=== PATIENT | female | born 1935 | race Caucasian/White ===

== ENCOUNTER 2017-12-18 18:19 | Emergency (ER) | payer OTHER ==
[~2017-12-18] VITALS: Ht 160 cm; Wt 67.4 kg
[~2017-12-18 18:19] MED LIST: ACET-749 PO; ATEN25TA PO; DYZ PO; FELO10TA PO; FEXO1TAB46 PO; FLUT0.0529 NAE; LORA-741 PO; POTA1080 PO; PRLSR20 PO; SALI0.6510 NAE
[2017-12-18 18:44] VITALS: BP 185/88; PULSE 69; TEMP 36.5; O2SAT 98; Ht 160 cm; Wt 67.4 kg
[2017-12-18] MEDS ORDERED: DIPHTHERIA/TETANUS/PERTUSSIS 0.5 ML SYR/VIAL IM. ONE (19:30)
[2017-12-18] MEDS ORDERED: LIDO/EPINEPHRINE/SOD BICARB 20 ML VIAL INFIL ONE (19:30)
--- NOTE | 2017-12-18 20:11 | EMERGENCY ROOM VISIT NOTE ---
ED Visit Note First contact with patient: 19:20 The patient was seen and examined with kojo. I agree with the history, physical and findings. Please see the note for disposition and details.
--- NOTE | 2017-12-18 20:12 | EMERGENCY ROOM VISIT NOTE ---
ED Visit Note First contact with patient: 19:20 CHIEF COMPLAINT: Left calf laceration 1 hour ago HISTORY OF PRESENT ILLNESS: Patient is a 82-year-old white female who presents the emergency department for evaluation of a laceration to her left calf that she sustained about 1-2 hours ago. She was closing the car door, and accidentally caught the back of her left leg, causing the laceration described below. She states that she went to a family member's house who bandaged it for her. She is able to walk and bear weight and has no pain. Her tetanus is greater than 10 years ago. REVIEW OF SYSTEMS: Review of systems as per HPI. All other systems reviewed were negative. At least 6 systems reviewed. PMH: Electronic medical records are reviewed and summarized as above/below. See Problem List. SOCIAL HISTORY: Patient living at home with her spouse. Retired. Non-smoker. PHYSICAL EXAM: Vital Signs: Reviewed Nurse's notes. There is a 6 cm long V- shaped laceration on the lateral aspect of the left calf. The edges are gaping apart. There is no foreign material in the wound and it looks clean. There is no active bleeding. No deep structures such as tendons or nerves are seen in the base of the wound. EMERGENCY DEPARTMENT COURSE: Using sterile technique, the wound was irrigated with saline and then cleaned with Betadine. Using 1% buffered lidocaine with epinephrine anesthesia and sterile technique, the laceration was repaired with 10, 5-0 nylon sutures. Patient tolerated the procedure well. Bacitracin and a light dressing were applied. I do not suspect fracture or foreign body. The patient declined radiographs. She was given a tetanus shot. Wound care measures were discussed. She is discharged home in good condition. Medication reconciliation: I attest that I have personally reviewed the patient' s current medication list. Blood pressure screening: Patient was found to have a elevated blood pressure likely exacerbated due to circumstances. She is followed by her doctors for hypertension. Problem List Medical Problems: (1) Acute kidney injury Status: Resolved (2) Chronic kidney disease (CKD), stage III (moderate) Status: Chronic (3) Dyslipidemia Status: Chronic (4) History of adenomatous polyp of colon Status: Chronic (5) Hypertension Nos Status: Chronic (6) Nausea, vomiting, and diarrhea Status: Resolved (7) Nonfunctioning kidney Status: Chronic (8) Staghorn calculus Status: Chronic Surgical Problems: (1) Status post appendectomy Status: Resolved (2) Status post cholecystectomy Status: Resolved Current/Historical Medications Scheduled Atenolol (Tenormin), 25 MG PO QAM Felodipine (Plendil Er), 10 MG PO QPM Fluticasone Propionate (Nasal) (Flonase), 2 SPRAYS GILL HS Potassium Citrate (Urocit-K), 10 MEQ PO BID Triamterene/Hctz (Dyazide 37.5/25 Mg), 1 CAP PO QPM Scheduled PRN Acetaminophen/Codeine (Tylenol W/Codeine #3), 1-2 TABS PO Q4 PRN for Pain Fexofenadine Hcl (Priti), 180 MG PO DAILY PRN for allergies Lorazepam (Ativan), 0.5 MG PO BID PRN for Anxiety Omeprazole (Prilosec), 20 MG PO HS PRN for Heartburn Saline ([place] Nasal [place]), 2 SPRAYS GILL Q2H PRN for nasal dryness Allergies Coded Allergies: Ampicillin (Verified Allergy, Unknown, Diarrhea, 10/28/14) Meperidine (Verified Adverse Reaction, Mild, GI SYMPTOMS, 10/28/14) Vital Signs Date Time Temp Pulse Resp B/P (MAP) Pulse Ox O2 Delivery O2 Flow Rate FiO2 12/18/17 18:44 36.5 69 18 185/88 98 Room Air Departure Information Impression Primary Impression: Laceration of lower extremity Referrals Beth Hawk D.O. (PCP) Patient Instructions My [facility] Additional Instructions Keep wound clean and dry. Do not allow any crusting or dried blood to accumulate on sutures. Clean gently with mild soap and water daily. Use an antibiotic ointment for 3-4 days, then let wound dry. Suture removal in 12-14 days. Return sooner for any signs of infection (increasing redness, swelling, drainage). Ice and elevate for swelling and pain. Tylenol 1000 mg every 6 hrs for pain. Problem Qualifiers Primary Impression: Laceration of lower extremity Encounter type: initial encounter Laterality: left Qualified Codes: S81.812A - Laceration without foreign body, left lower leg, initial encounter
== END 2017-12-18 20:39 | disposition home or self-care (01) ==
LOC: C.EDB 18:20 → C.EDD 20:39
DX: S81.812A Laceration without foreign body, left lower leg, initial encounter (principal); W26.8XXA Contact with other sharp object(s), not elsewhere classified, initial encounter; Z23 Encounter for immunization; N18.3 Chronic kidney disease, stage 3 (moderate); I12.9 Hypertensive chronic kidney disease with stage 1 through stage 4 chronic kidney disease, or unspecified chronic kidney disease; Z88.0 Allergy status to penicillin; Z88.6 Allergy status to analgesic agent

== ENCOUNTER 2020-07-06 12:21 | Observation (INO) ==
[2020-07-06] MEDS ORDERED: SODIUM CHLORIDE 0.9% 1000ML 1,000 ML IV SCH ×2 (12:45→18:19)
--- NOTE | 2020-07-06 13:03 | XRay Report ---
XR chest 1V portable CLINICAL HISTORY: SEPSIS COMPARISON STUDY: No previous studies for comparison. FINDINGS: There is a very large hiatal hernia which contains both stomach and bowel. There is no fail ure. There is no focal pulmonary consolidation. There are no pleural effusions. Arthritic changes are present within the shoulders.[ IMPRESSION: Very large hiatal hernia. No acute findings. ACT 112: Negative or not required by law. Electronically signed by: Duncan Dove M.D. 07/06/2020 1:02 PM
[2020-07-06 13:41] LABS: Basophils # (auto) 0.02 K/uL (0-0.2); Basophils % (auto) 0.3 %; Eosinophils # (auto) 0.07 K/uL (0-0.5); Eosinophils % (auto) 1.2 %; Hematocrit (blood only) 40.1 % (37-47); Hemoglobin 13.7 g/dL (12.0-16.0); Immature Granulocytes # (auto) 0.01 K/uL (0.00-0.02); Immature Granulocytes % (auto) 0.2 %; Lymphocytes # (auto) 0.92 K/uL (1.2-3.4); Lymphocytes % (auto) 15.1 %; Mean Corpuscular Hemoglobin 31.1 pg (25-34); Mean Corpuscular Hgb Conc 34.2 g/dL (32-36); Mean Corpuscular Volume 90.9 fL (80-100); Mean Platelet Volume 11.2 fL (7.4-10.4); Monocytes # (auto) 0.48 K/uL (0.11-0.59); Monocytes % (auto) 7.9 %; Neutrophils # (auto) 4.58 K/uL (1.4-6.5); Neutrophils % (auto) 75.3 %; Platelet Count 185 K/uL (130-400); RDW Coefficient of Variation 12.9 % (11.5-14.5); RDW Standard Deviation 43.2 fL (36.4-46.3); Red Blood Count 4.41 M/uL (4.2-5.4); White Blood Count 6.08 K/uL (4.8-10.8)
[2020-07-06 13:51] LABS: INR 1.1 (0.9-1.1); Partial Thromboplastin Time 27.6 Seconds (21.0-31.0); Prothrombin Time 11.5 Seconds (9.0-12.0)
--- NOTE | 2020-07-06 14:02 | Emergency Department Note ---
History of Present Illness General Chief complaint: Urinary Symptoms Stated complaint: UTI-FAILED OUT PT TREATMENT,WEAK Time Seen by Provider: 07/06/20 12:37 Source: patient Mode of arrival: EMS Limitations: no limitations History of Present Illness Provider complaint: weakness, recent UTI Onset (ago): month(s) 1 Maximum Pain Intensity: 3 Associated symptoms: + loss of appetite, + malaise and + weakness; no chest pain, no fever/chills, no headaches, no nausea/vomiting and no shortness of breath Treatments prior to arrival: none This is an 85-year-old female presents the emergency department complaining of increased weakness, and poor p.o. intake and ongoing treatment for urinary tract infection. Patient states she was initially started on ciprofloxacin, and then changed to Bactrim. Patient states that she does not feel as though she is getting any better. She denies fevers or chills. Denies lower abdominal pain or any new back pain. Patient states she still has discomfort when she urinates and feels she is urinating frequently. Patient denies noticing any change in the color or odor. Patient notes she has one functional kidney. States she does have a large kidney stone in the other. Patient states she does have difficulty with chronic recurrent urinary tract infections, denies any history of pyelonephritis. Patient states she has been to the emergency room 3 times for her symptoms. States due to concern for living alone and having to go up and down steps with her worsening weakness, she is concerned she may fall. Patient states she did recently have diarrhea although that is since improved. Pt seen during a time of high acuity and national emergency pandemic while wearing PPE. Home Medications Home Medications Medication Instructions Recorded Confirmed Type atenolol 25 mg PO QAM 11/19/18 07/06/20 History felodipine 10 mg PO 11/19/18 07/06/20 History hydrochlorothiazide 25 mg PO QAM 11/19/18 07/06/20 History lorazepam 0.5 mg PO UD PRN 11/19/18 07/06/20 History omeprazole 20 mg PO UD PRN 11/19/18 07/06/20 History potassium citrate 10 meq PO QAM 11/19/18 07/06/20 History azelastine 1 spray INTRANASAL 03/01/19 07/06/20 History fluticasone propionate 1 spray INTRANASAL HS 03/01/19 07/06/20 History meclizine 25 mg PO TID PRN #21 tab 03/01/19 07/06/20 Rx ondansetron 4 mg PO Q4H PRN #8 tab 03/01/19 07/06/20 Rx Saccharomyces boulardii [Florastor] 250 mg PO QAM 07/03/20 07/06/20 History ondansetron 4 mg PO Q8H PRN #10 tab 07/03/20 07/06/20 Rx Allergies Allergy/AdvReac Type Severity Reaction Status Date / Time ampicillin Allergy Unknown Diarrhea Verified 07/06/20 14:02 meperidine AdvReac Mild GI SYMPTOMS Verified 07/06/20 14:02 Past Med/Surg History Medical History Arthritis Chronic kidney disease Dyslipidemia Hypertension Surgical History History of appendectomy History of cholecystectomy Family History (Updated 07/06/20 @ 16:31 by Karen Gonzalez PA-C) Mother CHF (congestive heart failure) Social History Smoking Status: Never smoker Hx Alcohol Use: Yes Alcohol type: wine Hx Substance Use: No Preferred Language: Romanian Communication Ability: Effective R And D Lab Technician Required: No Beliefs That Will Affect Care: None marital status: Current Living Situation: Spouse current occupational status: retired Other Information That Helps Us Care for You: No Feels Safe at Home: Yes Safety Concerns: Feels Safe At This Time Assistive Devices: Walker Review of Systems See HPI for pertinent positives & negatives. and A total of 10 systems reviewed and were otherwise negative Physical Exam Vital Signs Vital Signs - 24 hr 07/06/20 12:28 07/06/20 12:36 07/06/20 12:39 Temperature 36.7 C Temperature Source Oral Pulse Rate 56 L 54 L 57 L Pulse Rate from SpO2 Sensor 55 L 56 L Respiratory Rate 18 18 14 Respiratory Effort / Characteristics Non-Labored Spontaneous Respiratory Depth Normal Respiratory Pattern Regular Blood Pressure 144/62 H 169/68 H Blood Pressure Mean 89 98 Blood Pressure Position Sitting Pulse Oximetry 97 97 Oxygen Delivery Method Room Air Sepsis Recent Fever Within 48 Hours No Sepsis New/Unexplained Change in Mental Status N/A Sepsis Action Taken by Nursing No Action Required 07/06/20 12:45 07/06/20 12:54 07/06/20 13:00 Temperature Temperature Source Pulse Rate 55 L 53 L Pulse Rate from SpO2 Sensor 54 L Respiratory Rate 18 17 Respiratory Effort / Characteristics Respiratory Depth Respiratory Pattern Blood Pressure Blood Pressure Mean Blood Pressure Position Pulse Oximetry 98 95 Oxygen Delivery Method Room Air Sepsis Recent Fever Within 48 Hours Sepsis New/Unexplained Change in Mental Status Sepsis Action Taken by Nursing 07/06/20 13:15 07/06/20 13:30 07/06/20 13:36 Temperature Temperature Source Pulse Rate 55 L 57 L Pulse Rate from SpO2 Sensor Respiratory Rate 17 20 Respiratory Effort / Characteristics Non-Labored Respiratory Depth Respiratory Pattern Blood Pressure 170/67 H Blood Pressure Mean 100 Blood Pressure Position Pulse Oximetry 96 Oxygen Delivery Method Room Air Sepsis Recent Fever Within 48 Hours Sepsis New/Unexplained Change in Mental Status Sepsis Action Taken by Nursing 07/06/20 13:45 07/06/20 14:00 07/06/20 14:01 Temperature Temperature Source Pulse Rate 56 L 54 L 69 Pulse Rate from SpO2 Sensor Respiratory Rate 21 19 20 Respiratory Effort / Characteristics Respiratory Depth Respiratory Pattern Blood Pressure 150/58 H Blood Pressure Mean 88 Blood Pressure Position Pulse Oximetry Oxygen Delivery Method Sepsis Recent Fever Within 48 Hours Sepsis New/Unexplained Change in Mental Status Sepsis Action Taken by Nursing 07/06/20 14:03 07/06/20 14:15 07/06/20 14:30 Temperature Temperature Source Pulse Rate 56 L 54 L Pulse Rate from SpO2 Sensor Respiratory Rate 15 18 Respiratory Effort / Characteristics Non-Labored Respiratory Depth Respiratory Pattern Blood Pressure 152/83 H Blood Pressure Mean 106 Blood Pressure Position Pulse Oximetry 96 Oxygen Delivery Method Sepsis Recent Fever Within 48 Hours Sepsis New/Unexplained Change in Mental Status Sepsis Action Taken by Nursing 07/06/20 14:45 07/06/20 15:00 07/06/20 15:01 Temperature Temperature Source Pulse Rate 56 L 56 L 56 L Pulse Rate from SpO2 Sensor Respiratory Rate 23 16 19 Respiratory Effort / Characteristics Non-Labored Spontaneous Normal for Patient Respiratory Depth Respiratory Pattern Blood Pressure 159/84 H Blood Pressure Mean 106 Blood Pressure Position Pulse Oximetry 96 95 Oxygen Delivery Method Room Air Sepsis Recent Fever Within 48 Hours Sepsis New/Unexplained Change in Mental Status Sepsis Action Taken by Nursing 07/06/20 15:15 07/06/20 15:30 07/06/20 15:31 Temperature Temperature Source Pulse Rate 56 L 58 L 59 L Pulse Rate from SpO2 Sensor Respiratory Rate 16 18 19 Respiratory Effort / Characteristics Respiratory Depth Respiratory Pattern Blood Pressure 153/63 H Blood Pressure Mean 95 Blood Pressure Position Pulse Oximetry 96 Oxygen Delivery Method Sepsis Recent Fever Within 48 Hours Sepsis New/Unexplained Change in Mental Status Sepsis Action Taken by Nursing 07/06/20 15:45 Temperature Temperature Source Pulse Rate 58 L Pulse Rate from SpO2 Sensor Respiratory Rate 16 Respiratory Effort / Characteristics Respiratory Depth Respiratory Pattern Blood Pressure Blood Pressure Mean Blood Pressure Position Pulse Oximetry Oxygen Delivery Method Sepsis Recent Fever Within 48 Hours Sepsis New/Unexplained Change in Mental Status Sepsis Action Taken by Nursing GENERAL: alert, well appearing, well nourished, no distress, non-toxic EYE EXAM: normal conjunctiva, PERRL and EOM's grossly intact OROPHARYNX: no exudate, no erythema, lips, buccal mucosa, and tongue normal and mucous membranes are moist NECK: supple, no nuchal rigidity, no adenopathy, non-tender LUNGS: Clear to auscultation. Normal chest wall mechanics, no w/r/r HEART: no murmurs, S1 normal and S2 normal ABDOMEN: abdomen soft, non-tender, normo-active bowel sounds, no masses, no rebound or guarding. BACK: Back is symmetrical on inspection and there is no deformity, no midline tenderness, no CVA tenderness. SKIN: no rashes and no bruising UPPER EXTREMITIES: upper extremities are grossly normal. FROM, nml pulses b/l. LOWER EXTREMITIES: No pitting edema. FROM, nml pulses b/l. NEURO EXAM: Normal sensorium, cranial nerves II-XII grossly intact, normal speech, no gross weakness of arms, no gross weakness of legs. Gross sensation intact. Course Course 1602: [facility]. Administered Medications Atenolol (Atenolol 25 Mg Tablet) 25 mg PO QAM [facility] Stop: 08/06/20 08:59 Last Admin: 07/07/20 08:20 Dose: 25 mg Documented by: [id number] Calcium Carbonate (Calcium Carbonate 500 Mg Chewable Tab) 500 mg PO BID PRN PRN Reason: Indigestion Stop: 08/06/20 13:38 Last Admin: 07/07/20 14:28 Dose: 500 mg Documented by: [id number] Felodipine (Felodipine 5 Mg Tabcr) 10 mg PO HS [facility] Stop: 08/05/20 20:59 Last Admin: 07/07/20 20:03 Dose: 10 mg Documented by: [id number] Admin: 07/06/20 21:13 Dose: 10 mg Documented by: [id number] Fluticasone Propionate (Fluticasone Propionate Na Spr 16 Gm Btl) 1 sprays NA [facility] Stop: 08/05/20 20:59 Last Admin: 07/07/20 21:35 Dose: 1 sprays Documented by: [id number] Admin: 07/06/20 21:13 Dose: 1 sprays Documented by: [id number] Heparin Sodium (Porcine) (Heparin Sod 5,000 Unit/0.5 Ml Vial) 5,000 units SQ Q8 [facility] Stop: 08/05/20 21:59 Last Admin: 07/07/20 21:36 Dose: 5,000 units Documented by: [id number] Cosigned by: [id number] Admin: 07/07/20 13:17 Dose: 5,000 units Documented by: [id number] Cosigned by: [id number] Admin: 07/07/20 05:51 Dose: 5,000 units Documented by: [id number] Cosigned by: [id number] Admin: 07/06/20 21:14 Dose: 5,000 units Documented by: [id number] Cosigned by: [id number] Ceftriaxone Sodium 2,000 mg/ (Dextrose) 50 mls @ 100 mls/hr IV Q24H [facility]; Protocol Stop: 07/17/20 08:59 Last Infusion: 07/07/20 08:57 Dose: 0 mls/hr Documented by: [id number] Admin: 07/07/20 08:27 Dose: 100 mls/hr Documented by: [id number] Loperamide HCl (Loperamide Hcl 2 Mg Cap) 2 mg PO Q2H PRN PRN Reason: Diarrhea Stop: 08/06/20 17:03 Last Admin: 07/07/20 17:39 Dose: 2 mg Documented by: [id number] Lorazepam (Lorazepam 0.5 Mg Tab) 0.5 mg PO BID PRN PRN Reason: Anxiety Stop: 08/05/20 18:18 Last Admin: 07/07/20 21:35 Dose: 0.5 mg Documented by: [id number] Admin: 07/07/20 01:38 Dose: 0.5 mg Documented by: [id number] Miscellaneous (Azelastine: Order Awaiting Action) 1 ea N/A QS [facility] Stop: 08/06/20 00:00 Last Admin: 07/07/20 22:24 Dose: Not Given Documented by: [id number] Admin: 07/07/20 15:42 Dose: Not Given Documented by: [id number] Admin: 07/07/20 08:20 Dose: Not Given Documented by: [id number] Admin: 07/07/20 00:42 Dose: Not Given Documented by: [id number] Ondansetron HCl (Ondansetron Inj 2 Mg/Ml 2 Ml Vial) 4 mg IV Q6H PRN PRN Reason: Nausea Stop: 08/05/20 18:18 Last Admin: 07/07/20 15:34 Dose: 4 mg Documented by: [id number] Admin: 07/06/20 19:41 Dose: 4 mg Documented by: [id number] Pantoprazole Sodium (Pantoprazole 40 Mg Tab) 40 mg PO DAILY [facility]; Protocol Stop: 08/06/20 08:59 Last Admin: 07/07/20 08:20 Dose: 40 mg Documented by: [id number] Potassium Citrate (Potassium Citrate 10 Meq Tab) 10 meq PO QAM [facility] Stop: 08/06/20 08:59 Last Admin: 07/07/20 08:20 Dose: 10 meq Documented by: [id number] Saccharomyces Boulardii (Saccharomyces Boulardii 250 Mg Cap) 250 mg PO QAM [facility] Stop: 08/06/20 08:59 Last Admin: 07/07/20 08:20 Dose: 250 mg Documented by: [id number] Discontinued Medications Sodium Chloride (Nss 1000ml) 1,000 mls @ 125 mls/hr IV .Q8H [facility] Stop: 08/05/20 12:44 Last Infusion: 07/06/20 19:32 Dose: 0 mls/hr Documented by: [id number] Admin: 07/06/20 14:03 Dose: 125 mls/hr Documented by: [id number] Ceftriaxone Sodium (Rocephin) 1,000 mg in 50 mls @ 100 mls/hr IV NOW STA Stop: 07/06/20 15:42 Last Infusion: 07/06/20 15:54 Dose: 0 mls/hr Documented by: [id number] Admin: 07/06/20 15:24 Dose: 100 mls/hr Documented by: [id number] Sodium Chloride (Nss 1000ml) 1,000 mls @ 60 mls/hr IV .[id number] [facility] Stop: 07/07/20 10:58 Last Infusion: 07/07/20 11:02 Dose: 0 mls/hr Documented by: [id number] Admin: 07/06/20 19:13 Dose: 60 mls/hr Documented by: [id number] Medical Decision Making Differential Diagnosis Differential Diagnosis includes but is not limited to dehydration, stroke, anemia, hypoglycemia, hyponatremia, hypernatremia, urinary tract infection, pneumonia, bronchitis, sepsis, gastroenteritis, additional abdominal pathology, metabolic abnormalities and infections. Medical Records Attestation: I reviewed the patient's medical records. Home Medications Current Medication List: was personally reviewed by me Laboratory Data Attestation: I reviewed the patient's lab results. Result diagrams: 07/07/20 05:57 07/07/20 05:57 Lab Results 07/06/20 07/06/20 07/06/20 Range/Units 13:12 13:12 13:12 WBC 6.08 (4.8-10.8) K/uL RBC 4.41 (4.2-5.4) M/uL Hgb 13.7 (12.0-16.0) g/dL Hct 40.1 (37-47) % MCV 90.9 (80-100) fL MCH 31.1 (25-34) pg MCHC 34.2 (32-36) g/dL RDW Std Deviation 43.2 (36.4-46.3) fL RDW Coeff of Adrienne 12.9 (11.5-14.5) % Plt Count 185 (130-400) K/uL MPV 11.2 H (7.4-10.4) fL Immature Gran % (Auto) 0.2 % Neut % (Auto) 75.3 % Lymph % (Auto) 15.1 % [place] % (Auto) 7.9 % Eos % (Auto) 1.2 % Baso % (Auto) 0.3 % Neut # (Auto) 4.58 (1.4-6.5) K/uL Lymph # (Auto) 0.92 L (1.2-3.4) K/uL [place] # (Auto) 0.48 (0.11-0.59) K/uL Eos # (Auto) 0.07 (0-0.5) K/uL Baso # (Auto) 0.02 (0-0.2) K/uL Immature Gran # (Auto) 0.01 (0.00-0.02) K/uL PT 11.5 (9.0-12.0) Seconds INR 1.1 (0.9-1.1) APTT 27.6 (21.0-31.0) Seconds PTT Ratio 1.0 Sodium (136-145) mmol/L Potassium (3.5-5.1) mmol/L Chloride (98-107) mmol/L Carbon Dioxide (21-32) mmol/L Anion Gap (3-11) BUN (7-18) mg/dl Creatinine (0.6-1.2) mg/dl Est Cr Clr Drug Dosing ml/min Est GFR ( Amer) Est GFR (Non-Af Amer) BUN/Creatinine Ratio (10-20) Glucose (70-99) mg/dl Lactate (0.4-2.0) mmol/L Calcium (8.5-10.1) mg/dl Magnesium (1.8-2.4) mg/dl Total Bilirubin (0.2-1) mg/dl AST (15-37) U/L ALT (12-78) U/L Alkaline Phosphatase (45-117) U/L Troponin I (0-0.045) ng/ml Total Protein (6.4-8.2) gm/dl Albumin (3.4-5.0) gm/dl Globulin (2.5-4.0) gm/dl Albumin/Globulin Ratio (0.9-2) Procalcitonin < 0.05 (0-0.5) ng/ml Specimen Hemolysis Urine Color Urine Appearance (Clear) Urine pH (4.5-7.5) Ur Specific [place] (1.000-1.030) Urine Protein (Negative) Urine Glucose (UA) (Negative) Urine Ketones (Negative) Urine Blood (Negative) Urine Nitrite (Negative) Urine Bilirubin (Negative) Urine Urobilinogen (Negative) Ur Leukocyte Esterase (Negative) Urine WBC (Auto) (0-5) /hpf Urine RBC (Auto) (0-4) /hpf U Hyaline Cast (Auto) (0-5) /lpf U Epithel Cells (Auto) (0-5) /lpf Urine Bacteria (Auto) (Negative) Ur Renal Epithelial Cell 07/06/20 07/06/20 07/06/20 Range/Units 13:12 13:12 13:30 WBC (4.8-10.8) K/uL RBC (4.2-5.4) M/uL Hgb (12.0-16.0) g/dL Hct (37-47) % MCV (80-100) fL MCH (25-34) pg MCHC (32-36) g/dL RDW Std Deviation (36.4-46.3) fL RDW Coeff of Adrienne (11.5-14.5) % Plt Count (130-400) K/uL MPV (7.4-10.4) fL Immature Gran % (Auto) % Neut % (Auto) % Lymph % (Auto) % [place] % (Auto) % Eos % (Auto) % Baso % (Auto) % Neut # (Auto) (1.4-6.5) K/uL Lymph # (Auto) (1.2-3.4) K/uL [place] # (Auto) (0.11-0.59) K/uL Eos # (Auto) (0-0.5) K/uL Baso # (Auto) (0-0.2) K/uL Immature Gran # (Auto) (0.00-0.02) K/uL PT (9.0-12.0) Seconds INR (0.9-1.1) APTT (21.0-31.0) Seconds PTT Ratio Sodium 130 L (136-145) mmol/L Potassium 4.2 (3.5-5.1) mmol/L Chloride 97 L (98-107) mmol/L Carbon Dioxide 24 (21-32) mmol/L Anion Gap 9.0 (3-11) BUN 22 H (7-18) mg/dl Creatinine 1.81 H (0.6-1.2) mg/dl Est Cr Clr Drug Dosing 18.0 ml/min Est GFR ( Amer) 29.0 Est GFR (Non-Af Amer) 25.1 BUN/Creatinine Ratio 12.0 (10-20) Glucose 100 H (70-99) mg/dl Lactate 1.8 (0.4-2.0) mmol/L Calcium 9.5 (8.5-10.1) mg/dl Magnesium 1.7 L (1.8-2.4) mg/dl Total Bilirubin 0.5 (0.2-1) mg/dl AST 21 (15-37) U/L ALT 20 (12-78) U/L Alkaline Phosphatase 90 (45-117) U/L Troponin I < 0.015 (0-0.045) ng/ml Total Protein 8.3 H (6.4-8.2) gm/dl Albumin 3.7 (3.4-5.0) gm/dl Globulin 4.6 H (2.5-4.0) gm/dl Albumin/Globulin Ratio 0.8 L (0.9-2) Procalcitonin (0-0.5) ng/ml Specimen Hemolysis Urine Color Yellow Urine Appearance Clear (Clear) Urine pH 7.0 (4.5-7.5) Ur Specific [place] 1.012 (1.000-1.030) Urine Protein Negative (Negative) Urine Glucose (UA) Negative (Negative) Urine Ketones Negative (Negative) Urine Blood Negative (Negative) Urine Nitrite Negative (Negative) Urine Bilirubin Negative (Negative) Urine Urobilinogen Negative (Negative) Ur Leukocyte Esterase 2+ H (Negative) Urine WBC (Auto) 10-30 H (0-5) /hpf Urine RBC (Auto) 0-4 (0-4) /hpf U Hyaline Cast (Auto) 1-5 (0-5) /lpf U Epithel Cells (Auto) >30 H (0-5) /lpf Urine Bacteria (Auto) 1+ H (Negative) Ur Renal Epithelial Cell Not Reportable Imaging Data Radiologist's Impression: XR chest 1V portable CLINICAL HISTORY: SEPSIS COMPARISON STUDY: No previous studies for comparison. FINDINGS: There is a very large hiatal hernia which contains both stomach and bowel. There is no failure. There is no focal pulmonary consolidation. There are no pleural effusions. Arthritic changes are present within the shoulders.[ IMPRESSION: Very large hiatal hernia. No acute findings. ACT 112: Negative or not required by law. Electronically signed by: Duncan Dove M.D. 07/06/2020 1:02 PM ECG Data Attestation: I personally reviewed and interpreted this ECG as follows: Indication: + weakness Rate (beats per minute): 52 Rhythm: + sinus bradycardia ECG Intervals/blocks: + Normal QRS and + Normal QT ECG ST segments: + Nonspecific ST abnormalities Comparison ECG Date: from (03/01/2020) Change: no significant change Blood Pressure Blood Pressure Findings: Elevated blood pressure Blood Pressure Disposition: further management by hospitalist KAREN Narrative Pt with increased weakness and concern for her fall risk as she lives alone. Pt with recent treatment for a UTI as an outpatient and hx of recurrent UTI. No abdominal or back pain. Pt afebrile and VS stable while in the ER. Pt with RENETTA likely from combination of dehydration due to nausea/poor appetite from the medications as well as the choice of antibiotics themselves which can be nephrotoxic, especially at her age. I do not suspect obstructive uropathy. No evidence of bacteremia/sepsis. Discussed results with patient she was in agreement with plan for additional monitoring, rehydration, recheck of her kidney function. We did attempt to ambulate patient at bedside and she was very unsteady and I do feel is a fall risk and pt does live alone. Prior culture was reviewed and rocephin added. An order was placed for continuous cardiac monitoring. The monitor shows a rate of _58__ with sinus bradycardia__ rhythm. Impression & Plan Urinary tract infection, Ambulatory dysfunction, RENETTA (acute kidney injury), Acute dehydration, Generalized weakness Discharge Plan Visit Data Chief Complaint: Urinary Symptoms Stated Complaint: UTI-FAILED OUT PT TREATMENT,WEAK ED Provider: July Silvestre Discharge Problem: Urinary tract infection, Ambulatory dysfunction, RENETTA (acute kidney injury), Acute dehydration, Generalized weakness Patient Disposition: Admitted As Inpatient Discharge Instructions Interventions: ED Discharge Assessment Last Done: 07/06/20 17:45 Discharge Problem: Urinary tract infection Qualifiers: Urinary tract infection type: acute cystitis Hematuria presence: without hematuria Qualified Code(s): N30.00 - Acute cystitis without hematuria
--- NOTE | 2020-07-06 14:04 | Electrocardiogram Report ---
Test Reason : Blood Pressure : / mmHG Vent. Rate : 052 BPM Atrial Rate : 052 BPM P-R Int : 132 ms QRS Dur : 080 ms QT Int : 462 ms P-R-T Axes : -10 056 064 degrees QTc Int : 429 ms Poor data quality, interpretation may be adversely affected Sinus bradycardia Otherwise normal ECG When compared with ECG of 01-MAR-2019 08:12, No significant change was found Confirmed by Cordell Gonzalez ([id number]) on 07/06/2020 2:04:04 PM Referred By: Confirmed By:Cordell Gonzalez
[2020-07-06 14:06] LABS: Alanine Aminotransferase 20 U/L (12-78); Albumin Globulin Ratio 0.8 (0.9-2); Albumin Level 3.7 gm/dl (3.4-5.0); Alkaline Phosphatase 90 U/L (45-117); Aspartate Aminotransferase 21 U/L (15-37); Bilirubin,Total 0.5 mg/dl (0.2-1); Blood Urea Nitrogen 22 mg/dl (7-18); Calcium 9.5 mg/dl (8.5-10.1); Carbon Dioxide 24 mmol/L (21-32); Chloride 97 mmol/L (98-107); Est GFR (Non-African American) 25.1; Globulin 4.6 gm/dl (2.5-4.0); Glucose 100 mg/dl (70-99); Magnesium 1.7 mg/dl (1.8-2.4); Potassium 4.2 mmol/L (3.5-5.1); Sodium 130 mmol/L (136-145); Total Protein 8.3 gm/dl (6.4-8.2); Troponin I < 0.015 ng/ml (0-0.045)
[2020-07-06 14:18] LABS: Appearance Urine Clear (Clear); Bilirubin Urine Negative (Negative); Blood Urine Negative (Negative); Color Urine Yellow; Epithelial Cell Urine Auto >30 /lpf (0-5); Glucose Urine UA Negative (Negative); Ketones Urine Negative (Negative); Leukocyte Esterase Urine 2+ (Negative); Nitrite Urine Negative (Negative); Protein Urine Negative (Negative); RBC Urine Automated 0-4 /hpf (0-4); Specific Gravity Urine 1.012 (1.000-1.030); Urobilinogen Urine Negative (Negative)
[2020-07-06 14:36] LABS: Bacteria Urine Automated 1+ (Negative)
[2020-07-06] MEDS ORDERED: cefTRIAXone SODIUM 1,000 MG/50 ML BAG IV STA (15:13)
--- NOTE | 2020-07-06 16:30 | History & Physical Report ---
Date of Service July 06, 2020 Assessment & Plan (1) Acute UTI: This is an 85-year-old female who has significant past medical history of HTN, HLD, CKD stage III, acquired solitary kidney, JAZMYN, GERD, vitamin D deficiency presents in the secondary to come "I have been sick for a month." Urine cx 06/26 E.coli - (resistant to amp, cipro, levoquin) - UA with esterase and nitrite Urine cx 07/03 E.coli - (sensitivities reviewed) UA today +leuk esterase, wbc wnl and afebrile urine looks improved today with numerous epis so likely contaminant, she is also afebrile and wbc so not convinced of active infection - sx may be more related to dehydration/hyopatremia admit to med/surg empiric IV rocephin until culture returns gentle IVF PT/OT (2) Acute hyponatremia: Na 130 likely in setting of dehydration/hctz gentle IVF follow bmp (3) Acute worsening of stage 3 chronic kidney disease: baseline cr 1.2-1.4 bun/cr 22 and 1.8 likely in setting of Bactrim use and poor PO intake gentle IVF hydration 60cc/hr x 1 L follow renal fxn (4) Ambulatory dysfunction: 2/2 to above PT/OT (5) Hypertension: BP controlled on felodipine, atenolol and hctz hold hctz in setting of a/c ckd monitor Bp and renal fxn (6) DVT prophylaxis: SQ heparin Disposition: admit to med/surg Follow up: PCP Dr. Hawk upon discharge Pt was seen and examined in collaboration with Dr. Beltrán, please see addendum History of Present Illness Chief Complaint: "I have been sick for a month." Primary Care Provider: Beth Hawk, This is an 85-year-old female who has significant past medical history of HTN, HLD, CKD stage III, acquired solitary kidney, JAZMYN, GERD, vitamin D deficiency presents in the secondary to come "I have been sick for a month." She initially noted approximately 1 month ago increased urinary urgency. She called her PCP who prescribed her 3 days worth of Cipro. Symptoms persisted and she has actually had 2 ER visits, 06/14 and 07/03. She got another urine sample tested which grew E. coli and she was started on Bactrim. This gave her nausea and diarrhea. Ever since she has had increased weakness, nausea, one episode of loose stool daily and ill feeling. She denies fever, chills, sweats, lightheadedness, dizziness, chest pain, shortness breath, cough, abdominal pain, hematuria, melena, hematochezia. She further denies increased urg/freq. Overall poor po intake. In ED pt remained hemodynamically stable. Lab work notable for hyponatremia 130 with elevated bun/cr from baseline to 22 and 1.81. Her mag was low at 1.7. In ED she was started on 1g IV rocephin, IVF and received mag supplementation. Allergies Allergy/AdvReac Type Severity Reaction Status Date / Time ampicillin Allergy Unknown Diarrhea Verified 07/06/20 14:02 meperidine AdvReac Mild GI SYMPTOMS Verified 07/06/20 14:02 Home Medications Home Medications Medication Instructions Recorded Confirmed Type atenolol 25 mg PO QAM 11/19/18 07/06/20 History felodipine 10 mg PO HS 11/19/18 07/06/20 History hydrochlorothiazide 25 mg PO QAM 11/19/18 07/06/20 History lorazepam 0.5 mg PO UD PRN 11/19/18 07/06/20 History omeprazole 20 mg PO UD PRN 11/19/18 07/06/20 History potassium citrate 10 meq PO QAM 11/19/18 07/06/20 History azelastine 1 spray INTRANASAL HS 03/01/19 07/06/20 History fluticasone propionate 1 spray INTRANASAL HS 03/01/19 07/06/20 History meclizine 25 mg PO TID PRN #21 tab 03/01/19 07/06/20 Rx ondansetron 4 mg PO Q4H PRN #8 tab 03/01/19 07/06/20 Rx Saccharomyces boulardii [Florastor] 250 mg PO QAM 07/03/20 07/06/20 History ondansetron 4 mg PO Q8H PRN #10 tab 07/03/20 07/06/20 Rx Past Med/Surg History Medical History Arthritis Chronic kidney disease Dyslipidemia Hypertension Surgical History History of appendectomy History of cholecystectomy Family History (Updated 07/06/20 @ 16:31 by Karen Gonzalez PA-C) Mother CHF (congestive heart failure) Social History Smoking Status: Never smoker Hx Alcohol Use: Yes Alcohol type: wine Hx Substance Use: No Preferred Language: Czech Beliefs That Will Affect Care: None marital status: Current Living Situation: Spouse current occupational status: retired Feels Safe at Home: Yes Review of Systems Review of Systems: All systems reviewed & are unremarkable except as noted in HPI & below Physical Exam Physical Exam: Constitutional: WD/WN, elderly, female, vitals as above, NAD, sitting up in bed, pleasant, conversing easily Head: Normocephalic, Atraumatic Eyes: PERRL, conjunctivae normal, anicteric sclerae ENMT: external ear and nose normal, oropharynx normal Neck: trachea midline, no thyromegaly normal visual inspection Respiratory: normal respiratory effort, lungs clear to auscultation, no wheeze, rales, rhonchi. Normal insp/exp effort, no accessory muscle use Cardiovascular: RRR, no murmur, no edema Vessels: no JVD or carotid bruit Chest: normal inspection of chest Abdomen: normal bowel sounds, soft, nontender, no hepatosplenomegaly Musculoskeletal: no cyanosis or clubbing, extremities motor strength 5/5 Skin: no rashes, warm and dry moderate turgor Neurologic: no face palsy, no dysarthria CN's II-XI intact bilaterally and moves all extremities Psychiatric: A+Ox3, euthymic affect Lymphatic: no cervical or axillary lymphadenopathy : deferred Results & Data Results & Data ([facility]) Vital Signs (Past 12 Hours) Vital Signs Temp Pulse Resp BP Pulse Ox 07/06/20 16:00 59 L 17 154/82 H 95 07/06/20 15:45 58 L 16 07/06/20 15:31 59 L 19 153/63 H 96 07/06/20 15:30 58 L 18 07/06/20 15:15 56 L 16 07/06/20 15:01 56 L 19 159/84 H 95 07/06/20 15:00 56 L 16 96 07/06/20 14:45 56 L 23 07/06/20 14:30 54 L 18 152/83 H 96 07/06/20 14:15 56 L 15 07/06/20 14:01 69 20 150/58 H 07/06/20 14:00 54 L 19 07/06/20 13:45 56 L 21 07/06/20 13:36 96 07/06/20 13:30 57 L 20 170/67 H 07/06/20 13:15 55 L 17 07/06/20 13:00 53 L 17 07/06/20 12:54 95 07/06/20 12:45 55 L 18 98 07/06/20 12:39 57 L 14 97 07/06/20 12:36 54 L 18 169/68 H 97 07/06/20 12:28 36.7 C 56 L 18 144/62 H Laboratory Results Short CBC 07/06/20 07/06/20 Range/Units 13:12 13:12 WBC 6.08 (4.8-10.8) K/uL Hgb 13.7 (12.0-16.0) g/dL Hct 40.1 (37-47) % Plt Count 185 (130-400) K/uL Sodium 130 L (136-145) mmol/L BMP 07/06/20 13:12 Sodium 130 L Potassium 4.2 Chloride 97 L Carbon Dioxide 24 BUN 22 H Creatinine 1.81 H Glucose 100 H Calcium 9.5 Cardiac Enzymes 07/06/20 Range/Units 13:12 Troponin I < 0.015 (0-0.045) ng/ml Liver Function 07/06/20 Range/Units 13:12 Total Bilirubin 0.5 (0.2-1) mg/dl AST 21 (15-37) U/L ALT 20 (12-78) U/L Alkaline Phosphatase 90 (45-117) U/L Albumin 3.7 (3.4-5.0) gm/dl Urine 07/06/20 Range/Units 13:30 Urine Color Yellow Urine Appearance Clear (Clear) Urine pH 7.0 (4.5-7.5) Ur Specific [place] 1.012 (1.000-1.030) Urine Protein Negative (Negative) Urine Glucose (UA) Negative (Negative) Diagnostic Findings CXR: IMPRESSION: Very large hiatal hernia. No acute findings. Medications Administered Sodium Chloride (Nss 1000ml) 1,000 mls @ 125 mls/hr IV .Q8H NAVEEN Stop: 08/05/20 12:44 Last Admin: 07/06/20 14:03 Dose: 125 mls/hr Documented by: [id number] Discontinued Medications Ceftriaxone Sodium (Rocephin) 1,000 mg in 50 mls @ 100 mls/hr IV NOW STA Stop: 07/06/20 15:42 Last Infusion: 07/06/20 15:54 Dose: 0 mls/hr Documented by: [id number] Admin: 07/06/20 15:24 Dose: 100 mls/hr Documented by: [id number] ECG Rate (beats per minute): 52 Rhythm: sinus bradycardia Code Status & VTE Plan Code Status Full Code VTE Prophylaxis Plan VTE Prophylaxis will be ordered: Yes Supervising Physician Co-Signing Physician Notes I saw this patient with the physician production administrative assistant, I participated in the history, physical, review of systems, and physical exam. I reviewed the medications with the patient and the physician production administrative assistant and helped reconcile the medications. I helped take a detailed family and social history as well. I formulated the assessment and plan personally with the physician production administrative assistant and went over it with the patient. ROS-No Headache, No Visual Changes, No Nausea, No Vomiting, No Fever, No Chills, No Neck Pain or Stiffness, No Chest Pain, No Palpitations, No SOB, No ESQUEDA, No Cough, No Sputum, No Wheezing, No Abdominal Pain, No Diarrhea, No Hematemesis, No Hemoptysis, No Unexpected Weight Loss, No Flank pain, No Melena, No Hematochezia, No Frequency, No Urgency, No Burning, No Hematuria, No Rashes, No Diaphoresis. Appetite is Normal Physical Exam Gen-AAO x 3, NAD, Afebrile Head-NCAT, EOMI, PERRLA, Anicteric Sclera, No Posterior Pharyngeal Erythema Neck-Supple, No JVD, No Thyromegaly, No Masses, No LAD, No Bruits Lungs-Clear to Auscultation Bilaterally, No Rales, No Rhonchi, No Wheezing, No Crepitus Chest-No S4, +S1, +S2, No S3, No Murmurs, No Rubs, No Gallops, No Ectopy Abdomen-Soft, Bowel Sounds Present, Non Tender, Non Distended, No Hepatomegaly, No Splenomegaly, No Palpable Masses, No Rebound, No Rigidity, No Guarding Musculoskeletal-Full Range of Motion Bilaterally, No CVAT Extremities-No Cyanosis, No Clubbing, No Edema Nuero-Cranial Nerves II-XII grossly intact, Motor WNL, DTRs WNL, Strength WNL, Non Focal Psych-Normal Mood
[2020-07-06] MEDS ORDERED: ALUMINUM/MAGNESIUM SUSP 30 ML UDC PO PRN (18:19)
[2020-07-06] MEDS ORDERED: MAGNESIUM HYDROXIDE SUSP 30 ML UDC PO PRN (18:19)
[2020-07-06] MEDS: ONDANSETRON INJ 2 MG/ML 2 ML VIAL IV PRN (19:41)
[2020-07-06] MEDS: FLUTICASONE PROPIONATE NA SPR 16 GM BTL SCH (21:13)
[2020-07-06] MEDS: FELODIPINE 5 MG TABCR PO SCH (21:13)
[2020-07-06] MEDS: HEPARIN SOD 5,000 UNIT/0.5 ML VIAL SQ SCH (21:14)
[2020-07-07] MEDS: LORazepam 0.5 MG TAB PO PRN ×2 (01:38→21:35)
[2020-07-07] MEDS: HEPARIN SOD 5,000 UNIT/0.5 ML VIAL SQ SCH ×3 (05:51→21:36)
[2020-07-07 06:24] LABS: Basophils # (auto) 0.04 K/uL (0-0.2); Basophils % (auto) 0.7 %; Eosinophils # (auto) 0.16 K/uL (0-0.5); Eosinophils % (auto) 2.7 %; Hematocrit (blood only) 34.2 % (37-47); Hemoglobin 11.4 g/dL (12.0-16.0); Immature Granulocytes # (auto) 0.01 K/uL (0.00-0.02); Immature Granulocytes % (auto) 0.2 %; Lymphocytes # (auto) 0.88 K/uL (1.2-3.4); Lymphocytes % (auto) 14.9 %; Mean Corpuscular Hemoglobin 30.5 pg (25-34); Mean Corpuscular Hgb Conc 33.3 g/dL (32-36); Mean Corpuscular Volume 91.4 fL (80-100); Mean Platelet Volume 10.9 fL (7.4-10.4); Monocytes # (auto) 0.52 K/uL (0.11-0.59); Monocytes % (auto) 8.8 %; Neutrophils # (auto) 4.29 K/uL (1.4-6.5); Neutrophils % (auto) 72.7 %; Platelet Count 170 K/uL (130-400); RDW Standard Deviation 43.8 fL (36.4-46.3); Red Blood Count 3.74 M/uL (4.2-5.4)
[2020-07-07 06:49] LABS: BUN Creatinine Ratio 13.9 (10-20); Calcium 8.4 mg/dl (8.5-10.1); Creatinine Clr Calc Pharmacy 21.5 ml/min; Est GFR (African American) 36.1; Est GFR (Non-African American) 31.2; Magnesium 1.6 mg/dl (1.8-2.4); Potassium 3.8 mmol/L (3.5-5.1)
[2020-07-07] MEDS: ATENOLOL 25 MG TABLET PO SCH (08:20)
[2020-07-07] MEDS: POTASSIUM CITRATE 10 MEQ TAB PO SCH (08:20)
[2020-07-07] MEDS: SACCHAROMYCES BOULARDII 250 MG CAP PO SCH (08:20)
[2020-07-07] MEDS: PANTOprazole 40 MG TAB PO SCH (08:20)
[2020-07-07] MEDS: cefTRIAXone SODIUM 2,000 MG in DEXTROSE 5% 50 ML IV SCH (08:27)
[2020-07-07] MEDS: CALCIUM CARBONATE 500 MG CHEWABLE TAB PO PRN (14:28)
[2020-07-07] MEDS: ONDANSETRON INJ 2 MG/ML 2 ML VIAL IV PRN (15:34)
--- NOTE | 2020-07-07 15:43 | Hospitalist Progress Note ---
Date of Service July 07, 2020 Assessment & Plan (1) Acute UTI: This is an 85-year-old female who has significant past medical history of HTN, HLD, CKD stage III, acquired solitary kidney, JAZMYN, GERD, vitamin D deficiency presents in the secondary to come "I have been sick for a month." Urine cx 10 E.coli - (resistant to amp, cipro, levoquin) - UA with esterase and nitrite Urine cx 07/03 E.coli - (sensitivities reviewed)-sensitive to ceftriaxone UA today +leuk esterase, wbc wnl and afebrile She got Cipro for 3 days initially and later on she was given Bactrim She has been having nausea and diarrhea which has been ongoing Urine looks improved today with numerous epis so likely contaminant, she is also afebrile and wbc so not convinced of active infection - sx may be more related to dehydration/hyopatremia Started on intravenous ceftriaxone now Urine culture is showing pinpoint growth and is being reintubated Blood cultures have been negative He has been feeling better since this morning (2) Acute hyponatremia: Na 130 likely in setting of dehydration/hctz also having diarrhea Has been receiving gentle IVF Sodium level has gone up to 135 on 07/07/2020 (3) Acute worsening of stage 3 chronic kidney disease: Acute kidney failure with chronic kidney disease Baseline cr 1.2-1.4 1 admission bun/cr 22 and 1.8 Likely in setting of Bactrim use and poor PO intake Received gentle IVF hydration 60cc/hr x 1 L Creatinine has been improving and is 1.51 today Advised to drink more fluid (4) Ambulatory dysfunction: 2/2 to above PT/OT (5) Hypertension: BP controlled on felodipine, atenolol and hctz hold hctz in setting of a/c ckd monitor Bp and renal fxn Blood pressure remains stable (6) DVT prophylaxis: SQ heparin Disposition: admit to med/surg Follow up: PCP Dr. Hawk upon discharge Admission and Anticipated Discharge Date Admission Date: July 06, 2020 Subjective 07/07/2020 The patient was seen and examined in medical floor in presence of She has been feeling generalized weakness for about a month and has had 2 courses of antibiotics for recurrent UTI She is admitted with another attack of UTI without sepsis has significant electrolyte imbalance Has been feeling reasonably better since admission Review of Systems Review of Systems: All systems reviewed and are unremarkable except as noted below Gastrointestinal: + diarrhea/loose stools Neurologic: + generalized weakness Physical Exam Physical Exam: Sitting on a chair without any acute distress Constitutional: + ill appearing and + thin; no acute distress Eyes: PERRL, conjunctivae normal, anicteric sclerae ENMT: external ear and nose normal, oropharynx normal Neck: trachea midline, no thyromegaly Respiratory: normal respiratory effort; no respiratory distress Auscultation: lungs clear to auscultation bilaterally and + crackles (Minimal crackles at the bases) Cardiovascular: Rate/Rhythm: regular rate and regular rhythm Heart Sounds: no murmur Gastrointestinal (Abdomen): Inspection/Auscultation: abdomen normal to inspection; abdomen not distended Musculoskeletal: Has osteoarthritis but no acute arthritis in any joint Neurologic: moves all extremities; no focal motor deficits Alert, awake and oriented x3. Generally weak and lethargic Psychiatric: A+Ox3, euthymic affect Lymphatic: no cervical or axillary lymphadenopathy Results & Data Results & Data ([facility]) Vital Signs (Past 12 Hours) Vital Signs Temp Pulse Resp BP Pulse Ox 07/07/20 15:11 36.8 C 76 22 110/64 95 Laboratory Results Short CBC 07/07/20 Range/Units 05:57 WBC 5.90 (4.8-10.8) K/uL Hgb 11.4 L (12.0-16.0) g/dL Hct 34.2 L (37-47) % Plt Count 170 (130-400) K/uL BMP 07/07/20 05:57 Sodium 135 L Potassium 3.8 Chloride 104 Carbon Dioxide 24 BUN 21 H Creatinine 1.51 H D Glucose 100 H Calcium 8.4 L Medications Administered Current Inpatient Medications Acetaminophen (Acetaminophen 325 Mg Tab) 650 mg PO Q4H PRN PRN Reason: pain/fever Stop: 08/05/20 18:18 Al Hydrox/Mg Hydrox/Simethicone (Aluminum/Magnesium Susp 30 Ml Udc) 30 ml PO Q6H PRN PRN Reason: Dyspepsia Stop: 08/05/20 18:18 Atenolol (Atenolol 25 Mg Tablet) 25 mg PO QAM NAVEEN Stop: 08/06/20 08:59 Last Admin: 07/07/20 08:20 Dose: 25 mg Documented by: Calcium Carbonate (Calcium Carbonate 500 Mg Chewable Tab) 500 mg PO BID PRN PRN Reason: Indigestion Stop: 08/06/20 13:38 Last Admin: 07/07/20 14:28 Dose: 500 mg Documented by: Felodipine (Felodipine 5 Mg Tabcr) 10 mg PO HS [facility] Stop: 08/05/20 20:59 Last Admin: 07/06/20 21:13 Dose: 10 mg Documented by: Fluticasone Propionate (Fluticasone Propionate Na Spr 16 Gm Btl) 1 sprays NA HS [facility] Stop: 08/05/20 20:59 Last Admin: 07/06/20 21:13 Dose: 1 sprays Documented by: Heparin Sodium (Porcine) (Heparin Sod 5,000 Unit/0.5 Ml Vial) 5,000 units SQ Q8 [facility] Stop: 08/05/20 21:59 Last Admin: 07/07/20 13:17 Dose: 5,000 units Documented by: Ceftriaxone Sodium 2,000 mg/ (Dextrose) 50 mls @ 100 mls/hr IV Q24H [facility]; Protocol Stop: 07/17/20 08:59 Last Infusion: 07/07/20 08:57 Dose: Infused Documented by: Lorazepam (Lorazepam 0.5 Mg Tab) 0.5 mg PO BID PRN PRN Reason: Anxiety Stop: 08/05/20 18:18 Last Admin: 07/07/20 01:38 Dose: 0.5 mg Documented by: Magnesium Hydroxide (Magnesium Hydroxide Susp 30 Ml Udc) 30 ml PO Q6H PRN PRN Reason: Constipation Stop: 08/05/20 18:18 Miscellaneous (Azelastine: Order Awaiting Action) 1 ea N/A QS [facility] Stop: 08/06/20 00:00 Last Admin: 07/07/20 15:42 Dose: Not Given Documented by: Ondansetron HCl (Ondansetron Inj 2 Mg/Ml 2 Ml Vial) 4 mg IV Q6H PRN PRN Reason: Nausea Stop: 08/05/20 18:18 Last Admin: 07/07/20 15:34 Dose: 4 mg Documented by: Pantoprazole Sodium (Pantoprazole 40 Mg Tab) 40 mg PO DAILY [facility]; Protocol Stop: 08/06/20 08:59 Last Admin: 07/07/20 08:20 Dose: 40 mg Documented by: Potassium Citrate (Potassium Citrate 10 Meq Tab) 10 meq PO QAM [facility] Stop: 08/06/20 08:59 Last Admin: 07/07/20 08:20 Dose: 10 meq Documented by: Saccharomyces Boulardii (Saccharomyces Boulardii 250 Mg Cap) 250 mg PO QAM [facility] Stop: 08/06/20 08:59 Last Admin: 07/07/20 08:20 Dose: 250 mg Documented by:
[2020-07-07] MEDS: LOPERAMIDE HCL 2 MG CAP PO PRN (17:39)
[2020-07-07] MEDS: FELODIPINE 5 MG TABCR PO SCH (20:03)
[2020-07-07] MEDS: FLUTICASONE PROPIONATE NA SPR 16 GM BTL SCH (21:35)
[2020-07-08] MEDS: CALCIUM CARBONATE 500 MG CHEWABLE TAB PO PRN (03:48)
[2020-07-08] MEDS: ONDANSETRON INJ 2 MG/ML 2 ML VIAL IV PRN (03:48)
[2020-07-08] MEDS: HEPARIN SOD 5,000 UNIT/0.5 ML VIAL SQ SCH ×3 (05:30→21:52)
[2020-07-08 07:42] LABS: Basophils # (auto) 0.04 K/uL (0-0.2); Basophils % (auto) 0.7 %; Eosinophils # (auto) 0.18 K/uL (0-0.5); Eosinophils % (auto) 3.1 %; Hematocrit (blood only) 34.2 % (37-47); Hemoglobin 11.7 g/dL (12.0-16.0); Immature Granulocytes # (auto) 0.01 K/uL (0.00-0.02); Immature Granulocytes % (auto) 0.2 %; Lymphocytes # (auto) 0.71 K/uL (1.2-3.4); Lymphocytes % (auto) 12.3 %; Mean Corpuscular Hemoglobin 31.1 pg (25-34); Mean Corpuscular Hgb Conc 34.2 g/dL (32-36); Mean Platelet Volume 10.7 fL (7.4-10.4); Monocytes # (auto) 0.54 K/uL (0.11-0.59); Monocytes % (auto) 9.4 %; Neutrophils # (auto) 4.28 K/uL (1.4-6.5); Neutrophils % (auto) 74.3 %; Platelet Count 138 K/uL (130-400); RDW Standard Deviation 43.1 fL (36.4-46.3); Red Blood Count 3.76 M/uL (4.2-5.4); White Blood Count 5.76 K/uL (4.8-10.8)
[2020-07-08 08:15] LABS: BUN Creatinine Ratio 12.5 (10-20); Calcium 9.8 mg/dl (8.5-10.1); Creatinine Clr Calc Pharmacy 21.8 ml/min; Est GFR (African American) 36.7; Est GFR (Non-African American) 31.7; Magnesium 1.5 mg/dl (1.8-2.4); Potassium 3.7 mmol/L (3.5-5.1)
[2020-07-08] MEDS: POTASSIUM CITRATE 10 MEQ TAB PO SCH (08:24)
[2020-07-08] MEDS: PANTOprazole 40 MG TAB PO SCH (08:24)
[2020-07-08] MEDS: ATENOLOL 25 MG TABLET PO SCH (08:24)
[2020-07-08] MEDS: cefTRIAXone SODIUM 2,000 MG in DEXTROSE 5% 50 ML IV SCH (08:24)
[2020-07-08] MEDS: SACCHAROMYCES BOULARDII 250 MG CAP PO SCH (08:24)
[2020-07-08] MEDS: MAGNESIUM SULFATE / D5W 1 GM/100 ML BAG IV SCH ×2 (10:39→12:46)
[2020-07-08] MEDS: LOPERAMIDE HCL 2 MG CAP PO PRN ×2 (10:47→17:03)
[2020-07-08] MEDS ORDERED: CETIRIZINE HCL 10 MG TABLET PO ONE (11:33)
[2020-07-08] MEDS: ACETAMINOPHEN 325 MG TAB PO PRN (15:57)
--- NOTE | 2020-07-08 16:32 | Hospitalist Progress Note ---
Date of Service July 08, 2020 Assessment & Plan (1) Acute UTI: This is an 85-year-old female who has significant past medical history of HTN, HLD, CKD stage III, acquired solitary kidney, JAZMYN, GERD, vitamin D deficiency presents in the secondary to come "I have been sick for a month." Urine cx 06/26 E.coli - (resistant to amp, cipro, levoquin) - UA with esterase and nitrite Urine cx 07/03 E.coli - (sensitivities reviewed)-sensitive to ceftriaxone UA today +leuk esterase, wbc wnl and afebrile She got Cipro for 3 days initially and later on she was given Bactrim where she developed GI side effect urine cx collected on 07/06 grew multiple organisms (Mostly Contamination) Blood cx no growth Continue IV Ceftriaxone for now, will transition to PO on discharge Clinically improves significantly (2) Acute hyponatremia: Possible related to dehydration/diarrhea Na improved from 130 to 135 Stable (3) Acute worsening of stage 3 chronic kidney disease: Acute kidney failure with chronic kidney disease Creatinine on admission with bun/cr 22 and 1.8, Baseline cr 1.2-1.4 Likely in setting of Bactrim use and poor PO intake Received gentle IVF hydration 60cc/hr x 1 L Creatinine has been improving 1.4 today Continue to hold HCTZ Will continue to avoid nephrotoxic agents (4) Hypomagnesemia: Mg 1.5 today Mg replaced Continue monitor mg level (5) Ambulatory dysfunction: Continue PT/OT Fall precaution (6) Hypertension: BP stable Continue felodipine, atenolol Continue to hold HCTZ due to RENETTA Continue monitor BMP (7) DVT prophylaxis: SQ heparin Disposition: admit to med/surg Follow up: PCP Dr. Hawk upon discharge Possible discharge tomorrrow Admission and Anticipated Discharge Date Admission Date: July 06, 2020 Subjective Pt was seen and examined Sitting in chair with no distress Pt said that she feels much batter She said that she is not having the discomfort during urination Denies any chest pain, palpitation, dizziness and SOB Physical Exam Physical Exam: General- No acute distress Head- atraumatic Eyes- PERRL, EOMI, ENT- oropharynx clear Neck- supple, no JVD Lungs- clear to auscultation Heart- regular rhythm; no murmur Abdomen- normal bowel sounds, soft, nontender Extremities- no calf tenderness Neuro- alert, oriented x 3; PERRL, EOMI; no facial palsy; no dysarthria Skin- warm & dry Results & Data Results & Data ([facility]) Vital Signs (Past 12 Hours) Vital Signs Temp Pulse Resp BP BP Pulse Ox 07/08/20 16:06 36.9 C 72 18 126/61 96 07/08/20 07:35 36.9 C 76 18 117/63 94
[2020-07-08] MEDS: FELODIPINE 5 MG TABCR PO SCH (20:39)
[2020-07-08] MEDS: FLUTICASONE PROPIONATE NA SPR 16 GM BTL SCH (20:39)
[2020-07-08] MEDS: LORazepam 0.5 MG TAB PO PRN (22:00)
[2020-07-09] MEDS: HEPARIN SOD 5,000 UNIT/0.5 ML VIAL SQ SCH ×2 (06:17→13:18)
[2020-07-09] MEDS: ACETAMINOPHEN 325 MG TAB PO PRN (06:18)
[2020-07-09 07:50] LABS: BUN Creatinine Ratio 13.4 (10-20); Calcium 9.2 mg/dl (8.5-10.1); Creatinine Clr Calc Pharmacy 21.1 ml/min; Est GFR (African American) 35.3; Est GFR (Non-African American) 30.5; Potassium 3.9 mmol/L (3.5-5.1)
[2020-07-09] MEDS: SACCHAROMYCES BOULARDII 250 MG CAP PO SCH (07:56)
[2020-07-09] MEDS: LOPERAMIDE HCL 2 MG CAP PO PRN ×2 (07:56→14:05)
[2020-07-09] MEDS: POTASSIUM CITRATE 10 MEQ TAB PO SCH (07:57)
[2020-07-09] MEDS: ATENOLOL 25 MG TABLET PO SCH (07:57)
[2020-07-09] MEDS: PANTOprazole 40 MG TAB PO SCH (07:57)
[2020-07-09] MEDS: cefTRIAXone SODIUM 2,000 MG in DEXTROSE 5% 50 ML IV SCH (07:59)
--- NOTE | 2020-07-09 14:17 | Hospitalist Progress Note ---
Date of Service July 09, 2020 Assessment & Plan (1) Acute hyponatremia: Possible related to dehydration/diarrhea Na improved from 130 to 136 Stable UTI This is an 85-year-old female who has significant past medical history of HTN, HLD, CKD stage III, acquired solitary kidney, JAZMYN, GERD, vitamin D deficiency presents in the secondary to come "I have been sick for a month." Urine cx 06/26 E.coli - (resistant to amp, cipro, levoquin) - UA with esterase and nitrite Urine cx 07/03 E.coli - (sensitivities reviewed)-sensitive to ceftriaxone UA today +leuk esterase, wbc wnl and afebrile She got Cipro for 3 days initially and later on she was given Bactrim where she developed GI side effect urine cx collected on 07/06 grew multiple organisms (Mostly Contamination) Blood cx no growth Continue IV Ceftriaxone for now, will transition to PO on discharge Clinically improves significantly (2) Acute worsening of stage 3 chronic kidney disease: Acute kidney failure with chronic kidney disease Creatinine on admission with bun/cr 22 and 1.8, Baseline cr 1.2-1.4 Likely in setting of Bactrim use and poor PO intake Received gentle IVF hydration 60cc/hr x 1 L Creatinine has been improving 1.5 today Continue to hold HCTZ while inpatient Will continue to avoid nephrotoxic agents Hypertension: BP stable Continue felodipine, atenolol Continue to hold HCTZ due to RENETTA Continue monitor BMP (3) Hypomagnesemia: Mg 2.0 today Mg stable Continue monitor mg level (4) Ambulatory dysfunction: Continue PT/OT Fall precaution (5) DVT prophylaxis: SQ heparin Disposition: admit to med/surg Follow up: PCP Dr. Hawk upon discharge Discharge home today Admission and Anticipated Discharge Date Admission Date: July 06, 2020 Subjective Pt was seen and examined Sitting in chair with no distress Pt said that she feels a lot better She said that this morning while getting up, she seems to injure her right shoulder She said that the pain is very mild I offered to get an xray for reassurance, she declined it since her pain was improved She denies any chest pain, palpitation, dizziness and SOB Physical Exam Physical Exam: General- No acute distress Head- atraumatic Eyes- PERRL, EOMI, ENT- oropharynx clear Neck- supple, no JVD Lungs- clear to auscultation Heart- regular rhythm; no murmur Abdomen- normal bowel sounds, soft, nontender Extremities- no calf tenderness, right shoulder tenderness Neuro- alert, oriented x 3; PERRL, EOMI; no facial palsy; no dysarthria Skin- warm & dry Results & Data Results & Data ([facility]) Vital Signs (Past 12 Hours) Vital Signs Temp Pulse Resp BP Pulse Ox 07/09/20 07:35 36.7 C 73 18 132/74 94
--- NOTE | 2020-07-13 08:29 | Discharge Summary ---
Date of Service July 09, 2020 Admission HPI Per Admitting Provider This is an 85-year-old female who has significant past medical history of HTN, HLD, CKD stage III, acquired solitary kidney, JAZMYN, GERD, vitamin D deficiency presents in the secondary to come "I have been sick for a month." She initially noted approximately 1 month ago increased urinary urgency. She called her PCP who prescribed her 3 days worth of Cipro. Symptoms persisted and she has actually had 2 ER visits, 06/14 and 07/03. She got another urine sample tested which grew E. coli and she was started on Bactrim. This gave her nausea and diarrhea. Ever since she has had increased weakness, nausea, one episode of loose stool daily and ill feeling. She denies fever, chills, sweats, lightheadedness, dizziness, chest pain, shortness breath, cough, abdominal pain, hematuria, melena, hematochezia. She further denies increased urg/freq. Overall poor po intake. In ED pt remained hemodynamically stable. Lab work notable for hyponatremia 130 with elevated bun/cr from baseline to 22 and 1.81. Her mag was low at 1.7. In ED she was started on 1g IV rocephin, IVF and received mag supplementation. Admission Exam Per Admitting Provider Constitutional: WD/WN, elderly, female, vitals as above, NAD, sitting up in bed, pleasant, conversing easily Head: Normocephalic, Atraumatic Eyes: PERRL, conjunctivae normal, anicteric sclerae ENMT: external ear and nose normal, oropharynx normal Neck: trachea midline, no thyromegaly normal visual inspection Respiratory: normal respiratory effort, lungs clear to auscultation, no wheeze, rales, rhonchi. Normal insp/exp effort, no accessory muscle use Cardiovascular: RRR, no murmur, no edema Vessels: no JVD or carotid bruit Chest: normal inspection of chest Abdomen: normal bowel sounds, soft, nontender, no hepatosplenomegaly Musculoskeletal: no cyanosis or clubbing, extremities motor strength 5/5 Skin: no rashes, warm and dry moderate turgor Neurologic: no face palsy, no dysarthria CN's II-XI intact bilaterally and moves all extremities Psychiatric: A+Ox3, euthymic affect Lymphatic: no cervical or axillary lymphadenopathy : deferred Principal Diagnosis Urinary tract infection (UTI) Acute hyponatremia: Acute worsening of stage 3 chronic kidney disease: Hypomagnesemia: Ambulatory dysfunction: Discharge Exam General- No acute distress Head- atraumatic Eyes- PERRL, EOMI, ENT- oropharynx clear Neck- supple, no JVD Lungs- clear to auscultation Heart- regular rhythm; no murmur Abdomen- normal bowel sounds, soft, nontender Extremities- no calf tenderness, right shoulder tenderness Neuro- alert, oriented x 3; PERRL, EOMI; no facial palsy; no dysarthria Skin- warm & dry Discharge Data Allergies Allergy/AdvReac Type Severity Reaction Status Date / Time ampicillin Allergy Unknown Diarrhea Verified 07/06/20 14:02 meperidine AdvReac Mild GI SYMPTOMS Verified 07/06/20 14:02 Consultations 07/06/20 16:01 ED Decision to Admit Stat 07/06/20 18:19 Consult Case Management - Discharge Planning Routine Ordered Studies XR chest 1V portable CLINICAL HISTORY: SEPSIS COMPARISON STUDY: No previous studies for comparison. FINDINGS: There is a very large hiatal hernia which contains both stomach and bowel. There is no failure. There is no focal pulmonary consolidation. There are no pleural effusions. Arthritic changes are present within the shoulders.[ IMPRESSION: Very large hiatal hernia. No acute findings. ACT 112: Negative or not required by law. Electronically signed by: Duncan Dove M.D. 07/06/2020 1:02 PM Dictated: 07/06/20 1301 Transcribed: 07/06/20 1301 Hospital Course (1) Acute hyponatremia: Possible related to dehydration/diarrhea Na improved from 130 to 136 Stable UTI This is an 85-year-old female who has significant past medical history of HTN, HLD, CKD stage III, acquired solitary kidney, JAZMYN, GERD, vitamin D deficiency presents in the secondary to come "I have been sick for a month." Urine cx 06/26 E.coli - (resistant to amp, cipro, levoquin) - UA with esterase and nitrite Urine cx 07/03 E.coli - (sensitivities reviewed)-sensitive to ceftriaxone UA today +leuk esterase, wbc wnl and afebrile She got Cipro for 3 days initially and later on she was given Bactrim where she developed GI side effect urine cx collected on 07/06 grew multiple organisms (Mostly Contamination) Blood cx no growth Continue IV Ceftriaxone for now, will transition to PO on discharge Clinically improves significantly (2) Acute worsening of stage 3 chronic kidney disease: Acute kidney failure with chronic kidney disease Creatinine on admission with bun/cr 22 and 1.8, Baseline cr 1.2-1.4 Likely in setting of Bactrim use and poor PO intake Received gentle IVF hydration 60cc/hr x 1 L Creatinine has been improving 1.5 today Continue to hold HCTZ while inpatient Will continue to avoid nephrotoxic agents Hypertension: BP stable Continue felodipine, atenolol Continue to hold HCTZ due to RENETTA Continue monitor BMP (3) Hypomagnesemia: Mg 2.0 today Mg stable Continue monitor mg level (4) Ambulatory dysfunction: Continue PT/OT Fall precaution (5) DVT prophylaxis: SQ heparin Disposition: admit to med/surg Follow up: PCP Dr. Hawk upon discharge Discharge home today Total Time Total Time Spent Total Time Spent (In Minutes): 35 minutes Total Time Includes: Examination of the Patient, Discharge Planning, Medication Reconciliation, Communication With Other Providers and Other Discharge Plan Discharge Items Patient Disposition: Home - Home Health Services Reason For Visit: UTI, A/C CKD 3 Discharge Diagnosis: Urinary tract infection (UTI) Acute hyponatremia: Acute worsening of stage 3 chronic kidney disease: Hypomagnesemia: Ambulatory dysfunction: Activity: Resume your previous activity Non-emergency contact: Primary Care Provider Call non-emergency contact if: you have any medication questions and your temperature is above 101 Follow-up/Referrals: Beth Hawk DO [Primary Care Provider] - (Date & Time 07/15/2020 11:10 AM Provider Beth Hawk DO [facility] ) Diet: Heart Healthy Addtl Attending Provider Instructions: Follow up with your primary care provider Dr. Hawk on 07/15 @ 10:55 AM Check BMP and magnesium level in 1 week to monitor your renal function and electrolytes Please complete the course of the antibiotic with cefdinir Continue physical therapy Fall precaution Pending Studies at Discharge: No Stand-Alone Forms: My [employer], Smoking Cessation Medications and DC Order Prescriptions: Continued atenolol 25 mg tablet 25 mg PO QAM RF: 0 lorazepam 0.5 mg tablet 0.5 mg PO UD PRN (Reason: Anxiety) RF: 0 potassium citrate 10 mEq (1,080 mg) tablet extended release 10 meq PO QAM RF: 0 omeprazole 20 mg capsule,delayed release(DR/EC) 20 mg PO UD PRN (Reason: Acid Reflux) RF: 0 felodipine 10 mg tablet extended release 24 hr 10 mg PO HS RF: 0 hydrochlorothiazide 25 mg tablet 25 mg PO QAM RF: 0 azelastine 137 mcg (0.1 %) aerosol,spray 1 spray intranasal HS RF: 0 fluticasone propionate 50 mcg/actuation spray,suspension 1 spray intranasal HS RF: 0 meclizine 25 mg tablet 25 mg PO TID PRN (Reason: dizziness) Qty: 21 RF: 0 ondansetron 4 mg tablet,disintegrating 4 mg PO Q4H PRN (Reason: nausea and vomiting) Qty: 8 RF: 0 Saccharomyces boulardii [Florastor] 250 mg capsule 250 mg PO QAM RF: 0 ondansetron 4 mg tablet,disintegrating 4 mg PO Q8H PRN (Reason: nausea and vomiting) Qty: 10 RF: 0 Discharge Orders: Discharge Order (Routine); Ordered 07/09/20 Ordered By: Akhil Joseph Admission Data Admit Date/Time: 07/06/20 16:10 Attending Provider: Akhil Joseph Admit Provider: Anand Beltrán Primary Care Provider: Beth Hawk Other Interventions: Discharge Summary Assessment (RN) Last Done: 07/09/20 14:36
== END 2020-07-09 15:10 | disposition home health service (06) ==
LOC: ED 12:21 → 3N 16:10 → SUATTDRO 16:10 → INTOOBSV 16:10 → 3N 17:45

== ENCOUNTER 2020-10-07 11:24 | Inpatient (IN) ==
[2020-10-07] MEDS ORDERED: SODIUM CHLORIDE 0.9% 1000ML 500 ML IV ONE (11:37)
[2020-10-07] MEDS ORDERED: ONDANSETRON INJ 2 MG/ML 2 ML VIAL IV STA (11:37)
--- NOTE | 2020-10-07 11:42 | Emergency Department Note ---
History of Present Illness General Chief complaint: Urinary Symptoms Stated complaint: UTI Time Seen by Provider: 10/07/20 11:29 History of Present Illness Provider complaint: Dysuria Onset (ago): month(s) 3 Location: abdomen Severity: mild Current Pain Intensity: 2 Quality: + burning and + aching Relieved By: + none Exacerbated By: + other (Urinating) Associated symptoms: + nausea/vomiting (Nausea no vomiting); no confusion, no chest pain, no cough, no fever/chills, no headaches, no shortness of breath, no syncope and no weakness 85-year-old female presents emergency department for dysuria. Patient reports a sensation of burning while urinating. Patient believes she has a UTI. Patient states she has been having UTI symptoms on and off for the last 3 months. Patient reports she was seen at [facility] and just finished a course of fosfomycin for UTI. She states this morning when she got up she started having dysuria again so she came to the emergency department. Patient also reports nausea. She reports no vomiting. No hematuria. She reports suprapubic abdominal pain. No radiation of the pain. She reports diarrhea. No melena or hematochezia. No chest pain difficulty breathing. No loss of taste or smell. No fever. Home Medications Medication Instructions Recorded Confirmed Type atenolol 25 mg PO QAM 11/19/18 10/07/20 History felodipine 10 mg PO 11/19/18 10/07/20 History hydrochlorothiazide 25 mg PO QAM 11/19/18 10/07/20 History lorazepam 0.5 mg PO UD PRN 11/19/18 10/07/20 History omeprazole 20 mg PO UD PRN 11/19/18 10/07/20 History potassium citrate 10 meq PO QAM 11/19/18 10/07/20 History azelastine 1 spray INTRANASAL HS 03/01/19 10/07/20 History fluticasone propionate 1 spray INTRANASAL 03/01/19 10/07/20 History meclizine 25 mg PO TID PRN #21 tab 03/01/19 10/07/20 Rx cefdinir 300 mg PO DIRECTED 10/07/20 10/07/20 History duloxetine 20 mg PO DIRECTED 10/07/20 10/07/20 History fosfomycin tromethamine 3 g PO DIRECTED 10/07/20 10/07/20 History Allergies Allergy/AdvReac Type Severity Reaction Status Date / Time ampicillin Allergy Unknown Diarrhea Verified 07/06/20 14:02 meperidine AdvReac Mild GI SYMPTOMS Verified 07/06/20 14:02 Past Med/Surg History Medical History Acute dehydration Acute UTI RENETTA (acute kidney injury) Ambulatory dysfunction Arthritis Chronic kidney disease Dyslipidemia Generalized weakness Hypertension Urinary tract infection Surgical History History of appendectomy History of cholecystectomy Family History Mother CHF (congestive heart failure) Social History Smoking Status: Former smoker Hx Alcohol Use: Yes Alcohol type: wine Hx Substance Use: No Preferred Language: [place] Communication Ability: Effective Trauma Therapist Required: No Beliefs That Will Affect Care: None marital status: Current Living Situation: Spouse current occupational status: retired Feels Safe at Home: Yes Assistive Devices: Walker Review of Systems A total of 10 systems reviewed and were otherwise negative Physical Exam Vital Signs Vital Signs - 24 hr 10/07/20 11:26 10/07/20 12:00 10/07/20 12:02 Temperature 36.6 C Temperature Source Temporal Artery Scan Pulse Rate 68 61 Pulse Rate [Apical] 62 Pulse Rate from SpO2 Sensor 64 Pulse Rhythm [Apical] Regular Pulse Strength [Apical] Normal Respiratory Rate 20 18 20 Respiratory Effort / Characteristics Non-Labored Spontaneous Respiratory Depth Normal Respiratory Pattern Regular Blood Pressure 179/96 H 165/81 H Blood Pressure [Right Arm] 165/81 H Blood Pressure Mean 123 134 Blood Pressure Mean [Right Arm] 109 Blood Pressure Position [Right Arm] Lying Pulse Oximetry 97 94 95 Oxygen Delivery Method Room Air Room Air Sepsis Recent Fever Within 48 Hours No Sepsis New/Unexplained Change in Mental Status No Sepsis Action Taken by Nursing No Action Required 10/07/20 12:07 10/07/20 12:39 10/07/20 12:45 Temperature Temperature Source Pulse Rate 66 62 Pulse Rate [Apical] Pulse Rate from SpO2 Sensor 64 62 Pulse Rhythm [Apical] Pulse Strength [Apical] Respiratory Rate 15 18 Respiratory Effort / Characteristics Respiratory Depth Respiratory Pattern Blood Pressure Blood Pressure [Right Arm] Blood Pressure Mean Blood Pressure Mean [Right Arm] Blood Pressure Position [Right Arm] Pulse Oximetry 95 96 95 Oxygen Delivery Method Room Air Sepsis Recent Fever Within 48 Hours Sepsis New/Unexplained Change in Mental Status Sepsis Action Taken by Nursing 10/07/20 13:00 10/07/20 13:01 Temperature Temperature Source Pulse Rate 68 64 Pulse Rate [Apical] Pulse Rate from SpO2 Sensor 67 64 Pulse Rhythm [Apical] Pulse Strength [Apical] Respiratory Rate 20 16 Respiratory Effort / Characteristics Respiratory Depth Respiratory Pattern Blood Pressure 175/67 H Blood Pressure [Right Arm] Blood Pressure Mean 110 Blood Pressure Mean [Right Arm] Blood Pressure Position [Right Arm] Pulse Oximetry 93 96 Oxygen Delivery Method Sepsis Recent Fever Within 48 Hours Sepsis New/Unexplained Change in Mental Status Sepsis Action Taken by Nursing Physical Exam GENERAL: She is oriented to person, place, and time. She appears well-developed and well-nourished. She does not appear distressed. HENT: Exam performed. -Head: Normocephalic and atraumatic. -Right Ear: External ear normal. No mastoid tenderness. -Left Ear: External ear normal. No mastoid tenderness. -Mouth/Throat: The oropharynx is clear and moist. No trismus in the jaw. No dental abscesses or uvula swelling. No oropharyngeal exudate or tonsillar abscesses. EYES: Conjunctivae and EOM are normal. Pupils are equal, round, and reactive to light. Right eye exhibits no discharge. Left eye exhibits no discharge. No scleral icterus. NECK: Normal range of motion. Neck supple. No JVD present. No spinous process tenderness present. No carotid bruit present. No rigidity. No tracheal deviation and normal range of motion present. No Brudzinski's sign and no Kernig's sign noted. CV: Normal rate, regular rhythm, normal heart sounds and intact distal pulses. There is no peripheral edema. Palpable radial pulses bue. PULM/CHEST: Effort normal and breath sounds normal. No respiratory distress. No stridor. She has no wheezes. She has no rales. -Chest Wall: She exhibits no tenderness. ABD: The abdomen is soft. Bowel sounds are normal. She has no distension. No mass is present. There is tenderness to palpation of the suprapubic area. There is no rebound, no guarding, no Merrill's sign and no tenderness at McBurney's point. Rovsig negative MUSC/SKEL: Normal range of motion. There is no peripheral edema, tenderness or deformity. LYMPH: No cervical adenopathy. NEURO: She is alert and oriented to person, place, and time. She has normal strength. No cranial nerve deficit or sensory deficit. Coordination and gait normal. GCS eye subscore is 4. GCS verbal subscore is 5. GCS motor subscore is 6. Cerebellar tests wnl. SKIN: Skin is warm and dry. She is not diaphoretic. PSYCH: She has a normal mood and affect. Behavior is normal. Judgment and thought content normal. Course Course 1129: The patient was evaluated in room A2. A complete history and physical exam was performed. Cardiac monitoring: An order was placed for continuous cardiac monitoring. The monitor shows a rate of 70 with sinus rhythm 1321: Vital signs stable. Labs within normal limits. Urine culture from specimen on September 23, 2020 was accessed by Lelia from the [employer] as in her system. Urine culture showed E. coli ESBL. Drug was resistant to many antibiotics. There is intermediate resistance to Levaquin and Cipro. Patient was sensitive to meropenem, Macrobid, Zosyn. Intermediate resistance to tobramycin. Given the patient's CKD, discussed with pharmacy and nitrofurantoin would not be a good option for the patient. Patient will be started on IV antibiotics and admitted to the [facility] team spoke with Barbara Palomares PA-C who stated to admit to Dr. Garza. Administered Medications Ertapenem 1,000 mg/ Sodium (Chloride) 60 mls @ 100 mls/hr IV NOW STA Stop: 10/07/20 13:26 Last Admin: 10/07/20 13:05 Dose: 100 mls/hr Documented by: [id number] Discontinued Medications Sodium Chloride (Nss 1000ml) 500 mls @ 999 mls/hr IV .Q31M ONE Stop: 10/07/20 12:07 Last Infusion: 10/07/20 12:51 Dose: 0 mls/hr Documented by: [id number] Admin: 10/07/20 11:55 Dose: 999 mls/hr Documented by: [id number] Ondansetron HCl (Ondansetron Inj 2 Mg/Ml 2 Ml Vial) 4 mg IV NOW STA Stop: 10/07/20 11:38 Last Admin: 10/07/20 11:55 Dose: 4 mg Documented by: [id number] Medical Decision Making Laboratory Data Result diagrams: 10/07/20 11:54 10/07/20 11:54 Lab Results 10/07/20 10/07/20 10/07/20 Range/Units 11:45 11:54 11:54 WBC 6.12 (4.8-10.8) K/uL RBC 4.40 (4.2-5.4) M/uL Hgb 14.0 (12.0-16.0) g/dL Hct 41.7 (37-47) % MCV 94.8 (80-100) fL MCH 31.8 (25-34) pg MCHC 33.6 (32-36) g/dL RDW Std Deviation 46.9 H (36.4-46.3) fL RDW Coeff of Adrienne 13.5 (11.5-14.5) % Plt Count 174 (130-400) K/uL MPV 10.9 H (7.4-10.4) fL Immature Gran % (Auto) 0.2 % Neut % (Auto) 79.9 % Lymph % (Auto) 13.9 % Mcclain % (Auto) 4.7 % Eos % (Auto) 1.0 % Baso % (Auto) 0.3 % Neut # (Auto) 4.89 (1.4-6.5) K/uL Lymph # (Auto) 0.85 L (1.2-3.4) K/uL Mcclain # (Auto) 0.29 (0.11-0.59) K/uL Eos # (Auto) 0.06 (0-0.5) K/uL Baso # (Auto) 0.02 (0-0.2) K/uL Immature Gran # (Auto) 0.01 (0.00-0.02) K/uL Sodium 144 (136-145) mmol/L Potassium 3.6 (3.5-5.1) mmol/L Chloride 112 H (98-107) mmol/L Carbon Dioxide 27 (21-32) mmol/L Anion Gap 5.0 (3-11) BUN 15 (7-18) mg/dl Creatinine 0.92 (0.6-1.2) mg/dl Est Cr Clr Drug Dosing 38.7 ml/min Est GFR ( Amer) 65.8 Est GFR (Non-Af Amer) 56.8 BUN/Creatinine Ratio 16.1 (10-20) Glucose 91 (70-99) mg/dl Lactate (0.4-2.0) mmol/L Calcium 8.9 (8.5-10.1) mg/dl Urine Color Yellow Urine Appearance Cloudy A (Clear) Urine pH 5.5 (4.5-7.5) Ur Specific [place] 1.011 (1.000-1.030) Urine Protein 2+ H (Negative) Urine Glucose (UA) Negative (Negative) Urine Ketones Negative (Negative) Urine Blood 1+ H (Negative) Urine Nitrite Positive A (Negative) Urine Bilirubin Negative (Negative) Urine Urobilinogen Negative (Negative) Ur Leukocyte Esterase 3+ H (Negative) Urine WBC (Auto) >30 H (0-5) /hpf Urine RBC (Auto) 0-4 (0-4) /hpf U Hyaline Cast (Auto) 1-5 (0-5) /lpf U Epithel Cells (Auto) >30 H (0-5) /lpf Urine Bacteria (Auto) 4+ H (Negative) 10/07/20 Range/Units 12:40 WBC (4.8-10.8) K/uL RBC (4.2-5.4) M/uL Hgb (12.0-16.0) g/dL Hct (37-47) % MCV (80-100) fL MCH (25-34) pg MCHC (32-36) g/dL RDW Std Deviation (36.4-46.3) fL RDW Coeff of Adrienne (11.5-14.5) % Plt Count (130-400) K/uL MPV (7.4-10.4) fL Immature Gran % (Auto) % Neut % (Auto) % Lymph % (Auto) % Mcclain % (Auto) % Eos % (Auto) % Baso % (Auto) % Neut # (Auto) (1.4-6.5) K/uL Lymph # (Auto) (1.2-3.4) K/uL Mcclain # (Auto) (0.11-0.59) K/uL Eos # (Auto) (0-0.5) K/uL Baso # (Auto) (0-0.2) K/uL Immature Gran # (Auto) (0.00-0.02) K/uL Sodium (136-145) mmol/L Potassium (3.5-5.1) mmol/L Chloride (98-107) mmol/L Carbon Dioxide (21-32) mmol/L Anion Gap (3-11) BUN (7-18) mg/dl Creatinine (0.6-1.2) mg/dl Est Cr Clr Drug Dosing ml/min Est GFR ( Amer) Est GFR (Non-Af Amer) BUN/Creatinine Ratio (10-20) Glucose (70-99) mg/dl Lactate 1.2 (0.4-2.0) mmol/L Calcium (8.5-10.1) mg/dl Urine Color Urine Appearance (Clear) Urine pH (4.5-7.5) Ur Specific [place] (1.000-1.030) Urine Protein (Negative) Urine Glucose (UA) (Negative) Urine Ketones (Negative) Urine Blood (Negative) Urine Nitrite (Negative) Urine Bilirubin (Negative) Urine Urobilinogen (Negative) Ur Leukocyte Esterase (Negative) Urine WBC (Auto) (0-5) /hpf Urine RBC (Auto) (0-4) /hpf U Hyaline Cast (Auto) (0-5) /lpf U Epithel Cells (Auto) (0-5) /lpf Urine Bacteria (Auto) (Negative) [facility] Narrative 1129: The patient was evaluated in room A2. A complete history and physical exam was performed. Cardiac monitoring: An order was placed for continuous cardiac monitoring. The monitor shows a rate of 70 with sinus rhythm 1321: Vital signs stable. Labs within normal limits. Urine culture from specimen on September 23, 2020 was accessed by Lelia from the [employer] as in her system. Urine culture showed E. coli ESBL. Drug was resistant to many antibiotics. There is intermediate resistance to Levaquin and Cipro. Patient was sensitive to meropenem, Macrobid, Zosyn. Intermediate resistance to tobramycin. Given the patient's CKD, discussed with pharmacy and nitrofurantoin would not be a good option for the patient. Patient will be started on IV antibiotics and admitted to the [facility] team spoke with Barbara Palomares PA-C who stated to admit to Dr. Garza. Impression & Plan Urinary tract infection due to extended-spectrum beta lactamase (ESBL) producing Escherichia coli Discharge Plan Visit Data Chief Complaint: Urinary Symptoms Stated Complaint: UTI ED Provider: Junior Crawley Discharge Problem: Urinary tract infection due to extended-spectrum beta lactamase (ESBL) producing Escherichia coli Patient Disposition: Being Evaluated by Hospitalist Forms Stand Alone Forms: My [facility] Prescriptions Prescriptions: No Action atenolol 25 mg tablet 25 mg PO QAM RF: 0 lorazepam 0.5 mg tablet 0.5 mg PO UD PRN (Reason: Anxiety) RF: 0 potassium citrate 10 mEq (1,080 mg) tablet extended release 10 meq PO QAM RF: 0 omeprazole 20 mg capsule,delayed release(DR/EC) 20 mg PO UD PRN (Reason: Acid Reflux) RF: 0 felodipine 10 mg tablet extended release 24 hr 10 mg PO HS RF: 0 hydrochlorothiazide 25 mg tablet 25 mg PO QAM RF: 0 azelastine 137 mcg (0.1 %) aerosol,spray 1 spray intranasal HS RF: 0 fluticasone propionate 50 mcg/actuation spray,suspension 1 spray intranasal HS RF: 0 meclizine 25 mg tablet 25 mg PO TID PRN (Reason: dizziness) Qty: 21 RF: 0 fosfomycin tromethamine 3 gram packet 3 g PO DIRECTED RF: 0 cefdinir 300 mg capsule 300 mg PO DIRECTED RF: 0 duloxetine 20 mg capsule,delayed release(DR/EC) 20 mg PO DIRECTED RF: 0 Referrals Referrals: Beth Hawk DO [Primary Care Provider] -
[2020-10-07 12:09] LABS: Basophils # (auto) 0.02 K/uL (0-0.2); Basophils % (auto) 0.3 %; Eosinophils # (auto) 0.06 K/uL (0-0.5); Hematocrit (blood only) 41.7 % (37-47); Immature Granulocytes # (auto) 0.01 K/uL (0.00-0.02); Immature Granulocytes % (auto) 0.2 %; Lymphocytes # (auto) 0.85 K/uL (1.2-3.4); Lymphocytes % (auto) 13.9 %; Mean Corpuscular Hemoglobin 31.8 pg (25-34); Mean Corpuscular Hgb Conc 33.6 g/dL (32-36); Mean Corpuscular Volume 94.8 fL (80-100); Mean Platelet Volume 10.9 fL (7.4-10.4); Monocytes # (auto) 0.29 K/uL (0.11-0.59); Monocytes % (auto) 4.7 %; Neutrophils # (auto) 4.89 K/uL (1.4-6.5); Neutrophils % (auto) 79.9 %; Platelet Count 174 K/uL (130-400); RDW Coefficient of Variation 13.5 % (11.5-14.5); RDW Standard Deviation 46.9 fL (36.4-46.3); White Blood Count 6.12 K/uL (4.8-10.8)
[2020-10-07 12:10] LABS: Appearance Urine Cloudy (Clear); Bacteria Urine Automated 4+ (Negative); Bilirubin Urine Negative (Negative); Blood Urine 1+ (Negative); Color Urine Yellow; Epithelial Cell Urine Auto >30 /lpf (0-5); Glucose Urine UA Negative (Negative); Ketones Urine Negative (Negative); Leukocyte Esterase Urine 3+ (Negative); Nitrite Urine Positive (Negative); Protein Urine 2+ (Negative); RBC Urine Automated 0-4 /hpf (0-4); Specific Gravity Urine 1.011 (1.000-1.030); Urobilinogen Urine Negative (Negative); WBC Urine Automated >30 /hpf (0-5); pH Urine 5.5 (4.5-7.5)
[2020-10-07 12:27] LABS: BUN Creatinine Ratio 16.1 (10-20); Calcium 8.9 mg/dl (8.5-10.1); Creatinine Clr Calc Pharmacy 38.7 ml/min; Est GFR (African American) 65.8; Est GFR (Non-African American) 56.8; Potassium 3.6 mmol/L (3.5-5.1)
[2020-10-07] MEDS ORDERED: ERTAPENEM SODIUM 1,000 MG in SODIUM CHLORIDE 0.9% 50 ML IV STA (12:51)
--- NOTE | 2020-10-07 13:48 | History & Physical Report ---
Date of Service October 07, 2020 Assessment & Plan (1) UTI due to extended-spectrum beta lactamase (ESBL) producing Escherichia coli: Pt is 85 y/o F with PMH HTN, HLD, CKD stage III, acquired solitary kidney, JAZMYN, GERD presented to ER for urinary symptoms. Outpatient [facility] Urine culture from 09/23/2020 resistant e coli ESBL. Initially treated with Omnicef then changed to fosfomycin x 3 days. Denies fever, back pain In ER vitals stable. No leukocytosis. BUN: 15, Cr: 0.9, GFR: 65 Normal lactate. UA: +nitrite, 1+blood, 3+leuk esterase, >30 WBC, 4+ bacteria, >30 epithelial No CVA tenderness on exam In ER ertapenem given secondary to prior urine culture and pts renal function Will continue ertapenem ID consult Blood cultures pending CBC, BMP in am (2) Diarrhea: Past 2-3 days with one episode diarrhea since on fosfomycin Gentle IVF Cdiff pending Monitor (3) CKD (chronic kidney disease), stage III: (4) Solitary kidney: Cr: 0.9, GFR: 65. Baseline Cr: 1.2 Monitor renal functions (5) Hypertension: Did not have am meds Continue felodipine, atenolol DVT Prophylaxis -Heparin SQ DNR/DNI as per discussion with pt Follows with Dr Hawk for routine care Pt was seen and care coordinated with Dr Dey. See addendum History of Present Illness Chief Complaint: Urinary symptoms Primary Care Provider: Beth Hawk DO Pt is 85 y/o F with PMH HTN, HLD, CKD stage III, acquired solitary kidney, JAZMYN, GERD presented to ER for urinary symptoms. Pt having intermittent UTI symptoms since 06/2020. Was hospitalized in 06/2020 for UTI with urine culture e coli resistant to ampicillin & cefazolin. Pt states couple weeks ago started with dysuria, urinary frequency. PCP started on omnicef. Outpatient [facility] Urine culture from 09/23/2020 ESBL. Infectious disease recommended fosfomycin x 3 days. Pt finished this yesterday. States less dysuria, urinary frequency but still present. Since started fosfomycin started with nausea and diarrhea daily. Also c/o lower abdominal discomfort. Denies fevers. Reports always feels cold. Denies vomiting. Denies diaphoresis, melena, hematochezia, hematuria, AMADOR, dizziness, syncope, vision changes, neck pain, CP, SOB, orthopnea, palpitations, cough, sore throat, choking, otalgia, rhinorrhea, paresthesias, weakness, extremity weakness, extremity edema, rashes. Denies ill contacts Allergies Allergy/AdvReac Type Severity Reaction Status Date / Time ampicillin Allergy Unknown Diarrhea Verified 07/06/20 14:02 meperidine AdvReac Mild GI SYMPTOMS Verified 07/06/20 14:02 Home Medications Medication Instructions Recorded Confirmed Type atenolol 25 mg PO QAM 11/19/18 10/07/20 History felodipine 10 mg PO HS 11/19/18 10/07/20 History lorazepam 0.5 mg PO BID PRN 11/19/18 10/07/20 History omeprazole 20 mg PO DAILY PRN 11/19/18 10/07/20 History potassium citrate 10 meq PO QAM 11/19/18 10/07/20 History fluticasone propionate 1 spray INTRANASAL HS 03/01/19 10/07/20 History meclizine 25 mg PO TID PRN #21 tab 03/01/19 10/07/20 Rx duloxetine 20 mg PO DAILY 10/07/20 10/07/20 History fexofenadine 180 mg PO DAILY 10/07/20 10/07/20 History fosfomycin tromethamine 3 g PO DIRECTED 10/07/20 10/07/20 History Past Med/Surg History Medical History Acute dehydration Acute UTI RENETTA (acute kidney injury) Ambulatory dysfunction Arthritis Chronic kidney disease Dyslipidemia Generalized weakness Hypertension Urinary tract infection Surgical History History of appendectomy History of cholecystectomy Family History Mother CHF (congestive heart failure) Social History (Updated 10/07/20 @ 14:21 by Maxine Fried PA-C) Smoking Status: Never smoker Hx Alcohol Use: Yes Alcohol type: wine Alcohol Intake Frequency: Monthly or Less Hx Substance Use: No Preferred Language: Uzbek Communication Ability: Effective Chemical Handler Required: No Beliefs That Will Affect Care: None marital status: Current Living Situation: Spouse current occupational status: retired Other Information That Helps Us Care for You: No Feels Safe at Home: Yes Safety Concerns: Feels Safe At This Time Assistive Devices: Cane, Glasses and Walker Review of Systems Review of Systems: All systems reviewed & are unremarkable except as noted in HPI & below Physical Exam Physical Exam: General: no distress, WDWN Head: normocephalic, atraumatic Eyes: conjunctiva non-injected, anicteric ENT: normal inspection external ears, nose, mucous membranes moist Neck: supple, trachea midline Lungs: clear, no respiratory distress, no wheezing/rhonchi/rales CV: RRR, no murmur, trace pretibial edema Abd: normal BS, soft, non-tender to palpation, no CVA tenderness to percussion Ext: no cyanosis, no calf tenderness Neuro: A&O x 3, no focal deficits noted, normal affect Skin: warm, dry Results & Data Results & Data ([facility]) Vital Signs (Past 12 Hours) Vital Signs Temp Pulse Pulse Resp BP BP Pulse Ox 10/07/20 13:27 98 10/07/20 13:22 68 22 10/07/20 13:02 66 21 95 10/07/20 13:01 64 16 175/67 H 96 10/07/20 13:00 68 20 93 10/07/20 12:45 62 18 95 10/07/20 12:39 66 15 96 10/07/20 12:07 95 10/07/20 12:02 62 20 165/81 H 95 10/07/20 12:00 61 18 165/81 H 94 10/07/20 11:26 36.6 C 68 20 179/96 H 97 Laboratory Results Short CBC 10/07/20 Range/Units 11:54 WBC 6.12 (4.8-10.8) K/uL Hgb 14.0 (12.0-16.0) g/dL Hct 41.7 (37-47) % Plt Count 174 (130-400) K/uL BMP 10/07/20 11:54 Sodium 144 Potassium 3.6 Chloride 112 H Carbon Dioxide 27 BUN 15 Creatinine 0.92 Glucose 91 Calcium 8.9 Urine 10/07/20 Range/Units 11:45 Urine Color Yellow Urine Appearance Cloudy A (Clear) Urine pH 5.5 (4.5-7.5) Ur Specific [place] 1.011 (1.000-1.030) Urine Protein 2+ H (Negative) Urine Glucose (UA) Negative (Negative) Code Status & VTE Plan VTE Prophylaxis Plan VTE Prophylaxis will be ordered: Yes Supervising Physician Co-Signing Physician Notes 85-year-old woman with history of hypertension, nephrolithiasis, solitary kidney who presents to the hospital complaining of dysuria, frequency. History notable for recurrent urinary symptoms in the past 3 months, hospitalization in June 2020 for ESBL UTI. Recent urine culture from 09/23/2020 growing ESBL E. coli. Also reports nausea and diarrhea since starting fosfomycin prescribed outpatient for UTI. Physical exam notable for elderly woman in no obvious distress, no abdominal or CVA tenderness. Lab work notable for pyuria on urinalysis with positive nitrite and esterase. Negative C diff -Recurrent urinary tract infection secondary to ESBL E. coli Start IV ertapenem Follow-up urine cultures obtained in ER ID consult in view of recurrent UTI. Will give IV fluids 75 cc/h of for 1 L and monitor. IV Zofran as needed for nausea Other plans as stated above
[2020-10-07] MEDS: ATENOLOL 25 MG TABLET PO SCH (16:11)
[2020-10-07] MEDS ORDERED: SODIUM CHLORIDE 0.9% 1000ML 1,000 ML IV SCH (18:11)
[2020-10-07] MEDS ORDERED: DULoxetine HCL 20 MG CAP PO SCH (18:11)
[2020-10-07] MEDS ORDERED: PANTOprazole 40 MG TAB PO PRN (18:23)
[2020-10-07] MEDS ORDERED: CONSULT PHARMACY PRN (18:35)
[2020-10-07] MEDS: FELODIPINE 5 MG TABCR PO SCH (20:46)
[2020-10-07] MEDS: HEPARIN SOD 5,000 UNIT/0.5 ML VIAL SQ SCH (20:48)
[2020-10-07] MEDS: FLUTICASONE PROPIONATE NA SPR 16 GM BTL NAE SCH (20:48)
[2020-10-08] MEDS: LORazepam 0.5 MG TAB PO PRN ×2 (00:08→23:43)
[2020-10-08] MEDS: ONDANSETRON INJ 2 MG/ML 2 ML VIAL IV PRN ×4 (03:36→23:43)
[2020-10-08 07:23] LABS: Hematocrit (blood only) 37.1 % (37-47); Hemoglobin 12.3 g/dL (12.0-16.0); Mean Corpuscular Hemoglobin 31.1 pg (25-34); Mean Corpuscular Hgb Conc 33.2 g/dL (32-36); Mean Corpuscular Volume 93.9 fL (80-100); Mean Platelet Volume 10.9 fL (7.4-10.4); Platelet Count 147 K/uL (130-400); RDW Coefficient of Variation 13.3 % (11.5-14.5); RDW Standard Deviation 45.8 fL (36.4-46.3); Red Blood Count 3.95 M/uL (4.2-5.4); White Blood Count 5.83 K/uL (4.8-10.8)
[2020-10-08 07:42] LABS: BUN Creatinine Ratio 13.1 (10-20); Calcium 8.5 mg/dl (8.5-10.1); Creatinine Clr Calc Pharmacy 45.1 ml/min; Est GFR (African American) 79.1; Est GFR (Non-African American) 68.3; Potassium 3.3 mmol/L (3.5-5.1)
[2020-10-08] MEDS: ACETAMINOPHEN 325 MG TAB PO PRN (08:53)
[2020-10-08] MEDS: DULoxetine HCL 20 MG CAP PO SCH (08:55)
[2020-10-08] MEDS: ATENOLOL 25 MG TABLET PO SCH (08:55)
[2020-10-08] MEDS: HEPARIN SOD 5,000 UNIT/0.5 ML VIAL SQ SCH ×2 (08:56→20:20)
[2020-10-08] MEDS: FEXOFENADINE HCL 180 MG TAB PO SCH (08:56)
[2020-10-08] MEDS: POTASSIUM CITRATE 10 MEQ TAB PO SCH (08:56)
[2020-10-08] MEDS: POTASSIUM CHLORIDE CRTAB 20 MEQ TABCR PO ONE ×2 (13:18→13:30)
[2020-10-08] MEDS: ERTAPENEM SODIUM 1,000 MG in SODIUM CHLORIDE 0.9% 50 ML IV SCH (13:21)
[2020-10-08] MEDS: LACTOBACILLUS ACIDOPHILUS 1 GM PACK PO SCH ×2 (13:21→16:42)
--- NOTE | 2020-10-08 13:33 | Hospitalist Progress Note ---
Date of Service October 08, 2020 Assessment & Plan (1) UTI due to extended-spectrum beta lactamase (ESBL) producing Escherichia coli: Patient is an 85 yr female with H/O HTN, HLD, CKD stage III, acquired solitary kidney, JAZMYN, GERD presented to ER for urinary symptoms. Outpatient [facility] U rine culture from 09/23/2020 resistant e coli ESBL. Initially treated with Omnicef then changed to fosfomycin x 3 days. UTI No signs of sepsis Blood Cx: Pending Urine culture: Preliminary--E.coli Continue IV Ertapenem Day #2 ID consulted Given persistent symptoms, recurrent UTIs, will need urology evaluation outpatient Will obtain renal/bladder USD (2) Diarrhea: Likely due to Antibiotics Stool for C diff negative Improved Monitor Hypokalemia On chronic potassium supplements Replace electrolytes as needed Monitor (3) CKD (chronic kidney disease), stage III: (4) Solitary kidney: Baseline Cr: 1.2 Monitor renal functions Avoid nephrotoxic agents as able (5) Hypertension: Continue felodipine, atenolol DVT Px: Heparin SQ Code Status DNR/DNI Disposition PT/OT prior to discharge Follows with Dr Hawk for routine care Admission and Anticipated Discharge Date Admission Date: October 07, 2020 Subjective Patient is seen and examined at bedside Diarrhea resolved Reports intermittent dysuria Also states having minimal low back pain Denies chest pain, dyspnea, hematuria, dizziness, nausea, vomiting, abdominal pain Offers no other complaints Review of Systems Review of Systems: All systems reviewed & are unremarkable except as noted in HPI & below Physical Exam Physical Exam: Physical Exam: Vitals signs as noted above General Appearance:Thin, frail, elderly, no distress Head: normocephalic, Atraumatic Eyes: normal inspection, EOMI Neck: supple, Trachea midline Respiratory/Chest: Normal breath sounds, CTA Cardiovascular: S1, S2, No murmur Abdomen/GI:Soft, Non tender, Bowel sounds present Extremities/Musculoskelatal:normal inspection, no edema Neurologic/Psych:AAOX3, grossly no focal neurological deficits Skin: normal color, warm Results & Data Results & Data ([facility]) Vital Signs (Past 12 Hours) Vital Signs Temp Pulse Resp BP Pulse Ox 10/08/20 07:49 36.7 C 78 16 151/67 H 94 Laboratory Results Short CBC 10/08/20 Range/Units 07:05 WBC 5.83 (4.8-10.8) K/uL Hgb 12.3 (12.0-16.0) g/dL Hct 37.1 (37-47) % Plt Count 147 (130-400) K/uL [facility] 10/08/20 07:05 Sodium 143 Potassium 3.3 L Chloride 111 H Carbon Dioxide 27 BUN 10 D Creatinine 0.79 Glucose 99 Calcium 8.5
[2020-10-08] MEDS: LOPERAMIDE HCL 2 MG CAP PO PRN (14:01)
--- NOTE | 2020-10-08 15:10 | Ultrasound Report ---
EXAMINATION: RENAL ULTRASOUND CLINICAL HISTORY: Recurrent UTI, R/O Obstruction COMPARISON STUDY: CT scan dated 06/14/2020 FINDINGS: There is a 3.5 cm right renal calculus. The right kidney is hard to delineate. This is in keeping wit h the CT findings of marked cortical atrophy. The left kidney measures 10.8 cm in length. There are parapelvic cysts versus mild hydronephrosis. Th e findings appear similar to the prior CT scan. The bladder appears trabeculated. Ureteral jets were visualized. IMPRESSION : 1. 3.5 cm right renal calculus with marked renal cortical atrophy 2. Left renal parapelvic cyst versus mild hydronephrosis. The findings remain similar to the prior 2019 CT scan. 3. Trabeculated bladder ACT 112: Negative or not required by law. Electronically signed by: Duncan Dove M.D. 10/08/2020 3:09 PM
[2020-10-08] MEDS ORDERED: CALCIUM CARBONATE 500 MG CHEWABLE TAB PO PRN (19:36)
[2020-10-08] MEDS: FLUTICASONE PROPIONATE NA SPR 16 GM BTL NAE SCH (20:18)
[2020-10-08] MEDS: FELODIPINE 5 MG TABCR PO SCH (20:19)
[2020-10-09 07:35] LABS: BUN Creatinine Ratio 16.7 (10-20); Calcium 9.2 mg/dl (8.5-10.1); Creatinine Clr Calc Pharmacy 41.9 ml/min; Est GFR (African American) 72.4; Est GFR (Non-African American) 62.5; Magnesium 1.6 mg/dl (1.8-2.4); Potassium 3.1 mmol/L (3.5-5.1)
[2020-10-09] MEDS ORDERED: POTASSIUM CHLORIDE CRTAB 20 MEQ TABCR PO ONE (08:30)
[2020-10-09] MEDS ORDERED: MAGNESIUM SULFATE / D5W 1 GM/100 ML BAG IV ONE (08:30)
[2020-10-09] MEDS: LACTOBACILLUS ACIDOPHILUS 1 GM PACK PO SCH ×3 (09:33→16:32)
[2020-10-09] MEDS: ATENOLOL 25 MG TABLET PO SCH (09:37)
[2020-10-09] MEDS: DULoxetine HCL 20 MG CAP PO SCH (09:37)
[2020-10-09] MEDS: FEXOFENADINE HCL 180 MG TAB PO SCH (09:38)
[2020-10-09] MEDS: POTASSIUM CITRATE 10 MEQ TAB PO SCH (09:38)
[2020-10-09] MEDS: HEPARIN SOD 5,000 UNIT/0.5 ML VIAL SQ SCH ×2 (11:21→21:42)
[2020-10-09] MEDS: LOPERAMIDE HCL 2 MG CAP PO PRN (13:17)
[2020-10-09] MEDS: ERTAPENEM SODIUM 1,000 MG in SODIUM CHLORIDE 0.9% 50 ML IV SCH (13:17)
--- NOTE | 2020-10-09 13:39 | Hospitalist Progress Note ---
Date of Service October 09, 2020 Assessment & Plan (1) UTI due to extended-spectrum beta lactamase (ESBL) producing Escherichia coli: Patient is an 85 yr female with H/O HTN, HLD, CKD stage III, acquired solitary kidney, JAZMYN, GERD presented to ER for urinary symptoms. Outpatient [facility] U rine culture from 09/23/2020 resistant e coli ESBL. Initially treated with Omnicef then changed to fosfomycin x 3 days. Recurrent UTI No signs of sepsis Blood Cx: No growth to date Urine culture: E.coli Renal USD:3.5 cm right renal calculus with marked renal cortical atrophy. Left renal parapelvic cyst versus mild hydronephrosis. The findings remain similar to the prior July 2020 CT scan. Trabeculated bladder Continue IV Ertapenem Day #3 ID consulted Given persistent symptoms, recurrent UTIs Will need urology evaluation outpatient (2) Diarrhea: Likely due to Antibiotics Stool for C diff negative Improved Monitor Hypokalemia On chronic potassium supplements Replace electrolytes as needed Monitor (3) CKD (chronic kidney disease), stage III: (4) Solitary kidney: Baseline Cr: 1.2 Monitor renal functions Avoid nephrotoxic agents as able (5) Hypertension: Continue felodipine, atenolol DVT Px: Heparin SQ Code Status DNR/DNI Disposition PT/OT prior to discharge Follows with Dr Hawk for routine care Admission and Anticipated Discharge Date Admission Date: October 07, 2020 Subjective Patient is seen and examined at bedside States feeling better today Reports nausea earlier today but no vomiting Dysuria improved Low back pain much better today Denies chest pain, dyspnea, hematuria, dizziness, nausea, vomiting, abdominal pain Review of Systems Review of Systems: All systems reviewed & are unremarkable except as noted in HPI & below Physical Exam Physical Exam: Physical Exam: Vitals signs as noted above General Appearance:Thin, frail, elderly, no distress Head: normocephalic, Atraumatic Eyes: normal inspection, EOMI Neck: supple, Trachea midline Respiratory/Chest: Normal breath sounds, CTA Cardiovascular: S1, S2, No murmur Abdomen/GI:Soft, Non tender, Bowel sounds present Extremities/Musculoskelatal:normal inspection, no edema Neurologic/Psych:AAOX3, grossly no focal neurological deficits Skin: normal color, warm Results & Data Results & Data ([facility]) Vital Signs (Past 12 Hours) Vital Signs Temp Pulse Resp BP Pulse Ox 10/09/20 07:32 36.7 C 73 16 134/70 94 Laboratory Results BMP 10/09/20 06:15 Sodium 142 Potassium 3.1 L Chloride 109 H Carbon Dioxide 26 BUN 14 Creatinine 0.85 Glucose 89 Calcium 9.2
[2020-10-09] MEDS: ONDANSETRON INJ 2 MG/ML 2 ML VIAL IV PRN (16:31)
[2020-10-09] MEDS ORDERED: PROMETHAZINE HCL 12.5 MG in SODIUM CHLORIDE 0.9% 50 ML IV ONE (20:00)
[2020-10-09] MEDS: FLUTICASONE PROPIONATE NA SPR 16 GM BTL NAE SCH (21:28)
[2020-10-09] MEDS: FELODIPINE 5 MG TABCR PO SCH (21:41)
[2020-10-10] MEDS: ONDANSETRON INJ 2 MG/ML 2 ML VIAL IV PRN ×2 (00:13→17:10)
[2020-10-10 08:27] LABS: Hematocrit (blood only) 37.1 % (37-47); Hemoglobin 12.6 g/dL (12.0-16.0); Mean Corpuscular Hemoglobin 31.3 pg (25-34); Mean Corpuscular Volume 92.3 fL (80-100); Mean Platelet Volume 11.1 fL (7.4-10.4); Platelet Count 141 K/uL (130-400); RDW Coefficient of Variation 12.9 % (11.5-14.5); RDW Standard Deviation 43.9 fL (36.4-46.3); Red Blood Count 4.02 M/uL (4.2-5.4); White Blood Count 6.77 K/uL (4.8-10.8)
[2020-10-10] MEDS: HEPARIN SOD 5,000 UNIT/0.5 ML VIAL SQ SCH ×2 (08:59→21:15)
[2020-10-10] MEDS: DULoxetine HCL 20 MG CAP PO SCH (08:59)
[2020-10-10] MEDS: ATENOLOL 25 MG TABLET PO SCH (08:59)
[2020-10-10] MEDS: FEXOFENADINE HCL 180 MG TAB PO SCH (08:59)
[2020-10-10] MEDS: LACTOBACILLUS ACIDOPHILUS 1 GM PACK PO SCH ×3 (08:59→17:11)
[2020-10-10] MEDS: POTASSIUM CITRATE 10 MEQ TAB PO SCH (08:59)
[2020-10-10 09:05] LABS: BUN Creatinine Ratio 14.8 (10-20); Creatinine Clr Calc Pharmacy 43.4 ml/min; Est GFR (African American) 75.6; Est GFR (Non-African American) 65.3; Magnesium 1.5 mg/dl (1.8-2.4); Potassium 3.2 mmol/L (3.5-5.1)
[2020-10-10] MEDS ORDERED: ERTAPENEM CONSULT ACTIVE PRN (10:20)
[2020-10-10] MEDS ORDERED: POTASSIUM CHLORIDE CRTAB 20 MEQ TABCR PO ONE (12:00)
[2020-10-10] MEDS ORDERED: OMEPRAZOLE 20 MG CAPCR PO PRN (13:29)
[2020-10-10] MEDS: ERTAPENEM SODIUM 1,000 MG in SODIUM CHLORIDE 0.9% 50 ML IV SCH (13:49)
[2020-10-10] MEDS: LOPERAMIDE HCL 2 MG CAP PO PRN (13:52)
[2020-10-10] MEDS: MAGNESIUM SULFATE / D5W 1 GM/100 ML BAG IV SCH ×2 (14:52→16:00)
[2020-10-10] MEDS ORDERED: POTASSIUM CHLORIDE CRTAB 20 MEQ TABCR PO STA (16:38)
--- NOTE | 2020-10-10 16:38 | Hospitalist Progress Note ---
Date of Service October 10, 2020 Assessment & Plan (1) UTI due to extended-spectrum beta lactamase (ESBL) producing Escherichia coli: Patient is an 85 yr female with H/O HTN, HLD, CKD stage III, acquired solitary kidney, JAZMYN, GERD presented to ER for urinary symptoms. Outpatient [facility] U rine culture from 09/23/2020 resistant e coli ESBL. Initially treated with Omnicef then changed to fosfomycin x 3 days. Recurrent UTI No signs of sepsis Blood Cx: No growth to date Urine culture: E.coli -sensitive to cefepime, ceftriaxone, ertapenem, gentamicin, meropenem, nitrofurantoin, Zosyn, Bactrim and resistant to fluoroquinolones Renal USD:3.5 cm right renal calculus with marked renal cortical atrophy. Left renal parapelvic cyst versus mild hydronephrosis. The findings remain similar to the prior July 2020 CT scan. Trabeculated bladder Continue IV Ertapenem Day #4 ID consulted-for further guidance regarding antibiotic choice and duration Given persistent symptoms, recurrent UTIs Will need urology evaluation outpatient (2) Diarrhea: Likely due to Antibiotics Stool for C diff negative Improved Monitor Hypokalemia On chronic potassium supplements Replace electrolytes as needed Remains hypokalemic with potassium of 3.2 as of 10/10/2020 Received 40 mEq potassium this morning and will add another 40 this afternoon Monitor PRP (3) CKD (chronic kidney disease), stage III: (4) Solitary kidney: Baseline Cr: 1.2 Monitor renal functions Avoid nephrotoxic agents as able (5) Hypertension: Continue felodipine, atenolol DVT Px: Heparin SQ Code Status DNR/DNI Disposition PT/OT prior to discharge Follows with Dr Hawk for routine care Admission and Anticipated Discharge Date Admission Date: October 07, 2020 Subjective 10/10/2020 The patient was seen and examined in medical floor She has history of recurrent UTI and was admitted with another attack of UTI Has been feeling much better since admission Awaiting ID recommendation Review of Systems 2 Review of Systems: All systems reviewed and are unremarkable except as noted below Genitourinary: no dysuria, no difficulty urinating, no urinary frequency, no urinary hesitancy and no urinary urgency Physical Exam Physical Exam: Lying in bed comfortably Constitutional: well developed and well nourished; not ill appearing Eyes: PERRL, conjunctivae normal, anicteric sclerae ENMT: external ear and nose normal, oropharynx normal Neck: trachea midline, no thyromegaly Respiratory: no respiratory distress Auscultation: lungs clear to auscultation bilaterally Cardiovascular: Rate/Rhythm: regular rate and regular rhythm Heart Sounds: no murmur Extremities: no edema Gastrointestinal (Abdomen): Inspection/Auscultation: abdomen not distended Musculoskeletal: No acute arthritis in any joint Neurologic: Alert, awake and oriented x3 Psychiatric: A+Ox3, euthymic affect Lymphatic: no cervical or axillary lymphadenopathy Results & Data Results & Data ([facility]) Vital Signs (Past 12 Hours) Vital Signs Temp Pulse Resp BP Pulse Ox 10/10/20 16:02 36.8 C 69 17 134/68 95 10/10/20 07:30 36.7 C 76 16 154/71 H 92 Laboratory Results Short CBC 10/10/20 Range/Units 08:03 WBC 6.77 (4.8-10.8) K/uL Hgb 12.6 (12.0-16.0) g/dL Hct 37.1 (37-47) % Plt Count 141 (130-400) K/uL BMP 10/10/20 08:03 Sodium 139 Potassium 3.2 L Chloride 106 Carbon Dioxide 26 BUN 12 Creatinine 0.82 Glucose 101 H Calcium 9.0 Medications Administered Current Inpatient Medications Acetaminophen (Acetaminophen 325 Mg Tab) 650 mg PO Q4H PRN PRN Reason: pain/fever Stop: 11/06/20 18:10 Last Admin: 10/08/20 08:53 Dose: 650 mg Documented by: Atenolol (Atenolol 25 Mg Tablet) 25 mg PO QAM [facility] Stop: 11/06/20 14:49 Last Admin: 10/10/20 08:59 Dose: 25 mg Documented by: Calcium Carbonate (Calcium Carbonate 500 Mg Chewable Tab) 500 mg PO BID PRN PRN Reason: Heartburn Stop: 11/07/20 19:35 Last Admin: 10/08/20 20:18 Dose: 500 mg Documented by: Duloxetine HCl (Duloxetine Hcl 20 Mg Cap) 20 mg PO DAILY [facility] Stop: 11/07/20 08:59 Last Admin: 10/10/20 08:59 Dose: 20 mg Documented by: Ertapenem (Ertapenem Consult Active) 1 ea N/A UD PRN PRN Reason: Consult Stop: 11/09/20 10:19 Felodipine (Felodipine 5 Mg Tabcr) 10 mg PO [facility] Stop: 11/06/20 20:59 Last Admin: 10/09/20 21:41 Dose: 10 mg Documented by: Fexofenadine HCl (Fexofenadine Hcl 180 Mg Tab) 180 mg PO DAILY [facility] Stop: 11/07/20 08:59 Last Admin: 10/10/20 08:59 Dose: 180 mg Documented by: Fluticasone Propionate (Fluticasone Propionate Na Spr 16 Gm Btl) 1 sprays [facility] Stop: 11/06/20 20:59 Last Admin: 10/09/20 21:28 Dose: 1 sprays Documented by: Heparin Sodium (Porcine) (Heparin Sod 5,000 Unit/0.5 Ml Vial) 5,000 units SQ Q12 [facility] Stop: 11/06/20 20:59 Last Admin: 10/10/20 08:59 Dose: 5,000 units Documented by: Ertapenem 1,000 mg/ Sodium (Chloride) 60 mls @ 100 mls/hr IV Q24H [facility]; Protocol Stop: 10/18/20 12:59 Last Infusion: 10/10/20 15:48 Dose: Infused Documented by: Lactobacillus Acidophilus (Lactobacillus Acidophilus 1 Gm Pack) 1 gm PO TIDM [facility] Stop: 11/07/20 11:59 Last Admin: 10/10/20 13:48 Dose: 1 gm Documented by: Loperamide HCl (Loperamide Hcl 2 Mg Cap) 2 mg PO PRN PRN PRN Reason: Diarrhea Stop: 11/07/20 08:55 Last Admin: 10/10/20 13:52 Dose: 2 mg Documented by: Lorazepam (Lorazepam 0.5 Mg Tab) 0.5 mg PO BID PRN PRN Reason: Anxiety Stop: 11/06/20 18:10 Last Admin: 10/08/20 23:43 Dose: 0.5 mg Documented by: Omeprazole (Omeprazole 20 Mg Capcr) 20 mg PO DAILY PRN PRN Reason: ACID REFLUX Stop: 11/09/20 13:28 Last Admin: 10/10/20 13:48 Dose: 20 mg Documented by: Ondansetron HCl (Ondansetron Inj 2 Mg/Ml 2 Ml Vial) 4 mg IV Q6H PRN PRN Reason: Nausea Stop: 11/06/20 18:10 Last Admin: 10/10/20 00:13 Dose: 4 mg Documented by: Potassium Citrate (Potassium Citrate 10 Meq Tab) 10 meq PO QAM [facility] Stop: 11/07/20 08:59 Last Admin: 10/10/20 08:59 Dose: 10 meq Documented by:
[2020-10-10] MEDS: FLUTICASONE PROPIONATE NA SPR 16 GM BTL NAE SCH (21:15)
[2020-10-10] MEDS: FELODIPINE 5 MG TABCR PO SCH (21:15)
[2020-10-10] MEDS: LORazepam 0.5 MG TAB PO PRN (21:16)
[2020-10-10] MEDS: ACETAMINOPHEN 325 MG TAB PO PRN (23:40)
[2020-10-11] MEDS: ACETAMINOPHEN 325 MG TAB PO PRN ×2 (02:55→07:56)
[2020-10-11 07:19] LABS: BUN Creatinine Ratio 14.9 (10-20); Creatinine Clr Calc Pharmacy 39.6 ml/min; Est GFR (African American) 67.6; Est GFR (Non-African American) 58.3; Magnesium 2.1 mg/dl (1.8-2.4); Potassium 4.5 mmol/L (3.5-5.1)
[2020-10-11] MEDS: POTASSIUM CITRATE 10 MEQ TAB PO SCH (07:56)
[2020-10-11] MEDS: DULoxetine HCL 20 MG CAP PO SCH (07:56)
[2020-10-11] MEDS: LACTOBACILLUS ACIDOPHILUS 1 GM PACK PO SCH ×3 (07:56→18:09)
[2020-10-11] MEDS: ATENOLOL 25 MG TABLET PO SCH (07:57)
[2020-10-11] MEDS: FEXOFENADINE HCL 180 MG TAB PO SCH (07:57)
[2020-10-11] MEDS: HEPARIN SOD 5,000 UNIT/0.5 ML VIAL SQ SCH ×2 (07:57→20:09)
[2020-10-11] MEDS: DICLOFENAC SOD 1% GEL 100 GM TUBE EXT SCH ×2 (12:06→20:08)
[2020-10-11] MEDS: ERTAPENEM SODIUM 1,000 MG in SODIUM CHLORIDE 0.9% 50 ML IV SCH (12:12)
--- NOTE | 2020-10-11 13:38 | Hospitalist Progress Note ---
Date of Service October 11, 2020 Assessment & Plan (1) UTI due to extended-spectrum beta lactamase (ESBL) producing Escherichia coli: Patient is an 85 yr female with H/O HTN, HLD, CKD stage III, acquired solitary kidney, JAZMYN, GERD presented to ER for [facility] symptoms. [facility] resistant e coli ESBL. Initially treated with Omnicef then changed to fosfomycin x 3 days. Recurrent UTI No signs of sepsis Blood Cx: No growth to date Urine culture: E.coli -sensitive to cefepime, ceftriaxone, ertapenem, gentamicin, meropenem, nitrofurantoin, Zosyn, Bactrim and resistant to fluoroquinolones Renal USD:3.5 cm right renal calculus with marked renal cortical atrophy. Left renal parapelvic cyst versus mild hydronephrosis. The findings remain similar to the prior July 2020 CT scan. Trabeculated bladder Continue IV Ertapenem Day #5 ID consulted-for further guidance regarding antibiotic choice and duration Given persistent symptoms, recurrent UTIs Will need urology evaluation outpatient Remains asymptomatic-awaiting ID evaluation before discharge home (2) Diarrhea: Likely due to Antibiotics Stool for C diff negative Improved Monitor-seems to be controlled and likely due to side effect of antibiotic Hypokalemia On chronic potassium supplements Replace electrolytes as needed Remains hypokalemic with potassium of 3.2 as of 10/10/2020 Received 40 mEq potassium this morning and will add another 40 this afternoon Monitor PRP-potassium is normalized (3) CKD (chronic kidney disease), stage III: (4) Solitary kidney: Baseline Cr: 1.2 Monitor renal functions Avoid nephrotoxic agents as able (5) Hypertension: Continue felodipine, atenolol DVT Px: Heparin SQ Code Status DNR/DNI Disposition PT/OT prior to discharge Follows with Dr Hawk for routine care Admission and Anticipated Discharge Date Admission Date: October 07, 2020 Subjective 10/10/2020 The patient was seen and examined in medical floor She has history of recurrent UTI and was admitted with another attack of UTI Has been feeling much better since admission Awaiting ID recommendation 10/07/2020 The patient was seen and examined in medical floor She complains to have some mild right knee pain not controlled with Tylenol Denies any hypogastric tenderness and/or pain Review of Systems Review of Systems: All systems reviewed and are unremarkable except as noted below Musculoskeletal: Right knee pain Physical Exam Physical Exam: Lying in bed comfortably Constitutional: well developed and well nourished; not ill appearing Eyes: PERRL, conjunctivae normal, anicteric sclerae ENMT: external ear and nose normal, oropharynx normal Neck: trachea midline, no thyromegaly Respiratory: no respiratory distress Auscultation: lungs clear to auscultation bilaterally Cardiovascular: Rate/Rhythm: regular rate and regular rhythm Heart Sounds: no murmur Extremities: no edema Gastrointestinal (Abdomen): Inspection/Auscultation: abdomen not distended Musculoskeletal: Has pain with movement of the right knee joint but no acute arthritis in any other joint Neurologic: Alert, awake and oriented x3 Psychiatric: A+Ox3, euthymic affect Lymphatic: no cervical or axillary lymphadenopathy Results & Data Results & Data ([facility]) Vital Signs (Past 12 Hours) Vital Signs Temp Pulse Resp BP Pulse Ox 10/11/20 07:28 36.7 C 79 18 134/71 93 Laboratory Results [facility] 10/11/20 06:26 Sodium 138 Potassium 4.5 D Chloride 105 Carbon Dioxide 27 BUN 13 Creatinine 0.90 Glucose 113 H Calcium 9.0 Medications Administered Current Inpatient Medications Acetaminophen (Acetaminophen 325 Mg Tab) 650 mg PO Q4H PRN PRN Reason: pain/fever Stop: 11/06/20 18:10 Last Admin: 10/11/20 07:56 Dose: 650 mg Documented by: Atenolol (Atenolol 25 Mg Tablet) 25 mg PO QAM [facility] Stop: 11/06/20 14:49 Last Admin: 10/11/20 07:57 Dose: 25 mg Documented by: Calcium Carbonate (Calcium Carbonate 500 Mg Chewable Tab) 500 mg PO BID PRN PRN Reason: Heartburn Stop: 11/07/20 19:35 Last Admin: 10/08/20 20:18 Dose: 500 mg Documented by: Diclofenac Sodium (Diclofenac Sod 1% Gel 100 Gm Tube) 2 gm EXT BID [facility] Stop: 11/10/20 09:59 Last Admin: 10/11/20 12:06 Dose: 2 gm Documented by: Duloxetine HCl (Duloxetine Hcl 20 Mg Cap) 20 mg PO DAILY [facility] Stop: 11/07/20 08:59 Last Admin: 10/11/20 07:56 Dose: 20 mg Documented by: Ertapenem (Ertapenem Consult Active) 1 ea N/A UD PRN PRN Reason: Consult Stop: 11/09/20 10:19 Felodipine (Felodipine 5 Mg Tabcr) 10 mg PO HS [facility] Stop: 11/06/20 20:59 Last Admin: 10/10/20 21:15 Dose: 10 mg Documented by: Fexofenadine HCl (Fexofenadine Hcl 180 Mg Tab) 180 mg PO DAILY [facility] Stop: 11/07/20 08:59 Last Admin: 10/11/20 07:57 Dose: 180 mg Documented by: Fluticasone Propionate (Fluticasone Propionate Na Spr 16 Gm Btl) 1 sprays GILL HS [facility] Stop: 11/06/20 20:59 Last Admin: 10/10/20 21:15 Dose: 1 sprays Documented by: Heparin Sodium (Porcine) (Heparin Sod 5,000 Unit/0.5 Ml Vial) 5,000 units SQ Q12 [facility] Stop: 11/06/20 20:59 Last Admin: 10/11/20 07:57 Dose: 5,000 units Documented by: Ertapenem 1,000 mg/ Sodium (Chloride) 60 mls @ 100 mls/hr IV Q24H [facility]; Protocol Stop: 10/18/20 12:59 Last Infusion: 10/11/20 12:13 Dose: 0 mls/hr Documented by: Lactobacillus Acidophilus (Lactobacillus Acidophilus 1 Gm Pack) 1 gm PO TIDM [facility] Stop: 11/07/20 11:59 Last Admin: 10/11/20 12:06 Dose: 1 gm Documented by: Loperamide HCl (Loperamide Hcl 2 Mg Cap) 2 mg PO PRN PRN PRN Reason: Diarrhea Stop: 11/07/20 08:55 Last Admin: 10/10/20 13:52 Dose: 2 mg Documented by: Lorazepam (Lorazepam 0.5 Mg Tab) 0.5 mg PO BID PRN PRN Reason: Anxiety Stop: 11/06/20 18:10 Last Admin: 10/10/20 21:16 Dose: 0.5 mg Documented by: Omeprazole (Omeprazole 20 Mg Capcr) 20 mg PO DAILY PRN PRN Reason: ACID REFLUX Stop: 11/09/20 13:28 Last Admin: 10/10/20 13:48 Dose: 20 mg Documented by: Ondansetron HCl (Ondansetron Inj 2 Mg/Ml 2 Ml Vial) 4 mg IV Q6H PRN PRN Reason: Nausea Stop: 11/06/20 18:10 Last Admin: 10/10/20 17:10 Dose: 4 mg Documented by: Potassium Citrate (Potassium Citrate 10 Meq Tab) [facility] Stop: 11/07/20 08:59 Last Admin: 10/11/20 07:56 Dose: 10 meq Documented by:
[2020-10-11] MEDS: ONDANSETRON INJ 2 MG/ML 2 ML VIAL IV PRN (14:05)
[2020-10-11] MEDS: FLUTICASONE PROPIONATE NA SPR 16 GM BTL NAE SCH (20:08)
[2020-10-11] MEDS: FELODIPINE 5 MG TABCR PO SCH (20:08)
[2020-10-11] MEDS: LORazepam 0.5 MG TAB PO PRN (20:08)
[2020-10-12] MEDS: LACTOBACILLUS ACIDOPHILUS 1 GM PACK PO SCH ×3 (07:43→17:58)
[2020-10-12] MEDS: DICLOFENAC SOD 1% GEL 100 GM TUBE EXT SCH ×2 (07:44→21:23)
[2020-10-12] MEDS: HEPARIN SOD 5,000 UNIT/0.5 ML VIAL SQ SCH ×2 (08:23→21:24)
[2020-10-12] MEDS: POTASSIUM CITRATE 10 MEQ TAB PO SCH (08:23)
[2020-10-12] MEDS: ATENOLOL 25 MG TABLET PO SCH (08:23)
[2020-10-12] MEDS: FEXOFENADINE HCL 180 MG TAB PO SCH (08:23)
[2020-10-12] MEDS: DULoxetine HCL 20 MG CAP PO SCH (08:23)
[2020-10-12] MEDS: ACETAMINOPHEN W/CODEINE #3 1 TAB PO PRN ×2 (08:23→15:34)
[2020-10-12] MEDS: ERTAPENEM SODIUM 1,000 MG in SODIUM CHLORIDE 0.9% 50 ML IV SCH (13:04)
[2020-10-12] MEDS: ONDANSETRON INJ 2 MG/ML 2 ML VIAL IV PRN (13:04)
[2020-10-12] MEDS: LOPERAMIDE HCL 2 MG CAP PO PRN (15:34)
--- NOTE | 2020-10-12 15:46 | Hospitalist Progress Note ---
Date of Service October 12, 2020 Assessment & Plan (1) UTI due to extended-spectrum beta lactamase (ESBL) producing Escherichia coli: Patient is an 85 yr female with H/O HTN, HLD, CKD stage III, acquired solitary kidney, JAZMYN, GERD presented to ER for urinary symptoms. [facility] resistant e coli ESBL. Initially treated with Omnicef then changed to fosfomycin x 3 days. Recurrent UTI No signs of sepsis Blood Cx: No growth to date Urine culture: E.coli -sensitive to cefepime, ceftriaxone, ertapenem, gentamicin, meropenem, nitrofurantoin, Zosyn, Bactrim and resistant to fluoroquinolones Renal USD:3.5 cm right renal calculus with marked renal cortical atrophy. Left renal parapelvic cyst versus mild hydronephrosis. The findings remain similar to the prior July 2020 CT scan. Trabeculated bladder Continue IV Ertapenem Day #5 ID consulted-for further guidance regarding antibiotic choice and duration Given persistent symptoms, recurrent UTIs Will need urology evaluation outpatient Appreciate ID input and recommendation-we will have next dose of ertapenem tomorrow, will start topical estrogen and hip infection recurs will need fosfomycin. (2) Diarrhea: Likely due to Antibiotics Stool for C diff negative Improved Monitor-seems to be controlled and likely due to side effect of antibiotic No more diarrhea Hypokalemia On chronic potassium supplements Replace electrolytes as needed Remains hypokalemic with potassium of 3.2 as of 10/10/2020 Received 40 mEq potassium this morning and will add another 40 this afternoon Monitor PRP-potassium is normalized (3) CKD (chronic kidney disease), stage III: (4) Solitary kidney: Baseline Cr: 1.2 Monitor renal functions Avoid nephrotoxic agents as able (5) Hypertension: Continue felodipine, atenolol DVT Px: Heparin SQ Code Status DNR/DNI Disposition PT/OT prior to discharge Follows with Dr Hawk for routine care Will be discharged home tomorrow Admission and Anticipated Discharge Date Admission Date: October 07, 2020 Subjective 10/10/2020 The patient was seen and examined in medical floor She has history of recurrent UTI and was admitted with another attack of UTI Has been feeling much better since admission Awaiting ID recommendation 10/11/2020 The patient was seen and examined in medical floor She complains to have some mild right knee pain not controlled with Tylenol Denies any hypogastric tenderness and/or pain 10/12/2020 The patient was seen and examined in medical floor She has been complaining of right knee pain Denies any fever and/or chills, any hypogastric tenderness or pain, no nausea no vomiting Review of Systems Review of Systems: All systems reviewed and are unremarkable except as noted b elow Musculoskeletal: Right knee pain Physical Exam Physical Exam: Lying in bed comfortably Constitutional: well developed and well nourished; not ill appearing Eyes: PERRL, conjunctivae normal, anicteric sclerae ENMT: external ear and nose normal, oropharynx normal Neck: trachea midline, no thyromegaly Respiratory: no respiratory distress Auscultation: lungs clear to auscultation bilaterally Cardiovascular: Rate/Rhythm: regular rate and regular rhythm Heart Sounds: no murmur Extremities: no edema Gastrointestinal (Abdomen): Inspection/Auscultation: abdomen not distended Musculoskeletal: Right knee pain. No acute arthritis Neurologic: Alert, awake and oriented x3. No focal sensory and motor deficit appreciated Psychiatric: A+Ox3, euthymic affect Lymphatic: no cervical or axillary lymphadenopathy Results & Data Results & Data ([facility]) Vital Signs (Past 12 Hours) Vital Signs Temp Pulse Resp BP Pulse Ox 10/12/20 07:23 36.7 C 89 16 148/72 H 92 Medications Administered Current Inpatient Medications Acetaminophen (Acetaminophen 325 Mg Tab) 650 mg PO Q4H PRN PRN Reason: pain/fever Stop: 11/06/20 18:10 Last Admin: 10/11/20 07:56 Dose: 650 mg Documented by: Acetaminophen/Codeine Phosphate (Acetaminophen W/Codeine #3 1 Tab) 1 tab PO Q4H PRN PRN Reason: Pain Stop: 11/11/20 08:11 Last Admin: 10/12/20 15:34 Dose: 1 tab Documented by: Atenolol (Atenolol 25 Mg Tablet) 25 mg PO QAM [facility] Stop: 11/06/20 14:49 Last Admin: 10/12/20 08:23 Dose: 25 mg Documented by: Calcium Carbonate (Calcium Carbonate 500 Mg Chewable Tab) 500 mg PO BID PRN PRN Reason: Heartburn Stop: 11/07/20 19:35 Last Admin: 10/08/20 20:18 Dose: 500 mg Documented by: Diclofenac Sodium (Diclofenac Sod 1% Gel 100 Gm Tube) 2 gm EXT BID [facility] Stop: 11/10/20 09:59 Last Admin: 10/12/20 07:44 Dose: 2 gm Documented by: Duloxetine HCl (Duloxetine Hcl 20 Mg Cap) 20 mg PO DAILY [facility] Stop: 11/07/20 08:59 Last Admin: 10/12/20 08:23 Dose: 20 mg Documented by: Ertapenem (Ertapenem Consult Active) 1 ea N/A UD PRN PRN Reason: Consult Stop: 11/09/20 10:19 Felodipine (Felodipine 5 Mg Tabcr) 10 mg PO HS [facility] Stop: 11/06/20 20:59 Last Admin: 10/11/20 20:08 Dose: 10 mg Documented by: Fexofenadine HCl (Fexofenadine Hcl 180 Mg Tab) 180 mg PO DAILY [facility] Stop: 11/07/20 08:59 Last Admin: 10/12/20 08:23 Dose: 180 mg Documented by: Fluticasone Propionate (Fluticasone Propionate Na Spr 16 Gm Btl) 1 sprays GILL HS [facility] Stop: 11/06/20 20:59 Last Admin: 10/11/20 20:08 Dose: 1 sprays Documented by: Heparin Sodium (Porcine) (Heparin Sod 5,000 Unit/0.5 Ml Vial) 5,000 units SQ Q12 [facility] Stop: 11/06/20 20:59 Last Admin: 10/12/20 08:23 Dose: 5,000 units Documented by: Ertapenem 1,000 mg/ Sodium (Chloride) 60 mls @ 100 mls/hr IV Q24H [facility]; Protocol Stop: 10/18/20 12:59 Last Infusion: 10/12/20 14:03 Dose: Infused Documented by: Lactobacillus Acidophilus (Lactobacillus Acidophilus 1 Gm Pack) 1 gm PO TIDM [facility] Stop: 11/07/20 11:59 Last Admin: 10/12/20 13:07 Dose: 1 gm Documented by: Loperamide HCl (Loperamide Hcl 2 Mg Cap) 2 mg PO PRN PRN PRN Reason: Diarrhea Stop: 11/07/20 08:55 Last Admin: 10/12/20 15:34 Dose: 2 mg Documented by: Lorazepam (Lorazepam 0.5 Mg Tab) 0.5 mg PO BID PRN PRN Reason: Anxiety Stop: 11/06/20 18:10 Last Admin: 10/11/20 20:08 Dose: 0.5 mg Documented by: Omeprazole (Omeprazole 20 Mg Capcr) 20 mg PO DAILY PRN PRN Reason: ACID REFLUX Stop: 11/09/20 13:28 Last Admin: 10/10/20 13:48 Dose: 20 mg Documented by: Ondansetron HCl (Ondansetron Inj 2 Mg/Ml 2 Ml Vial) 4 mg IV Q6H PRN PRN Reason: Nausea Stop: 11/06/20 18:10 Last Admin: 10/12/20 13:04 Dose: 4 mg Documented by: Potassium Citrate (Potassium Citrate 10 Meq Tab) 10 meq PO [facility] Stop: 11/07/20 08:59 Last Admin: 10/12/20 08:23 Dose: 10 meq Documented by:
[2020-10-12] MEDS: FLUTICASONE PROPIONATE NA SPR 16 GM BTL NAE SCH (21:21)
[2020-10-12] MEDS: FELODIPINE 5 MG TABCR PO SCH (21:21)
[2020-10-13 07:27] LABS: Creatinine Clr Calc Pharmacy 32.4 ml/min; Est GFR (Non-African American) 45.7
[2020-10-13] MEDS: ACETAMINOPHEN 325 MG TAB PO PRN ×2 (07:51→11:53)
[2020-10-13] MEDS: LACTOBACILLUS ACIDOPHILUS 1 GM PACK PO SCH ×3 (07:51→17:09)
[2020-10-13] MEDS: DULoxetine HCL 20 MG CAP PO SCH (07:53)
[2020-10-13] MEDS: POTASSIUM CITRATE 10 MEQ TAB PO SCH (07:53)
[2020-10-13] MEDS: HEPARIN SOD 5,000 UNIT/0.5 ML VIAL SQ SCH ×2 (07:53→20:14)
[2020-10-13] MEDS: FEXOFENADINE HCL 180 MG TAB PO SCH (07:53)
[2020-10-13] MEDS: DICLOFENAC SOD 1% GEL 100 GM TUBE EXT SCH ×2 (07:54→20:16)
[2020-10-13] MEDS: ATENOLOL 25 MG TABLET PO SCH (09:35)
[2020-10-13] MEDS: PREMARIN VAG CRM 14 APPLN/30 GM TUBE PV SCH ×2 (09:35→20:16)
[2020-10-13] MEDS: LOPERAMIDE HCL 2 MG CAP PO PRN ×2 (10:02→15:50)
[2020-10-13] MEDS: ONDANSETRON INJ 2 MG/ML 2 ML VIAL IV PRN (11:54)
[2020-10-13] MEDS: ERTAPENEM SODIUM 1,000 MG in SODIUM CHLORIDE 0.9% 50 ML IV SCH (12:43)
--- NOTE | 2020-10-13 12:56 | Hospitalist Progress Note ---
Date of Service October 13, 2020 Assessment & Plan (1) UTI due to extended-spectrum beta lactamase (ESBL) producing Escherichia coli: Patient is an 85 yr female with H/O HTN, HLD, CKD stage III, acquired solitary kidney, JAZMYN, GERD presented to ER for urinary symptoms. Out[facility] U rine culture from 09/23/2020 resistant e coli ESBL. Initially treated with Omnicef then changed to fosfomycin x 3 days. Recurrent UTI No signs of sepsis Blood Cx: No growth to date Urine culture: E.coli -sensitive to cefepime, ceftriaxone, ertapenem, gentamicin, meropenem, nitrofurantoin, Zosyn, Bactrim and resistant to fluoroquinolones Renal USD:3.5 cm right renal calculus with marked renal cortical atrophy. Left renal parapelvic cyst versus mild hydronephrosis. The findings remain similar to the prior July 2020 CT scan. Trabeculated bladder Continue IV Ertapenem Day #5 ID consulted-for further guidance regarding antibiotic choice and duration Given persistent symptoms, recurrent UTIs Will need urology evaluation outpatient Appreciate ID input and recommendation-we will have next dose of ertapenem tomorrow, will start topical estrogen and hip infection recurs will need fosfomycin. Remains a stable without any symptoms and received her last dose of ertapenem today Will be discharged home this afternoon Right knee pain Secondary to osteoarthritis Her home pain medications have been started We will get PT and OT before discharge this afternoon (2) Diarrhea: Likely due to Antibiotics Stool for C diff negative Improved Monitor-seems to be controlled and likely due to side effect of antibiotic No more diarrhea Hypokalemia On chronic potassium supplements Replace electrolytes as needed Remains hypokalemic with potassium of 3.2 as of 10/10/2020 Received 40 mEq potassium this morning and will add another 40 this afternoon Monitor PRP-potassium is normalized (3) CKD (chronic kidney disease), stage III: (4) Solitary kidney: Baseline Cr: 1.2 Monitor renal functions Avoid nephrotoxic agents as able (5) Hypertension: Continue felodipine, atenolol DVT Px: Heparin SQ Code Status DNR/DNI Disposition PT/OT prior to discharge Follows with Dr Hawk for routine care Likely discharge this afternoon Admission and Anticipated Discharge Date Admission Date: October 07, 2020 Subjective 10/10/2020 The patient was seen and examined in medical floor She has history of recurrent UTI and was admitted with another attack of UTI Has been feeling much better since admission Awaiting ID recommendation 10/11/2020 The patient was seen and examined in medical floor She complains to have some mild right knee pain not controlled with Tylenol Denies any hypogastric tenderness and/or pain 10/12/2020 The patient was seen and examined in medical floor She has been complaining of right knee pain Denies any fever and/or chills, any hypogastric tenderness or pain, no nausea no vomiting 10/13/2020 The patient was seen and examined in medical floor She has been feeling a lot better but complains to have pain in the left knee She has been getting her usual pain medications We will have PT and OT evaluation this afternoon and then if okay she will be discharged. Review of Systems Review of Systems: All systems reviewed and are unremarkable except as noted below Musculoskeletal: Right knee pain Physical Exam Physical Exam: Lying in bed comfortably Constitutional: well developed and well nourished; not ill appearing Eyes: PERRL, conjunctivae normal, anicteric sclerae ENMT: external ear and nose normal, oropharynx normal Neck: trachea midline, no thyromegaly Respiratory: no respiratory distress Auscultation: lungs clear to auscultation bilaterally Cardiovascular: Rate/Rhythm: regular rate and regular rhythm Heart Sounds: no murmur Extremities: no edema Gastrointestinal (Abdomen): Inspection/Auscultation: normal bowel sounds; abdomen not distended Percussion/Palpation: abdomen soft; abdomen nontender No hypogastric tenderness Musculoskeletal: Right knee pain with movement Neurologic: Alert, awake and oriented x3 Psychiatric: A+Ox3, euthymic affect Lymphatic: no cervical or axillary lymphadenopathy Results & Data Results & Data ([facility]) Vital Signs (Past 12 Hours) Vital Signs Temp Pulse Resp BP Pulse Ox 10/13/20 07:48 36.4 C L 83 16 125/66 91 Laboratory Results [facility] 10/13/20 06:34 Creatinine 1.10 Medications Administered Current Inpatient Medications Acetaminophen (Acetaminophen 325 Mg Tab) 650 mg PO Q4H PRN PRN Reason: pain/fever Stop: 11/06/20 18:10 Last Admin: 10/13/20 11:53 Dose: 650 mg Documented by: Acetaminophen/Codeine Phosphate (Acetaminophen W/Codeine #3 1 Tab) 1 tab PO Q4H PRN PRN Reason: Pain Stop: 11/11/20 08:11 Last Admin: 10/12/20 15:34 Dose: 1 tab Documented by: Atenolol (Atenolol 25 Mg Tablet) 25 mg PO QAM [facility] Stop: 11/06/20 14:49 Last Admin: 10/13/20 09:35 Dose: 25 mg Documented by: Calcium Carbonate (Calcium Carbonate 500 Mg Chewable Tab) 500 mg PO BID PRN PRN Reason: Heartburn Stop: 11/07/20 19:35 Last Admin: 10/08/20 20:18 Dose: 500 mg Documented by: Diclofenac Sodium (Diclofenac Sod 1% Gel 100 Gm Tube) 2 gm EXT BID [facility] Stop: 11/10/20 09:59 Last Admin: 10/13/20 07:54 Dose: 2 gm Documented by: Duloxetine HCl (Duloxetine Hcl 20 Mg Cap) 20 mg PO DAILY [facility] Stop: 11/07/20 08:59 Last Admin: 10/13/20 07:53 Dose: 20 mg Documented by: Ertapenem (Ertapenem Consult Active) 1 ea N/A UD PRN PRN Reason: Consult Stop: 11/09/20 10:19 Estrogens Conjugated (Premarin Vag Crm 14 Appln/30 Gm Tube) 1 appln PV BID [facility] Stop: 11/12/20 08:59 Last Admin: 10/13/20 09:35 Dose: 1 appln Documented by: Felodipine (Felodipine 5 Mg Tabcr) 10 mg PO HS [facility] Stop: 11/06/20 20:59 Last Admin: 10/12/20 21:21 Dose: 10 mg Documented by: Fexofenadine HCl (Fexofenadine Hcl 180 Mg Tab) 180 mg PO DAILY [facility] Stop: 11/07/20 08:59 Last Admin: 10/13/20 07:53 Dose: 180 mg Documented by: Fluticasone Propionate (Fluticasone Propionate Na Spr 16 Gm Btl) 1 sprays GILL HS [facility] Stop: 11/06/20 20:59 Last Admin: 10/12/20 21:21 Dose: 1 sprays Documented by: Heparin Sodium (Porcine) (Heparin Sod 5,000 Unit/0.5 Ml Vial) 5,000 units SQ Q12 [facility] Stop: 11/06/20 20:59 Last Admin: 10/13/20 07:53 Dose: 5,000 units Documented by: Ertapenem 1,000 mg/ Sodium (Chloride) 60 mls @ 100 mls/hr IV Q24H [facility]; Protocol Stop: 10/18/20 12:59 Last Admin: 10/13/20 12:43 Dose: 100 mls/hr Documented by: Lactobacillus Acidophilus (Lactobacillus Acidophilus 1 Gm Pack) 1 gm PO TIDM [facility] Stop: 11/07/20 11:59 Last Admin: 10/13/20 11:54 Dose: 1 gm Documented by: Loperamide HCl (Loperamide Hcl 2 Mg Cap) 2 mg PO PRN PRN PRN Reason: Diarrhea Stop: 11/07/20 08:55 Last Admin: 10/13/20 10:02 Dose: 2 mg Documented by: Lorazepam (Lorazepam 0.5 Mg Tab) 0.5 mg PO BID PRN PRN Reason: Anxiety Stop: 11/06/20 18:10 Last Admin: 10/11/20 20:08 Dose: 0.5 mg Documented by: Omeprazole (Omeprazole 20 Mg Capcr) 20 mg PO DAILY PRN PRN Reason: ACID REFLUX Stop: 11/09/20 13:28 Last Admin: 10/10/20 13:48 Dose: 20 mg Documented by: Ondansetron HCl (Ondansetron Inj 2 Mg/Ml 2 Ml Vial) 4 mg IV Q6H PRN PRN Reason: Nausea Stop: 11/06/20 18:10 Last Admin: 10/13/20 11:54 Dose: 4 mg Documented by: Potassium Citrate (Potassium Citrate 10 Meq Tab) 10 meq PO QAM [facility] Stop: 11/07/20 08:59 Last Admin: 10/13/20 07:53 Dose: 10 meq Documented by:
[2020-10-13] MEDS: FLUTICASONE PROPIONATE NA SPR 16 GM BTL NAE SCH (20:15)
[2020-10-13] MEDS: FELODIPINE 5 MG TABCR PO SCH (20:16)
[2020-10-13] MEDS: LORazepam 0.5 MG TAB PO PRN (22:22)
[2020-10-14 07:45] LABS: Creatinine Clr Calc Pharmacy 32.1 ml/min; Est GFR (African American) 52.4; Est GFR (Non-African American) 45.2
[2020-10-14] MEDS: POTASSIUM CITRATE 10 MEQ TAB PO SCH (08:09)
[2020-10-14] MEDS: DICLOFENAC SOD 1% GEL 100 GM TUBE EXT SCH ×2 (08:09→21:11)
[2020-10-14] MEDS: PREMARIN VAG CRM 14 APPLN/30 GM TUBE PV SCH ×2 (08:09→21:11)
[2020-10-14] MEDS: LACTOBACILLUS ACIDOPHILUS 1 GM PACK PO SCH ×3 (08:09→17:36)
[2020-10-14] MEDS: FEXOFENADINE HCL 180 MG TAB PO SCH (08:14)
[2020-10-14] MEDS: HEPARIN SOD 5,000 UNIT/0.5 ML VIAL SQ SCH ×2 (08:14→21:22)
[2020-10-14] MEDS: DULoxetine HCL 20 MG CAP PO SCH (08:15)
[2020-10-14] MEDS: ATENOLOL 25 MG TABLET PO SCH (08:15)
[2020-10-14] MEDS: ACETAMINOPHEN W/CODEINE #3 1 TAB PO PRN (08:23)
[2020-10-14] MEDS: LOPERAMIDE HCL 2 MG CAP PO PRN (08:26)
--- NOTE | 2020-10-14 13:10 | Hospitalist Progress Note ---
Date of Service October 14, 2020 Assessment & Plan (1) UTI due to extended-spectrum beta lactamase (ESBL) producing Escherichia coli: Patient is an 85 yr female with H/O HTN, HLD, CKD stage III, acquired solitary kidney, JAZMYN, GERD presented to ER for urinary symptoms. [facility] culture from 09/23/2020 resistant e coli ESBL. Initially treated with Omnicef then changed to fosfomycin x 3 days. Recurrent UTI No signs of sepsis Blood Cx: No growth to date Urine culture: E.coli -sensitive to cefepime, ceftriaxone, ertapenem, gentamicin, meropenem, nitrofurantoin, Zosyn, Bactrim and resistant to fluoroquinolones Renal USD:3.5 cm right renal calculus with marked renal cortical atrophy. Left renal parapelvic cyst versus mild hydronephrosis. The findings remain similar to the prior July 2020 CT scan. Trabeculated bladder Continue IV Ertapenem Day #5 ID consulted-for further guidance regarding antibiotic choice and duration Given persistent symptoms, recurrent UTIs Will need urology evaluation outpatient Appreciate ID input and recommendation-we will have next dose of ertapenem tomorrow, will start topical estrogen and hip infection recurs will need fosfomycin. Remains a stable without any symptoms and received her last dose of ertapenem today Antibiotic course is done and does not have any more symptoms of UTI Right knee pain Secondary to osteoarthritis Her home pain medications have been started We will get PT and OT before discharge this afternoon Awaiting to go to inpatient rehab for physical therapy (2) Diarrhea: Likely due to Antibiotics Stool for C diff negative Improved Monitor-seems to be controlled and likely due to side effect of antibiotic No more [id number] Hypokalemia On chronic potassium supplements Replace electrolytes as needed Remains hypokalemic with potassium of 3.2 as of 10/10/2020 Received 40 mEq potassium this morning and will add another 40 this afternoon Monitor PRP-potassium is normalized (3) CKD (chronic kidney disease), stage III: (4) Solitary kidney: Baseline Cr: 1.2 Monitor renal functions Avoid nephrotoxic agents as able Creatinine is normal at 1.11 (5) Hypertension: Continue felodipine, atenolol DVT Px: Heparin SQ Code Status DNR/DNI Disposition PT/OT prior to discharge Follows with Dr Hawk for routine care Awaiting rehab placement Admission and Anticipated Discharge Date Admission Date: October 07, 2020 Subjective 10/10/2020 The patient was seen and examined in medical floor She has history of recurrent UTI and was admitted with another attack of UTI Has been feeling much better since admission Awaiting ID recommendation 10/11/2020 The patient was seen and examined in medical floor She complains to have some mild right knee pain not controlled with Tylenol Denies any hypogastric tenderness and/or pain 10/12/2020 The patient was seen and examined in medical floor She has been complaining of right knee pain Denies any fever and/or chills, any hypogastric tenderness or pain, no nausea no vomiting 10/13/2020 The patient was seen and examined in medical floor She has been feeling a lot better but complains to have pain in the left knee She has been getting her usual pain medications We will have PT and OT evaluation this afternoon and then if okay she will be discharged. 10/14/2020 The patient was seen and examined in medical floor She has been waiting to go to [facility] for rehab Denies any significant symptoms Pain in the left knee is better Review of Systems Review of Systems: All systems reviewed and are unremarkable except as noted below Musculoskeletal: left knee pain Physical Exam Physical Exam: Lying in bed comfortably Constitutional: well developed and well nourished; not ill appearing Eyes: PERRL, conjunctivae normal, anicteric sclerae ENMT: external ear and nose normal, oropharynx normal Neck: trachea midline, no thyromegaly Respiratory: no respiratory distress Auscultation: lungs clear to auscultation bilaterally Cardiovascular: Rate/Rhythm: regular rate and regular rhythm Heart Sounds: no murmur Extremities: no edema Gastrointestinal (Abdomen): Inspection/Auscultation: normal bowel sounds; abdomen not distended Percussion/Palpation: abdomen soft; abdomen nontender Musculoskeletal: Has a left knee brace. Osteoarthritic changes. Moderate pain with movement Neurologic: Alert, awake and oriented x3. No focal sensory and motor deficit appreciated Psychiatric: A+Ox3, euthymic affect Lymphatic: no cervical or axillary lymphadenopathy Results & Data Results & Data ([facility]) Vital Signs (Past 12 Hours) Vital Signs Temp Pulse Resp BP Pulse Ox 10/14/20 07:14 36.7 C 79 16 122/66 91 Laboratory Results [facility] 10/14/20 06:50 Creatinine 1.11 Medications Administered Current Inpatient Medications Acetaminophen (Acetaminophen 325 Mg Tab) 650 mg PO Q4H PRN PRN Reason: pain/fever Stop: 11/06/20 18:10 Last Admin: 10/13/20 11:53 Dose: 650 mg Documented by: Acetaminophen/Codeine Phosphate (Acetaminophen W/Codeine #3 1 Tab) 1 tab PO Q4H PRN PRN Reason: Pain Stop: 11/11/20 08:11 Last Admin: 10/14/20 08:23 Dose: 1 tab Documented by: Atenolol (Atenolol 25 Mg Tablet) 25 mg PO QAM [facility] Stop: 11/06/20 14:49 Last Admin: 10/14/20 08:15 Dose: 25 mg Documented by: Calcium Carbonate (Calcium Carbonate 500 Mg Chewable Tab) 500 mg PO BID PRN PRN Reason: Heartburn Stop: 11/07/20 19:35 Last Admin: 10/08/20 20:18 Dose: 500 mg Documented by: Diclofenac Sodium (Diclofenac Sod 1% Gel 100 Gm Tube) 2 gm EXT BID [facility] Stop: 11/10/20 09:59 Last Admin: 10/14/20 08:09 Dose: 2 gm Documented by: Duloxetine HCl (Duloxetine Hcl 20 Mg Cap) 20 mg PO DAILY [facility] Stop: 11/07/20 08:59 Last Admin: 10/14/20 08:15 Dose: 20 mg Documented by: Estrogens Conjugated (Premarin Vag Crm 14 Appln/30 Gm Tube) 1 appln PV BID [facility] Stop: 11/12/20 08:59 Last Admin: 10/14/20 08:09 Dose: 1 appln Documented by: Felodipine (Felodipine 5 Mg Tabcr) 10 mg PO [facility] Stop: 11/06/20 20:59 Last Admin: 10/13/20 20:16 Dose: 10 mg Documented by: Fexofenadine HCl (Fexofenadine Hcl 180 Mg Tab) 180 mg PO DAILY [facility] Stop: 11/07/20 08:59 Last Admin: 10/14/20 08:14 Dose: 180 mg Documented by: Fluticasone Propionate (Fluticasone Propionate Na Spr 16 Gm Btl) 1 sprays [facility] Stop: 11/06/20 20:59 Last Admin: 10/13/20 20:15 Dose: 1 sprays Documented by: Heparin Sodium (Porcine) (Heparin Sod 5,000 Unit/0.5 Ml Vial) 5,000 units SQ Q12 [facility] Stop: 11/06/20 20:59 Last Admin: 10/14/20 08:14 Dose: 5,000 units Documented by: Lactobacillus Acidophilus (Lactobacillus Acidophilus 1 Gm Pack) 1 gm PO TIDM [facility] Stop: 11/07/20 11:59 Last Admin: 10/14/20 08:09 Dose: 1 gm Documented by: Loperamide HCl (Loperamide Hcl 2 Mg Cap) 2 mg PO PRN PRN PRN Reason: Diarrhea Stop: 11/07/20 08:55 Last Admin: 10/14/20 08:26 Dose: 2 mg Documented by: Lorazepam (Lorazepam 0.5 Mg Tab) 0.5 mg PO BID PRN PRN Reason: Anxiety Stop: 11/06/20 18:10 Last Admin: 10/13/20 22:22 Dose: 0.5 mg Documented by: Omeprazole (Omeprazole 20 Mg Capcr) 20 mg PO DAILY PRN PRN Reason: ACID REFLUX Stop: 11/09/20 13:28 Last Admin: 10/10/20 13:48 Dose: 20 mg Documented by: Ondansetron HCl (Ondansetron Inj 2 Mg/Ml 2 Ml Vial) 4 mg IV Q6H PRN PRN Reason: Nausea Stop: 11/06/20 18:10 Last Admin: 10/13/20 11:54 Dose: 4 mg Documented by: Potassium Citrate (Potassium Citrate 10 Meq Tab) 10 meq PO QAM [facility] Stop: 11/07/20 08:59 Last Admin: 10/14/20 08:09 Dose: 10 meq Documented by:
[2020-10-14] MEDS: FELODIPINE 5 MG TABCR PO SCH (21:11)
[2020-10-14] MEDS: FLUTICASONE PROPIONATE NA SPR 16 GM BTL NAE SCH (21:11)
[2020-10-15] MEDS: LOPERAMIDE HCL 2 MG CAP PO PRN ×3 (00:04→15:57)
[2020-10-15] MEDS: LORazepam 0.5 MG TAB PO PRN ×2 (00:05→21:39)
[2020-10-15 07:53] LABS: Creatinine Clr Calc Pharmacy 34.9 ml/min; Est GFR (African American) 58.1; Est GFR (Non-African American) 50.1
[2020-10-15] MEDS: POTASSIUM CITRATE 10 MEQ TAB PO SCH (08:17)
[2020-10-15] MEDS: ATENOLOL 25 MG TABLET PO SCH (08:17)
[2020-10-15] MEDS: LACTOBACILLUS ACIDOPHILUS 1 GM PACK PO SCH ×3 (08:17→17:38)
[2020-10-15] MEDS: DULoxetine HCL 20 MG CAP PO SCH (08:18)
[2020-10-15] MEDS: HEPARIN SOD 5,000 UNIT/0.5 ML VIAL SQ SCH ×2 (08:18→21:39)
[2020-10-15] MEDS: FEXOFENADINE HCL 180 MG TAB PO SCH (08:18)
[2020-10-15] MEDS: DICLOFENAC SOD 1% GEL 100 GM TUBE EXT SCH ×2 (08:19→21:40)
[2020-10-15] MEDS: PREMARIN VAG CRM 14 APPLN/30 GM TUBE PV SCH ×2 (08:19→21:40)
[2020-10-15] MEDS: ACETAMINOPHEN W/CODEINE #3 1 TAB PO PRN (08:24)
--- NOTE | 2020-10-15 15:25 | Hospitalist Progress Note ---
Date of Service October 15, 2020 Assessment & Plan (1) UTI due to extended-spectrum beta lactamase (ESBL) producing Escherichia coli: Patient is an 85 yr female with H/O HTN, HLD, CKD stage III, acquired solitary kidney, JAZMYN, GERD presented to ER for urinary symptoms. [facility] culture from 09/23/2020 resistant e coli ESBL. Initially treated with Omnicef then changed to fosfomycin x 3 days. Recurrent UTI No signs of sepsis Blood Cx: No growth to date Urine culture: E.coli -sensitive to cefepime, ceftriaxone, ertapenem, gentamicin, meropenem, nitrofurantoin, Zosyn, Bactrim and resistant to fluoroquinolones Renal USD:3.5 cm right renal calculus with marked renal cortical atrophy. Left renal parapelvic cyst versus mild hydronephrosis. The findings remain similar to the prior July 2020 CT scan. Trabeculated bladder Continue IV Ertapenem Day #5 ID consulted-for further guidance regarding antibiotic choice and duration Given persistent symptoms, recurrent UTIs Will need urology evaluation outpatient Appreciate ID input and recommendation-we will have next dose of ertapenem tomorrow, will start topical estrogen and hip infection recurs will need fosfomycin. Remains a stable without any symptoms and received her last dose of ertapenem today Antibiotic course is done and does not have any more symptoms of UTI Right knee pain Secondary to osteoarthritis Her home pain medications have been started We will get PT and OT before discharge this afternoon Awaiting to go to inpatient rehab for physical therapy She was denied from [facility] and waiting to go to [facility] whenever accepted she can be discharged (2) Diarrhea: Likely due to Antibiotics Stool for C diff negative Improved Monitor-seems to be controlled and likely due to side effect of antibiotic Still has diarrhea Will repeat C. difficile toxin Hypokalemia On chronic potassium supplements Replace electrolytes as needed Remains hypokalemic with potassium of 3.2 as of 10/10/2020 Received 40 mEq potassium this morning and will add another 40 this afternoon Monitor PRP-potassium is normalized Check PRP tomorrow (3) CKD (chronic kidney disease), stage III: (4) Solitary kidney: Baseline Cr: 1.2 Monitor renal functions Avoid nephrotoxic agents as able Creatinine is normal at 1.11 (5) Hypertension: Continue felodipine, atenolol DVT Px: Heparin SQ Code Status DNR/DNI Disposition PT/OT prior to discharge Follows with Dr Hawk for routine care Awaiting rehab placement Admission and Anticipated Discharge Date Admission Date: October 07, 2020 Subjective 10/10/2020 The patient was seen and examined in medical floor She has history of recurrent UTI and was admitted with another attack of UTI Has been feeling much better since admission Awaiting ID recommendation 10/11/2020 The patient was seen and examined in medical floor She complains to have some mild right knee pain not controlled with Tylenol Denies any hypogastric tenderness and/or pain 10/12/2020 The patient was seen and examined in medical floor She has been complaining of right knee pain Denies any fever and/or chills, any hypogastric tenderness or pain, no nausea no vomiting 10/13/2020 The patient was seen and examined in medical floor She has been feeling a lot better but complains to have pain in the left knee She has been getting her usual pain medications We will have PT and OT evaluation this afternoon and then if okay she will be discharged. 10/14/2020 The patient was seen and examined in medical floor She has been waiting to go to [facility] for rehab Denies any significant symptoms Pain in the left knee is better 10/15/2020 The patient was seen and examined in medical floor She still complains of some pain in the left knee She underwent PT and OT evaluation today and again recommended to go to short- term rehab He denies any other symptoms Review of Systems Review of Systems: All systems reviewed and are unremarkable except as noted below Musculoskeletal: left knee pain Physical Exam Physical Exam: Lying in bed comfortably Constitutional: well developed and well nourished; not ill appearing Eyes: PERRL, conjunctivae normal, anicteric sclerae ENMT: external ear and nose normal, oropharynx normal Neck: trachea midline, no thyromegaly Respiratory: no respiratory distress Auscultation: lungs clear to auscultation bilaterally Cardiovascular: Rate/Rhythm: regular rate and regular rhythm Heart Sounds: no murmur Extremities: no edema Gastrointestinal (Abdomen): Inspection/Auscultation: normal bowel sounds; abdomen not distended Percussion/Palpation: abdomen soft; abdomen nontender Musculoskeletal: Moderate pain with movement of the left knee Neurologic: Alert, awake and oriented x3. No focal sensory and motor deficit appreciated Psychiatric: A+Ox3, euthymic affect Lymphatic: no cervical or axillary lymphadenopathy Results & Data Results & Data ([facility]) Vital Signs (Past 12 Hours) Vital Signs Temp Pulse Resp BP Pulse Ox 10/15/20 07:20 36.6 C 75 16 105/57 L 92 Laboratory Results [facility] 10/15/20 06:59 Creatinine 1.02 Medications Administered Current Inpatient Medications Acetaminophen (Acetaminophen 325 Mg Tab) 650 mg PO Q4H PRN PRN Reason: pain/fever Stop: 11/06/20 18:10 Last Admin: 10/13/20 11:53 Dose: 650 mg Documented by: Acetaminophen/Codeine Phosphate (Acetaminophen W/Codeine #3 1 Tab) 1 tab PO Q4H PRN PRN Reason: Pain Stop: 11/11/20 08:11 Last Admin: 10/15/20 08:24 Dose: 1 tab Documented by: Atenolol (Atenolol 25 Mg Tablet) 25 mg PO QAM [facility] Stop: 11/06/20 14:49 Last Admin: 10/15/20 08:17 Dose: 25 mg Documented by: Calcium Carbonate (Calcium Carbonate 500 Mg Chewable Tab) 500 mg PO BID PRN PRN Reason: Heartburn Stop: 11/07/20 19:35 Last Admin: 10/08/20 20:18 Dose: 500 mg Documented by: Diclofenac Sodium (Diclofenac Sod 1% Gel 100 Gm Tube) 2 gm EXT BID [facility] Stop: 11/10/20 09:59 Last Admin: 10/15/20 08:19 Dose: 2 gm Documented by: Duloxetine HCl (Duloxetine Hcl 20 Mg Cap) 20 mg PO DAILY [facility] Stop: 11/07/20 08:59 Last Admin: 10/15/20 08:18 Dose: 20 mg Documented by: Estrogens Conjugated (Premarin Vag Crm 14 Appln/30 Gm Tube) 1 appln PV BID [facility] Stop: 11/12/20 08:59 Last Admin: 10/15/20 08:19 Dose: 1 appln Documented by: Felodipine (Felodipine 5 Mg Tabcr) 10 mg PO HS [facility] Stop: 11/06/20 20:59 Last Admin: 10/14/20 21:11 Dose: 10 mg Documented by: Fexofenadine HCl (Fexofenadine Hcl 180 Mg Tab) 180 mg PO DAILY [facility] Stop: 11/07/20 08:59 Last Admin: 10/15/20 08:18 Dose: 180 mg Documented by: Fluticasone Propionate (Fluticasone Propionate Na Spr 16 Gm Btl) 1 sprays [facility] Stop: 11/06/20 20:59 Last Admin: 10/14/20 21:11 Dose: 1 sprays Documented by: Heparin Sodium (Porcine) (Heparin Sod 5,000 Unit/0.5 Ml Vial) 5,000 units SQ Q12 [facility] Stop: 11/06/20 20:59 Last Admin: 10/15/20 08:18 Dose: 5,000 units Documented by: Lactobacillus Acidophilus (Lactobacillus Acidophilus 1 Gm Pack) 1 gm PO TIDM [facility] Stop: 11/07/20 11:59 Last Admin: 10/15/20 11:59 Dose: 1 gm Documented by: Loperamide HCl (Loperamide Hcl 2 Mg Cap) 2 mg PO PRN PRN PRN Reason: Diarrhea Stop: 11/07/20 08:55 Last Admin: 10/15/20 12:05 Dose: 2 mg Documented by: Lorazepam (Lorazepam 0.5 Mg Tab) 0.5 mg PO BID PRN PRN Reason: Anxiety Stop: 11/06/20 18:10 Last Admin: 10/15/20 00:05 Dose: 0.5 mg Documented by: Omeprazole (Omeprazole 20 Mg Capcr) 20 mg PO DAILY PRN PRN Reason: ACID REFLUX Stop: 11/09/20 13:28 Last Admin: 10/10/20 13:48 Dose: 20 mg Documented by: Ondansetron HCl (Ondansetron Inj 2 Mg/Ml 2 Ml Vial) 4 mg IV Q6H PRN PRN Reason: Nausea Stop: 11/06/20 18:10 Last Admin: 10/13/20 11:54 Dose: 4 mg Documented by: Potassium Citrate (Potassium Citrate 10 Meq Tab) 10 meq PO QAM [facility] Stop: 11/07/20 08:59 Last Admin: 10/15/20 08:17 Dose: 10 meq Documented by:
[2020-10-15] MEDS: FLUTICASONE PROPIONATE NA SPR 16 GM BTL NAE SCH (21:39)
[2020-10-15] MEDS: FELODIPINE 5 MG TABCR PO SCH (21:39)
[2020-10-16 07:05] LABS: BUN Creatinine Ratio 21.4 (10-20); Calcium 9.4 mg/dl (8.5-10.1); Creatinine Clr Calc Pharmacy 37.9 ml/min; Est GFR (African American) 64.1; Est GFR (Non-African American) 55.3; Potassium 4.5 mmol/L (3.5-5.1)
[2020-10-16] MEDS: POTASSIUM CITRATE 10 MEQ TAB PO SCH (10:02)
[2020-10-16] MEDS: ACETAMINOPHEN 325 MG TAB PO PRN (10:02)
[2020-10-16] MEDS: DICLOFENAC SOD 1% GEL 100 GM TUBE EXT SCH (10:02)
[2020-10-16] MEDS: ATENOLOL 25 MG TABLET PO SCH (10:03)
[2020-10-16] MEDS: DULoxetine HCL 20 MG CAP PO SCH (10:03)
[2020-10-16] MEDS: HEPARIN SOD 5,000 UNIT/0.5 ML VIAL SQ SCH (10:03)
[2020-10-16] MEDS: FEXOFENADINE HCL 180 MG TAB PO SCH (10:03)
[2020-10-16] MEDS: LACTOBACILLUS ACIDOPHILUS 1 GM PACK PO SCH ×2 (10:03→12:17)
[2020-10-16] MEDS: PREMARIN VAG CRM 14 APPLN/30 GM TUBE PV SCH (10:04)
--- NOTE | 2020-10-16 11:53 | Hospitalist Progress Note ---
Date of Service October 16, 2020 Assessment & Plan (1) UTI due to extended-spectrum beta lactamase (ESBL) producing Escherichia coli: Patient is an 85 yr female with H/O HTN, HLD, CKD stage III, acquired solitary kidney, JAZMYN, GERD presented to ER for urinary symptoms. Outpatient [facility] U rine culture from 09/23/2020 resistant e coli ESBL. Initially treated with Omnicef then changed to fosfomycin x 3 days. Recurrent UTI No signs of sepsis Blood Cx: No growth to date Urine culture: E.coli Renal USD:3.5 cm right renal calculus with marked renal cortical atrophy. Left renal parapelvic cyst versus mild hydronephrosis. The findings remain similar to the prior July 2020 CT scan. Trabeculated bladder Completed IV Ertapenem course Appreciate ID Input If recurrence of UTI, ID recommends 1 dose of fosfomycin (2) Diarrhea: Likely due to Antibiotics Stool for C diff negative Slowly improving Monitor Right knee pain Secondary to osteoarthritis PT/OT Needs SNF placement Hypokalemia On chronic potassium supplements Replace electrolytes as needed Monitor (3) CKD (chronic kidney disease), stage III: (4) Solitary kidney: Baseline Cr: 1.2 Monitor renal functions Avoid nephrotoxic agents as able (5) Hypertension: Continue felodipine, atenolol DVT Px: Heparin SQ Code Status DNR/DNI Disposition Plan to discharge to SNF today Follows with Dr Hawk for routine care Admission and Anticipated Discharge Date Admission Date: October 07, 2020 Subjective Patient seen and examined at bedside States having one loose bowel movement today Denies dysuria, hematuria, dizziness, chest pain, shortness of breath, abdominal pain Plan to be discharged to rehab facility today Offers no other complaints Review of Systems Review of Systems: All systems reviewed & are unremarkable except as noted in HPI & below Physical Exam Physical Exam: Physical Exam: Vitals signs as noted above General Appearance:Thin, frail, elderly, no distress Head: normocephalic, Atraumatic Eyes: normal inspection, EOMI Neck: supple, Trachea midline Respiratory/Chest: Normal breath sounds, CTA Cardiovascular: S1, S2, No murmur Abdomen/GI:Soft, Non tender, Bowel sounds present Extremities/Musculoskelatal:normal inspection, no edema Neurologic/Psych:AAOX3, grossly no focal neurological deficits Skin: normal color, warm Results & Data Results & Data ([facility]) Vital Signs (Past 12 Hours) Vital Signs Temp Pulse Resp BP Pulse Ox 10/16/20 07:28 36.7 C 66 16 117/63 93 Laboratory Results [facility] 10/16/20 06:14 Sodium 140 Potassium 4.5 Chloride 106 Carbon Dioxide 28 BUN 20 H Creatinine 0.94 Glucose 89 Calcium 9.4
--- NOTE | 2020-10-16 13:22 | Discharge Summary ---
Date of Service October 16, 2020 Admission HPI Per Admitting Provider Pt is 85 y/o F with PMH HTN, HLD, CKD stage III, acquired solitary kidney, JAZMYN, GERD presented to ER for urinary symptoms. Pt having intermittent UTI symptoms since 06/2020. Was hospitalized in 06/2020 for UTI with urine culture e coli resistant to ampicillin & cefazolin. Pt states couple weeks ago started with dysuria, urinary frequency. PCP started on omnicef. Outpatient [facility] Urine culture from 09/23/2020 ESBL. Infectious disease recommended fosfomycin x 3 days. Pt finished this yesterday. States less dysuria, urinary frequency but still present. Since started fosfomycin started with nausea and diarrhea daily. Also c/o lower abdominal discomfort. Denies fevers. Reports always feels cold. Denies vomiting. Denies diaphoresis, melena, hematochezia, hematuria, AMADOR, dizziness, syncope, vision changes, neck pain, CP, SOB, orthopnea, palpitations, cough, sore throat, choking, otalgia, rhinorrhea, paresthesias, weakness, extremity weakness, extremity edema, rashes. Denies ill contacts Admission Exam Per Admitting Provider Physical Exam Physical Exam: General: no distress, WDWN Head: normocephalic, atraumatic Eyes: conjunctiva non-injected, anicteric ENT: normal inspection external ears, nose, mucous membranes moist Neck: supple, trachea midline Lungs: clear, no respiratory distress, no wheezing/rhonchi/rales CV: RRR, no murmur, trace pretibial edema Abd: normal BS, soft, non-tender to palpation, no CVA tenderness to percussion Ext: no cyanosis, no calf tenderness Neuro: A&O x 3, no focal deficits noted, normal affect Skin: warm, dry Principal Diagnosis ESBL urinary tract infection Hypokalemia Discharge Data Allergies Allergy/AdvReac Type Severity Reaction Status Date / Time ampicillin Allergy Unknown Diarrhea Verified 07/06/20 14:02 meperidine AdvReac Mild GI SYMPTOMS Verified 07/06/20 14:02 Consultations 10/07/20 13:14 ED Decision to Admit Stat 10/07/20 18:11 Consult Case Management - Discharge Planning Routine Consult Infectious Diseases Routine Procedures Performed Renal USD:3.5 cm right renal calculus with marked renal cortical atrophy. Left renal parapelvic cyst versus mild hydronephrosis. The findings remain similar to the prior July 2020 CT scan. Ordered Studies 10/08/20 14:30 US renal/blad retro comp Routine Hospital Course (1) UTI due to extended-spectrum beta lactamase (ESBL) producing Escherichia coli: Patient is an 85 yr female with H/O HTN, HLD, CKD stage III, acquired solitary kidney, JAZMYN, GERD presented to ER for urinary symptoms. Outpatient [facility] Urine culture from 09/23/2020 resistant e coli ESBL. Initially treated with Omnicef then changed to fosfomycin x 3 days. Recurrent UTI No signs of sepsis Blood Cx: No growth to date Urine culture: E.coli Renal USD:3.5 cm right renal calculus with marked renal cortical atrophy. Left renal parapelvic cyst versus mild hydronephrosis. The findings remain similar to the prior July 2020 CT scan. Trabeculated bladder Completed IV Ertapenem course Appreciate ID Input If recurrence of UTI, ID recommends 1 dose of fosfomycin (2) Diarrhea: Likely due to Antibiotics Stool for C diff negative Slowly improving Monitor Right knee pain Secondary to osteoarthritis PT/OT Needs SNF placement Hypokalemia On chronic potassium supplements Replace electrolytes as needed Monitor (3) CKD (chronic kidney disease), stage III: (4) Solitary kidney: Baseline Cr: 1.2 Monitor renal functions Avoid nephrotoxic agents as able (5) Hypertension: Continue felodipine, atenolol DVT Px: Heparin SQ Code Status DNR/DNI Disposition Plan to discharge to SNF today Follows with Dr Hawk for routine care Total Time Total Time Spent Total Time Spent (In Minutes): 42 minutes Total Time Includes: Examination of the Patient, Discharge Planning, Medication Reconciliation, Communication With Other Providers and Other Discharge Plan Discharge Items Patient Disposition: Transfer Intermediate Fac Reason For Visit: UTI Discharge Diagnosis: ESBL urinary tract infection Hypokalemia Activity: Per Instructions section Exercise/Sports: Gradually increase as tolerated Non-emergency contact: Primary Care Provider and Specialist Call non-emergency contact if: you have any medication questions, your symptoms worsen, your pain is not controlled, your pain is worsening, your pain is unusual for you, your pain is concerning for you and you have a fever Follow-up/Referrals: Beth Hawk DO [Primary Care Provider] - 10/19/20 11:10 am (Date & Time 10/19/2020 11:10 AM Provider Beth Hawk, Department [facility] ) Diet: Heart Healthy and Lactose Intolerant Addtl Attending Provider Instructions: Follow-up with your primary care physician Dr. Beth Hawk in 1 week upon discharge from your facility Follow-up with your infectious disease Dr.Mark Mooney for recurrence of urinary tract infection if needed. Seek immediate medical attention if your symptoms reoccur or worsen Pending Studies at Discharge: No Stand-Alone Forms: My [facility] Skilled Items Patient informed of condition?: Yes DNR: Yes Discharge Level of Care: Skilled Communicable Disease: Yes Discharge Prognosis: Stable Lines: None Urinary Catheter: No Medications and DC Order Prescriptions: New loperamide 2 mg Capsule 2 mg PO PRN PRN (Reason: loose stool) Qty: 30 RF: 0 Floranex 100 million cell Granules In Packet 1 g PO TIDM Qty: 30 RF: 0 Premarin 0.625 mg/gram Cream 1 applic vaginal BID Qty: 30 RF: 0 Continued atenolol 25 mg tablet 25 mg PO QAM RF: 0 potassium citrate 10 mEq (1,080 mg) tablet extended release 10 meq PO QAM RF: 0 omeprazole 20 mg capsule,delayed release(DR/EC) 20 mg PO DAILY PRN (Reason: Acid Reflux) RF: 0 felodipine 10 mg tablet extended release 24 hr 10 mg PO HS RF: 0 fluticasone propionate 50 mcg/actuation spray,suspension 1 spray intranasal HS RF: 0 meclizine 25 mg tablet 25 mg PO TID PRN (Reason: dizziness) Qty: 21 RF: 0 duloxetine 20 mg capsule,delayed release(DR/EC) 20 mg PO DAILY RF: 0 fexofenadine 180 mg Tablet 180 mg PO DAILY RF: 0 lorazepam 0.5 mg tablet 0.5 mg PO BID PRN (Reason: Anxiety) Qty: 6 RF: 0 Discontinued fosfomycin tromethamine 3 gram packet 3 g PO DIRECTED RF: 0 Discharge Orders: Discharge Order (Routine); Ordered 10/16/20 Ordered By: Eris Payan Admission Data Admit Date/Time: 10/07/20 13:32 Attending Provider: Eris Payan Admit Provider: Kayla Dey I. Primary Care Provider: Beth Hawk Other Providers: Kayla eDy I. ; Kaialsh Robb ; Usha Dunn ; Matt Palomares I. ; Levi Acevedo II ; Vivian Garcia ; Silvestre Mooney ; Eris Payan ; [facility] ; [facility] Other Interventions: Discharge Summary Assessment (RN) Last Done: 10/16/20 13:28
[2020-10-16] MEDS: LOPERAMIDE HCL 2 MG CAP PO PRN (13:28)
== END 2020-10-16 13:52 | DRG 690 ==
LOC: ED 11:24 → 3N 13:32 → SUATTDRO 13:32 → 3N 17:38

== ENCOUNTER 2021-07-12 09:30 | Observation (INO) ==
[2021-07-12] MEDS ORDERED: ATENOLOL 25 MG TABLET PO STA (09:45)
[2021-07-12] MEDS ORDERED: FELODIPINE 5 MG TABCR PO STA (09:46)
[2021-07-12] MEDS ORDERED: traMADol HCL 50 MG TABLET PO STA (09:46)
[2021-07-12] MEDS ORDERED: ACETAMINOPHEN 325 MG TAB PO STA (09:46)
[2021-07-12] MEDS ORDERED: LIDOCAINE 1% LOCAL 20 ML VIAL INJ ONE (09:47)
--- NOTE | 2021-07-12 10:26 | XRay Report ---
XR knee RT 1 or 2V routine HISTORY: 86 years-old Female effusion, pain acute right knee pain status post twisting injury COMPARISON: Knee radiographs 10/29/2012 TECHNIQUE: 2 views of the right knee FINDINGS: Large joint effusion. Mild to moderate soft tissue swelling both medially and laterally. Demineralize d appearance of the bones. Severe patellofemoral with moderate medial and lateral compartment osteoar thritis. There is questioned cortical depression of the lateral tibial plateau. No definite acute fra cture line or dislocation. IMPRESSION: 1. Mild cortical depression of the lateral tibial plateau is new from 2012 and is suspicious for a fr acture. Correlate with point tenderness and patient history. 2. Large joint effusion with mild to moderate soft tissue swelling. 3. Tricompartmental osteoarthritis is severe within the patellofemoral joint. ACT 112: Negative or not required by law. The above report was generated using voice recognition software. It may contain grammatical, syntax o r spelling errors. Electronically signed by: Umang Chapman M.D. 07/12/2021 10:24 AM
--- NOTE | 2021-07-12 11:57 | CT Scan Report ---
CT knee RT wo con HISTORY: 86 years-old Female tibial plateau fx? effusion. Acute right knee pain status post fall COMPARISON: Right knee radiographs of same day and also to 2012 TECHNIQUE: Multiple axial CT images of the right knee were obtained without the use of IV contrast. A dose lowering technique was used consistent with the principals of DONATO. FINDINGS: Demineralized appearance of the bones. Chondrocalcinosis. Moderate medial compartment with severe lat eral patellofemoral compartment osteoarthritis. There is approximately 6 mm cortical depression invol ving the lateral tibial plateau corresponding with the abnormality seen on the radiographs of same da y, new from 2013. No acute fracture line identified. 1.3 cm linear calcification is noted along the a nterolateral aspect of the intercondylar distribution on image 38 series 200 which may be partially f used to the adjacent tibial spine. Large joint effusion. There is associated synovial thickening with synovial calcifications. Question calcified loose bodies versus calcified septations within the lateral joint space. Loose bodies measu ring up to 8 mm are noted within the Vilchis's cyst which measures approximately 2.8 x 1.8 x 7.1 cm. Li gaments and tendons are not well evaluated by CT technique. Calcifications noted within the distribut ion of the ACL which may be chronically torn. IMPRESSION: 1. Tricompartmental osteoarthritis, severe within the lateral and patellofemoral compartments. 2. No acute fracture or dislocation. 3. Moderate cortical depression of the lateral tibial plateau appears chronic. 4. Large joint effusion with synovial thickening and calcifications suggestive of chronic synovitis. Associated intra-articular loose bodies. 5. Moderate sized Vilchis's cyst. ACT 112: Negative or not required by law. The above report was generated using voice recognition software. It may contain grammatical, syntax o r spelling errors. Electronically signed by: Umang Chapman M.D. 07/12/2021 11:56 AM
[2021-07-12] MEDS ORDERED: methylPREDNISolone 4 MG TAB PO ONE (12:46)
[2021-07-12 13:52] LABS: Basophils # (auto) 0.03 K/uL (0-0.2); Basophils % (auto) 0.5 %; Eosinophils # (auto) 0.06 K/uL (0-0.5); Hematocrit (blood only) 40.7 % (37-47); Hemoglobin 13.8 g/dL (12.0-16.0); Lymphocytes # (auto) 1.04 K/uL (1.2-3.4); Lymphocytes % (auto) 16.7 %; Mean Corpuscular Hemoglobin 30.9 pg (25-34); Mean Corpuscular Hgb Conc 33.9 g/dL (32-36); Mean Corpuscular Volume 91.1 fL (80-100); Mean Platelet Volume 10.4 fL (7.4-10.4); Monocytes # (auto) 0.48 K/uL (0.11-0.59); Monocytes % (auto) 7.7 %; Neutrophils # (auto) 4.63 K/uL (1.4-6.5); Neutrophils % (auto) 74.1 %; Platelet Count 186 K/uL (130-400); RDW Coefficient of Variation 13.5 % (11.5-14.5); RDW Standard Deviation 45.3 fL (36.4-46.3); Red Blood Count 4.47 M/uL (4.2-5.4); White Blood Count 6.24 K/uL (4.8-10.8)
[2021-07-12 14:14] LABS: Albumin Level 3.3 gm/dl (3.4-5.0); BUN Creatinine Ratio 24.9 (10-20); Calcium 9.5 mg/dl (8.5-10.1); Creatinine Clr Calc Pharmacy 39.4 ml/min; Est GFR (African American) 76.2 ml/min; Est GFR (Non-African American) 65.8 ml/min; Potassium 3.7 mmol/L (3.5-5.1)
[2021-07-12 14:17] LABS: Albumin Globulin Ratio 0.8 (0.9-2); Bilirubin,Total 0.5 mg/dl (0.2-1); Globulin 4.3 gm/dl (2.5-4.0); Total Protein 7.6 gm/dl (6.4-8.2)
--- NOTE | 2021-07-12 14:31 | Emergency Department Note ---
ED Visit Note . Procedures Joint Aspiration/Injection Joint Asp./Inject. 1: Time Out Performed: Yes Side of body: right Joint Aspirated: knee Ultrasound Guidance: No Skin Prep: Povidone-Iodine1% Local Anesthetic: lidocaine 1% Amount of anesthesia used (mL): 2 Needle Size Used: 18G Fluid Obtained: bloody Total fluid obtained (mL): 85 Patient Tolerated Procedure: well and no complications Complications: none Additional Comments: Consent was obtained. Benefit versus risk discussed. Area was prepped with Betadine. 2 cc of 1% buffered lidocaine was utilized to anesthetize the region. The patient's right anterolateral knee area was prepped with Betadine times two and an 18-gauge needle was used to approach the knee joint approximately 3 cm anterior and 2 cm lateral to the superolateral pole of the patella. The 18-gauge needle was inserted and entered the knee joint. Approximately, 85 cc of reddish yellow fluid was aspirated. The patient tolerated the procedure well. Region was cleansed and dressed with a bandage. : Hemarthrosis involving knee joint Qualifiers: Laterality: right Qualified Code(s): M25.061 - Hemarthrosis, right knee Osteoarthritis Qualifiers: Osteoarthritis location: knee Osteoarthritis type: primary Laterality: right Qualified Code(s): M17.11 - Unilateral primary osteoarthritis, right knee
--- NOTE | 2021-07-12 14:37 | History & Physical Report ---
Date of Service July 12, 2021 Assessment & Plan (1) Ambulatory dysfunction: (2) Hemarthrosis involving knee joint: (3) Osteoarthritis of knees, bilateral: Plan: This is an 86yo F with a PMH of severe arthritis, CKD III, HTN, JAZMYN and other medical problems listed below who presents with worsening R knee pain and ambulatory dysfunction x 2 days. Has history of severe arthritis and takes Tylenol 3 Remote history of knee injections by Dr. Palomares but has not received for many years Knee CT shows tricompartmental osteoarthritis, severe within the lateral and patellofemoral compartments. No acute fracture or dislocation. Large joint effusion with synovial thickening and calcifications suggestive of chronic synovitis Underwent R join aspiration and 85 ml of blood fluid were obtained Synovial fluid WBC 14,440, synovial crystals with intracellular crystals with positive birefringence consistent with calcium pyrophosphate (pseudogout) Dr. Ríos consulted, recommends symptomatic/supportive care with pain control, gentle mobilization with PT/OT, assist devices as needed Started prednisone 40mg daily (4) Hypertension: Plan: BP elevated at 167/85 in setting of acute pain Optimize pain control, continue atenolol, felodipine HS (5) CKD (chronic kidney disease), stage III: Plan: Cr at baseline. Monitor with daily BMP (6) Anxiety: Plan: Continue home Ativan PRN DVT Ppx: SCDs for now Code status: FULL PCP: Carine Dispo: Observation med/surg Patient seen in collaboration with Dr. Joseph. Please see addendum. History of Present Illness Primary Care Provider: Beth Hawk, This is an 86yo F with a PMH of severe arthritis, CKD III, HTN, JAZMYN and other medical problems listed below who presents with worsening R knee pain and ambulatory dysfunction. Has history of severe arthritis and takes Tylenol 3. Remote history of knee injections by Dr. Palomares but has not received for many years. Pain became significantly worse over the weekend and she was unable to ambulate. Came in today for further evaluation. Knee CT shows tricompartmental osteoarthritis, severe within the lateral and patellofemoral compartments. No acute fracture or dislocation. Large joint effusion with synovial thickening and calcifications suggestive of chronic synovitis. Underwent R join aspiration and 85 ml of blood fluid were obtained, synovial fluid pending. Patient lives with demented at home and has 42 steps to climb. Does not feel safe to return home right now until able to ambulate more easily. Denies weakness to right lower extremity. No fever, chills, lightheadedness, headache, chest pain, palpitations, shortness of breath, nausea, vomiting, abdominal pain, dysuria, diarrhea or constipation. Allergies Allergy/AdvReac Type Severity Reaction Status Date / Time ampicillin Allergy Unknown Diarrhea Verified 07/12/21 10:49 Home Medications Medication Instructions Recorded Confirmed Type atenolol 25 mg tablet (Tenormin) 25 mg PO QAM 11/19/18 07/12/21 History felodipine 10 mg tablet,extended 10 mg PO HS 11/19/18 07/12/21 History release 24 hr omeprazole 20 mg capsule,delayed 20 mg PO DAILY PRN 11/19/18 07/12/21 History release potassium citrate 10 mEq (1,080 10 meq PO QAM 11/19/18 07/12/21 History mg) tablet,extended release (Urocit-K 10) fluticasone propionate 50 1 spray INTRANASAL HS 03/01/19 07/12/21 History mcg/actuation nasal spray,suspension (Flonase Allergy Relief) fexofenadine 180 mg tablet 180 mg PO QAM PRN 10/07/20 07/12/21 History (Priti Allergy) Lactobacillus acidophilus, 1 g PO TIDM #30 ea 10/16/20 07/12/21 Rx bulgaricus 100 million cell granules packet (Floranex) conjugated estrogens 0.625 mg/gram 1 applic VAGINAL 3XWK 04/25/21 07/12/21 History vaginal cream (Premarin) acetaminophen 300 mg-codeine 30 mg 1 tab PO Q4H PRN 07/12/21 07/12/21 History tablet cholecalciferol (vitamin D3) 50 2,000 unit PO DAILY 07/12/21 07/12/21 History mcg (2,000 unit) capsule (Vitamin D3) docusate sodium 100 mg tablet 100 mg PO BID PRN 07/12/21 07/12/21 History loperamide 2 mg capsule 2 mg PO Q6H PRN 07/12/21 07/12/21 History lorazepam 0.5 mg tablet 0.5 mg PO BID PRN 07/12/21 07/12/21 History meclizine 25 mg tablet 25 mg PO TID PRN 07/12/21 07/12/21 History prednisone 20 mg tablet 20 mg PO DAILY #3 tab 07/14/21 Rx Past Med/Surg History Medical History Ambulatory dysfunction Anxiety Arthritis Chronic acquired lymphedema Rotator cuff tear arthropathy of both shoulders Surgical History History of appendectomy History of cholecystectomy Family History Mother CHF (congestive heart failure) Social History Smoking Status: Never smoker Hx Alcohol Use: No Hx Substance Use: No Preferred Language: Tristanian Communication Ability: Effective Catalytic Case Operator Required: No Beliefs That Will Affect Care: None marital status: Current Living Situation: Spouse current occupational status: retired How many Children do You have: 1 Feels Safe at Home: Yes Assistive Devices: Glasses and Walker Review of Systems Review of Systems: At least ten systems reviewed and negative except as noted in the HPI. Physical Exam Physical Exam: General Appearance: WD/WN, vitals as above, NAD, sitting up in bed, pleasant, conversing easily Head: normocephalic, atraumatic Eyes: normal inspection, PERRL, conjunctivae normal, anicteric sclerae ENT: external ear and nose normal, oropharynx normal Neck: normal visual inspection, trachea midline, no thyromegaly Respiratory: normal respiratory effort, lungs clear to auscultation, no wheeze, rales, rhonchi. No accessory muscle use Cardiovascular: regular rate, rhythm, no murmur, normal peripheral pulses, no BLE edema. Vessels: no JVD Chest: normal inspection of chest Abdomen/GI: normal bowel sounds, soft, nontender, no hepatosplenomegaly Extremities/Musculoskeletal: R knee bandaged, c/d/i, ice in place. No cyanosis or clubbing, extremities motor strength 5/5 Neurologic: PERRL, EOMI, accommodation nl, no face palsy, no dysarthria, CN's II-XI intact bilaterally and moves all extremities Psychiatric: A+Ox3, euthymic affect Skin: no rashes, normal color, warm/dry Results & Data Results & Data ([facility]) Vital Signs (Past 12 Hours) Vital Signs Temp Pulse Pulse Resp BP BP Pulse Ox 07/12/21 12:52 64 16 167/85 H 97 07/12/21 10:59 74 17 206/88 H 95 07/12/21 09:37 36.5 C 67 19 174/133 H 97 Laboratory Results Short CBC 07/12/21 Range/Units 13:40 WBC 6.24 (4.8-10.8) K/uL Hgb 13.8 (12.0-16.0) g/dL Hct 40.7 (37-47) % Plt Count 186 (130-400) K/uL BMP 07/12/21 13:40 Sodium 140 Potassium 3.7 Chloride 106 Carbon Dioxide 26 BUN 20 H Creatinine 0.81 Glucose 97 Calcium 9.5 Liver Function 07/12/21 Range/Units 13:40 Total Bilirubin 0.5 (0.2-1) mg/dl AST 14 L (15-37) U/L ALT 11 L (12-78) U/L Alkaline Phosphatase 80 (45-117) U/L Albumin 3.3 L (3.4-5.0) gm/dl Diagnostic Findings Knee X-Ray 07/12/21 09:47 XR knee RT 1 or 2V routine HISTORY: 86 years-old Female effusion, pain acute right knee pain status post twisting injury COMPARISON: Knee radiographs 10/29/2012 TECHNIQUE: 2 views of the right knee FINDINGS: Large joint effusion. Mild to moderate soft tissue swelling both medially and laterally. Demineralized appearance of the bones. Severe patellofemoral with moderate medial and lateral compartment osteoarthritis. There is questioned cortical depression of the lateral tibial plateau. No definite acute fracture line or dislocation. IMPRESSION: 1. Mild cortical depression of the lateral tibial plateau is new from 2012 and is suspicious for a fracture. Correlate with point tenderness and patient history. 2. Large joint effusion with mild to moderate soft tissue swelling. 3. Tricompartmental osteoarthritis is severe within the patellofemoral joint. ACT 112: Negative or not required by law. The above report was generated using voice recognition software. It may contain grammatical, syntax or spelling errors. Electronically signed by: Umang Chapman M.D. 07/12/2021 10:[address] 07/12/21 11:04 CT knee RT wo con HISTORY: 86 years-old Female tibial plateau fx? effusion. Acute right knee pain status post fall COMPARISON: Right knee radiographs of same day and also to 2012 TECHNIQUE: Multiple axial CT images of the right knee were obtained without the use of IV contrast. A dose lowering technique was used consistent with the principals of DONATO. FINDINGS: Demineralized appearance of the bones. Chondrocalcinosis. Moderate medial compartment with severe lateral patellofemoral compartment osteoarthritis. There is approximately 6 mm cortical depression involving the lateral tibial plateau corresponding with the abnormality seen on the radiographs of same day, new from 2012. No acute fracture line identified. 1.3 cm linear calcification is noted along the anterolateral aspect of the intercondylar distribution on image 38 series 200 which may be partially fused to the adjacent tibial spine. Large joint effusion. There is associated synovial thickening with synovial calcifications. Question calcified loose bodies versus calcified septations within the lateral joint space. Loose bodies measuring up to 8 mm are noted within the Vilchis's cyst which measures approximately 2.8 x 1.8 x 7.1 cm. Ligaments and tendons are not well evaluated by CT technique. Calcifications noted within the distribution of the ACL which may be chronically torn. IMPRESSION: 1. Tricompartmental osteoarthritis, severe within the lateral and patellofemoral compartments. 2. No acute fracture or dislocation. 3. Moderate cortical depression of the lateral tibial plateau appears chronic. 4. Large joint effusion with synovial thickening and calcifications suggestive of chronic synovitis. Associated intra-articular loose bodies. 5. Moderate sized Vilchis's cyst. ACT 112: Negative or not required by law. The above report was generated using voice recognition software. It may contain grammatical, syntax or spelling errors. Electronically signed by: Umang Chapman M.D. 07/12/2021 11:56 AM Code Status & VTE Plan VTE Prophylaxis Plan VTE Prophylaxis will be ordered: Yes Supervising Physician Co-Signing Physician Notes Pt was seen and examined. Agreed with Barbara BRAND exam, assessment and plan. 86yo F with a PMH of severe arthritis, CKD III, HTN, JAZMYN apresents with worsening R knee pain and ambulatory dysfunction. Pt said that pt she has been alot of pain over the weekend. she said that pain worst with ambulation. Knee CT on admission showed tricompartmental osteoarthritis, severe within the lateral and patellofemoral compartments. No acute fracture or dislocation. Large joint effusion with synovial thickening and calcifications suggestive of chronic synovitis. In the ER she had join aspiration where 85 ml of blood fluid were obtained. Synovial fluid WBC 14,440, synovial crystals with intracellular crystals with positive birefringence consistent with calcium pyrophosphate (pseudogout). Denies any fever, chills, lightheadedness, headache, chest pain, palpitations, shortness of breath, nausea, vomiting, abdominal pain, dysuria, diarrhea or constipation. Ortho consult. Will start on prednisone. Continue pain control. PT/OT eval. Fall precaution. MD Opal (1) Hemarthrosis involving knee joint Laterality: right Qualified Code(s): M25.061 - Hemarthrosis, right knee
[2021-07-12 14:38] LABS: Appearance Synovial Fluid CLOUDY; Color Synovial Fluid AMBER; Mononuclear WBC Synovial 10.8 %; Polynuclear WBC Synovial 89.2 %; RBC Synovial Fluid (A) 76000 /uL; Source Synovial Fluid KNEE; WBC Synovial Fluid (A) 14440 /ul (0-200)
[2021-07-12] MEDS ORDERED: ONDANSETRON INJ 2 MG/ML 2 ML VIAL IV PRN (16:26)
[2021-07-12] MEDS ORDERED: ACETAMINOPHEN 325 MG TAB PO PRN (16:26)
[2021-07-12] MEDS ORDERED: POLYETHYLENE (MIRALAX) 17 GM PACK PO PRN (16:26)
[2021-07-12] MEDS ORDERED: FEXOFENADINE HCL 180 MG TAB PO PRN (17:07)
[2021-07-12] MEDS ORDERED: PANTOprazole 40 MG TAB PO PRN (17:13)
--- NOTE | 2021-07-12 17:38 | Orthopedic Consultation ---
Date of Service July 12, 2021 Assessment & Plan (1) Hemarthrosis involving knee joint: 86-year-old female who lives independently with her using assist device as needed and minimal community ambulator admitted for new onset ambulatory dysfunction due to right knee pain and swelling. Work-up has revealed pseudogout of the right knee, which is improving after aspiration and steroid treatment. No changes to the recommended plan of care. Recommended supportive treatment using anti-inflammatory medications. She will likely benefit from a steroid taper given her need to avoid NSAIDs. If knee pain or swelling returns she can contact our clinic for potential steroid injection which may specifically treat the pseudogout. She was hesitant to do steroid injections again, but I think given this pseudogout flare she could reconsider. She has had prior care with Dr. Jose Palomares at our clinic, and she can follow-up with orthopedics on an as-needed basis. She wishes to avoid total knee arthroplasty. She could consider viscosupplementation as an alternative treatment. I did mention this to her and she seems somewhat interested. She can consult with her primary care for follow-up and reach out to us as needed. History of Present Illness Reason for Consultation: Right knee pain and effusion Requesting Physician: . Attending Physician: Akhil Joseph MD 86-year-old female was admitted to the hospital with difficulty on ambulation because of right knee acute onset pain and effusion. She was aspirated in the emergency room and admitted for pain control. She is a history of severe osteoarthritis and chronic kidney disease. She has been treated in the past for osteoarthritis by Dr. Jose Palomares. She has had previous corticosteroid injections but she did not feel that they provided significant relief. She has been simply moderating her activities and using acetaminophen for pain relief. She wishes to avoid total knee arthroplasty. This recent episode started insidiously. She thinks she might have twisted her knee but cannot recall a specific event. The knee became painful and swollen. She could not walk so she presented to the emergency room. She feels much better after aspiration and initiating steroid treatment. Allergies Allergy/AdvReac Type Severity Reaction Status Date / Time ampicillin Allergy Unknown Diarrhea Verified 07/12/21 10:49 Home Medications Medication Instructions Recorded Confirmed Type atenolol 25 mg tablet (Tenormin) 25 mg PO QAM 11/19/18 07/12/21 History felodipine 10 mg tablet,extended 10 mg PO HS 11/19/18 07/12/21 History release 24 hr omeprazole 20 mg capsule,delayed 20 mg PO DAILY PRN 11/19/18 07/12/21 History release potassium citrate 10 mEq (1,080 10 meq PO QAM 11/19/18 07/12/21 History mg) tablet,extended release (Urocit-K 10) fluticasone propionate 50 1 spray INTRANASAL HS 03/01/19 07/12/21 History mcg/actuation nasal spray,suspension (Flonase Allergy Relief) fexofenadine 180 mg tablet 180 mg PO QAM PRN 10/07/20 07/12/21 History (Pirti Allergy) Lactobacillus acidophilus, 1 g PO TIDM #30 ea 10/16/20 07/12/21 Rx bulgaricus 100 million cell granules packet (Floranex) conjugated estrogens 0.625 mg/gram 1 applic VAGINAL 3XWK 04/25/21 07/12/21 History vaginal cream (Premarin) acetaminophen 300 mg-codeine 30 mg 1 tab PO Q4H PRN 07/12/21 07/12/21 History tablet cholecalciferol (vitamin D3) 50 2,000 unit PO DAILY 07/12/21 07/12/21 History mcg (2,000 unit) capsule (Vitamin D3) docusate sodium 100 mg tablet 100 mg PO BID PRN 07/12/21 07/12/21 History loperamide 2 mg capsule 2 mg PO Q6H PRN 07/12/21 07/12/21 History lorazepam 0.5 mg tablet 0.5 mg PO BID PRN 07/12/21 07/12/21 History meclizine 25 mg tablet 25 mg PO TID PRN 07/12/21 07/12/21 History Past Med/Surg History Medical History Ambulatory dysfunction Anxiety Arthritis Chronic acquired lymphedema Rotator cuff tear arthropathy of both shoulders Surgical History History of appendectomy History of cholecystectomy Family History Mother CHF (congestive heart failure) Social History Smoking Status: Never smoker Hx Alcohol Use: No Hx Substance Use: No Preferred Language: Turkmen Communication Ability: Effective Diamond Sizer Required: No Beliefs That Will Affect Care: None marital status: Current Living Situation: Spouse current occupational status: retired How many Children do You have: 1 Feels Safe at Home: Yes Safety Concerns: Feels Safe At This Time Assistive Devices: Cane and Walker Review of Systems All systems reviewed & are unremarkable except as noted in HPI & below. Physical Exam In general, she is cooperative and pleasant. She was resting with her knees flexed to about 70 degrees. She readily moves throughout the bed to demonstrate her improvement. Right lower extremity: A knee sleeve and John wrap was taken down for exam. There is no erythema nor significant warmth in the right knee versus the left. She can achieve moderate range of motion actively from 3 degrees short of full extension to about 120 degrees of flexion. She does have mild pain at the limits of motion. She can activate perform straight leg raise with gentle assistance and actively extend against gravity. Knee has a residual mild effusion. Is minimally tender and diffusely tender the knee has 0 station and is ligamentously stable. She is otherwise neurovascularly intact. Constitutional well nourished; no acute distress and not intoxicated appearing ENMT external ear and nose normal, oropharynx normal Respiratory normal respiratory effort; no respiratory distress Cardiovascular Extremities: normal capillary refill; no edema Skin no rashes, warm and dry Psychiatric A+Ox3, euthymic affect Results & Data Results & Data Laboratory Results Aspiration results: Intracellular crystals with positive birefringence consistent with calcium pyrophosphate (pseudogout) identified under polarized light. Laboratory Tests 07/12/21 07/13/21 07/13/21 12:30 06:19 06:19 WBC 5.92 Hct 36.8 L Creatinine 0.88 Synovial WBC 51293 H Diagnostic Findings The available imaging shows tricompartmental osteoarthritis with an effusion on the CT scan. There is no evidence of acute injury, ligamentous disruption, or plateau or distal femur fracture. Her patella and quadricep tendon appear to be intact on the scan which corresponds with her exam. PG Care Time/CCT Total # of Minutes Spent Total Time Spent with Patient: Total time spent is greater than 50% in coordination of care (as documented) at patient's floor/unit and/or counseling patient: Coding Level of Care Code 58318 Inpt Consult Level 3 Diagnoses Hemarthrosis involving knee joint M25.061 Laterality: right (1) Hemarthrosis involving knee joint Laterality: right Qualified Code(s): M25.061 - Hemarthrosis, right knee
[2021-07-12] MEDS: traMADol HCL 50 MG TABLET PO PRN (18:04)
[2021-07-12] MEDS ORDERED: ACETAMINOPHEN W/CODEINE #3 1 TAB PO PRN (18:35)
[2021-07-12] MEDS ORDERED: DOCUSATE SODIUM 100 MG CAP PO PRN (18:44)
[2021-07-12] MEDS: FELODIPINE 5 MG TABCR PO SCH (21:38)
[2021-07-12] MEDS: FLUTICASONE PROPIONATE NA SPR 16 GM BTL NAE SCH (21:38)
[2021-07-12] MEDS: LORazepam 0.5 MG TAB PO PRN (23:04)
--- NOTE | 2021-07-13 05:55 | Emergency Department Note ---
Impression & Plan Hemarthrosis involving knee joint, Osteoarthritis ED Provider Note CHIEF COMPLAINT: Right knee pain and swelling HISTORY OF PRESENT ILLNESS: This 86-year-old female patient presents to the [facility] expressy department presents to the emergency department with complaints of right knee pain. She states this has been an ongoing issue however she woke up this morning noting it to be much more swollen than usual and unable to bear weight. She states she was not able to get down the stairs despite the fact that she woke up at 4 AM and took Tylenol. She denies any known trauma, heavy lifting. She denies taking any blood thinners. Patient is noted to be hypertensive and states she does take blood pressure medication at home but missed it last evening and again this morning. She states she struggles at home to take care of her 87-year-old who was recently diagnosed with dementia. REVIEW OF SYSTEMS: A review of systems was performed with positives and pertinent negatives listed in the history of present illness. 10 systems were reviewed and are otherwise negative. ALLERGIES: see below MEDICATIONS: see below PMH: see below SOCIAL HISTORY: see below DDx: Fracture, subluxation, dislocation, contusion, ligamentous injury, neurovascular, compartment syndrome, rhabdomyolysis, as well as other pathologies. PHYSICAL EXAM: Vital signs reviewed. General: Well-appearing 86-year-old female, in no significant distress. HEENT: No scleral icterus, PERRLA, neck supple. Atraumatic. Cardiovascular: Regular rate and rhythm, no extra sounds. Pulmonary: Clear to auscultation bilaterally, normal work of breathing. Abdomen: Soft, nontender, nondistended, positive bowel sounds. Musculoskeletal: Atraumatic, large right knee joint effusion without erythema or warmth to palpation. Range of motion is limited secondary to pain. There is no ecchymosis. Arthritic deformity of the bilateral knees and distal extremities. Neurologic: Patient awake alert and oriented x 3 Skin: Warm, dry, no rash EMERGENCY DEPARTMENT COURSE/MDM: This patient was evaluated and appeared to be in no significant distress. She was given p.o. Tylenol and Ultram for her discomfort. Home blood pressure medications were also administered. X-rays were performed of the right knee which revealed the large effusion and the possibility of a tibial plateau fracture in addition to significant arthritic change. A follow-up CT of the knee was performed and reveals no evidence of fracture. A joint aspiration was performed by Sony Reagan PA-C under my direct supervision at the bedside. Approximately 85 cc of bloody joint aspirate was obtained. This will be sent for cell count and culture. Patient did have some relief of her discomfort. An John wrap and ice pack was applied. Patient at tempted to get up to go to the bathroom but was unable to ambulate steadily. Nursing staff stated she cannot safely bear weight on that right leg for discharge. Patient will be evaluated by the hospitalist service for further management. PROCEDURE: I directly supervised the Sony Reagan PA-C during during the aspiration of the right knee effusion. I was immediately available throughout the entire procedure. Please see his documentation for further details. RADIOLOGY: See below DISPOSITION: Hospitalist evaluation Past Med/Surg History Medical History Ambulatory dysfunction Anxiety Arthritis Chronic acquired lymphedema Rotator cuff tear arthropathy of both shoulders Surgical History History of appendectomy History of cholecystectomy Family History Mother CHF (congestive heart failure) Social History Smoking Status: Never smoker Hx Alcohol Use: No Hx Substance Use: No Preferred Language: Polish Communication Ability: Effective Nurse Discharge Planner Required: No Beliefs That Will Affect Care: None marital status: Current Living Situation: Spouse current occupational status: retired Feels Safe at Home: Yes Safety Concerns: Feels Safe At This Time Assistive Devices: Walker Allergies Allergies Allergy/AdvReac Type Severity Reaction Status Date / Time ampicillin Allergy Unknown Diarrhea Verified 07/12/21 10:49 Home Meds Home Medications Medication Instructions Recorded Confirmed atenolol 25 mg tablet (Tenormin) 25 mg PO QAM 11/19/18 07/12/21 felodipine 10 mg tablet,extended 10 mg PO HS 11/19/18 07/12/21 release 24 hr omeprazole 20 mg capsule,delayed 20 mg PO DAILY PRN 11/19/18 07/12/21 release potassium citrate 10 mEq (1,080 10 meq PO QAM 11/19/18 07/12/21 mg) tablet,extended release (Urocit-K 10) fluticasone propionate 50 1 spray INTRANASAL HS 03/01/19 07/12/21 mcg/actuation nasal spray,suspension (Flonase Allergy Relief) fexofenadine 180 mg tablet 180 mg PO QAM PRN 10/07/20 07/12/21 (Priti Allergy) conjugated estrogens 0.625 mg/gram 1 applic VAGINAL 3XWK 04/25/21 07/12/21 vaginal cream (Premarin) acetaminophen 300 mg-codeine 30 mg 1 tab PO Q4H PRN 07/12/21 07/12/21 tablet cholecalciferol (vitamin D3) 50 2,000 unit PO DAILY 07/12/21 07/12/21 mcg (2,000 unit) capsule (Vitamin D3) docusate sodium 100 mg tablet 100 mg PO BID PRN 07/12/21 07/12/21 loperamide 2 mg capsule 2 mg PO Q6H PRN 07/12/21 07/12/21 lorazepam 0.5 mg tablet 0.5 mg PO BID PRN 07/12/21 07/12/21 meclizine 25 mg tablet 25 mg PO TID PRN 07/12/21 07/12/21 Previous Rx's Medication Instructions Recorded Lactobacillus acidophilus, 1 g PO TIDM #30 ea 10/16/20 bulgaricus 100 million cell granules packet (Floranex) Results & Data (ED) Vital Signs Vital Signs - 24 hr 07/12/21 09:37 07/12/21 10:59 07/12/21 12:52 Temperature 36.5 C Temperature Source Oral Pulse Rate 67 Pulse Rate [Left Apical] 74 64 Pulse Rhythm Regular Pulse Rhythm [Left Apical] Regular Regular Pulse Strength Normal Pulse Strength [Left Apical] Normal Normal Respiratory Rate 19 17 16 Respiratory Effort / Characteristics Non-Labored Spontaneous Non-Labored Spontaneous Non-Labored Spontaneous Respiratory Depth Normal Normal Normal Respiratory Pattern Regular Regular Regular Blood Pressure 174/133 H Blood Pressure [Right Arm] 206/88 H 167/85 H Blood Pressure Mean 146 Blood Pressure Mean [Right Arm] 127 112 Blood Pressure Position Lying Blood Pressure Position [Right Arm] Lying Lying Pulse Oximetry 97 95 97 Oxygen Delivery Method Room Air Room Air Room Air Sepsis Recent Fever Within 48 Hours No Sepsis New/Unexplained Change in Mental Status N/A Sepsis Action Taken by Nursing No Action Required Home Medications Current Medication List: was personally reviewed by me Laboratory Data Attestation: I reviewed the patient's lab results. Result diagrams: 07/12/21 13:40 07/12/21 13:40 Lab Results 07/12/21 07/12/21 07/12/21 Range/Units 12:30 12:30 13:16 WBC (4.8-10.8) K/uL RBC (4.2-5.4) M/uL Hgb (12.0-16.0) g/dL Hct (37-47) % MCV (80-100) fL MCH (25-34) pg MCHC (32-36) g/dL RDW Std Deviation (36.4-46.3) fL RDW Coeff of Adrienne (11.5-14.5) % Plt Count (130-400) K/uL MPV (7.4-10.4) fL Immature Gran % (Auto) % Neut % (Auto) % Lymph % (Auto) % Ventura % (Auto) % Eos % (Auto) % Baso % (Auto) % Neut # (Auto) (1.4-6.5) K/uL Lymph # (Auto) (1.2-3.4) K/uL Ventura # (Auto) (0.11-0.59) K/uL Eos # (Auto) (0-0.5) K/uL Baso # (Auto) (0-0.2) K/uL Immature Gran # (Auto) (0.00-0.02) K/uL Sodium (136-145) mmol/L Potassium (3.5-5.1) mmol/L Chloride (98-107) mmol/L Carbon Dioxide (21-32) mmol/L Anion Gap (3-11) BUN (7-18) mg/dl Creatinine (0.6-1.2) mg/dl Est Cr Clr Drug Dosing ml/min Est GFR ( Amer) ml/min Est GFR (Non-Af Amer) ml/min BUN/Creatinine Ratio (10-20) Glucose (70-99) mg/dl Calcium (8.5-10.1) mg/dl Total Bilirubin (0.2-1) mg/dl AST (15-37) U/L ALT (12-78) U/L Alkaline Phosphatase (45-117) U/L Total Protein (6.4-8.2) gm/dl Albumin (3.4-5.0) gm/dl Globulin (2.5-4.0) gm/dl Albumin/Globulin Ratio (0.9-2) Fluid Comment Synovial Source KNEE Synovial Color ÁLVARO Synovial Appearance CLOUDY Synovial WBC 74814 H (0-200) /ul Synovial RBC 15884 /uL Synovial Polynuclear % 89.2 % Synovial Mononuclear % 10.8 % Synovial Crystals COVID-19 Eval Order Cov[facility]19 at [facility] SARS-CoV-2 (PCR) (Negative) 07/12/21 07/12/21 07/12/21 Range/Units 13:16 13:40 13:40 WBC 6.24 (4.8-10.8) K/uL RBC 4.47 (4.2-5.4) M/uL Hgb 13.8 (12.0-16.0) g/dL Hct 40.7 (37-47) % MCV 91.1 (80-100) fL MCH 30.9 (25-34) pg MCHC 33.9 (32-36) g/dL RDW Std Deviation 45.3 (36.4-46.3) fL RDW Coeff of Adrienne 13.5 (11.5-14.5) % Plt Count 186 (130-400) K/uL MPV 10.4 (7.4-10.4) fL Immature Gran % (Auto) 0.0 % Neut % (Auto) 74.1 % Lymph % (Auto) 16.7 % Ventura % (Auto) 7.7 % Eos % (Auto) 1.0 % Baso % (Auto) 0.5 % Neut # (Auto) 4.63 (1.4-6.5) K/uL Lymph # (Auto) 1.04 L (1.2-3.4) K/uL Ventura # (Auto) 0.48 (0.11-0.59) K/uL Eos # (Auto) 0.06 (0-0.5) K/uL Baso # (Auto) 0.03 (0-0.2) K/uL Immature Gran # (Auto) 0.00 (0.00-0.02) K/uL Sodium 140 (136-145) mmol/L Potassium 3.7 (3.5-5.1) mmol/L Chloride 106 (98-107) mmol/L Carbon Dioxide 26 (21-32) mmol/L Anion Gap 7.0 (3-11) BUN 20 H (7-18) mg/dl Creatinine 0.81 (0.6-1.2) mg/dl Est Cr Clr Drug Dosing 39.4 ml/min Est GFR ( Amer) 76.2 ml/min Est GFR (Non-Af Amer) 65.8 ml/min BUN/Creatinine Ratio 24.9 H (10-20) Glucose 97 (70-99) mg/dl Calcium 9.5 (8.5-10.1) mg/dl Total Bilirubin 0.5 (0.2-1) mg/dl AST 14 L (15-37) U/L ALT 11 L (12-78) U/L Alkaline Phosphatase 80 (45-117) U/L Total Protein 7.6 (6.4-8.2) gm/dl Albumin 3.3 L (3.4-5.0) gm/dl Globulin 4.3 H (2.5-4.0) gm/dl Albumin/Globulin Ratio 0.8 L (0.9-2) Fluid Comment Synovial Source Synovial Color Synovial Appearance Synovial WBC (0-200) /ul Synovial RBC /uL Synovial Polynuclear % % Synovial Mononuclear % % Synovial Crystals COVID-19 Eval Order SARS-CoV-2 (PCR) NEGATIVE (Negative) Administered Medications Felodipine (Felodipine 5 Mg Tabcr) 10 mg PO HS NAVEEN Stop: 08/11/21 20:59 Last Admin: 07/12/21 21:38 Dose: 10 mg Documented by: [id number] Fluticasone Propionate (Fluticasone Propionate Na Spr 16 Gm Btl) 1 sprays GILL HS NAVEEN Stop: 08/11/21 20:59 Last Admin: 07/12/21 21:38 Dose: 1 sprays Documented by: [id number] Lorazepam (Lorazepam 0.5 Mg Tab) 0.5 mg PO BID PRN PRN Reason: Anxiety Stop: 08/11/21 18:34 Last Admin: 07/12/21 23:04 Dose: 0.5 mg Documented by: [id number] Tramadol HCl (Tramadol Hcl 50 Mg Tablet) 50 mg PO Q8H PRN PRN Reason: Pain Stop: 08/11/21 17:44 Last Admin: 07/12/21 18:04 Dose: 50 mg Documented by: [id number] Discontinued Medications Acetaminophen (Acetaminophen 325 Mg Tab) 650 mg PO NOW STA Stop: 07/12/21 09:47 Last Admin: 07/12/21 10:57 Dose: 650 mg Documented by: [id number] Atenolol (Atenolol 25 Mg Tablet) 25 mg PO NOW STA Stop: 07/12/21 09:46 Last Admin: 07/12/21 10:58 Dose: 25 mg Documented by: [id number] Felodipine (Felodipine 5 Mg Tabcr) 5 mg PO NOW STA Stop: 07/12/21 09:47 Last Admin: 07/12/21 10:58 Dose: 5 mg Documented by: [id number] Lidocaine HCl (Lidocaine 1% Local 20 Ml Vial) 20 ml INJ NOW ONE Stop: 07/12/21 09:48 Last Admin: 07/12/21 10:58 Dose: Not Given Documented by: [id number] Methylprednisolone (Methylprednisolone 4 Mg Tab) 4 mg PO NOW ONE Stop: 07/12/21 12:47 Last Admin: 07/12/21 13:24 Dose: 4 mg Documented by: [id number] Tramadol HCl (Tramadol Hcl 50 Mg Tablet) 50 mg PO NOW STA Stop: 07/12/21 09:47 Last Admin: 07/12/21 10:58 Dose: 50 mg Documented by: [id number] Imaging Data Attestation: I personally reviewed and interpreted this imaging study as follows: Radiologist's Impression: Knee X-Ray 07/12/21 09:47 XR knee RT 1 or 2V routine HISTORY: 86 years-old Female effusion, pain acute right knee pain status post twisting injury COMPARISON: Knee radiographs 10/29/2012 TECHNIQUE: 2 views of the right knee FINDINGS: Large joint effusion. Mild to moderate soft tissue swelling both medially and laterally. Demineralized appearance of the bones. Severe patellofemoral with moderate medial and lateral compartment osteoarthritis. There is questioned cortical depression of the lateral tibial plateau. No definite acute fracture line or dislocation. IMPRESSION: 1. Mild cortical depression of the lateral tibial plateau is new from 2012 and is suspicious for a fracture. Correlate with point tenderness and patient history. 2. Large joint effusion with mild to moderate soft tissue swelling. 3. Tricompartmental osteoarthritis is severe within the patellofemoral joint. ACT 112: Negative or not required by law. The above report was generated using voice recognition software. It may contain grammatical, syntax or spelling errors. Electronically signed by: Umang Chapman M.D. 07/12/2021 10:[address] 07/12/21 11:04 CT knee RT wo con HISTORY: 86 years-old Female tibial plateau fx? effusion. Acute right knee pain status post fall COMPARISON: Right knee radiographs of same day and also to 2012 TECHNIQUE: Multiple axial CT images of the right knee were obtained without the use of IV contrast. A dose lowering technique was used consistent with the principals of ALA. FINDINGS: Demineralized appearance of the bones. Chondrocalcinosis. Moderate medial com partment with severe lateral patellofemoral compartment osteoarthritis. There is approximately 6 mm cortical depression involving the lateral tibial plateau corresponding with the abnormality seen on the radiographs of same day, new from 2012. No acute fracture line identified. 1.3 cm linear calcification is noted along the anterolateral aspect of the intercondylar distribution on image 38 series 200 which may be partially fused to the adjacent tibial spine. Large joint effusion. There is associated synovial thickening with synovial calcifications. Question calcified loose bodies versus calcified septations within the lateral joint space. Loose bodies measuring up to 8 mm are noted within the Vilchis's cyst which measures approximately 2.8 x 1.8 x 7.1 cm. Ligaments and tendons are not well evaluated by CT technique. Calcifications noted within the distribution of the ACL which may be chronically torn. IMPRESSION: 1. Tricompartmental osteoarthritis, severe within the lateral and patellofemoral compartments. 2. No acute fracture or dislocation. 3. Moderate cortical depression of the lateral tibial plateau appears chronic. 4. Large joint effusion with synovial thickening and calcifications suggestive of chronic synovitis. Associated intra-articular loose bodies. 5. Moderate sized Vilchis's cyst. ACT 112: Negative or not required by law. The above report was generated using voice recognition software. It may contain grammatical, syntax or spelling errors. Electronically signed by: Umang Chapman M.D. 07/12/2021 11:56 AM Blood Pressure Blood Pressure Findings: Elevated blood pressure Blood Pressure Disposition: further management by hospitalist Discharge Plan Visit Data Chief Complaint: Knee Injury/Pain ED Provider: Avis,Jayleen B Discharge Problem: Hemarthrosis involving knee joint, Osteoarthritis Patient Disposition: Home - Self-Care Condition: Good Discharge Instructions Interventions: ED Discharge Assessment Last Done: 07/12/21 16:00 Discharge Problem: Hemarthrosis involving knee joint Qualifiers: Laterality: right Qualified Code(s): M25.061 - Hemarthrosis, right knee Osteoarthritis Qualifiers: Osteoarthritis location: knee Osteoarthritis type: primary Laterality: right Qualified Code(s): M17.11 - Unilateral primary osteoarthritis, right knee
[2021-07-13 07:10] LABS: Hematocrit (blood only) 36.8 % (37-47); Hemoglobin 12.2 g/dL (12.0-16.0); Mean Corpuscular Hemoglobin 30.7 pg (25-34); Mean Corpuscular Hgb Conc 33.2 g/dL (32-36); Mean Corpuscular Volume 92.7 fL (80-100); Mean Platelet Volume 10.7 fL (7.4-10.4); Platelet Count 177 K/uL (130-400); RDW Coefficient of Variation 13.2 % (11.5-14.5); RDW Standard Deviation 44.6 fL (36.4-46.3); Red Blood Count 3.97 M/uL (4.2-5.4); White Blood Count 5.92 K/uL (4.8-10.8)
[2021-07-13 07:30] LABS: BUN Creatinine Ratio 28.9 (10-20); Calcium 9.2 mg/dl (8.5-10.1); Creatinine Clr Calc Pharmacy 36.3 ml/min; Est GFR (Non-African American) 59.5 ml/min; Potassium 3.5 mmol/L (3.5-5.1)
[2021-07-13] MEDS: traMADol HCL 50 MG TABLET PO PRN (08:39)
[2021-07-13] MEDS: CHOLECALCIFEROL 1,000 UNITS 25 MCG TAB PO SCH (08:39)
[2021-07-13] MEDS: LACTOBACILLUS ACIDOPHILUS 1 GM PACK PO SCH ×3 (08:40→16:11)
[2021-07-13] MEDS: ATENOLOL 25 MG TABLET PO SCH (08:40)
[2021-07-13] MEDS: POTASSIUM CITRATE 10 MEQ TAB PO SCH (08:40)
[2021-07-13] MEDS: predniSONE 20 MG TAB PO SCH (08:43)
[2021-07-13] MEDS ORDERED: DIPHENOXYLATE/ATROPINE 2.5/0.025MG TAB PO PRN (11:19)
[2021-07-13] MEDS: FELODIPINE 5 MG TABCR PO SCH (20:38)
[2021-07-13] MEDS: LORazepam 0.5 MG TAB PO PRN (20:38)
[2021-07-13] MEDS: FLUTICASONE PROPIONATE NA SPR 16 GM BTL NAE SCH (20:38)
--- NOTE | 2021-07-13 21:03 | Hospitalist Progress Note ---
Date of Service July 13, 2021 Assessment & Plan (1) Ambulatory dysfunction: (2) Hemarthrosis involving knee joint: (3) Osteoarthritis of knees, bilateral: Plan: This is an 86yo F with a PMH of severe arthritis, CKD III, HTN, JAZMYN and other medical problems listed below who presents with worsening R knee pain and ambulatory dysfunction x 2 days. Has history of severe arthritis and takes Tylenol 3 Remote history of knee injections by Dr. Palomares but has not received for many years Knee CT shows tricompartmental osteoarthritis, severe within the lateral and patellofemoral compartments. No acute fracture or dislocation. Large joint effusion with synovial thickening and calcifications suggestive of chronic synovitis S/P day#1 R join aspiration and 85 ml of blood fluid were obtained Synovial fluid WBC 14,440, synovial crystals with intracellular crystals with positive birefringence consistent with calcium pyrophosphate (pseudogout) Dr. Ríos consulted, recommends symptomatic/supportive care with pain control, gentle mobilization with PT/OT, assist devices as needed Continue prednisone short course of tapered dose (4) Hypertension: Plan: BP stable Continue atenolol, felodipine HS (5) CKD (chronic kidney disease), stage III: Plan: Cr at baseline. Monitor with daily BMP (6) Anxiety: Plan: Continue home Ativan PRN DVT Ppx: SCDs for now Code status: FULL PCP: Carine Dispo: Observation med/surg Okay to discharge home tomorrow if stable to walk around Admission and Anticipated Discharge Date Admission Date: July 12, 2021 Subjective Patient was seen and examined for follow-up of right knee pain Sitting at the edge of the bed with no acute distress Patient said her pain improves She was using the walker to come out from the bathroom She would like to spend another night to make sure that she is able to go home and walk on her knee before discharge Denies any chest pain, palpitation, dizziness, shortness of breath. Review of Systems Review of Systems: All systems reviewed & are unremarkable except as noted in Subjective Physical Exam Physical Exam: General- No acute distress Head- atraumatic Eyes- PERRL, EOMI, ENT- oropharynx clear Neck- supple, no JVD Lungs- clear to auscultation Heart- regular rhythm; no murmur Abdomen- normal bowel sounds, soft, nontender Extremities- no calf tenderness, +knee sleeve and John wrap was taken down, +R kneed effusion, +R knee effusion Neuro- alert, oriented x 3; PERRL, EOMI; no facial palsy; no dysarthria Skin- warm & dry Results & Data Results & Data ([facility]) Vital Signs (Past 12 Hours) Vital Signs Temp Pulse Resp BP Pulse Ox 07/13/21 14:53 36.5 C 71 18 129/69 93 (1) Hemarthrosis involving knee joint Laterality: right Qualified Code(s): M25.061 - Hemarthrosis, right knee
[2021-07-14 07:36] LABS: Hematocrit (blood only) 37.8 % (37-47); Hemoglobin 12.6 g/dL (12.0-16.0); Mean Corpuscular Hemoglobin 30.9 pg (25-34); Mean Corpuscular Hgb Conc 33.3 g/dL (32-36); Mean Corpuscular Volume 92.6 fL (80-100); Mean Platelet Volume 10.9 fL (7.4-10.4); Platelet Count 188 K/uL (130-400); RDW Coefficient of Variation 13.3 % (11.5-14.5); Red Blood Count 4.08 M/uL (4.2-5.4); White Blood Count 6.24 K/uL (4.8-10.8)
[2021-07-14 08:08] LABS: BUN Creatinine Ratio 32.4 (10-20); Calcium 9.6 mg/dl (8.5-10.1); Creatinine Clr Calc Pharmacy 32.3 ml/min; Est GFR (African American) 59.8 ml/min; Est GFR (Non-African American) 51.6 ml/min; Potassium 3.4 mmol/L (3.5-5.1)
[2021-07-14] MEDS ORDERED: PANTOprazole 40 MG TAB PO PRN (08:50)
[2021-07-14] MEDS ORDERED: predniSONE 20 MG TAB PO ONE (09:45)
[2021-07-14] MEDS: POTASSIUM CITRATE 10 MEQ TAB PO SCH (09:52)
[2021-07-14] MEDS: CHOLECALCIFEROL 1,000 UNITS 25 MCG TAB PO SCH (09:52)
[2021-07-14] MEDS: ATENOLOL 25 MG TABLET PO SCH (09:52)
[2021-07-14] MEDS: LACTOBACILLUS ACIDOPHILUS 1 GM PACK PO SCH ×2 (09:53→12:53)
[2021-07-14] MEDS: traMADol HCL 50 MG TABLET PO PRN (11:26)
[2021-07-14] MEDS: predniSONE 20 MG TAB PO SCH (13:24)
--- NOTE | 2021-07-14 17:17 | Hospitalist Progress Note ---
Date of Service July 14, 2021 Assessment & Plan (1) Pseudogout: (2) Ambulatory dysfunction: (3) Hemarthrosis involving knee joint: (4) Osteoarthritis of knees, bilateral: Plan: per Dr. Joseph's notes with addendum: This is an 86yo F with a PMH of severe arthritis, CKD III, HTN, JAZMYN and other medical problems listed below who presents with worsening R knee pain and ambulatory dysfunction x 2 days. Has history of severe arthritis and takes Tylenol 3 Remote history of knee injections by Dr. Palomares but has not received for many years Knee CT shows tricompartmental osteoarthritis, severe within the lateral and patellofemoral compartments. No acute fracture or dislocation. Large joint effusion with synovial thickening and calcifications suggestive of chronic synovitis S/P day#2 R join aspiration and 85 ml of blood fluid were obtained Synovial fluid WBC 14,440, synovial crystals with intracellular crystals with positive birefringence consistent with calcium pyrophosphate (pseudogout) Dr. Ríos consulted, recommends symptomatic/supportive care with pain control, gentle mobilization with PT/OT, assist devices as needed Continue prednisone short course of tapered dose 07/14 doing much better patient would like to go home as she needs to take care of her , dog, etc explained recommendation of PT for Inpatient Rehab- patient adamantly declines at this time accepting of risks including falls, injuries also declines Home Health services strongly advised to take precautions with ambulation, use walker at all times, etc. d/c on Prednisone 20mg daily x 2 days, then 10mg daily x 2 days, then STOP ff up with PICP in 1 week ff up synovial fluid culture result (5) Hypertension: Plan: BP stable Continue atenolol, felodipine HS (6) CKD (chronic kidney disease), stage III: Plan: Cr at baseline. Monitor with daily BMP (7) Anxiety: Plan: Continue home Ativan PRN DVT Ppx: SCDs for now Code status: FULL PCP: Carine Dispo: d/c home ff up with PCP in 1 week Admission and Anticipated Discharge Date Admission Date: July 13, 2021 Subjective ff up for pseudogout, etc seen resting in bed, comfortable, in good spirits states she feels much better overall ambulated in the halls with minimal pain states her walking is mostly back to baseline R knee pain also much better no chest pain, dyspnea, palpitations, dizziness states she is ready and would to like to be discharged today Review of Systems Review of Systems: all noted and negative except for above Physical Exam Physical Exam: General- oriented x 3, not in distress, speaks in sentences with no effort or accessory muscle use Head- atraumatic Eyes- PERRL, EOMI, anicteric ENT- oropharynx clear Neck- supple, no JVD, no adenopathy, no thyromegaly; carotids +2/2, no bruits appreciated Lungs- clear to auscultation bilaterally, no rales/wheezes Heart- normal rate, regular rhythm; no murmur, no gallop, no rub appreciated Abdomen- normal bowel sounds, nondistended, soft, nontender, no masses or hepatosplenomegaly Extremities- no pretibial edema, no calf tenderness; peripheral pulses intact right knee: minimal edema, no erythema/warmth/tenderness Neuro- alert, oriented x 3; CN 2-12 grossly intact; motor 5/5 bilaterally;sensation 100% on all extremities; no other gross focal neurologic deficits Skin- warm & dry Results & Data Results & Data ([facility]) Vital Signs (Past 12 Hours) Vital Signs Temp Pulse Resp BP BP Pulse Ox 07/14/21 16:56 36.6 C 73 16 127/61 144/66 H 94 07/14/21 15:15 36.6 C 73 16 127/61 94 07/14/21 08:23 36.4 C L 69 14 144/66 H 95 all noted and reviewed including below (1) Hemarthrosis involving knee joint Laterality: right Qualified Code(s): M25.061 - Hemarthrosis, right knee
--- NOTE | 2021-07-14 17:49 | Discharge Summary ---
Date of Service July 14, 2021 Admission HPI Per Admitting Provider This is an 86yo F with a PMH of severe arthritis, CKD III, HTN, JAZMYN and other medical problems listed below who presents with worsening R knee pain and ambulatory dysfunction. Has history of severe arthritis and takes Tylenol 3. Remote history of knee injections by Dr. Palomares but has not received for many years. Pain became significantly worse over the weekend and she was unable to ambulate. Came in today for further evaluation. Knee CT shows tricompartmental osteoarthritis, severe within the lateral and patellofemoral compartments. No acute fracture or dislocation. Large joint effusion with synovial thickening and calcifications suggestive of chronic synovitis. Underwent R join aspiration and 85 ml of blood fluid were obtained, synovial fluid pending. Patient lives with demented at home and has 42 steps to climb. Does not feel safe to return home right now until able to ambulate more easily. Denies weakness to right lower extremity. No fever, chills, lightheadedness, headache, chest pain, palpitations, shortness of breath, nausea, vomiting, abdominal pain, dysuria, diarrhea or constipation. Admission Exam (Per Admitting) Constitutional General Appearance: WD/WN, vitals as above, NAD, sitting up in bed, pleasant, conversing easily Head: normocephalic, atraumatic Eyes: normal inspection, PERRL, conjunctivae normal, anicteric sclerae ENT: external ear and nose normal, oropharynx normal Neck: normal visual inspection, trachea midline, no thyromegaly Respiratory: normal respiratory effort, lungs clear to auscultation, no wheeze, rales, rhonchi. No accessory muscle use Cardiovascular: regular rate, rhythm, no murmur, normal peripheral pulses, no BLE edema. Vessels: no JVD Chest: normal inspection of chest Abdomen/GI: normal bowel sounds, soft, nontender, no hepatosplenomegaly Extremities/Musculoskeletal: R knee bandaged, c/d/i, ice in place. No cyanosis or clubbing, extremities motor strength 5/5 Neurologic: PERRL, EOMI, accommodation nl, no face palsy, no dysarthria, CN's II-XI intact bilaterally and moves all extremities Psychiatric: A+Ox3, euthymic affect Skin: no rashes, normal color, warm/dry Discharge Data Consultations 07/12/21 13:26 ED Decision to Admit Stat 07/12/21 17:06 Consult Orthopedic Surgery Routine Procedures Performed CT knee RT wo con HISTORY: 86 years-old Female tibial plateau fx? effusion. Acute right knee pain status post fall COMPARISON: Right knee radiographs of same day and also to 2012 TECHNIQUE: Multiple axial CT images of the right knee were obtained without the use of IV contrast. A dose lowering technique was used consistent with the principals of ALARA. FINDINGS: Demineralized appearance of the bones. Chondrocalcinosis. Moderate medial compartment with severe lateral patellofemoral compartment osteoarthritis. There is approximately 6 mm cortical depression involving the lateral tibial plateau corresponding with the abnormality seen on the radiographs of same day, new from 2012. No acute fracture line identified. 1.3 cm linear calcification is noted along the anterolateral aspect of the intercondylar distribution on image 38 series 200 which may be partially fused to the adjacent tibial spine. Large joint effusion. There is associated synovial thickening with synovial calcifications. Question calcified loose bodies versus calcified septations within the lateral joint space. Loose bodies measuring up to 8 mm are noted within the Vilchis's cyst which measures approximately 2.8 x 1.8 x 7.1 cm. Ligaments and tendons are not well evaluated by CT technique. Calcifications noted within the distribution of the ACL which may be chronically torn. IMPRESSION: 1. Tricompartmental osteoarthritis, severe within the lateral and patellofemoral compartments. 2. No acute fracture or dislocation. 3. Moderate cortical depression of the lateral tibial plateau appears chronic. 4. Large joint effusion with synovial thickening and calcifications suggestive of chronic synovitis. Associated intra-articular loose bodies. 5. Moderate sized Vilchis's cyst. ACT 112: Negative or not required by law. Hospital Course (1) Pseudogout: (2) Ambulatory dysfunction: (3) Hemarthrosis involving knee joint: (4) Osteoarthritis of knees, bilateral: per Dr. Joseph's notes with addendum: This is an 86yo F with a PMH of severe arthritis, CKD III, HTN, JAZMYN and other medical problems listed below who presents with worsening R knee pain and ambulatory dysfunction x 2 days. Has history of severe arthritis and takes Tylenol 3 Remote history of knee injections by Dr. Palomares but has not received for many years Knee CT shows tricompartmental osteoarthritis, severe within the lateral and patellofemoral compartments. No acute fracture or dislocation. Large joint effusion with synovial thickening and calcifications suggestive of chronic synovitis S/P day#2 R join aspiration and 85 ml of blood fluid were obtained Synovial fluid WBC 14,440, synovial crystals with intracellular crystals with positive birefringence consistent with calcium pyrophosphate (pseudogout) Dr. Ríos consulted, recommends symptomatic/supportive care with pain control, gentle mobilization with PT/OT, assist devices as needed Continue prednisone short course of tapered dose 07/14 doing much better patient would like to go home as she needs to take care of her , dog, etc explained recommendation of PT for Inpatient Rehab- patient adamantly declines at this time accepting of risks including falls, injuries also declines Home Health services strongly advised to take precautions with ambulation, use walker at all times, etc. d/c on Prednisone 20mg daily x 2 days, then 10mg daily x 2 days, then STOP ff up with PICP in 1 week ff up synovial fluid culture result (5) Hypertension: BP stable Continue atenolol, felodipine HS (6) Hypokalemia: mild k 3.4 replaced monitor (7) CKD (chronic kidney disease), stage III: Cr at baseline. Monitor with daily BMP (8) Anxiety: Continue home Ativan PRN DVT Ppx: SCDs for now Code status: FULL PCP: Carine Dispo: d/c home ff up with PCP in 1 week
[2021-07-15] MEDS ORDERED: predniSONE 20 MG TAB PO SCH (09:00)
== END 2021-07-14 18:28 | disposition home or self-care (01) | DRG 554 ==
LOC: 3N 09:30 → ED 09:30 → 3N 16:00 → SUATTDRO 07-13 23:59

== ENCOUNTER 2021-08-01 09:03 | Inpatient (IN) ==
[2021-08-01] MEDS ORDERED: SODIUM CHLORIDE 0.9% 500 ML IV STA (09:20)
[2021-08-01] MEDS ORDERED: PHENAZOPYRIDINE HCL 200 MG TAB PO STA (09:20)
--- NOTE | 2021-08-01 09:24 | Emergency Department Note ---
Impression & Plan Hydronephrosis, Solitary kidney, Ureteral stone, Acute UTI ED Provider Note NAME: DIEGO MOTA AGE: 86 SEX: F : 1935 ARRIVES VIA: Walk-In INFORMANT: [Patient] ED PROVIDER(S): [Robert Etienne MD] CHIEF COMPLAINT: Dysuria HISTORY OF PRESENT ILLNESS: The patient is an 86-year-old female presents to the ER with 2 days of urgency, frequency and urinary burning. She has pain in the area around her bladder with walking or when she urinates. She is had some nausea, no vomiting. No fever. No flank pain. When she urinates, the pain is an 8/10. The patient only has 1 kidney. She has a history of kidney stones and UTI. She was just in our hospital for issues with her knees. 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 REVIEW OF SYSTEMS: See HPI for pertinent positives and negatives. A total of ten systems were reviewed and were otherwise negative. PMHx/PSHx: See Below SOCIAL HISTORY: See Below. PHYSICAL EXAM: GENERAL: Patient is in no acute distress. HEENT: No acute trauma, normocephalic atraumatic, mucous membranes moist, no camryn al congestion, no scleral icterus. NECK: No stridor, no adenopathy, no meningismus, trachea is midline. LUNGS: Clear to auscultation bilaterally, no wheeze, no rhonchi, breath sounds equal. HEART: Without murmurs gallops or rubs, regular rate and rhythm. ABDOMEN: Soft, nontender, bowel sounds positive, no hernias, no peritonitis. No obvious bladder distention. EXTREMITIES: No cyanosis, full range of motion of all the joints without pain or difficulty, no signs for acute trauma. NEUROLOGIC: Oriented x 3, no acute motor or sensory deficits, no focal weakness. SKIN: No rash, no jaundice, no diaphoresis. Back: No flank discomfort to percussion. DIFFERENTIAL DIAGNOSIS: Renal colic, UTI, appendicitis, diverticulitis, mesenteric ischemia, aortic pathology, infections, inflammatory bowel disease, PUD, biliary pathology, as well as other pathologies. EMERGENCY DEPARTMENT COURSE/PROCEDURES: MEDICAL DECISION MAKING: There is no leukocytosis or concerning anemia. There is a normal platelet count. No significant electrolyte abnormality or kidney failure. No concerning liver enzyme elevation. No evidence for pancreatitis. Urinalysis was dirty, possibly infected. Covid testing returned negative. Abdominal and pelvis CT shows a left ureteral stone with some hydronephrosis. No bowel obstruction, no free air. On exam, the patient was not febrile, she was not toxic. Patient was given IV saline, 500 cc. She was given oral Pyridium. She received IV Toradol for pain, IV ceftriaxone as antibiotic coverage. I spoke with urology. As the patient has only one kidney, as she has a urinary obstruction and may have a UTI, a hospital stay was felt warranted. Patient may require urologic intervention if not passing the stone by tomorrow. I did speak with the patient and case management. The on-call hospitalist was consulted. Past Med/Surg History Medical History Ambulatory dysfunction Anxiety Arthritis Chronic acquired lymphedema CKD (chronic kidney disease), stage III HLD (hyperlipidemia) Hypertension Rotator cuff tear arthropathy of both shoulders Surgical History History of appendectomy History of cholecystectomy Family History Mother CHF (congestive heart failure) Social History Smoking Status: Unknown if ever smoked Second Hand Exposure: No; Do You Dip or Chew Tobacco: No; Hx Alcohol Use: Yes Alcohol type: wine Alcohol Intake Frequency: Monthly or Less Hx Substance Use: No Preferred Language: Maltese Communication Ability: Effective Banana Loader Required: No Beliefs That Will Affect Care: None marital status: Current Living Situation: Spouse current occupational status: retired How many Children do You have: 1 Other Information That Helps Us Care for You: No Feels Safe at Home: Yes Safety Concerns: Feels Safe At This Time Assistive Devices: Walker Allergies Allergies Allergy/AdvReac Type Severity Reaction Status Date / Time ampicillin Allergy Unknown Diarrhea Verified 07/12/21 10:49 Home Meds Home Medications Medication Instructions Recorded Confirmed atenolol 25 mg tablet (Tenormin) 25 mg PO QAM 11/19/18 08/01/21 felodipine 10 mg tablet,extended 10 mg PO HS 11/19/18 08/01/21 release 24 hr omeprazole 20 mg capsule,delayed 20 mg PO DAILY 11/19/18 08/01/21 release potassium citrate 10 mEq (1,080 10 meq PO QAM 11/19/18 08/01/21 mg) tablet,extended release (Urocit-K 10) fluticasone propionate 50 1 spray INTRANASAL HS 03/01/19 08/01/21 mcg/actuation nasal spray,suspension (Flonase Allergy Relief) fexofenadine 180 mg tablet 180 mg PO QAM PRN 10/07/20 08/01/21 (Priti Allergy) conjugated estrogens 0.625 mg/gram 1 applic VAGINAL 3XWK 04/25/21 08/01/21 vaginal cream (Premarin) acetaminophen 300 mg-codeine 30 mg 1 tab PO Q4H PRN 07/12/21 08/01/21 tablet cholecalciferol (vitamin D3) 50 2,000 unit PO DAILY 07/12/21 08/01/21 mcg (2,000 unit) capsule (Vitamin D3) docusate sodium 100 mg tablet 100 mg PO BID PRN 07/12/21 08/01/21 loperamide 2 mg capsule 2 mg PO Q6H PRN 07/12/21 08/01/21 lorazepam 0.5 mg tablet 0.5 mg PO BID PRN 07/12/21 08/01/21 meclizine 25 mg tablet 25 mg PO TID PRN 07/12/21 08/01/21 fosfomycin tromethamine 3 gram 3 g PO Q3D 08/01/21 08/01/21 oral packet Previous Rx's Medication Instructions Recorded Lactobacillus acidophilus, 1 g PO TIDM #30 ea 10/16/20 [place] 100 million cell granules packet (Floranex) Results & Data (ED) Vital Signs Vital Signs - 24 hr 08/01/21 09:10 08/01/21 10:09 08/01/21 12:00 Temperature 36.4 C L Temperature Source Temporal Artery Scan Pulse Rate 62 Pulse Rate [Left Finger] 61 66 Pulse Rhythm [Left Finger] Regular Respiratory Rate 18 16 16 Respiratory Effort / Characteristics Non-Labored Respiratory Depth Normal Normal Respiratory Pattern Regular Blood Pressure 156/77 H Blood Pressure [Right Arm] 164/73 H 183/85 H Blood Pressure Mean 103 Blood Pressure Mean [Right Arm] 103 117 Blood Pressure Position [Right Arm] Lying Lying Pulse Oximetry 96 95 95 Oxygen Delivery Method Room Air Room Air Room Air Sepsis Recent Fever Within 48 Hours No Sepsis New/Unexplained Change in Mental Status No Sepsis Action Taken by Nursing No Action Required Home Medications Current Medication List: was personally reviewed by me Laboratory Data Attestation: I reviewed the patient's lab results. Result diagrams: 08/01/21 10:08/01/21 10: Lab Results 08/01/21 08/01/21 08/01/21 Range/Units 10: 10: 11:09 WBC 5.89 (4.8-10.8) K/uL RBC 4.62 (4.2-5.4) M/uL Hgb 14.3 (12.0-16.0) g/dL Hct 43.1 (37-47) % MCV 93.3 (80-100) fL MCH 31.0 (25-34) pg MCHC 33.2 (32-36) g/dL RDW Std Deviation 46.0 (36.4-46.3) fL RDW Coeff of Adrienne 13.4 (11.5-14.5) % Plt Count 174 (130-400) K/uL MPV 10.5 H (7.4-10.4) fL Immature Gran % (Auto) 0.2 % Neut % (Auto) 76.7 % Lymph % (Auto) 13.9 % [place] % (Auto) 6.8 % Eos % (Auto) 1.9 % Baso % (Auto) 0.5 % Neut # (Auto) 4.52 (1.4-6.5) K/uL Lymph # (Auto) 0.82 L (1.2-3.4) K/uL [place] # (Auto) 0.40 (0.11-0.59) K/uL Eos # (Auto) 0.11 (0-0.5) K/uL Baso # (Auto) 0.03 (0-0.2) K/uL Immature Gran # (Auto) 0.01 (0.00-0.02) K/uL Sodium 142 (136-145) mmol/L Potassium 3.8 (3.5-5.1) mmol/L Chloride 107 (98-107) mmol/L Carbon Dioxide 24 (21-32) mmol/L Anion Gap 11.0 (3-11) BUN 18 (7-18) mg/dl Creatinine 0.97 (0.6-1.2) mg/dl Est Cr Clr Drug Dosing Not Reportable Est GFR ( Amer) 61.3 ml/min Est GFR (Non-Af Amer) 52.9 ml/min BUN/Creatinine Ratio 18.2 (10-20) Glucose 98 (70-99) mg/dl Calcium 10.2 H (8.5-10.1) mg/dl Total Bilirubin 0.4 (0.2-1) mg/dl AST 18 (15-37) U/L ALT 15 (12-78) U/L Alkaline Phosphatase 79 (45-117) U/L Total Protein 7.9 (6.4-8.2) gm/dl Albumin 3.4 (3.4-5.0) gm/dl Globulin 4.5 H (2.5-4.0) gm/dl Albumin/Globulin Ratio 0.8 L (0.9-2) Lipase 87 (73-393) U/L Specimen Hemolysis Urine Color [place] Urine Appearance Cloudy A (Clear) Urine pH (4.5-7.5) Ur Specific [place] 1.009 (1.000-1.030) Urine Protein (Negative) Urine Glucose (UA) (Negative) Urine Ketones (Negative) Urine Blood (Negative) Urine Nitrite (Negative) Urine Bilirubin (Negative) Urine Urobilinogen (Negative) Ur Leukocyte Esterase (Negative) Urine RBC 5-10 H (0-4) /hpf Urine WBC 10-30 H (0-5) /hpf Ur Epithelial Cells 20-30 H (0-5) /lpf Urine Bacteria 1+ H (Negative) Administered Medications Heparin Sodium (Porcine) (Heparin Sod 5,000 Unit/0.5 Ml Vial) 5,000 units SQ Q8 NAVEEN Stop: 08/31/21 15:44 Last Admin: 08/01/21 16:29 Dose: 5,000 units Documented by: [id number] Lactated Ringer's (Lr) 1,000 mls @ 100 mls/hr IV .Q10H NAVEEN Stop: 08/02/21 08:35 Last Admin: 08/01/21 13:37 Dose: 100 mls/hr Documented by: [id number] Lactobacillus Acidophilus (Lactobacillus Acidophilus 1 Gm Pack) 1 gm PO TIDM NAVEEN Stop: 08/31/21 16:59 Last Admin: 08/01/21 16:29 Dose: 1 gm Documented by: [id number] Tamsulosin HCl (Tamsulosin Hcl 0.4 Mg Cap) 0.4 mg PO QAM NAVEEN Stop: 08/31/21 15:59 Last Admin: 08/01/21 16:29 Dose: 0.4 mg Documented by: [id number] Discontinued Medications Sodium Chloride (Nss) 500 mls @ 999 mls/hr IV .Q31M STA Stop: 08/01/21 09:50 Last Infusion: 08/01/21 12:31 Dose: 0 mls/hr Documented by: [id number] Admin: 08/01/21 10:03 Dose: 999 mls/hr Documented by: [id number] Ceftriaxone Sodium (Rocephin) 1,000 mg in 50 mls @ 100 mls/hr IV NOW STA Stop: 08/01/21 12:11 Last Infusion: 08/01/21 12:46 Dose: 0 mls/hr Documented by: [id number] Admin: 08/01/21 12:16 Dose: 100 mls/hr Documented by: [id number] Ketorolac Tromethamine (Ketorolac Tromethamine 15 Mg/Ml Vial) 10 mg IV NOW ONE Stop: 08/01/21 11:21 Last Admin: 08/01/21 11:31 Dose: 10 mg Documented by: [id number] Phenazopyridine HCl (Phenazopyridine Hcl 200 Mg Tab) 200 mg PO NOW STA Stop: 08/01/21 09:21 Last Admin: 08/01/21 10:02 Dose: 200 mg Documented by: [id number] Imaging Data Radiologist's Impression: Abdomen/Pelvis CT 08/01/21 09:20 CT abd pelvis wo con CLINICAL HISTORY: poss hydro or stone, 1 kidney TECHNIQUE: Helical axial images of the abdomen and pelvis were obtained. Automated dose lowering techniques and/or adjustment according to patient size were utilized for this exam. This exam was performed without intravenous contrast. COMPARISON: Comparison is made to CT abdomen pelvis 06/14/2020 FINDINGS: Lower chest: A large hiatal hernia is seen containing stomach and loops of bowel. Liver: Unremarkable. No focal lesions are seen. Gallbladder and biliary tree: No calcified gallstones. Normal caliber wall. No intra- or extrahepatic biliary ductal dilation. Pancreas: Unremarkable, no focal lesions. Spleen: Unremarkable. Adrenals: Unremarkable. Kidneys and ureters: The right kidney is again noted to be extremely atrophic with a large right pelvis calculus. There is mild hydronephrosis in the left kidney superimposed on extrarenal pelvis seen on prior exam. There is a tiny, 2 mm stone at the left ureterovesicular junction. Bladder: A focus of air is noted in the antidependent portion of the bladder. Correlation with recent instrumentation is recommended. Reproductive organs: There is limited visualization of a hypodensity in the vaginal canal measuring approximately 17 mm, new from prior exam. Bowel: Unremarkable. Lymph nodes Retroperitoneal: Unremarkable. Mesenteric: Unremarkable. Pelvic: Unremarkable. Peritoneum: Normal Vessels: Atherosclerotic calcifications are seen. Abdominal wall: Unremarkable. Bones: Degenerative changes in the visualized spine. IMPRESSION: 1. Punctate obstructive stone at the left ureterovesicular junction with mild hydronephrosis superimposed on pelviectasis. 2. Focus of air within the bladder, recommend correlation with recent instrumentation. 3. Approximately 1.7 x 3.3 cm hypodensity in the vaginal canal is partially visualized. Clinical correlation is recommended. ACT 112: Negative or not required by law. Electronically signed by: Nilo Hackett M.D. 08/01/2021 11:12 AM Discharge Plan Visit Data Chief Complaint: Flank Pain Stated Complaint: KIDNEY STONE ED Provider: Robert Etienne Discharge Problem: Hydronephrosis, Solitary kidney, Ureteral stone, Acute UTI Patient Disposition: Admitted As Inpatient Condition: Fair Discharge Instructions Interventions: ED Discharge Assessment Last Done: 08/01/21 14:45
[2021-08-01 10:09] LABS: Basophils # (auto) 0.03 K/uL (0-0.2); Basophils % (auto) 0.5 %; Eosinophils # (auto) 0.11 K/uL (0-0.5); Eosinophils % (auto) 1.9 %; Hematocrit (blood only) 43.1 % (37-47); Hemoglobin 14.3 g/dL (12.0-16.0); Immature Granulocytes # (auto) 0.01 K/uL (0.00-0.02); Immature Granulocytes % (auto) 0.2 %; Lymphocytes # (auto) 0.82 K/uL (1.2-3.4); Lymphocytes % (auto) 13.9 %; Mean Corpuscular Hgb Conc 33.2 g/dL (32-36); Mean Corpuscular Volume 93.3 fL (80-100); Mean Platelet Volume 10.5 fL (7.4-10.4); Monocytes % (auto) 6.8 %; Neutrophils # (auto) 4.52 K/uL (1.4-6.5); Neutrophils % (auto) 76.7 %; Platelet Count 174 K/uL (130-400); RDW Coefficient of Variation 13.4 % (11.5-14.5); Red Blood Count 4.62 M/uL (4.2-5.4); White Blood Count 5.89 K/uL (4.8-10.8)
[2021-08-01 10:52] LABS: Alanine Aminotransferase 15 U/L (12-78); Albumin Globulin Ratio 0.8 (0.9-2); Albumin Level 3.4 gm/dl (3.4-5.0); Alkaline Phosphatase 79 U/L (45-117); Aspartate Aminotransferase 18 U/L (15-37); BUN Creatinine Ratio 18.2 (10-20); Bilirubin,Total 0.4 mg/dl (0.2-1); Blood Urea Nitrogen 18 mg/dl (7-18); Calcium 10.2 mg/dl (8.5-10.1); Carbon Dioxide 24 mmol/L (21-32); Chloride 107 mmol/L (98-107); Est GFR (African American) 61.3 ml/min; Est GFR (Non-African American) 52.9 ml/min; Globulin 4.5 gm/dl (2.5-4.0); Glucose 98 mg/dl (70-99); Lipase 87 U/L (73-393); Potassium 3.8 mmol/L (3.5-5.1); Sodium 142 mmol/L (136-145); Total Protein 7.9 gm/dl (6.4-8.2)
--- NOTE | 2021-08-01 11:13 | CT Scan Report ---
CT abd pelvis wo con CLINICAL HISTORY: poss hydro or stone, 1 kidney TECHNIQUE: Helical axial images of the abdomen and pelvis were obtained. Automated dose lowering tech niques and/or adjustment according to patient size were utilized for this exam. This exam was perfor med without intravenous contrast. COMPARISON: Comparison is made to CT abdomen pelvis 06/14/2020 FINDINGS: Lower chest: A large hiatal hernia is seen containing stomach and loops of bowel. Liver: Unremarkable. No focal lesions are seen. Gallbladder and biliary tree: No calcified gallstones. Normal caliber wall. No intra- or extrahepatic biliary ductal dilation. Pancreas: Unremarkable, no focal lesions. Spleen: Unremarkable. Adrenals: Unremarkable. Kidneys and ureters: The right kidney is again noted to be extremely atrophic with a large right pelv is calculus. There is mild hydronephrosis in the left kidney superimposed on extrarenal pelvis seen o n prior exam. There is a tiny, 2 mm stone at the left ureterovesicular junction. Bladder: A focus of air is noted in the antidependent portion of the bladder. Correlation with recent instrumentation is recommended. Reproductive organs: There is limited visualization of a hypodensity in the vaginal canal measuring a pproximately 17 mm, new from prior exam. Bowel: Unremarkable. Lymph nodes Retroperitoneal: Unremarkable. Mesenteric: Unremarkable. Pelvic: Unremarkable. Peritoneum: Normal Vessels: Atherosclerotic calcifications are seen. Abdominal wall: Unremarkable. Bones: Degenerative changes in the visualized spine. IMPRESSION: 1. Punctate obstructive stone at the left ureterovesicular junction with mild hydronephrosis superim posed on pelviectasis. 2. Focus of air within the bladder, recommend correlation with recent instrumentation. 3. Approximately 1.7 x 3.3 cm hypodensity in the vaginal canal is partially visualized. Clinical cor relation is recommended. ACT 112: Negative or not required by law. Electronically signed by: Nilo Hackett M.D. 08/01/2021 11:12 AM
[2021-08-01] MEDS ORDERED: KETOROLAC TROMETHAMINE 15 MG/ML VIAL IV ONE (11:20)
[2021-08-01 11:28] LABS: Appearance Urine Cloudy (Clear); Color Urine Orange; Specific Gravity Urine 1.009 (1.000-1.030)
[2021-08-01 11:30] LABS: Epithelial Cell Urine 20-30 /lpf (0-5)
[2021-08-01 11:31] LABS: Bacteria Urine 1+ (Negative)
[2021-08-01] MEDS ORDERED: cefTRIAXone SODIUM 1,000 MG/50 ML BAG IV STA (11:42)
--- NOTE | 2021-08-01 12:17 | History & Physical Report ---
Date of Service August 01, 2021 Assessment & Plan (1) Ureteropelvic junction (UPJ) obstruction, left: Plan: This is a 86-year-old female who has significant past medical history of HTN, HLD, GERD, acquired solitary kidney secondary to large right renal calculus, hx of nephrolithiasis, CKD stage III, history of recurrent UTIs including history of ESBL, JAZMYN, chronic acquired lymphedema who presents to ED secondary to urinary tract symptoms x2 days. admit to med/surg consult urology strain all urine NPO after midnight in event unable to pass on own IVF LR @ 125cc/hr flomax 0.4mg daily IV morphine - severe pain; tylenol with codeine (pt home med) for moderate pain prn pyridium for dysuria Diarrhea pt reports off and on diarrhea in setting of fosfomycin, is requesting imodium will obtain stool for cdiff to r/o, if negative can continue home imodium Abnormal finding on CT A/P Approximately 1.7 x 3.3 cm hypodensity in the vaginal canal is partially visualized. 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 and likely transvaginal US (2) UTI (urinary tract infection): Plan: UA Suspicious for UTI vs contamination hx of frequent UTIs, takes fosfomycin q3d at home hx of e.coli, esbl, kleb hold fosfomycin, give IV rocephin daily, await urine culture (3) Solitary kidney: Plan: 2/2 to large R pelvis calculus follows nephro (4) CKD (chronic kidney disease), stage III: Plan: baseline cr 1.0 bun/cr stable monitor in setting of stone avoid nephrotoxic agents, receiving toradol in ED (5) Hypertension: Plan: BP elevated in ED, may be situational vs pain continue felodipine and atenolol monitor (6) DVT prophylaxis: Plan: SQ Heparin Dispo: med/surg PCP: Dr. Beth Hawk DNR/DNI Pt was seen and examined in collaboration with Dr. Hernandez, please see addendum History of Present Illness Chief Complaint: Urinary symptoms x2 days. Primary Care Provider: Beth Hawk, DO This is a 86-year-old female who has significant past medical history of HTN, HLD, GERD, acquired solitary kidney secondary to large right renal calculus, hx of nephrolithiasis, CKD stage III, history of recurrent UTIs including history of ESBL, JAZMYN, chronic acquired lymphedema who presents to ED secondary to urinary tract symptoms x2 days. She states I told myself, "I have a kidney stone." She complains of increased urinary urgency, frequency and dysuria along with upset stomach. She ended up presenting to ED this morning secondary to, "I could not pee." She notes that she has frequent urinary tract infections and takes antibiotic every 3 days. She denies any fever, chills, sweats, lightheadedness, dizziness, chest pain, shortness of breath, palpitations, URI symptoms, hematuria, melena or hematochezia. She did have episode of loose st ool in ED. She states due to taking antibiotic every 3 days that she tends to have loose stool. But she can also occasionally have constipation due to taking pain medications for arthritis. At home she states she takes a Lomotil.In ED she remained hemodynamically stable. A CT abdomen pelvis was obtained which revealed a punctuate obstructive stone at the left UV junction with mild hydronephrosis superimposed on pelviectasis. Urology was contacted who recommended overnight observation to omar given history of solitary kidney to see if patient able to pass on own. She was also initiated on IV antibiotics due to initial concerning UA. Allergies Allergy/AdvReac Type Severity Reaction Status Date / Time ampicillin Allergy Unknown Diarrhea Verified 07/12/21 10:49 Home Medications Medication Instructions Recorded Confirmed Type atenolol 25 mg tablet (Tenormin) 25 mg PO QAM 11/19/18 08/01/21 History felodipine 10 mg tablet,extended 10 mg PO HS 11/19/18 08/01/21 History release 24 hr omeprazole 20 mg capsule,delayed 20 mg PO DAILY 11/19/18 08/01/21 History release potassium citrate 10 mEq (1,080 10 meq PO QAM 11/19/18 08/01/21 History mg) tablet,extended release (Urocit-K 10) fluticasone propionate 50 1 spray INTRANASAL HS 03/01/19 08/01/21 History mcg/actuation nasal spray,suspension (Flonase Allergy Relief) fexofenadine 180 mg tablet 180 mg PO QAM PRN 10/07/20 08/01/21 History (Priti Allergy) Lactobacillus acidophilus, 1 g PO TIDM #30 ea 10/16/20 08/01/21 Rx bulgaricus 100 million cell granules packet (Floranex) conjugated estrogens 0.625 mg/gram 1 applic VAGINAL 3XWK 04/25/21 08/01/21 History vaginal cream (Premarin) cholecalciferol (vitamin D3) 50 2,000 unit PO DAILY 07/12/21 08/01/21 History mcg (2,000 unit) capsule (Vitamin D3) docusate sodium 100 mg tablet 100 mg PO BID PRN 07/12/21 08/01/21 History loperamide 2 mg capsule 2 mg PO Q6H PRN 07/12/21 08/01/21 History lorazepam 0.5 mg tablet 0.5 mg PO BID PRN 07/12/21 08/01/21 History meclizine 25 mg tablet 25 mg PO TID PRN 07/12/21 08/01/21 History acetaminophen 300 mg-codeine 30 mg 1 tab PO Q4H PRN #12 tab 08/05/21 Rx tablet phenazopyridine 200 mg tablet 200 mg PO TID PRN #10 tab 08/05/21 Rx (Pyridium) tamsulosin 0.4 mg capsule 0.4 mg PO QAM #14 cap 08/05/21 Rx Past Med/Surg History Medical History Ambulatory dysfunction Anxiety Arthritis Chronic acquired lymphedema CKD (chronic kidney disease), stage III HLD (hyperlipidemia) Hypertension Rotator cuff tear arthropathy of both shoulders Surgical History History of appendectomy History of cholecystectomy Family History Mother CHF (congestive heart failure) Social History Smoking Status: Unknown if ever smoked Second Hand Exposure: No; Hx Alcohol Use: Yes Alcohol type: wine Alcohol Intake Frequency: Monthly or Less Hx Substance Use: No Preferred Language: Tanzanian Communication Ability: Effective Locomotive Operator Required: No Beliefs That Will Affect Care: None marital status: Current Living Situation: Spouse current occupational status: retired How many Children do You have: 1 Feels Safe at Home: Yes Assistive Devices: Glasses and Walker Review of Systems Review of Systems: All systems reviewed & are unremarkable except as noted in HPI & below Physical Exam Physical Exam: Constitutional: Petite, elderly, F, WD/WN, vitals as above, NAD, sitting up in bed, pleasant, conversing easily Head: Normocephalic, Atraumatic Eyes: PERRL, conjunctivae normal, anicteric sclerae ENMT: external ear and nose normal, oropharynx normal Neck: trachea midline, no thyromegaly normal visual inspection Respiratory: normal respiratory effort, lungs clear to auscultation, no wheeze, rales, rhonchi. Normal insp/exp effort, no accessory muscle use Cardiovascular: RRR, no murmur, b/l lower ext lymphedema Vessels: no JVD or carotid bruit Chest: normal inspection of chest Abdomen: normal bowel sounds, soft, nontender, no hepatosplenomegaly , NO CVA tenderness Musculoskeletal: no cyanosis or clubbing, extremities motor strength 5/5 Skin: no rashes, warm and dry normal turgor Neurologic: PERRL, EOMI, accommodation nl, no face palsy, no dysarthria CN's II-XI intact bilaterally and moves all extremities Psychiatric: A+Ox3, euthymic affect Lymphatic: no cervical or axillary lymphadenopathy : deferred Results & Data Results & Data ([facility]) Vital Signs (Past 12 Hours) Vital Signs Temp Pulse Pulse Resp BP BP Pulse Ox 08/01/21 10:09 61 16 164/73 H 95 08/01/21 09:10 36.4 C L 62 18 156/77 H 96 Diagnostic Findings Abdomen/Pelvis CT 08/01/21 09:20 CT abd pelvis wo con CLINICAL HISTORY: poss hydro or stone, 1 kidney TECHNIQUE: Helical axial images of the abdomen and pelvis were obtained. Automated dose lowering techniques and/or adjustment according to patient size were utilized for this exam. This exam was performed without intravenous contrast. COMPARISON: Comparison is made to CT abdomen pelvis 06/14/2020 FINDINGS: Lower chest: A large hiatal hernia is seen containing stomach and loops of bowel. Liver: Unremarkable. No focal lesions are seen. Gallbladder and biliary tree: No calcified gallstones. Normal caliber wall. No intra- or extrahepatic biliary ductal dilation. Pancreas: Unremarkable, no focal lesions. Spleen: Unremarkable. Adrenals: Unremarkable. Kidneys and ureters: The right kidney is again noted to be extremely atrophic with a large right pelvis calculus. There is mild hydronephrosis in the left kidney superimposed on extrarenal pelvis seen on prior exam. There is a tiny, 2 mm stone at the left ureterovesicular junction. Bladder: A focus of air is noted in the antidependent portion of the bladder. Correlation with recent instrumentation is recommended. Reproductive organs: There is limited visualization of a hypodensity in the vaginal canal measuring approximately 17 mm, new from prior exam. Bowel: Unremarkable. Lymph nodes Retroperitoneal: Unremarkable. Mesenteric: Unremarkable. Pelvic: Unremarkable. Peritoneum: Normal Vessels: Atherosclerotic calcifications are seen. Abdominal wall: Unremarkable. Bones: Degenerative changes in the visualized spine. IMPRESSION: 1. Punctate obstructive stone at the left ureterovesicular junction with mild hydronephrosis superimposed on pelviectasis. 2. Focus of air within the bladder, recommend correlation with recent instrumentation. 3. Approximately 1.7 x 3.3 cm hypodensity in the vaginal canal is partially visualized. Clinical correlation is recommended. ACT 112: Negative or not required by law. Electronically signed by: Nilo Hackett M.D. 08/01/2021 11:12 AM Medications Administered Medication List Discontinued Medications Sodium Chloride (Nss) 500 mls @ 999 mls/hr IV .Q31M STA Stop: 08/01/21 09:50 Last Admin: 08/01/21 10:03 Dose: 999 mls/hr Documented by: [id number] Ketorolac Tromethamine (Ketorolac Tromethamine 15 Mg/Ml Vial) 10 mg IV NOW ONE Stop: 08/01/21 11:21 Last Admin: 08/01/21 11:31 Dose: 10 mg Documented by: [id number] Phenazopyridine HCl (Phenazopyridine Hcl 200 Mg Tab) 200 mg PO NOW STA Stop: 08/01/21 09:21 Last Admin: 08/01/21 10:02 Dose: 200 mg Documented by: [id number] COVID-19 Results Results COVID-19 Adm Lab Results: RBC 3.73 M/uL (4.2-5.4) L 08/05/21 WBC 5.80 K/uL (4.8-10.8) 08/05/21 Hgb 11.4 g/dL (12.0-16.0) L 08/05/21 Hct 35.8 % (37-47) L 08/05/21 Plt Count 160 K/uL (130-400) 08/05/21 Neutrophils (%) (Auto) 62.9 % 08/05/21 Lymphocytes (%) (Auto) 24.5 % 08/05/21 Monocytes # (Auto) 0.48 K/uL (0.11-0.59) 08/05/21 Eosinophils # (Auto) 0.21 K/uL (0-0.5) 08/05/21 Immature Granulocyte % (Auto) 0.2 % 08/05/21 Neutrophils # (Auto) 3.65 K/uL (1.4-6.5) 08/05/21 Lymphocytes # (Auto) 1.42 K/uL (1.2-3.4) 08/05/21 Monocytes # (Auto) 0.48 K/uL (0.11-0.59) 08/05/21 Eosinophils # (Auto) 0.21 K/uL (0-0.5) 08/05/21 Basophils # (Auto) 0.03 K/uL (0-0.2) 08/05/21 Immature Granulocyte # (Auto) 0.01 K/uL (0.00-0.02) 08/05/21 Na 143 mmol/L (136-145) 08/05/21 K 4.1 mmol/L (3.5-5.1) 08/05/21 Cl 110 mmol/L (98-107) H 08/05/21 CO2 26 mmol/L (21-32) 08/05/21 Anion Gap 7.0 (3-11) 08/05/21 BUN 19 mg/dl (7-18) H 08/05/21 Creatinine 0.99 mg/dl (0.6-1.2) 08/05/21 BUN/Creatinine Ratio 19.2 (10-20) 08/05/21 Glucose Level 93 mg/dl (70-99) 08/05/21 Ca 8.6 mg/dl (8.5-10.1) 08/05/21 Total Bilirubin 0.4 mg/dl (0.2-1) 08/01/21 AST/SGOT 18 U/L (15-37) 08/01/21 ALT/SGPT 15 U/L (12-78) 08/01/21 Alkaline Phosphatase 79 U/L (45-117) 08/01/21 Total Protein 7.9 gm/dl (6.4-8.2) 08/01/21 Albumin 3.4 gm/dl (3.4-5.0) 08/01/21 Globulin 4.5 gm/dl (2.5-4.0) H 08/01/21 Albumin/Globulin Ratio 0.8 (0.9-2) L 08/01/21 COVID-19 PCR NEGATIVE (Negative) 08/01/21 Chest X-Ray 08/02/21 Code Status & VTE Plan Code Status DNR/DNI VTE Prophylaxis Plan VTE Prophylaxis will be ordered: Yes Supervising Physician Co-Signing Physician Notes Attending Addendum: delayed entry date of service noted above care coordinated with AYAAN Quick please refer to her notes for full details, I agree with her notes patient seen and examined, records reviewed by myself as well on exam, patient seen resting in bed, not in distress has mild L sided flank discomfort no fever/chills no other symptoms VS noted and reviewed orientedx 3 , not in distress, speaks in sentences with no effort nor accessory muscle use normal rate, regular rhythm, no murmurs clear breath sounds bilaterally non distended, soft, nontender no bipedal edema, erythema, warmth no neuro deficits WBC 5.8 Hg 11.4 Crea 0.9 ASSESSMENT AND PLAN URETERAL STONE Urology consulted IV fluids, pain meds POSSIBLE UTI empiric Abx as above other diagnoses and plan of care as per AYAAN Quick's notes Jose Hernandez MD
[2021-08-01] MEDS: LACTATED RINGER'S 1,000 ML IV SCH (13:37)
[2021-08-01] MEDS ORDERED: PHENAZOPYRIDINE HCL 200 MG TAB PO PRN (15:22)
[2021-08-01] MEDS ORDERED: ALUMINUM/MAGNESIUM SUSP 30 ML UDC PO PRN (15:22)
[2021-08-01] MEDS ORDERED: DOCUSATE SODIUM 100 MG CAP PO PRN (15:22)
[2021-08-01] MEDS ORDERED: POLYETHYLENE (MIRALAX) 17 GM PACK PO PRN (15:22)
[2021-08-01] MEDS ORDERED: ONDANSETRON INJ 2 MG/ML 2 ML VIAL IV PRN (15:22)
[2021-08-01] MEDS ORDERED: FEXOFENADINE HCL 180 MG TAB PO PRN (15:22)
[2021-08-01] MEDS ORDERED: MoRPHine SULFATE 2 MG/ML CARP IV PRN (15:22)
[2021-08-01] MEDS ORDERED: ACETAMINOPHEN 325 MG TAB PO PRN (15:22)
[2021-08-01] MEDS ORDERED: MAGNESIUM HYDROXIDE SUSP 30 ML UDC PO PRN (15:22)
[2021-08-01] MEDS: HEPARIN SOD 5,000 UNIT/0.5 ML VIAL SQ SCH ×2 (16:29→22:29)
[2021-08-01] MEDS: LACTOBACILLUS ACIDOPHILUS 1 GM PACK PO SCH (16:29)
[2021-08-01] MEDS: TAMSULOSIN HCL 0.4 MG CAP PO SCH (16:29)
[2021-08-01] MEDS: FLUTICASONE PROPIONATE NA SPR 16 GM BTL SCH (21:10)
[2021-08-01] MEDS: FELODIPINE 5 MG TABCR PO SCH (21:10)
[2021-08-01] MEDS: LORazepam 0.5 MG TAB PO PRN (22:35)
[2021-08-02] MEDS: LACTATED RINGER'S 1,000 ML IV SCH (00:23)
[2021-08-02] MEDS: ACETAMINOPHEN W/CODEINE #3 1 TAB PO PRN (03:01)
[2021-08-02] MEDS: HEPARIN SOD 5,000 UNIT/0.5 ML VIAL SQ SCH ×3 (05:46→22:15)
[2021-08-02] MEDS: ATENOLOL 25 MG TABLET PO SCH (08:48)
[2021-08-02] MEDS: CHOLECALCIFEROL 1,000 UNITS 25 MCG TAB PO SCH (08:48)
[2021-08-02] MEDS: LACTOBACILLUS ACIDOPHILUS 1 GM PACK PO SCH ×3 (08:48→16:35)
[2021-08-02] MEDS: TAMSULOSIN HCL 0.4 MG CAP PO SCH (08:49)
[2021-08-02] MEDS: POTASSIUM CITRATE 10 MEQ TAB PO SCH (08:49)
[2021-08-02] MEDS: PANTOprazole 40 MG TAB PO SCH (08:49)
--- NOTE | 2021-08-02 08:55 | Urology Consultation ---
Date of Consultation August 02, 2021 Assessment & Plan (1) Calculus of distal left ureter: (2) Hydronephrosis: (3) Acute UTI: 86 yo F admitted for an obstructing 2 mm left UVJ stone with mild hydronephrosis. - Pt afebrile, nontoxic, lab work reviewed - creatinine and WBC within normal l imits on 08/01. - Urine culture prelim gram negative bacilli - continue IV Ceftriaxone, follow cultures. - KUB this AM showed likely unchanged 2 mm left UVJ stone. - Discussed options for stone management with patient including observation/trial of passage vs stone treatment and stent placement. - Findings reviewed with Dr. Summers. - Given solitary kidney, UTI, and hydronephrosis in the context of an obstructing 2 mm left UVJ stone, will proceed with OR for cystoscopy, Left ureteronephroscopy, left stent placement, possible stone treatment. - Risks and benefits reviewed with patient, consent reviewed and signed. OR notified. - Preoperative CXR and EKG ordered. COVID testing negative. Will cover with IV Ceftriaxone preoperatively. - Strain all urine. - Keep NPO. - Patient in agreement with above plan, all questions answered. - Continue supportive care and management per primary service. ATTENDING NOTE: Agree with above. Independently evaluated, reviewed, assessed, and examined. Agree with plan. Solitary kidney with small 2 mm UVJ stone on left Risks and benefits discussed at length for procedure. These include bleeding, infection, injury to surrounding tissues or organs, and risks associated with anesthesia. Patient states understanding and agrees to proceed. Will sign consent and proceed with cystoscopy and left ureteroscopy and stone treatment. History of Present Illness Reason for Consultation: L UVJ stone Requesting Physician: Dr. Hernandez Attending Physician: Jose Hernandez MD History of Present Illness 86 yo F with past medical history of solitary kidney, CKD stage III, hypertension, hyperlipidemia, OA, ambulatory dysfunction, anxiety, and kidney stones admitted for an obstructing 2 mm left UVJ stone with mild hydronephrosis. Patient presented to [facility] ED on 08/01/21 with dysuria and urinary symptoms. Afebrile on arrival. Lab work showed creatinine 0.97, WBC 5.89, Hgb 14.3. Urinalysis on admission showed 5-10 RBCs, 10-30 WBCs, 20-30 epithelials, and 1+ bacteria. Urine culture collected. CTAP reviewed and notable for an obstructing 2 mm left UVJ stone with associated mild hydronephrosis. She was treated with IV fluids, IV Ceftriaxone, Ketorolac, Pyridium, and Tamsulosin in the ED. She was admitted to hospital medicine service for further evaluation and management. Urology consulted for left UVJ stone. No new labs this morning at time of visit. Her urine culture is preliminary showing gram negative bacilli. She is on IV Ceftriaxone. Patient seen and examined at bedside this AM. She is awake, alert, and resting in bed. Denies stone passage overnight. Currently endorses bladder discomfort and dysuria. Voiding spontaneously without difficulty. No flank pain. No hematuria. No fever or chills. No nausea or vomiting. She is NPO since midnight. She reports history of stones in the past. Follows with [facility], formerly Dr. Rivero and now Dr. Gaytan. She has required surgical intervention on all stones in the past. Tolerated stent well in the past. Has never passed a stone spontaneously. Also has history of recurrent UTIs and she takes Fosfomycin Q3days for prevention. She reports she has been on this regimen for a long time. No additional concerns today. Allergies Allergy/AdvReac Type Severity Reaction Status Date / Time ampicillin Allergy Unknown Diarrhea Verified 07/12/21 10:49 Home Medications Medication Instructions Recorded Confirmed Type atenolol 25 mg tablet (Tenormin) 25 mg PO QAM 11/19/18 08/01/21 History felodipine 10 mg tablet,extended 10 mg PO HS 11/19/18 08/01/21 History release 24 hr omeprazole 20 mg capsule,delayed 20 mg PO DAILY 11/19/18 08/01/21 History release potassium citrate 10 mEq (1,080 10 meq PO QAM 11/19/18 08/01/21 History mg) tablet,extended release (Urocit-K 10) fluticasone propionate 50 1 spray INTRANASAL HS 03/01/19 08/01/21 History mcg/actuation nasal spray,suspension (Flonase Allergy Relief) fexofenadine 180 mg tablet 180 mg PO QAM PRN 10/07/20 08/01/21 History (Priti Allergy) Lactobacillus acidophilus, 1 g PO TIDM #30 ea 10/16/20 08/01/21 Rx bulgaricus 100 million cell granules packet (Floranex) conjugated estrogens 0.625 mg/gram 1 applic VAGINAL 3XWK 04/25/21 08/01/21 History vaginal cream (Premarin) acetaminophen 300 mg-codeine 30 mg 1 tab PO Q4H PRN 07/12/21 08/01/21 History tablet cholecalciferol (vitamin D3) 50 2,000 unit PO DAILY 07/12/21 08/01/21 History mcg (2,000 unit) capsule (Vitamin D3) docusate sodium 100 mg tablet 100 mg PO BID PRN 07/12/21 08/01/21 History loperamide 2 mg capsule 2 mg PO Q6H PRN 07/12/21 08/01/21 History lorazepam 0.5 mg tablet 0.5 mg PO BID PRN 07/12/21 08/01/21 History meclizine 25 mg tablet 25 mg PO TID PRN 07/12/21 08/01/21 History fosfomycin tromethamine 3 gram 3 g PO Q3D 08/01/21 08/01/21 History oral packet Patient History Medical History Ambulatory dysfunction Anxiety Arthritis Chronic acquired lymphedema CKD (chronic kidney disease), stage III HLD (hyperlipidemia) Hypertension Rotator cuff tear arthropathy of both shoulders Surgical History History of appendectomy History of cholecystectomy Family History Mother CHF (congestive heart failure) Social History Smoking Status: Unknown if ever smoked Second Hand Exposure: No; Do You Dip or Chew Tobacco: No; Hx Alcohol Use: Yes Alcohol type: wine Alcohol Intake Frequency: Monthly or Less Hx Substance Use: No Preferred Language: Honduran Communication Ability: Effective Behavioral Specialist Required: No Beliefs That Will Affect Care: None marital status: Current Living Situation: Spouse current occupational status: retired How many Children do You have: 1 Other Information That Helps Us Care for You: No Feels Safe at Home: Yes Safety Concerns: Feels Safe At This Time Assistive Devices: Glasses and Walker Review of Systems Constitutional: as per Subjective / HPI Eyes: + corrective lenses Ear, Nose, Mouth, Throat: no problem reported Respiratory: no dyspnea Cardiovascular: no chest pain Gastrointestinal: as per Subjective / HPI Genitourinary: as per Subjective / HPI Musculoskeletal: ambulates with walker Integumentary: no problem reported Neurologic: no problem reported Psychiatric: no problem reported Physical Exam Constitutional: well developed and well nourished; no acute distress and not ill appearing Respiratory: normal respiratory effort and able to speak in complete sentences; no respiratory distress and no labored breathing Cardiovascular: Extremities: no pedal edema Gastrointestinal (Abdomen): Inspection/Auscultation: abdomen normal to inspection; abdomen not distended Percussion/Palpation: + abdomen tender (mildly tender to palpation across lower abdomen) and abdomen soft; no guarding Musculoskeletal: Head/Neck/Chest: normocephalic and head atraumatic Neurologic: moves all extremities and awake Psychiatric: Orientation: alert, oriented x 3 and cooperative Genitourinary: no CVA tenderness Results & Data ([facility]) Vital Signs (Past 12 Hours) Vital Signs Temp Pulse Pulse Resp BP Pulse Ox 08/02/21 07:18 36.7 C 78 17 150/74 H 95 08/01/21 22:20 36.5 C 91 H 18 128/71 91 08/01/21 21:07 75 171/69 H PG Care Time/CCT Total # of Minutes Spent Total Time Spent with Patient: Total time spent is greater than 50% in coordination of care (as documented) at patient's floor/unit and/or counseling patient: Coding Level of Care Code 16509 Initial Inpt Care Lvl 3 Diagnoses Calculus of distal left ureter N20.1 Hydronephrosis N13.2 Hydronephrosis type: with ureteral calculous obstruction Acute UTI N39.0 (1) Hydronephrosis Hydronephrosis type: with ureteral calculous obstruction Qualified Code(s): N13.2 - Hydronephrosis with renal and ureteral calculous obstruction
--- NOTE | 2021-08-02 09:03 | XRay Report ---
XR KUB/Abdomen 1 view CLINICAL HISTORY: eval for L UVJ stone TECHNIQUE: 1 view of the abdomen was obtained. Comparison: Comparison is made to CT abdomen pelvis 08/01/2021 FINDINGS: Multiple phleboliths are seen. There is a suggestion of a 2 mm radiodensity without a lucent center i n the region of the left ureterovesicular junction which may correspond to stone seen on prior CT. Th e osseous structures are grossly unremarkable. The bowel gas pattern is nonobstructive. A moderate am ount of stool is noted within the large bowel. IMPRESSION: Likely unchanged appearance of 2 mm stone in the left ureterovesicular junction. ACT 112: Negative or not required by law. Electronically signed by: Nilo Hackett M.D. 08/02/2021 9:01 AM
[2021-08-02 09:50] LABS: Basophils # (auto) 0.04 K/uL (0-0.2); Basophils % (auto) 1.1 %; Eosinophils # (auto) 0.13 K/uL (0-0.5); Eosinophils % (auto) 3.4 %; Hematocrit (blood only) 37.8 % (37-47); Hemoglobin 12.4 g/dL (12.0-16.0); Lymphocytes % (auto) 21.2 %; Mean Corpuscular Hemoglobin 30.5 pg (25-34); Mean Corpuscular Hgb Conc 32.8 g/dL (32-36); Mean Corpuscular Volume 92.9 fL (80-100); Mean Platelet Volume 10.3 fL (7.4-10.4); Monocytes # (auto) 0.32 K/uL (0.11-0.59); Monocytes % (auto) 8.5 %; Neutrophils # (auto) 2.48 K/uL (1.4-6.5); Neutrophils % (auto) 65.8 %; Platelet Count 178 K/uL (130-400); RDW Coefficient of Variation 13.4 % (11.5-14.5); RDW Standard Deviation 45.6 fL (36.4-46.3); Red Blood Count 4.07 M/uL (4.2-5.4); White Blood Count 3.77 K/uL (4.8-10.8)
--- NOTE | 2021-08-02 10:10 | XRay Report ---
SINGLE VIEW CHEST CLINICAL HISTORY: Preoperative examination. Nephrolithiasis. FINDINGS: An AP, portable, upright chest radiograph is compared to study dated 07/06/2020. The cardio mediastinal silhouette is unremarkable. There is a large hiatal hernia. Scarring/atelectasis is noted at the lung bases. The lungs and pleural spaces are otherwise clear. No pneumothorax is seen. The sk eletal structures are osteopenic. The bony thorax is grossly intact. Advanced arthritic change and de formity is seen in the shoulders. IMPRESSION: 1. No active disease in the chest. 2. Large hiatal hernia. ACT 112: Negative or not required by law. Electronically signed by: Robert Morton M.D. 08/02/2021 10:09 AM
[2021-08-02] MEDS: PHENAZOPYRIDINE HCL 200 MG TAB PO SCH ×3 (10:21→22:15)
[2021-08-02 10:22] LABS: BUN Creatinine Ratio 16.1 (10-20); Calcium 9.6 mg/dl (8.5-10.1); Creatinine Clr Calc Pharmacy 35.9 ml/min; Est GFR (Non-African American) 58.7 ml/min; Potassium 3.5 mmol/L (3.5-5.1)
--- NOTE | 2021-08-02 10:34 | Hospitalist Progress Note ---
Date of Service August 02, 2021 Assessment & Plan (1) Ureteropelvic junction (UPJ) obstruction, left: Plan: This is a 86-year-old female who has significant past medical history of HTN, HLD, GERD, acquired solitary kidney secondary to large right renal calculus, hx of nephrolithiasis, CKD stage III, history of recurrent UTIs including history of ESBL, JAZMYN, chronic acquired lymphedema who presents to ED secondary to urinary tract symptoms x2 days. admit to med/surg consult urology - appreciate recommendations, plan for OR and cystoscopy today strain all urine NPO continue IVF LR @ 125cc/hr until NPO lifted flomax 0.4mg daily IV morphine - severe pain; tylenol with codeine (pt home med) for moderate pain will schedule pyridium for dysuria for now CXR and ecg reviewed, ok to proceed with cystoscopy Diarrhea pt reports off and on diarrhea in setting of fosfomycin, is requesting imodium will obtain stool for cdiff to r/o, if negative can continue home imodium NO BM since admission, KUB reveals moderate amount of stool in abd Abnormal finding on CT A/P Approximately 1.7 x 3.3 cm hypodensity in the vaginal canal is partially visualized. New from prior image recommend bridges supervisor eval as outpt and likely transvaginal US (2) UTI (urinary tract infection): Plan: UA Suspicious for UTI hx of frequent UTIs, takes fosfomycin q3d at home hx of e.coli, esbl, kleb Urine growing gram negative bacilli hold fosfomycin, give IV rocephin daily, await urine culture (3) Solitary kidney: Plan: 2/2 to large R pelvis calculus follows nephro (4) CKD (chronic kidney disease), stage III: Plan: baseline cr 1.0 bun/cr stable monitor in setting of stone avoid nephrotoxic agents, received toradol in ED (5) Hypertension: Plan: BP elevated last evening, l ikely 2/2 to pain and anxiety continue felodipine and atenolol monitor will consider prn hydralazine if continues to trend high today (6) DVT prophylaxis: Plan: SQ Heparin Dispo: med/surg PCP: Dr. Beth Hawk DNR/DNI Pt was seen and examined in collaboration with Dr. Hernandez, please see addendum Admission and Anticipated Discharge Date Admission Date: August 01, 2021 Supervising Physician Co-Signing Physician Notes Attending Addendum: care coordinated with AYAAN Matthews please refer to her notes for full details, I agree with her notes patient seen and examined, records reviewed by myself as well on exam, patient seen resting in bed, in good spirits, comfortable Minimal pain over the left flank area No fevers or chills, nausea vomiting, chest pain, shortness of breath, abdominal pain no other symptoms VS noted and reviewed oriented x3, not in distress, speaks in sentences with no effort nor accessory muscle use normal rate, regular rhythm, no murmurs clear breath sounds bilaterally non distended, soft, nontender no bipedal edema, erythema, warmth no neuro deficits WBC 3.7 Hg 12.4 Crea 0.89 ASSESSMENT AND PLAN Left ureteral stone, status post cystoscopy, ureteral stent placement Doing fine overall after procedure Monitor closely Gram-negative bacilli UTI Follow-up urine culture Continue ceftriaxone IV other diagnoses and plan of care as per AYAAN Matthews's notes Jose Hernandez MD Subjective Patient was seen and examined in room 315. Follow-up left UVJ stone. She is doing well this morning, but explains she had a bad night. She complained of dysuria. She did have a Pyridium yesterday in the ER but has not had any since. She is not having difficulty initiating stream. She denies fever, chills, sweats, chest pain, shortness of breath, nausea, vomiting. Currently she is n.p.o. awaiting urologic evaluation. She did not pass stone overnight. Review of Systems Review of Systems: All systems reviewed & are unremarkable except as noted in HPI & below Physical Exam Physical Exam: Gen: WD/WN, petite, elderly, female, sitting up at bedside NAD, A&O x3 HEENT: Normocephalic, atraumatic, conjunctivae moist, sclerae anicteric, mucous membranes moist. Lung: Clear to Auscultation bilaterally, no wheezes/rales/rhonchi Heart: Regular rate, regular rhythm, no murmurs, rubs, or gallops Abdomen: Soft, NT, ND +BS x 4 Extremities: No edema Skin: Warm, no rash, negative turgor. Results & Data Results & Data (MN) Vital Signs (Past 12 Hours) Vital Signs Temp Pulse Resp BP Pulse Ox 08/02/21 07:18 36.7 C 78 17 150/74 H 95 Laboratory Results Short CBC 08/02/21 Range/Units 09:34 WBC 3.77 L (4.8-10.8) K/uL Hgb 12.4 (12.0-16.0) g/dL Hct 37.8 (37-47) % Plt Count 178 (130-400) K/uL BMP 08/01/21 08/02/21 10:01 09:34 Sodium 142 140 Potassium 3.8 3.5 Chloride 107 108 H Carbon Dioxide 24 28 BUN 18 14 Creatinine 0.97 0.89 Glucose 98 100 H Calcium 10.2 H 9.6 Liver Function 08/01/21 Range/Units 10:01 Total Bilirubin 0.4 (0.2-1) mg/dl AST 18 (15-37) U/L ALT 15 (12-78) U/L Alkaline Phosphatase 79 (45-117) U/L Albumin 3.4 (3.4-5.0) gm/dl Urine 08/01/21 Range/Units 11:09 Urine Color [place] Urine Appearance Cloudy A (Clear) Urine pH (4.5-7.5) Ur Specific [place] 1.009 (1.000-1.030) Urine Protein (Negative) Urine Glucose (UA) (Negative) Diagnostic Findings KUB X-Ray 08/02/21 07:00 XR KUB/Abdomen 1 view CLINICAL HISTORY: eval for L UVJ stone TECHNIQUE: 1 view of the abdomen was obtained. Comparison: Comparison is made to CT abdomen pelvis 08/01/2021 FINDINGS: Multiple phleboliths are seen. There is a suggestion of a 2 mm radiodensity without a lucent center in the region of the left ureterovesicular junction which may correspond to stone seen on prior CT. The osseous structures are grossly unremarkable. The bowel gas pattern is nonobstructive. A moderate amount of stool is noted within the large bowel. IMPRESSION: Likely unchanged appearance of 2 mm stone in the left ureterovesicular junction. ACT 112: Negative or not required by law. Electronically signed by: Nilo Hackett M.D. 08/02/2021 9:01 AM Chest X-Ray 08/02/21 09:15 SINGLE VIEW CHEST CLINICAL HISTORY: Preoperative examination. Nephrolithiasis. FINDINGS: An AP, portable, upright chest radiograph is compared to study dated 07/06/2020. The cardiomediastinal silhouette is unremarkable. There is a large hiatal hernia. Scarring/atelectasis is noted at the lung bases. The lungs and pleural spaces are otherwise clear. No pneumothorax is seen. The skeletal structures are osteopenic. The bony thorax is grossly intact. Advanced arthritic change and deformity is seen in the shoulders. IMPRESSION: 1. No active disease in the chest. 2. Large hiatal hernia. ACT 112: Negative or not required by law. Electronically signed by: Robert Morton M.D. 08/02/2021 10:09 AM Medications Administered Current Inpatient Medications Acetaminophen (Acetaminophen 325 Mg Tab) 650 mg PO Q4H PRN PRN Reason: Pain or Fever Stop: 08/31/21 15:21 Acetaminophen/Codeine Phosphate (Acetaminophen W/Codeine #3 1 Tab) 1 tab PO Q4H PRN PRN Reason: moderate pain Stop: 08/31/21 15:21 Last Admin: 08/02/21 03:01 Dose: 1 tab Documented by: Al Hydrox/Mg Hydrox/Simethicone (Aluminum/Magnesium Susp 30 Ml Udc) 15 ml PO Q4H PRN PRN Reason: Dyspepsia Stop: 08/31/21 15:21 Atenolol (Atenolol 25 Mg Tablet) 25 mg PO QAM [facility] Stop: 09/01/21 08:59 Last Admin: 08/02/21 08:48 Dose: 25 mg Documented by: Docusate Sodium (Docusate Sodium 100 Mg Cap) 100 mg PO BID PRN PRN Reason: Constipation Felodipine (Felodipine 5 Mg Tabcr) 10 mg PO [facility] Stop: 08/31/21 20:59 Last Admin: 08/01/21 21:10 Dose: 10 mg Documented by: Fexofenadine HCl (Fexofenadine Hcl 180 Mg Tab) 180 mg PO QAM PRN PRN Reason: Allergy Symptoms Stop: 08/31/21 15:21 Last Admin: 08/02/21 00:38 Dose: 180 mg Documented by: Fluticasone Propionate (Fluticasone Propionate Na Spr 16 Gm Btl) 1 sprays NA [facility] Stop: 08/31/21 20:59 Last Admin: 08/01/21 21:10 Dose: 1 sprays Documented by: Heparin Sodium (Porcine) (Heparin Sod 5,000 Unit/0.5 Ml Vial) 5,000 units SQ Q8 NAVEEN Stop: 08/31/21 15:44 Last Admin: 08/02/21 05:46 Dose: 5,000 units Documented by: Ceftriaxone Sodium 1,000 mg/ (Dextrose) 50 mls @ 100 mls/hr IV Q24H [facility]; Protocol Stop: 08/07/21 11:59 Lactobacillus Acidophilus (Lactobacillus Acidophilus 1 Gm Pack) 1 gm PO TIDM [facility] Stop: 08/31/21 16:59 Last Admin: 08/02/21 08:48 Dose: 1 gm Documented by: Lorazepam (Lorazepam 0.5 Mg Tab) 0.5 mg PO BID PRN PRN Reason: Anxiety Stop: 08/31/21 15:21 Last Admin: 08/01/21 22:35 Dose: 0.5 mg Documented by: Magnesium Hydroxide (Magnesium Hydroxide Susp 30 Ml Udc) 30 ml PO Q12H PRN PRN Reason: Constipation Stop: 08/31/21 15:21 Morphine Sulfate (Morphine Sulfate 2 Mg/Ml [place]) 2 mg IV Q4H PRN PRN Reason: severe pain Stop: 08/15/21 15:21 Ondansetron HCl (Ondansetron Inj 2 Mg/Ml 2 Ml Vial) 4 mg IV Q6H PRN PRN Reason: Nausea Stop: 08/31/21 15:21 Pantoprazole Sodium (Pantoprazole 40 Mg Tab) 40 mg PO DAILY [facility]; Protocol Stop: 09/01/21 08:59 Last Admin: 08/02/21 08:49 Dose: 40 mg Documented by: Phenazopyridine HCl (Phenazopyridine Hcl 200 Mg Tab) 200 mg PO TID [facility] Stop: 09/01/21 08:59 Last Admin: 08/02/21 10:21 Dose: 200 mg Documented by: Polyethylene Glycol (Polyethylene (Miralax) 17 Gm Pack) 17 gm PO DAILY PRN PRN Reason: Constipation Stop: 08/31/21 15:21 Potassium Citrate (Potassium Citrate 10 Meq Tab) 10 meq PO QAM NAVEEN Stop: 09/01/21 08:59 Last Admin: 08/02/21 08:49 Dose: 10 meq Documented by: Tamsulosin HCl (Tamsulosin Hcl 0.4 Mg Cap) 0.4 mg PO QAM [facility] Stop: 08/31/21 15:59 Last Admin: 08/02/21 08:49 Dose: 0.4 mg Documented by: Vitamin D (Cholecalciferol 1,000 Units 25 Mcg Tab) 2,000 units PO DAILY [facility] Stop: 09/01/21 08:59 Last Admin: 08/02/21 08:48 Dose: 2,000 units Documented by: ECG Rate (beats per minute): 69 Rhythm: normal sinus Additional Comments: qtc 460ms, no change compared to prior ecg
[2021-08-02] MEDS ORDERED: LACTATED RINGER'S 1,000 ML IV SCH (10:45)
--- NOTE | 2021-08-02 10:53 | Anesthesiology Consultation ---
Date of Service August 02, 2021 Assessment & Plan (1) Encounter for pre-operative examination: Chart Review Chart Review: entry level accountant initiated History Surgery Operation Date: 08/02/21 07:00 Proposed Procedures p Cystoscopy, Left Ureteroscopy, Possible Stone Treatment, Stent Placement - Nick Summers, Height/Weight Height: 5 ft 2 in Weight: 55.2 kg Allergies Allergy/AdvReac Type Severity Reaction Status Date / Time ampicillin Allergy Unknown Diarrhea Verified 07/12/21 10:49 Medications Home Medications Medication Instructions Recorded Confirmed Last Taken atenolol 25 mg tablet (Tenormin) 25 mg PO QAM 11/19/18 08/01/21 08/01/21 felodipine 10 mg tablet,extended 10 mg PO HS 11/19/18 08/01/21 07/11/21 release 24 hr omeprazole 20 mg capsule,delayed 20 mg PO DAILY 11/19/18 08/01/21 07/11/21 release potassium citrate 10 mEq (1,080 10 meq PO QAM 11/19/18 08/01/21 07/11/21 mg) tablet,extended release (Urocit-K 10) fluticasone propionate 50 1 spray INTRANASAL HS 03/01/19 08/01/21 07/11/21 mcg/actuation nasal spray,suspension (Flonase Allergy Relief) fexofenadine 180 mg tablet 180 mg PO QAM PRN 10/07/20 08/01/21 07/11/21 (Priti Allergy) Lactobacillus acidophilus, 1 g PO TIDM #30 ea 10/16/20 08/01/21 07/11/21 [place] 100 million cell granules packet (Floranex) conjugated estrogens 0.625 mg/gram 1 applic VAGINAL 3XWK 04/25/21 08/01/21 07/11/21 vaginal cream (Premarin) acetaminophen 300 mg-codeine 30 mg 1 tab PO Q4H PRN 07/12/21 08/01/21 Unknown tablet cholecalciferol (vitamin D3) 50 2,000 unit PO DAILY 07/12/21 08/01/21 Unknown mcg (2,000 unit) capsule (Vitamin D3) docusate sodium 100 mg tablet 100 mg PO BID PRN 07/12/21 08/01/21 Unknown loperamide 2 mg capsule 2 mg PO Q6H PRN 07/12/21 08/01/21 Unknown lorazepam 0.5 mg tablet 0.5 mg PO BID PRN 07/12/21 08/01/21 Unknown meclizine 25 mg tablet 25 mg PO TID PRN 07/12/21 08/01/21 Unknown fosfomycin tromethamine 3 gram 3 g PO Q3D 08/01/21 08/01/21 Unknown oral packet Active Medications Generic Name Dose Route Start Last Admin Trade Name Freq PRN Reason Stop Dose Admin Acetaminophen/Codeine Phosphate 1 tab 08/01/21 15:22 08/02/21 03:01 Acetaminophen W/Codeine #3 1 Tab PO 08/31/21 15:21 1 tab Q4H PRN Administration moderate pain Atenolol 25 mg 08/02/21 09:00 08/02/21 08:48 Atenolol 25 Mg Tablet PO 09/01/21 08:59 25 mg QAM NAVEEN Administration Felodipine 10 mg 08/01/21 21:00 08/01/21 21:10 Felodipine 5 Mg Tabcr PO 08/31/21 20:59 10 mg HS NAVEEN Administration Fexofenadine HCl 180 mg 08/01/21 15:22 08/02/21 00:38 Fexofenadine Hcl 180 Mg Tab PO 08/31/21 15:21 180 mg QAM PRN Administration Allergy Symptoms Fluticasone Propionate 1 sprays 08/01/21 21:00 08/01/21 21:10 Fluticasone Propionate Na Spr 16 Gm Btl NA 08/31/21 20:59 1 sprays HS NAVEEN Administration Heparin Sodium (Porcine) 5,000 units 08/01/21 15:45 08/02/21 05:46 Heparin Sod 5,000 Unit/0.5 Ml Vial SQ 08/31/21 15:44 5,000 units Q8 NAVEEN Administration Lactated Ringer's 1,000 mls @ 100 mls/hr 08/02/21 10:45 08/02/21 10:46 Lr IV 08/02/21 20:44 100 mls/hr .Q10H NAVEEN Administration Lactobacillus Acidophilus 1 gm 08/01/21 17:00 08/02/21 08:48 Lactobacillus Acidophilus 1 Gm Pack PO 08/31/21 16:59 1 gm TIDM NAVEEN Administration Lorazepam 0.5 mg 08/01/21 15:22 08/01/21 22:35 Lorazepam 0.5 Mg Tab PO 08/31/21 15:21 0.5 mg BID PRN Administration Anxiety Pantoprazole Sodium 40 mg 08/02/21 09:00 08/02/21 08:49 Pantoprazole 40 Mg Tab PO 09/01/21 08:59 40 mg DAILY NAVEEN Administration Protocol Phenazopyridine HCl 200 mg 08/02/21 09:00 08/02/21 10:21 Phenazopyridine Hcl 200 Mg Tab PO 09/01/21 08:59 200 mg TID NAVEEN Administration Potassium Citrate 10 meq 08/02/21 09:00 08/02/21 08:49 Potassium Citrate 10 Meq Tab PO 09/01/21 08:59 10 meq QAM NAVEEN Administration Tamsulosin HCl 0.4 mg 08/01/21 16:00 08/02/21 08:49 Tamsulosin Hcl 0.4 Mg Cap PO 08/31/21 15:59 0.4 mg QAM NAVEEN Administration Vitamin D 2,000 units 08/02/21 09:00 08/02/21 08:48 Cholecalciferol 1,000 Units 25 Mcg Tab PO 09/01/21 08:59 2,000 units DAILY NAVEEN Administration Past Medical History Medical History Ambulatory dysfunction Anxiety Arthritis Chronic acquired lymphedema CKD (chronic kidney disease), stage III HLD (hyperlipidemia) Hypertension Rotator cuff tear arthropathy of both shoulders Past Family History Family History Mother CHF (congestive heart failure) Past Surgical History Surgical History History of appendectomy History of cholecystectomy Social History Smoking Status: Unknown if ever smoked Do You Dip or Chew Tobacco: No Hx Alcohol Use: Yes Alcohol type: wine alcohol intake frequency: holidays/special occasions only Hx Substance Use: No substance use type: does not use Physical Exam Vital Signs Last Vital Signs Temp 98.1 F 08/02/21 07:18 Pulse 78 08/02/21 07:18 Resp 17 08/02/21 07:18 BP 150/74 H 08/02/21 07:18 Pulse Ox 95 08/02/21 07:18 Testing Laboratory Results 08/02/21 09:34 08/02/21 09:34 Urine Color [place] 08/01/21 11:09 Urine Appearance Cloudy (Clear) A 08/01/21 11:09 Urine pH (4.5-7.5) 08/01/21 11:09 Ur Specific [place] 1.009 (1.000-1.030) 08/01/21 11:09 Urine Protein (Negative) 08/01/21 11:09 Urine Glucose (UA) (Negative) 08/01/21 11:09 Urine Ketones (Negative) 08/01/21 11:09 Urine Nitrite (Negative) 08/01/21 11:09 Ur Leukocyte Esterase (Negative) 08/01/21 11:09 Urine RBC 5-10 /hpf (0-4) H 08/01/21 11:09 Urine WBC 10-30 /hpf (0-5) H 08/01/21 11:09 Ur Epithelial Cells 20-30 /lpf (0-5) H 08/01/21 11:09 08/01/21 11:09 Urine Culture - Preliminary Urine,Clean Catch Gram negative bacilli Gram negative bacilli#2 Laboratory Tests 08/01/21 12:31 SARS-CoV-2 (PCR) NEGATIVE Electrocardiogram Date: 08/02/21 Normal sinus rhythm, rate [address] abnormality Abnormal ECG When compared with ECG of 06-JUL-2020 12:52, No significant change was found Chest X-Ray Date: 08/02/21 IMPRESSION: 1. No active disease in the chest. 2. Large hiatal hernia.
[2021-08-02] MEDS ORDERED: fentaNYL citrate 100 MCG/2 ML VIAL IV PRN (11:42)
[2021-08-02] MEDS ORDERED: ATROPINE SULFATE 0.1 MG/ML 10ML SYR IV PRN (11:42)
[2021-08-02] MEDS ORDERED: ONDANSETRON INJ 2 MG/ML 2 ML VIAL IV PRN (11:42)
[2021-08-02] MEDS ORDERED: ePHEDrine sulfate 50 MG/ML AMP IV PRN (11:42)
[2021-08-02] MEDS ORDERED: fentaNYL citrate 100 MCG/2 ML VIAL ONE (11:54)
[2021-08-02] MEDS: LORazepam 0.5 MG TAB PO PRN ×2 (11:54→22:15)
[2021-08-02] MEDS: cefTRIAXone SODIUM 1,000 MG in DEXTROSE 5% 50 ML IV SCH (12:18)
[2021-08-02] MEDS ORDERED: LIDOCAINE 2% 2 ML VIAL/AMP(20MG/ML) INFIL ONE (12:29)
[2021-08-02] MEDS ORDERED: ONDANSETRON INJ 2 MG/ML 2 ML VIAL ONE ×2 (12:29→13:11)
[2021-08-02] MEDS ORDERED: PROPOFOL IV EMULSION 10 MG/ML 20 ML VIAL IV ONE (12:29)
[2021-08-02] MEDS ORDERED: SCOPOLAMINE 1 MG TDSY TD STA (12:33)
[2021-08-02] MEDS ORDERED: SCOPOLAMINE 1 MG TDSY TD ONE (12:35)
[2021-08-02] MEDS ORDERED: ACETAMINOPHEN 1000 MG/100 ML IV IV ONE (12:37)
[2021-08-02] MEDS ORDERED: diphenhydrAMINE 50 MG/ML VIAL ONE (12:40)
[2021-08-02] MEDS ORDERED: DEXAMETHASONE SOD INJ 4 MG/ML VIAL ONE (12:40)
--- NOTE | 2021-08-02 13:00 | Electrocardiogram Report ---
Test Reason : Blood Pressure : / mmHG Vent. Rate : 069 BPM Atrial Rate : 069 BPM P-R Int : 134 ms QRS Dur : 076 ms QT Int : 430 ms P-R-T Axes : 051 047 046 degrees QTc Int : 460 ms Normal sinus rhythm Normal ECG When compared with ECG of 06-JUL-2020 12:52, No significant change was found Confirmed by Cordell Gonzalez ([id number]) on 08/02/2021 1:00:37 PM Referred By: REFERRED SELF Confirmed By:Cordell Gonzalez
[2021-08-02] MEDS ORDERED: DIATRIZOATE MEGLUMINE 30% 100ML VIAL INSTIL ONE (13:13)
--- NOTE | 2021-08-02 13:33 | Operative Report ---
PG Post Operative Report Pre & Post Diagnosis Operation Date: 08/02/21 07:00 Pre-Op Diagnosis: Left Renal Calculi Post-Op Diagnosis: Left Renal Calculi I identified the patient and participated in the time-out.: Yes Procedure Operation Date: 08/02/21 07:00 Actual Procedures p Cystoscopy with Left Ureteroscopy, Retrograde Pyelogram, Laser Destruction of Left Renal Calculi, Stent Placement Left Ureter(Left) - Nick Summers DO Surgeon Nick Summers, II, DO Facilities Maintenance Worker None Estimated Blood Loss 1 Findings Consistent with Post-Op Diagnosis Stone destroyed to dust and small fragments and larger fragments removed. Specimens Stone Fragments Drains 6 Fr x 24 Left Anesthesia Type General Complications none Disposition Disposition: Recovery Room Indications Patient with bothersome stones. Risks and benefits discussed at length. Description of Procedure Patient was consented and brought back to the operating room. Patient was placed under anesthesia in the supine position and moved to the dorsal lithotomy position. Patient was prepped and draped in the regular sterile fashion. A time out was completed. A 30degree Cystoscope was placed into the bladder and the entire bladder was examined. The UO's were identified. The UO was cannulized with a catheter and a retrograde pyelogram was completed. A wire was then placed. Large debris in the bladder was irrigated out. 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 It was advanced to the renal pelvis and no stone or debris. Marked hydroureter was noted. A second wire was then placed and the rigid scope removed. The flexible scope was then taken over the second wire and advanced to the proximal ureter and renal pelvis. The entire pelvis was examined and the stones were identified. A laser fiber was selected and the stones were pulverized to dust and small fragments. The entire area was once again examined. No residual large fragments or areas of concern were noted. The scope was slowly removed with the wire left in place. Contrast was placed through the scope for a pyelogram to assist in stent placement. The entire ureter was examined as the scope was slowly removed. No obstructions or other areas of concern were noted. With the wire in place, a 6 Fr Double J stent was placed. It was confirmed with fluoroscopy. With the stent in place, the bladder was emptied. The scope was removed. The patient was cleaned, aroused from anesthesia, and transferred to the pacu in stable condition having tolerated the procedure well with no complications. I was present and participated in all aspects of the procedure. The patient will be monitored in the PACU until transferred. A 18 Fr ang was placed for drainage of the bladder. Significant hydroureter with obstruction due to cystocele and recurrent stone with solitary kidney. Plan to maintain stent for 7-10 days. Follow up with Dr. Gaytan with [facility] for further management. I attest to the content of the Intraoperative Record and any orders documented therein. Any exceptions are noted below.
--- NOTE | 2021-08-02 13:52 | Fluoroscopy Report ---
FL retrograde includes kub CLINICAL HISTORY: LT SIDE RETROGRADE COMPARISON STUDY: None. FLUOROSCOPY TIME: 20 seconds. FINDINGS: 4 fluoroscopic spot images of the abdomen demonstrate retrograde opacification of the left renal collecting system followed by placement of a left ureteral stent. Only the proximal portion of the stent is identified and appears in good position. There is left-sided hydronephrosis. IMPRESSION: Fluoroscopy provided for left ureteral stent placement as described above. ACT 112: Negative or not required by law. Electronically signed by: Jeremiah Munoz M.D. 08/02/2021 1:51 PM
[2021-08-02] MEDS: CHECK SCOPOLAMINE PATCH PLACEMENT SCH (15:41)
--- NOTE | 2021-08-02 15:57 | Anesthesiology Progress Note ---
Date of Service August 02, 2021 Anesthesia Post Procedure Vital Signs Vital Signs: Temp Pulse Pulse Pulse Resp BP Pulse Ox 08/02/21 15:38 36.3 C L 71 18 132/70 95 08/02/21 14:54 36.6 C 67 20 146/74 H 93 08/02/21 14:22 36.5 C 61 17 134/76 95 08/02/21 14:05 36.6 C 61 18 149/57 H 93 08/02/21 13:55 63 14 149/57 H 93 08/02/21 13:45 63 13 139/72 98 08/02/21 13:37 36.3 C L 77 18 148/68 H 96 08/02/21 12:03 36.9 C 69 18 147/70 H 93 08/02/21 07:18 36.7 C 78 17 150/74 H 95 08/01/21 22:20 36.5 C 91 H 18 128/71 91 08/01/21 21:07 75 171/69 H Pain Intensity Groin: Pain Intensity: 8 Transfer of Care Handoff Completed per policy Notes Mental Status: alert / awake / arousable and participated in evaluation Patient Amnestic to Procedure: Yes Nausea / Vomiting: adequately controlled Pain: adequately controlled Airway Patency, RR, SpO2: stable & adequate BP & HR: stable & adequate Hydration State: stable & adequate Anesthetic Complications: no major complications apparent and Pt Satisfied with anesthetic care
[2021-08-02] MEDS: FLUTICASONE PROPIONATE NA SPR 16 GM BTL SCH (22:15)
[2021-08-02] MEDS: FELODIPINE 5 MG TABCR PO SCH (22:15)
[2021-08-03] MEDS: CHECK SCOPOLAMINE PATCH PLACEMENT SCH ×4 (00:14→23:20)
[2021-08-03] MEDS: HEPARIN SOD 5,000 UNIT/0.5 ML VIAL SQ SCH (05:49)
[2021-08-03 06:18] LABS: Hematocrit (blood only) 34.6 % (37-47); Hemoglobin 11.5 g/dL (12.0-16.0); Lymphocytes # (auto) 0.49 K/uL (1.2-3.4); Lymphocytes % (auto) 14.2 %; Mean Corpuscular Hemoglobin 30.8 pg (25-34); Mean Corpuscular Hgb Conc 33.2 g/dL (32-36); Mean Corpuscular Volume 92.8 fL (80-100); Mean Platelet Volume 10.6 fL (7.4-10.4); Monocytes # (auto) 0.21 K/uL (0.11-0.59); Monocytes % (auto) 6.1 %; Neutrophils # (auto) 2.76 K/uL (1.4-6.5); Neutrophils % (auto) 79.7 %; Platelet Count 160 K/uL (130-400); RDW Coefficient of Variation 13.5 % (11.5-14.5); RDW Standard Deviation 45.7 fL (36.4-46.3); Red Blood Count 3.73 M/uL (4.2-5.4); White Blood Count 3.46 K/uL (4.8-10.8)
[2021-08-03 06:51] LABS: BUN Creatinine Ratio 12.1 (10-20); Calcium 8.7 mg/dl (8.5-10.1); Creatinine Clr Calc Pharmacy 23.3 ml/min; Est GFR (African American) 40.4 ml/min; Est GFR (Non-African American) 34.8 ml/min; Potassium 3.8 mmol/L (3.5-5.1)
[2021-08-03] MEDS: LACTOBACILLUS ACIDOPHILUS 1 GM PACK PO SCH ×3 (08:40→17:08)
[2021-08-03] MEDS: ATENOLOL 25 MG TABLET PO SCH (08:40)
[2021-08-03] MEDS: CHOLECALCIFEROL 1,000 UNITS 25 MCG TAB PO SCH (08:40)
[2021-08-03] MEDS: PHENAZOPYRIDINE HCL 200 MG TAB PO SCH ×3 (08:41→20:23)
[2021-08-03] MEDS: TAMSULOSIN HCL 0.4 MG CAP PO SCH (08:41)
[2021-08-03] MEDS: PANTOprazole 40 MG TAB PO SCH (08:41)
[2021-08-03] MEDS: POTASSIUM CITRATE 10 MEQ TAB PO SCH (08:41)
[2021-08-03] MEDS ORDERED: SODIUM CHLORIDE 0.9% 1000ML 1,000 ML IV SCH (08:45)
[2021-08-03] MEDS: ACETAMINOPHEN W/CODEINE #3 1 TAB PO PRN (10:59)
--- NOTE | 2021-08-03 11:05 | Hospitalist Progress Note ---
Date of Service August 03, 2021 Assessment & Plan (1) Ureteropelvic junction (UPJ) obstruction, left: Plan: This is a 86-year-old female who has significant past medical history of HTN, HLD, GERD, acquired solitary kidney secondary to large right renal calculus, hx of nephrolithiasis, CKD stage III, history of recurrent UTIs including history of ESBL, JAZMYN, chronic acquired lymphedema who presents to ED secondary to urinary tract symptoms x2 days. admit to med/surg S/P Cystoscopy with Left Ureteroscopy, Retrograde Pyelogram, Laser Destruction of Left Renal Calculi, Stent Placement Left Ureter(Left) - Nick Summers, DO POD #1 continue flomax 0.4mg daily ang cath in place draining orange urine in setting of pyridium await further urology recommendations, pt is wishing to establish with [facility] She is also questioning whether she needs to continue fosfomycin as she feels this gives her diarrea IV morphine - severe pain; tylenol with codeine (pt home med) for moderate pain will schedule pyridium for dysuria for now CXR and ecg reviewed, ok to proceed with cystoscopy Diarrhea pt reports off and on diarrhea in setting of fosfomycin, is requesting imodium d/c stool for cdiff as no BM since admission NO BM since admission, KUB reveals moderate amount of stool in abd Abnormal finding on CT A/P Approximately 1.7 x 3.3 cm hypodensity in the vaginal canal is partially visualized. New from prior image recommend river captain eval as outpt and likely transvaginal US (2) UTI (urinary tract infection): Plan: UA Suspicious for UTI hx of frequent UTIs, takes fosfomycin q3d at home hx of e.coli, esbl, kleb Urine culture positive for Klebsiella and Proteus hold fosfomycin Continue IV Rocephin, day #3 (3) Solitary kidney: Plan: 2/2 to large R pelvis calculus follows nephro (4) CKD (chronic kidney disease), stage III: Plan: baseline cr 1.0 bun/cr mildly elevated today at 17 and 1.37 avoid nephrotoxic agents, received toradol in ED Encourage oral intake We will give 1 L of IV fluid Follow labs in a.m. (5) Hypertension: Plan: BP improving and controlled continue felodipine and atenolol monitor (6) DVT prophylaxis: Plan: SQ Heparin held 2/2 to reported hematuria in nursing notes SCD/TEDS, encouraged ambulation Dispo: med/surg, consult PT/OT, pt plans to be discharged home and has no interest in rehab, encourage patient to ambulate with nursing staff at least 2 x a day, possible discharge in next 1-2 days PCP: Dr. Beth Hawk DNR/DNI Pt was seen and examined in collaboration with Dr. Hernandez, please see addendum Admission and Anticipated Discharge Date Admission Date: August 01, 2021 Supervising Physician Co-Signing Physician Notes Attending Addendum: care coordinated with AYAAN Matthews please refer to her notes for full details, I agree with her notes patient seen and examined, records reviewed by myself as well on exam, patient seen sitting up in chair, comfortable, in good spirits, watching TV States she feels fine overall No abdominal pain, no fevers or chills, no nausea or vomiting No chest pain, shortness of breath, dizziness, palpitations no other symptoms VS noted and reviewed oriented x3, not in distress, speaks in sentences with no effort nor accessory muscle use normal rate, regular rhythm, no murmurs clear BS BL non distended, soft, nontender no bipedal edema, erythema, warmth no neuro deficits WBC 3.4 Hg 11.5 Crea 1.3 ASSESSMENT AND PLAN Left ureteral stone, status post stent placement UTI Creatinine increased to 1.3, IV fluids ordered, encourage oral fluid intake Urine culture growing Klebsiella and Proteus Continue IV ceftriaxone other diagnoses and plan of care as per AYAAN Matthews's notes Jose Hernandez MD Subjective Patient was seen and examined in room 315. Follow-up left UVJ stone. She feels well this morning and is up in bedside chair eating breakfast. Continues to complain of mild dysuria. Denies fever, chills, sweats, lightheadedness, dizziness, chest pain, shortness of breath, nausea, vomiting, abdominal pain. She is trying to drink liquids. Patient's plan is to be d ischarged to home. Review of Systems Review of Systems: All systems reviewed & are unremarkable except as noted in HPI & below Physical Exam Physical Exam: Gen: WD/WN, petite, elderly, female, sitting up in bedside chair NAD, A&O x3 HEENT: Normocephalic, atraumatic, conjunctivae moist, sclerae anicteric, mucous membranes moist. Lung: Clear to Auscultation bilaterally, no wheezes/rales/rhonchi Heart: Regular rate, regular rhythm, no murmurs, rubs, or gallops Abdomen: Soft, NT, ND +BS x 4 Extremities: No edema Skin: Warm, no rash, negative turgor. : Ang catheter draining orange urine Results & Data Results & Data ([facility]) Vital Signs (Past 12 Hours) Vital Signs Temp Pulse Resp BP Pulse Ox 08/03/21 07:17 36.7 C 62 18 131/66 93 08/03/21 03:21 36.9 C 70 16 111/71 94 Laboratory Results Short CBC 08/03/21 Range/Units 05:49 WBC 3.46 L (4.8-10.8) K/uL Hgb 11.5 L (12.0-16.0) g/dL Hct 34.6 L (37-47) % Plt Count 160 (130-400) K/uL BMP 08/03/21 05:49 Sodium 139 Potassium 3.8 Chloride 108 H Carbon Dioxide 26 BUN 17 Creatinine 1.37 H D Glucose 172 H Calcium 8.7 Diagnostic Findings Current Inpatient Medications Acetaminophen (Acetaminophen 325 Mg Tab) 650 mg PO Q4H PRN PRN Reason: Pain or Fever Stop: 08/31/21 15:21 Acetaminophen/Codeine Phosphate (Acetaminophen W/Codeine #3 1 Tab) 1 tab PO Q4H PRN PRN Reason: moderate pain Stop: 08/31/21 15:21 Last Admin: 08/03/21 10:59 Dose: 1 tab Documented by: Al Hydrox/Mg Hydrox/Simethicone (Aluminum/Magnesium Susp 30 Ml Udc) 15 ml PO Q4H PRN PRN Reason: Dyspepsia Stop: 08/31/21 15:21 Atenolol (Atenolol 25 Mg Tablet) 25 mg PO QAM NAVEEN Stop: 09/01/21 08:59 Last Admin: 08/03/21 08:40 Dose: 25 mg Documented by: Docusate Sodium (Docusate Sodium 100 Mg Cap) 100 mg PO BID PRN PRN Reason: Constipation Felodipine (Felodipine 5 Mg Tabcr) 10 mg PO HS NAVEEN Stop: 08/31/21 20:59 Last Admin: 08/02/21 22:15 Dose: 10 mg Documented by: Fexofenadine HCl (Fexofenadine Hcl 180 Mg Tab) 180 mg PO QAM PRN PRN Reason: Allergy Symptoms Stop: 08/31/21 15:21 Last Admin: 08/02/21 00:38 Dose: 180 mg Documented by: Fluticasone Propionate (Fluticasone Propionate Na Spr 16 Gm Btl) 1 sprays NA HS NAVEEN Stop: 08/31/21 20:59 Last Admin: 08/02/21 22:15 Dose: 1 sprays Documented by: Heparin Sodium (Porcine) (Heparin Sod 5,000 Unit/0.5 Ml Vial) 5,000 units SQ Q8 NAVEEN Stop: 08/31/21 15:44 Last Admin: 08/03/21 05:49 Dose: 5,000 units Documented by: Ceftriaxone Sodium 1,000 mg/ (Dextrose) 50 mls @ 100 mls/hr IV Q24H NAVEEN; Protocol Stop: 08/07/21 11:59 Last Infusion: 08/02/21 12:48 Dose: Infused Documented by: Sodium Chloride (Nss 1000ml) 1,000 mls @ 80 mls/hr IV .[id number] NAVEEN Stop: 08/03/21 21:14 Last Admin: 08/03/21 08:39 Dose: 80 mls/hr Documented by: Lactobacillus Acidophilus (Lactobacillus Acidophilus 1 Gm Pack) 1 gm PO TIDM NAVEEN Stop: 08/31/21 16:59 Last Admin: 08/03/21 08:40 Dose: 1 gm Documented by: Lorazepam (Lorazepam 0.5 Mg Tab) 0.5 mg PO BID PRN PRN Reason: Anxiety Stop: 08/31/21 15:21 Last Admin: 08/02/21 22:15 Dose: 0.5 mg Documented by: Magnesium Hydroxide (Magnesium Hydroxide Susp 30 Ml Udc) 30 ml PO Q12H PRN PRN Reason: Constipation Stop: 08/31/21 15:21 Miscellaneous (Check Scopolamine Patch Placement) 1 ea N/A QS NAVEEN Stop: 08/05/21 05:59 Last Admin: 08/03/21 08:39 Dose: 1 ea Documented by: Miscellaneous (Remove Transderm-Scop Patch) 1 ea N/A ONE ONE Stop: 08/05/21 06:01 Morphine Sulfate (Morphine Sulfate 2 Mg/Ml Carp) 2 mg IV Q4H PRN PRN Reason: severe pain Stop: 08/15/21 15:21 Ondansetron HCl (Ondansetron Inj 2 Mg/Ml 2 Ml Vial) 4 mg IV Q6H PRN PRN Reason: Nausea Stop: 08/31/21 15:21 Pantoprazole Sodium (Pantoprazole 40 Mg Tab) 40 mg PO DAILY [facility]; Protocol Stop: 09/01/21 08:59 Last Admin: 08/03/21 08:41 Dose: 40 mg Documented by: Phenazopyridine HCl (Phenazopyridine Hcl 200 Mg Tab) 200 mg PO TID [facility] Stop: 09/01/21 08:59 Last Admin: 08/03/21 08:41 Dose: 200 mg Documented by: Polyethylene Glycol (Polyethylene (Miralax) 17 Gm Pack) 17 gm PO DAILY PRN PRN Reason: Constipation Stop: 08/31/21 15:21 Potassium Citrate (Potassium Citrate 10 Meq Tab) 10 meq PO QAM [facility] Stop: 09/01/21 08:59 Last Admin: 08/03/21 08:41 Dose: 10 meq Documented by: Tamsulosin HCl (Tamsulosin Hcl 0.4 Mg Cap) 0.4 mg PO QAM [facility] Stop: 08/31/21 15:59 Last Admin: 08/03/21 08:41 Dose: 0.4 mg Documented by: Vitamin D (Cholecalciferol 1,000 Units 25 Mcg Tab) 2,000 units PO DAILY [facility] Stop: 09/01/21 08:59 Last Admin: 08/03/21 08:40 Dose: 2,000 units Documented by:
--- NOTE | 2021-08-03 11:54 | Urology Progress Note ---
Date of Service August 03, 2021 Assessment & Plan (1) Calculus of distal left ureter: (2) Hydronephrosis: (3) S/P ureteral stent placement: Plan: - Pt POD#1 s/p cystoscopy, left ureteroscopy, laser lithotripsy and left stent placement - Doing well, progressing as expected - Afebrile, lab work reviewed - creatinine 1.37, WBC 3.46 - Urine culture grew out Klebsiella and Proteus - on IV Ceftriaxone - Tolerating left ureteral stent with minimal bother - Recommend voiding trial prior to discharge - Okay to d/c from perspective when medically stable - Recommend d/c with course of appropriate PO antibiotics, Tamsulosin, prn Pyridium and prn pain medication for stent management - Expected clinical course reviewed, all questions answered - Will arrange outpatient follow-up with our service for stent removal and further management Admission and Anticipated Discharge Date Admission Date: August 01, 2021 Subjective Pt POD #1 s/p Cystoscopy with Left Ureteroscopy, Retrograde Pyelogram, Laser Destruction of Left Renal Calculi, Stent Placement Left Ureter with Dr. Summers. Patient awake and sitting up in bedside chair. No acute issues overnight. No abdominal, flank or suprapubic discomfort. Tolerating Grossman catheter - intact, patent and draining orange urine. No nausea or vomiting. No fever or chills. Review of Systems Constitutional: as per Subjective / HPI Gastrointestinal: as per Subjective / HPI Genitourinary: as per Subjective / HPI Physical Exam Constitutional: well developed and well nourished; no acute distress and not ill appearing Respiratory: normal respiratory effort and able to speak in complete sentences; no respiratory distress and no labored breathing Cardiovascular: Extremities: no pedal edema Gastrointestinal (Abdomen): Inspection/Auscultation: abdomen normal to inspection; abdomen not distended Neurologic: moves all extremities and awake Psychiatric: Orientation: alert, oriented x 3 and cooperative Genitourinary: Grossman catheter intact, patent and draining orange urine Results & Data ([facility]) Vital Signs (Past 12 Hours) Vital Signs Temp Pulse Resp BP Pulse Ox 08/03/21 07:17 36.7 C 62 18 131/66 93 08/03/21 03:21 36.9 C 70 16 111/71 94 PG Care Time/CCT Total # of Minutes Spent Total Time Spent with Patient: Total time spent is greater than 50% in coordination of care (as documented) at patient's floor/unit and/or counseling patient: Coding Level of Care Code 09615 Subseq Hosp Care Lvl 2 Diagnoses Calculus of distal left ureter N20.1 Hydronephrosis N13.2 Hydronephrosis type: with ureteral calculous obstruction S/P ureteral stent placement Z96.0 (1) Hydronephrosis Hydronephrosis type: with ureteral calculous obstruction Qualified Code(s): N13.2 - Hydronephrosis with renal and ureteral calculous obstruction
[2021-08-03] MEDS: cefTRIAXone SODIUM 1,000 MG in DEXTROSE 5% 50 ML IV SCH (12:12)
[2021-08-03] MEDS: LORazepam 0.5 MG TAB PO PRN (20:23)
[2021-08-03] MEDS: FLUTICASONE PROPIONATE NA SPR 16 GM BTL SCH (20:23)
[2021-08-03] MEDS: FELODIPINE 5 MG TABCR PO SCH (20:23)
[2021-08-04] MEDS: ACETAMINOPHEN W/CODEINE #3 1 TAB PO PRN ×2 (02:25→14:29)
[2021-08-04 09:01] LABS: Basophils # (auto) 0.02 K/uL (0-0.2); Basophils % (auto) 0.3 %; Eosinophils % (auto) 3.4 %; Hematocrit (blood only) 37.4 % (37-47); Hemoglobin 12.3 g/dL (12.0-16.0); Immature Granulocytes # (auto) 0.01 K/uL (0.00-0.02); Immature Granulocytes % (auto) 0.2 %; Lymphocytes # (auto) 1.52 K/uL (1.2-3.4); Lymphocytes % (auto) 25.5 %; Mean Corpuscular Hemoglobin 31.1 pg (25-34); Mean Corpuscular Hgb Conc 32.9 g/dL (32-36); Mean Corpuscular Volume 94.7 fL (80-100); Mean Platelet Volume 10.5 fL (7.4-10.4); Monocytes # (auto) 0.46 K/uL (0.11-0.59); Monocytes % (auto) 7.7 %; Neutrophils # (auto) 3.76 K/uL (1.4-6.5); Neutrophils % (auto) 62.9 %; Platelet Count 173 K/uL (130-400); RDW Coefficient of Variation 13.8 % (11.5-14.5); RDW Standard Deviation 47.6 fL (36.4-46.3); Red Blood Count 3.95 M/uL (4.2-5.4); White Blood Count 5.97 K/uL (4.8-10.8)
[2021-08-04] MEDS: CHECK SCOPOLAMINE PATCH PLACEMENT SCH ×3 (09:40→23:57)
[2021-08-04] MEDS: LACTOBACILLUS ACIDOPHILUS 1 GM PACK PO SCH ×3 (09:40→17:32)
[2021-08-04] MEDS: PHENAZOPYRIDINE HCL 200 MG TAB PO SCH ×3 (09:41→21:07)
[2021-08-04] MEDS: ATENOLOL 25 MG TABLET PO SCH (09:41)
[2021-08-04] MEDS: TAMSULOSIN HCL 0.4 MG CAP PO SCH (09:41)
[2021-08-04] MEDS: CHOLECALCIFEROL 1,000 UNITS 25 MCG TAB PO SCH (09:41)
[2021-08-04] MEDS: POTASSIUM CITRATE 10 MEQ TAB PO SCH (09:42)
[2021-08-04] MEDS: DICLOFENAC SOD 1% GEL 100 GM TUBE EXT SCH ×4 (09:42→21:09)
[2021-08-04] MEDS: PANTOprazole 40 MG TAB PO SCH (09:42)
[2021-08-04 09:45] LABS: Calcium 9.1 mg/dl (8.5-10.1); Creatinine Clr Calc Pharmacy 26.6 ml/min; Est GFR (African American) 47.4 ml/min; Est GFR (Non-African American) 40.9 ml/min; Potassium 3.8 mmol/L (3.5-5.1)
--- NOTE | 2021-08-04 10:04 | XRay Report ---
XR knee LT 3V HISTORY: 86 years-old Female knee pain chronic left knee pain without reported trauma COMPARISON: None TECHNIQUE: 3 views of the left knee FINDINGS: Demineralized appearance of the bones. Mild genu valgum. Tricompartmental osteoarthritis is severe wi thin the lateral patellofemoral compartment and moderate within the medial compartment. Chondrocalcin osis. Arterial calcifications. Small joint effusion. IMPRESSION: 1. Small joint effusion without acute fracture or dislocation. 2. 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 3. Genu valgum. ACT 112: Negative or not required by law. The above report was generated using voice recognition software. It may contain grammatical, syntax o r spelling errors. Electronically signed by: Umang Chapman M.D. 08/04/2021 10:03 AM
--- NOTE | 2021-08-04 11:28 | Hospitalist Progress Note ---
Date of Service August 04, 2021 Assessment & Plan (1) Ureteropelvic junction (UPJ) obstruction, left: Plan: This is a 86-year-old female who has significant past medical history of HTN, HLD, GERD, acquired solitary kidney secondary to large right renal calculus, hx of nephrolithiasis, CKD stage III, history of recurrent UTIs including history of ESBL, JAZMYN, chronic acquired lymphedema who presents to ED secondary to urinary tract symptoms x2 days. admit to med/surg S/P Cystoscopy with Left Ureteroscopy, Retrograde Pyelogram, Laser Destruction of Left Renal Calculi, Stent Placement Left Ureter(Left) - Nick Summers, DO POD #2 continue flomax 0.4mg daily Remove Ang today Continue antibiotics Urology recommending DC with course of antibiotics, Flomax, as needed Pyridium and as needed pain medication for stent management Urology will arrange outpatient follow-up for stent removal and further management IV morphine - severe pain; tylenol with codeine (pt home med) for moderate pain Diarrhea Resolved, patient moving bowels normally [place] likely due to fosfomycin Abnormal finding on CT A/P Approximately 1.7 x 3.3 cm hypodensity in the vaginal canal is partially visualized. New from prior image recommend urogynaecologist eval as outpt and likely transvaginal US L Knee Pain no trauma, complains of twisting knee in bed Knee Xr: Small joint effusion without acute fracture or dislocation. 2. 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 Voltaren gel QID, tylenol with codeine, PT re assessed, pt ambulating okay and pt feels like its her arthritis Pt is declining rehab despite PT recommendations (2) UTI (urinary tract infection): Plan: Urine culture positive for Klebsiella and Proteus hold fosfomycin - q3 day for prophylaxis Had IV rocephin x 3 days; will transition to oral cefnidir as pt has failed IV site continue cefdinir for additional 7 days add florastor (3) Solitary kidney: Plan: 2/2 to large R pelvis calculus follows nephro (4) CKD (chronic kidney disease), stage III: Plan: baseline cr 1.0 bun/cr improving, 1.2 avoid nephrotoxic agents, received toradol in ED Encourage oral intake (5) Hypertension: Plan: BP improving and controlled continue felodipine and atenolol monitor (6) DVT prophylaxis: Plan: SQ Heparin held 2/2 to reported hematuria in nursing notes SCD/TEDS, encouraged ambulation Dispo: med/surg, will remove ang for voiding trial, continue antibiotics, now with left knee pain, will have PT re assess, pt declining rehab at this point, likely d/c tomorrow PCP: Dr. Beth Hawk DNR/DNI Pt was seen and examined in collaboration with Dr. Joseph, please see addendum Admission and Anticipated Discharge Date Admission Date: August 01, 2021 Supervising Physician Co-Signing Physician Notes Pt was seen and examined. Agreed wit Karen BRAND exam, assessment and plan. S/P day #2 Cystoscopy with Left Ureteroscopy, Retrograde Pyelogram, Laser Destruction of Left Renal Calculi, Stent Placement Left Ureter(Left) performed by Dr Nick Summers. Will complete the course of the antibiotic. Contnue flomax 0.4mg daily. outpatient urology follow-up for stent removal and further management. Will discharge home today. MD Opal Subjective Patient was seen and examined in room 315. Follow-up left UVJ stone. She is status post cystoscopically with laser lithotripsy and stent placement, POD #2 She denies any further burning. Continues to have Ang in place which will be removed today. She states overnight she rolled the wrong way in bed and twisted her left knee. "This is my good knee." She felt like she was having difficulty walking this morning and is unsure that she will be able to go home today. She denies any fever, chills, sweats, lightheadedness, dizziness, chest pain, shortness of breath, nausea, vomiting, abdominal pain. She has moved her bowels on 08/02. No further diarrhea. She is wishing to no longer use fosfomycin as this causes her GI upset and diarrhea. Appetite is good. Review of Systems Review of Systems: All systems reviewed & are unremarkable except as noted in HPI & below Physical Exam Physical Exam: Gen: WD/WN, petite, elderly, female, sitting up in bedside chair NAD, A&O x3 HEENT: Normocephalic, atraumatic, conjunctivae moist, sclerae anicteric, mucous membranes moist. Lung: Clear to Auscultation bilaterally, no wheezes/rales/rhonchi Heart: Regular rate, regular rhythm, no murmurs, rubs, or gallops Abdomen: Soft, NT, ND +BS x 4 Extremities: No edema, left knee no erythema, good passive range of motion, small joint effusion, no pain to palpation Skin: Warm, no rash, negative turgor. : Ang catheter draining priya urine Results & Data Results & Data ([facility]) Vital Signs (Past 12 Hours) Vital Signs Temp Pulse Resp BP Pulse Ox 08/04/21 07:27 36.7 C 64 18 125/74 90 Laboratory Results Short CBC 08/04/21 Range/Units 08:46 WBC 5.97 (4.8-10.8) K/uL Hgb 12.3 (12.0-16.0) g/dL Hct 37.4 (37-47) % Plt Count 173 (130-400) K/uL BMP 08/04/21 08:46 Sodium 143 Potassium 3.8 Chloride 111 H Carbon Dioxide 27 BUN 18 Creatinine 1.20 Glucose 107 H Calcium 9.1 Diagnostic Findings Knee X-Ray 08/04/21 08:19 XR knee LT 3V HISTORY: 86 years-old Female knee pain chronic left knee pain without reported trauma COMPARISON: None TECHNIQUE: 3 views of the left knee FINDINGS: Demineralized appearance of the bones. Mild genu valgum. Tricompartmental osteoarthritis is severe within the lateral patellofemoral compartment and moderate within the medial compartment. Chondrocalcinosis. Arterial calcifications. Small joint effusion. IMPRESSION: 1. Small joint effusion without acute fracture or dislocation. 2. 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 3. Genu valgum. ACT 112: Negative or not required by law. The above report was generated using voice recognition software. It may contain grammatical, syntax or spelling errors. Electronically signed by: Umang Chapman M.D. 08/04/2021 10:03 AM Medications Administered Current Inpatient Medications Acetaminophen (Acetaminophen 325 Mg Tab) 650 mg PO Q4H PRN PRN Reason: Pain or Fever Stop: 08/31/21 15:21 Acetaminophen/Codeine Phosphate (Acetaminophen W/Codeine #3 1 Tab) 1 tab PO Q4H PRN PRN Reason: moderate pain Stop: 08/31/21 15:21 Last Admin: 08/04/21 02:25 Dose: 1 tab Documented by: Al Hydrox/Mg Hydrox/Simethicone (Aluminum/Magnesium Susp 30 Ml Udc) 15 ml PO Q4H PRN PRN Reason: Dyspepsia Stop: 08/31/21 15:21 Atenolol (Atenolol 25 Mg Tablet) 25 mg PO QAM NAVEEN Stop: 09/01/21 08:59 Last Admin: 08/04/21 09:41 Dose: 25 mg Documented by: Diclofenac Sodium (Diclofenac Sod 1% Gel 100 Gm Tube) 4 gm EXT QID NAVEEN Stop: 09/03/21 08:59 Last Admin: 08/04/21 09:42 Dose: 4 gm Documented by: Docusate Sodium (Docusate Sodium 100 Mg Cap) 100 mg PO BID PRN PRN Reason: Constipation Felodipine (Felodipine 5 Mg Tabcr) 10 mg PO HS [facility] Stop: 08/31/21 20:59 Last Admin: 08/03/21 20:23 Dose: 10 mg Documented by: Fexofenadine HCl (Fexofenadine Hcl 180 Mg Tab) 180 mg PO QAM PRN PRN Reason: Allergy Symptoms Stop: 08/31/21 15:21 Last Admin: 08/02/21 00:38 Dose: 180 mg Documented by: Fluticasone Propionate (Fluticasone Propionate Na Spr 16 Gm Btl) 1 sprays NA HS [facility] Stop: 08/31/21 20:59 Last Admin: 08/03/21 20:23 Dose: 1 sprays Documented by: Heparin Sodium (Porcine) (Heparin Sod 5,000 Unit/0.5 Ml Vial) 5,000 units SQ Q8 NAVEEN Stop: 08/31/21 15:44 Last Admin: 08/03/21 05:49 Dose: 5,000 units Documented by: Ceftriaxone Sodium 1,000 mg/ (Dextrose) 50 mls @ 100 mls/hr IV Q24H NAVEEN; Protocol Stop: 08/07/21 11:59 Last Infusion: 08/03/21 12:42 Dose: Infused Documented by: Lactobacillus Acidophilus (Lactobacillus Acidophilus 1 Gm Pack) 1 gm PO TIDM NAVEEN Stop: 08/31/21 16:59 Last Admin: 08/04/21 09:40 Dose: 1 gm Documented by: Lorazepam (Lorazepam 0.5 Mg Tab) 0.5 mg PO BID PRN PRN Reason: Anxiety Stop: 08/31/21 15:21 Last Admin: 08/03/21 20:23 Dose: 0.5 mg Documented by: Magnesium Hydroxide (Magnesium Hydroxide Susp 30 Ml Udc) 30 ml PO Q12H PRN PRN Reason: Constipation Stop: 08/31/21 15:21 Miscellaneous (Check Scopolamine Patch Placement) 1 ea N/A QS NAVEEN Stop: 08/05/21 05:59 Last Admin: 08/04/21 09:40 Dose: 1 ea Documented by: Miscellaneous (Remove Transderm-Scop Patch) 1 ea N/A ONE ONE Stop: 08/05/21 06:01 Morphine Sulfate (Morphine Sulfate 2 Mg/Ml Carp) 2 mg IV Q4H PRN PRN Reason: severe pain Stop: 08/15/21 15:21 Ondansetron HCl (Ondansetron Inj 2 Mg/Ml 2 Ml Vial) 4 mg IV Q6H PRN PRN Reason: Nausea Stop: 08/31/21 15:21 Pantoprazole Sodium (Pantoprazole 40 Mg Tab) 40 mg PO DAILY [facility]; Protocol Stop: 09/01/21 08:59 Last Admin: 08/04/21 09:42 Dose: 40 mg Documented by: Phenazopyridine HCl (Phenazopyridine Hcl 200 Mg Tab) 200 mg PO TID [facility] Stop: 09/01/21 08:59 Last Admin: 08/04/21 09:41 Dose: 200 mg Documented by: Polyethylene Glycol (Polyethylene (Miralax) 17 Gm Pack) 17 gm PO DAILY PRN PRN Reason: Constipation Stop: 08/31/21 15:21 Potassium Citrate (Potassium Citrate 10 Meq Tab) 10 meq PO QAM [facility] Stop: 09/01/21 08:59 Last Admin: 08/04/21 09:42 Dose: 10 meq Documented by: Tamsulosin HCl (Tamsulosin Hcl 0.4 Mg Cap) 0.4 mg PO QAM [facility] Stop: 08/31/21 15:59 Last Admin: 08/04/21 09:41 Dose: 0.4 mg Documented by: Vitamin D (Cholecalciferol 1,000 Units 25 Mcg Tab) 2,000 units PO DAILY [facility] Stop: 09/01/21 08:59 Last Admin: 08/04/21 09:41 Dose: 2,000 units Documented by:
[2021-08-04] MEDS: cefTRIAXone SODIUM 1,000 MG in DEXTROSE 5% 50 ML IV SCH (12:16)
[2021-08-04] MEDS ORDERED: SACCHAROMYCES BOULARDII 250 MG CAP PO SCH (12:40)
[2021-08-04] MEDS: CEFDINIR 300 MG CAP PO SCH (14:24)
[2021-08-04] MEDS: LORazepam 0.5 MG TAB PO PRN (21:03)
[2021-08-04] MEDS: FLUTICASONE PROPIONATE NA SPR 16 GM BTL SCH (21:04)
[2021-08-04] MEDS: FELODIPINE 5 MG TABCR PO SCH (21:09)
[2021-08-05 06:25] LABS: Basophils # (auto) 0.03 K/uL (0-0.2); Basophils % (auto) 0.5 %; Eosinophils # (auto) 0.21 K/uL (0-0.5); Eosinophils % (auto) 3.6 %; Hematocrit (blood only) 35.8 % (37-47); Hemoglobin 11.4 g/dL (12.0-16.0); Immature Granulocytes # (auto) 0.01 K/uL (0.00-0.02); Immature Granulocytes % (auto) 0.2 %; Lymphocytes # (auto) 1.42 K/uL (1.2-3.4); Lymphocytes % (auto) 24.5 %; Mean Corpuscular Hemoglobin 30.6 pg (25-34); Mean Corpuscular Hgb Conc 31.8 g/dL (32-36); Mean Platelet Volume 10.7 fL (7.4-10.4); Monocytes # (auto) 0.48 K/uL (0.11-0.59); Monocytes % (auto) 8.3 %; Neutrophils # (auto) 3.65 K/uL (1.4-6.5); Neutrophils % (auto) 62.9 %; Platelet Count 160 K/uL (130-400); RDW Coefficient of Variation 13.9 % (11.5-14.5); Red Blood Count 3.73 M/uL (4.2-5.4)
[2021-08-05 07:04] LABS: BUN Creatinine Ratio 19.2 (10-20); Calcium 8.6 mg/dl (8.5-10.1); Creatinine Clr Calc Pharmacy 32.3 ml/min; Est GFR (African American) 59.8 ml/min; Est GFR (Non-African American) 51.6 ml/min; Potassium 4.1 mmol/L (3.5-5.1)
[2021-08-05] MEDS: CEFDINIR 300 MG CAP PO SCH (09:02)
[2021-08-05] MEDS: PHENAZOPYRIDINE HCL 200 MG TAB PO SCH (09:02)
[2021-08-05] MEDS: CHOLECALCIFEROL 1,000 UNITS 25 MCG TAB PO SCH (09:03)
[2021-08-05] MEDS: PANTOprazole 40 MG TAB PO SCH (09:03)
[2021-08-05] MEDS: TAMSULOSIN HCL 0.4 MG CAP PO SCH (09:03)
[2021-08-05] MEDS: ATENOLOL 25 MG TABLET PO SCH (09:03)
[2021-08-05] MEDS: POTASSIUM CITRATE 10 MEQ TAB PO SCH (09:03)
[2021-08-05] MEDS: LACTOBACILLUS ACIDOPHILUS 1 GM PACK PO SCH ×2 (09:04→12:24)
[2021-08-05] MEDS: DICLOFENAC SOD 1% GEL 100 GM TUBE EXT SCH ×2 (09:11→12:24)
--- NOTE | 2021-08-05 11:04 | Discharge Summary ---
Date of Service August 05, 2021 Admission HPI Per Admitting Provider This is a 86-year-old female who has significant past medical history of HTN, HLD, GERD, acquired solitary kidney secondary to large right renal calculus, hx of nephrolithiasis, CKD stage III, history of recurrent UTIs including history of ESBL, JAZMYN, chronic acquired lymphedema who presents to ED secondary to urinary tract symptoms x2 days. She states I told myself, "I have a kidney stone." She complains of increased urinary urgency, frequency and dysuria along with upset stomach. She ended up presenting to ED this morning secondary to, "I could not pee." She notes that she has frequent urinary tract infections and takes antibiotic every 3 days. She denies any fever, chills, sweats, lightheadedness, dizziness, chest pain, shortness of breath, palpitations, URI symptoms, hematuria, melena or hematochezia. She did have episode of loose stool in ED. She states due to taking antibiotic every 3 days that she tends to have loose stool. But she can also occasionally have constipation due to taking pain medications for arthritis. At home she states she takes a Lomotil.In ED she remained hemodynamically stable. A CT abdomen pelvis was obtained which revealed a punctuate obstructive stone at the left UV junction with mild hydronephrosis superimposed on pelviectasis. Urology was contacted who recommended overnight observation to omar given history of solitary kidney to see if patient able to pass on own. She was also initiated on IV antibiotics due to initial concerning UA. Admission Exam Per Admitting Provider N Constitutional: Petite, elderly, F, WD/WN, vitals as above, NAD, sitting up in bed, pleasant, conversing easily Head: Normocephalic, Atraumatic Eyes: PERRL, conjunctivae normal, anicteric sclerae ENMT: external ear and nose normal, oropharynx normal Neck: trachea midline, no thyromegaly normal visual inspection Respiratory: normal respiratory effort, lungs clear to auscultation, no wheeze, rales, rhonchi. Normal insp/exp effort, no accessory muscle use Cardiovascular: RRR, no murmur, b/l lower ext lymphedema Vessels: no JVD or carotid bruit Chest: normal inspection of chest Abdomen: normal bowel sounds, soft, nontender, no hepatosplenomegaly , NO CVA tenderness Musculoskeletal: no cyanosis or clubbing, extremities motor strength 5/5 Skin: no rashes, warm and dry normal turgor Neurologic: PERRL, EOMI, accommodation nl, no face palsy, no dysarthria CN's II-XI intact bilaterally and moves all extremities Psychiatric: A+Ox3, euthymic affect Lymphatic: no cervical or axillary lymphadenopathy : deferred Principal Diagnosis Left UPJ stone E. coli UTI Left knee pain secondary to degenerative joint disease Discharge Exam Gen: WD/WN, petite, elderly, female, sitting up in bedside chair NAD, A&O x3 HEENT: Normocephalic, atraumatic, conjunctivae moist, sclerae anicteric, mucous membranes moist. Lung: Clear to Auscultation bilaterally, no wheezes/rales/rhonchi Heart: Regular rate, regular rhythm, no murmurs, rubs, or gallops Abdomen: Soft, NT, ND +BS x 4 Extremities: No edema Skin: Warm, no rash, negative turgor. : Grossman catheter draining priya urine Discharge Data Allergies Allergy/AdvReac Type Severity Reaction Status Date / Time ampicillin Allergy Unknown Diarrhea Verified 07/12/21 10:49 Consultations 08/01/21 11:56 ED Decision to Admit Stat 08/01/21 12:06 Consult Urology Routine Procedures Performed Operation Date: 08/02/21 07:00 Actual Procedures p Cystoscopy, Left Ureteroscopy, Retrograde Pyelogram, Laser Distruction and Basket extraction of Left Renal Calculi, Stent Placement Left Ureter(Left) - Nick Summers, DO Ordered Studies Abdomen/Pelvis CT 08/01/21 09:20 CT abd pelvis wo con CLINICAL HISTORY: poss hydro or stone, 1 kidney TECHNIQUE: Helical axial images of the abdomen and pelvis were obtained. Automated dose lowering techniques and/or adjustment according to patient size were utilized for this exam. This exam was performed without intravenous contrast. COMPARISON: Comparison is made to CT abdomen pelvis 06/14/2020 FINDINGS: Lower chest: A large hiatal hernia is seen containing stomach and loops of bowel. Liver: Unremarkable. No focal lesions are seen. Gallbladder and biliary tree: No calcified gallstones. Normal caliber wall. No intra- or extrahepatic biliary ductal dilation. Pancreas: Unremarkable, no focal lesions. Spleen: Unremarkable. Adrenals: Unremarkable. Kidneys and ureters: The right kidney is again noted to be extremely atrophic with a large right pelvis calculus. There is mild hydronephrosis in the left kidney superimposed on extrarenal pelvis seen on prior exam. There is a tiny, 2 mm stone at the left ureterovesicular junction. Bladder: A focus of air is noted in the antidependent portion of the bladder. Correlation with recent instrumentation is recommended. Reproductive organs: There is limited visualization of a hypodensity in the vaginal canal measuring approximately 17 mm, new from prior exam. Bowel: Unremarkable. Lymph nodes Retroperitoneal: Unremarkable. Mesenteric: Unremarkable. Pelvic: Unremarkable. Peritoneum: Normal Vessels: Atherosclerotic calcifications are seen. Abdominal wall: Unremarkable. Bones: Degenerative changes in the visualized spine. IMPRESSION: 1. Punctate obstructive stone at the left ureterovesicular junction with mild hydronephrosis superimposed on pelviectasis. 2. Focus of air within the bladder, recommend correlation with recent instrumentation. 3. Approximately 1.7 x 3.3 cm hypodensity in the vaginal canal is partially visualized. Clinical correlation is recommended. ACT 112: Negative or not required by law. Electronically signed by: Nilo Hackett M.D. 08/01/2021 11:12 AM Retrograde Pyelogram 08/02/21 00:00 FL retrograde includes kub CLINICAL HISTORY: LT SIDE RETROGRADE COMPARISON STUDY: None. FLUOROSCOPY TIME: 20 seconds. FINDINGS: 4 fluoroscopic spot images of the abdomen demonstrate retrograde opacification of the left renal collecting system followed by placement of a left ureteral stent. Only the proximal portion of the stent is identified and appears in good position. There is left-sided hydronephrosis. IMPRESSION: Fluoroscopy provided for left ureteral stent placement as described above. ACT 112: Negative or not required by law. Electronically signed by: Jeremiah Munoz M.D. 08/02/2021 1:51 PM KUB X-Ray 08/02/21 07:00 XR KUB/Abdomen 1 view CLINICAL HISTORY: eval for L UVJ stone TECHNIQUE: 1 view of the abdomen was obtained. Comparison: Comparison is made to CT abdomen pelvis 08/01/2021 FINDINGS: Multiple phleboliths are seen. There is a suggestion of a 2 mm radiodensity without a lucent center in the region of the left ureterovesicular junction which may correspond to stone seen on prior CT. The osseous structures are grossly unremarkable. The bowel gas pattern is nonobstructive. A moderate amount of stool is noted within the large bowel. IMPRESSION: Likely unchanged appearance of 2 mm stone in the left ureterovesicular junction. ACT 112: Negative or not required by law. Electronically signed by: Nilo Hackett M.D. 08/02/2021 9:01 AM Chest X-Ray 08/02/21 09:15 SINGLE VIEW CHEST CLINICAL HISTORY: Preoperative examination. Nephrolithiasis. FINDINGS: An AP, portable, upright chest radiograph is compared to study dated 07/06/2020. The cardiomediastinal silhouette is unremarkable. There is a large hiatal hernia. Scarring/atelectasis is noted at the lung bases. The lungs and pleural spaces are otherwise clear. No pneumothorax is seen. The skeletal structures are osteopenic. The bony thorax is grossly intact. Advanced arthritic change and deformity is seen in the shoulders. IMPRESSION: 1. No active disease in the chest. 2. Large hiatal hernia. ACT 112: Negative or not required by law. Electronically signed by: Robert Morton M.D. 08/02/2021 10:09 AM Knee X-Ray 08/04/21 08:19 XR knee LT 3V HISTORY: 86 years-old Female knee pain chronic left knee pain without reported trauma COMPARISON: None TECHNIQUE: 3 views of the left knee FINDINGS: Demineralized appearance of the bones. Mild genu valgum. Tricompartmental osteoarthritis is severe within the lateral patellofemoral compartment and moderate within the medial compartment. Chondrocalcinosis. Arterial calcifications. Small joint effusion. IMPRESSION: 1. Small joint effusion without acute fracture or dislocation. 2. 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 3. Genu valgum. ACT 112: Negative or not required by law. The above report was generated using voice recognition software. It may contain grammatical, syntax or spelling errors. Electronically signed by: Umang Chapman M.D. 08/04/2021 10:03 AM Hospital Course (1) Ureteropelvic junction (UPJ) obstruction, left: This is a 86-year-old female who has significant past medical history of HTN, HLD, GERD, acquired solitary kidney secondary to large right renal calculus, hx of nephrolithiasis, CKD stage III, history of recurrent UTIs including history of ESBL, JAZMYN, chronic acquired lymphedema who presents to ED secondary to urinary tract symptoms x2 days. She was diagnosed with left UPJ stone that did not pass spontaneously. She ultimately underwent a cystoscopy with left ureteroscopy, retrograde pyelogram and laser destruction of left renal calculi with stent placement and left ureter. She tolerated the procedure well. Urine culture grew E. coli. She received 3 days of IV Rocephin and transition to oral cefdinir at discharge. Her pain was managed with Tylenol 3 and Pyridium. She was also placed on Flomax 0.4 mg daily for stent management. She is to follow- up with urology as outpatient for stent removal. During hospitalization she did have left knee pain after twisting her knee in bed. X-ray revealed severe osteoarthritis. Pain resolved with some physical therapy and Voltaren gel. Incidentally on admission her CT abdomen pelvis revealed an approximate 1.7 x 3.3 cm hypodensity in the vaginal canal that was partially visualized. This was new from prior image. Is recommended she follow-up with PCP and RN INTERVENTIONAL as outpatient for further evaluation. It is recommended that she discontinues her chronic fosfomycin therapy for now until follows up with urology. It was recommended that patient be discharged to rehab for further therapy services. She declined and wished to be transition home. At time of discharge she was in good spirits, vital signs were stable she was afebrile. She was tolerating oral antibiotic and ambulating with a walker. She offers no acute concerns at time of discharge. (2) UTI (urinary tract infection): (3) Solitary kidney: (4) CKD (chronic kidney disease), stage III: (5) Hypertension: (6) DVT prophylaxis: otes Total Time Total Time Spent Total Time Spent (In Minutes): 60 min Total Time Includes: Examination of the Patient, Discharge Planning, Medication Reconciliation, Communication With Other Providers and Other Discharge Plan Discharge Items Patient Disposition: Home - Self-Care Reason For Visit: KIDNEY STONE Discharge Diagnosis: Left-sided kidney stone UTI Condition on Discharge: Fair Activity: Resume your previous activity Weightbearing: Full weightbearing Non-emergency contact: Primary Care Provider and Urologist Call non-emergency contact if: you have any medication questions, your symptoms worsen, your pain is not controlled, your pain is worsening, your pain is unusual for you, your pain is concerning for you, you have a fever and your temperature is above 101 Follow-up/Referrals: Beth Hawk DO [Primary Care Provider] - (Date & Time 08/09/2021 11:10 AM Provider Beth Hawk DO Department [facility] ) Diet: Regular Addtl Attending Provider Instructions: MEDICATION CHANGES: You were started on antibiotic cefdinir (Omnicef) 300 mg twice daily x 7 days, next dose evening of 08/05/21 Pyridium 200mg every 8 hours as needed for burning with urination Flomax 0.4mg once daily - for Ureteral Stent STOP: Fosfomycin 3g every 3 days due to adverse drug reaction of diarrea SUMMARY OF TEST RESULTS: You were admitted to hospital due to left-sided kidney stone. Urology performed a procedure and broke up the kidney stone and placed a stent on your left side. Your urinalysis was positive for infection and you are being treated with antibiotics. You will need to follow-up with urology 1 week after discharge for stent removal. You also experienced left knee pain. Xray revealed severe arthritis to your Left Knee. Recommend continuing with voltaren gel and tylenol with codeine for arthritic pain. PENDING TEST RESULTS: None RECOMMENDATIONS FOR FOLLOW-UP: Follow up with PCP as scheduled. Follow up with Urology as scheduled, please discuss with urology at follow up if they feel you need chronic antibiotic treatment for frequent UTI. Follow up with PCP regarding abnormal finding on Cat scan of abdomen pelvis regarding lesin in vagal canal. Recommend gynecologic evaluation as outpatient. Please take all medications as prescribed. Stay well hydrated. Avoid anti inflammatory medications including ibuprofen, Aleve, Advil, Motrin, Excedrin or naproxen as this can be harmful to your kidney. OTHER INSTRUCTIONS: Seek medical attention if you have: * temperature above 101 * chest pain or trouble breathing * abdominal pain, nausea, vomiting * diarrhea, dark stools or bloody stools * any unanswered questions or concerns Call 911 if symptoms are severe. Please take good care of yourself. It has been a pleasure taking care of you. Please take care of yourself. If you have any questions regarding your recent hospitalization please contact [facility] and [facility] [phone]. Karen Matthews PA-C Pending Studies at Discharge: No Stand-Alone Forms: [facility], Smoking Cessation Medications and DC Order Prescriptions: New phenazopyridine [Pyridium] 200 mg Tablet 200 mg PO TID PRN (Reason: pain with urinating) Qty: 10 RF: 0 tamsulosin 0.4 mg Capsule 0.4 mg PO QAM Qty: 14 RF: 0 Continued atenolol [Tenormin] 25 mg tablet 25 mg PO QAM RF: 0 potassium citrate [Urocit-K 10] 10 mEq (1,080 mg) tablet extended release 10 meq PO QAM RF: 0 omeprazole 20 mg capsule,delayed release(DR/EC) 20 mg PO DAILY RF: 0 felodipine 10 mg tablet extended release 24 hr 10 mg PO HS RF: 0 fluticasone propionate [Flonase Allergy Relief] 50 mcg/actuation spray,suspension 1 spray intranasal HS RF: 0 fexofenadine [Priti Allergy] 180 mg Tablet 180 mg PO QAM PRN (Reason: Allergy Symptoms) RF: 0 Lactobacillus acidoph-L.bulgar [Floranex] 100 million cell Granules In Packet 1 g PO TIDM Qty: 30 RF: 0 Premarin 0.625 mg/gram cream 1 applic vaginal 3XWK RF: 0 loperamide 2 mg Capsule 2 mg PO Q6H PRN (Reason: Diarrhea) RF: 0 lorazepam 0.5 mg tablet 0.5 mg PO BID PRN (Reason: Anxiety) RF: 0 meclizine 25 mg Tablet 25 mg PO TID PRN (Reason: Vertigo) RF: 0 docusate sodium 100 mg Tablet 100 mg PO BID PRN (Reason: Constipation) RF: 0 cholecalciferol (vitamin D3) [Vitamin D3] 50 mcg (2,000 unit) capsule 2,000 unit PO DAILY RF: 0 acetaminophen-codeine 300-30 mg tablet 1 tab PO Q4H PRN (Reason: Pain) Qty: 12 RF: 0 Discontinued fosfomycin tromethamine 3 gram packet 3 g PO Q3D RF: 0 Discharge Orders: Discharge Order (Routine); Ordered 08/05/21 Ordered By: Karen Matthews Admission Data Admit Date/Time: 08/01/21 12:06 Attending Provider: Akhil Joseph Admit Provider: Jose Hernandez Primary Care Provider: Beth Hawk Other Providers: Jose Hernandez ; Nick Summers Other Interventions: Discharge Summary Assessment (RN) Last Done: 08/05/21 14:20
[2021-08-05] MEDS: ACETAMINOPHEN W/CODEINE #3 1 TAB PO PRN (12:55)
[2021-08-05] MEDS ORDERED: CEFDINIR 300 MG CAP PO SCH (21:00)
== END 2021-08-05 15:00 | disposition home or self-care (01) | DRG 660 ==
LOC: ED 09:03 → 3E 12:06 → SUATTDRO 12:06 → 3E 14:45
DX: Z90.5 Acquired absence of kidney; Y92.239 Unspecified place in hospital as the place of occurrence of the external cause; Z88.1 Allergy status to other antibiotic agents; K52.1 Toxic gastroenteritis and colitis; F41.1 Generalized anxiety disorder; Z87.442 Personal history of urinary calculi; N18.30 Chronic kidney disease, stage 3 unspecified; N13.6 Pyonephrosis; T36.8X5A Adverse effect of other systemic antibiotics, initial encounter; I89.0 Lymphedema, not elsewhere classified; K21.9 Gastro-esophageal reflux disease without esophagitis; M17.12 Unilateral primary osteoarthritis, left knee; I12.9 Hypertensive chronic kidney disease with stage 1 through stage 4 chronic kidney disease, or unspecified chronic kidney disease; B96.20 Unspecified Escherichia coli [E. coli] as the cause of diseases classified elsewhere; Z66 Do not resuscitate; E78.5 Hyperlipidemia, unspecified; Z87.440 Personal history of urinary (tract) infections

== ENCOUNTER 2023-05-04 16:52 | Inpatient (IN) ==
--- NOTE | 2023-05-04 17:01 | ED Triage Note ---
Date of Service May 04, 2023 History of Present Illness This patient was briefly evaluated while in triage. An abbreviated physical exam was performed. This patient is a 88-year-old Female who presents to the ED for evaluation of shortness of breath that has been intermittent for past few weeks. Today symptoms got worse and was checked Barry Kahn, noted to have sats in low 70s, started on oxygen. EMS put her up to 6 L nasal cannula to get her to 92%. Does not wear oxygen normally. Has history of large hiatal hernia, she thinks this is related. Denies history of heart or lung problems. Has been having some post nasal drainage, but denies cough. No fevers or chills, has not been around any sick contacts recently. Physical Exam CONSTITUTIONAL: No acute distress. Well appearing. Able to speak in full sentences. RESPIRATORY: Diminished throughout, slight crackles heard in bases. No tachypnea or accessory muscle use. Equal expansion bilaterally. CARDIOVASCULAR: Regular rate and rhythm with no murmurs, rubs or gallops. GASTROINTESTINAL: Soft, nontender NEUROLOGIC: Alert and oriented X 4 with normal affect. Initial orders for labs and / or imaging were placed and patient was placed in the waiting area until a bed is available. Please see further documentation for the full ED course.
--- NOTE | 2023-05-04 17:37 | Emergency Department Note ---
Impression & Plan Hypoxia, Acute UTI, Pulmonary edema, Hernia, hiatal ED Provider Note Provider: Sage Xie MD DATE OF SERVICE: 05/04/2023 CHIEF COMPLAINT: Shortness of breath HISTORY OF PRESENT ILLNESS: Patient is a 88-year-old female history of CKD, arthritis, and kidney stone presenting here today from [facility] where she states over the last week or 2 she is been having some is sues with difficulty breathing particular after eating. States today after eating she describes worsening shortness of breath was found to be hypoxic into the 60s on room air. Denies any history of significant lung issues or asthma. Denies fever. Denies sick contact to her knowledge. Little bit of swelling of the legs but states this is not clinically worse for her. Has some concern that this could be related to a large hernia she has on her left abdomen by her report. Denies significant pain in the abdomen at this time and only minimal. Again denies chest pain. States she is feeling better but still somewhat short of breath even on the oxygen. Does report a bit of nausea. 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 NECK: Trachea midline. ENT: Mucous membranes pink and moist. Pharynx without erythema or exudate. LUNGS: Airway patent. No retractions. Breath sounds clear but some tachypnea noted. HEART: Regular rate and rhythm. No chest wall tenderness ABDOMEN: Soft and non-tender, without guarding or rebound. SKIN: Acyanotic, warm, dry, without rashes EXTREMITIES: Without deformity with 1-2+ bilateral edema of the lower extremities. NEUROLOGICAL: No focal deficits. No aphasia. No facial droop or slurred speech. Normal strength and tone in the extremities. Sensation to gross touch normal. Am bulatory. EK bpm normal sinus rhythm. No PVC or PAC. No acute ST segment elevation or depression with nonspecific T wave flattening. QTc 456 CONTINUOUS CARDIAC MONITORING: was ordered and showed a heart rate of 70s-80s bpm in normal sinus Patient's laboratory studies and imaging reviewed. Differential includes Reactive airway disease, pneumonia, pneumothorax, COPD, CHF, infections, cardiac ischemia, pulmonary embolism, musculoskeletal, gastrointestinal, as well as other pathologies. IMPRESSION/MEDICAL DECISION MAKING: Patient significant hypoxic on room air and somewhat tachypneic. On 6 L she is in the low 90s -- again new oxygen requirement. Some swelling of the lower legs but not severely edematous. Respiratory viral panel sent. We will complete a CTA of the chest to look for possible underlying PE as well as exclude other pathology such as pneumonia, masses, pneumothorax, or pulmonary edema of significance. Some mild tenderness left upper quadrant we will complete a CT of the abdomen pelvis as well. EKG and troponin completed. Respiratory viral panel negative. No evidence of hepatitis or pancreatitis based on labs. Creatinine of 1.3 not far off baseline around 1. High- sensitivity troponin returns at 17.6 and just above baseline but with her underlying CKD and lack of significant chest pain I doubt a significant acute ACS and there is no evidence of STEMI on the EKG. Patient without significant anemia or leukocytosis. Lower suspicion for sepsis. Chest x-ray evidence of a large hiatal hernia and CTA of the chest as well as CT abdomen pelvis to further evaluate the hernia as well as lung parenchyma and to exclude pulmonary embolism was completed and per radiology report with evidence of PE with some pulmonary edema and small pleural effusions. Large hiatal hernia is noted on imaging. Given this given a small dose of diuretic. Some component of her hypoxia may be related to pulmonary edema versus some component from this large hiatal hernia. At this point discussed with the patient as well as the hospitalist for further care here. If diuresis is ineffective to assist with her symptoms may require further intervention on the hiatal hernia but believe it is prudent to give medical therapy to try at this time. Urinalysis questionable for infection and cover ceftriaxone DIAGNOSIS: Hypoxia, shortness of breath, pulmonary edema, hiatal hernia, acute UTI DISPOSITION: Hospitalist will evaluate Patient was agreeable with this plan. Past Med/Surg History Medical History Acute hyponatremia Acute worsening of stage 3 chronic kidney disease Ambulatory dysfunction Anxiety Arthritis Chronic acquired lymphedema CKD (chronic kidney disease), stage III DVT prophylaxis HLD (hyperlipidemia) Hypertension Hypomagnesemia Rotator cuff tear arthropathy of both shoulders Surgical History History of appendectomy History of cholecystectomy Family History Mother CHF (congestive heart failure) Social History Smoking Status: Never smoker Second Hand Exposure: No; Do You Dip or Chew Tobacco: No; Hx Alcohol Use: Yes Alcohol type: wine Alcohol Intake Frequency: Monthly or Less Hx Substance Use: No Preferred Language: Luxembourgish Communication Ability: Effective Vp Software Support Required: No Beliefs That Will Affect Care: None marital status: Current Living Situation: Spouse current occupational status: retired How many Children do You have: 1 Feels Safe at Home: Yes Assistive Devices: Glasses and Walker Allergies Allergies Allergy/AdvReac Type Severity Reaction Status Date / Time ampicillin Allergy Unknown Diarrhea Verified 12/26/21 12:16 Home Meds Home Medications Medication Instructions Recorded Confirmed atenolol 25 mg tablet (Tenormin) 25 mg PO QAM 11/19/18 05/04/23 felodipine 10 mg tablet,extended 10 mg PO QAM 11/19/18 05/04/23 release 24 hr potassium citrate 10 mEq (1,080 10 meq PO QAM 11/19/18 05/04/23 mg) tablet,extended release (Urocit-K 10) fluticasone propionate 50 2 spray intranasal HS 03/01/19 05/04/23 mcg/actuation nasal spray,suspension (Flonase Allergy Relief) fexofenadine 180 mg tablet 180 mg PO QAM PRN Allergy Symptoms 10/07/20 12/26/21 (Priti Allergy) cholecalciferol (vitamin D3) 50 2,000 unit PO QAM 07/12/21 05/04/23 mcg (2,000 unit) capsule (Vitamin D3) docusate sodium 100 mg tablet 100 mg PO BID PRN Constipation 07/12/21 12/26/21 loperamide 2 mg capsule 2 mg PO Q6H PRN Diarrhea 07/12/21 12/26/21 lorazepam 0.5 mg tablet 0.5 mg PO BID PRN Anxiety 07/12/21 12/26/21 Lactobacillus acidophilus, 1 g PO QAM 12/26/21 05/04/23 bulgaricus 100 million cell granules packet (Floranex) omeprazole 20 mg capsule,delayed 20 mg PO QDB 05/04/23 05/04/23 release ondansetron 4 mg disintegrating 4 mg PO Q6 PRN nausea and vomiting 05/04/23 05/04/23 tablet phenazopyridine 200 mg tablet 200 mg PO Q6 PRN urinary pain 05/04/23 05/04/23 (Pyridium) Previous Rx's Medication Instructions Recorded acetaminophen 300 mg-codeine 30 mg 1 tab PO Q4H PRN Pain #12 tabs 08/05/21 tablet Results & Data (ED) Vital Signs Vital Signs - 24 hr 05/04/23 17:00 05/04/23 17:30 05/04/23 17:32 Temperature 36.5 C Temperature Source Temporal Artery Scan Pulse Rate 82 Pulse Rhythm Respiratory Rate 20 Respiratory Effort / Characteristics Short of Breath SOB on Exertion Respiratory Depth Normal Blood Pressure 125/74 Blood Pressure Mean 91 Pulse Oximetry 93 93 Oxygen Delivery Method Nasal Cannula Nasal Cannula Oxygen Flow Rate 6 5 Sepsis Recent Fever Within 48 Hours No Sepsis New/Unexplained Change in Mental Status No Sepsis Action Taken by Nursing No Action Required 05/04/23 17:32 05/04/23 17:35 Temperature Temperature Source Pulse Rate 79 79 Pulse Rhythm Regular Respiratory Rate 24 Respiratory Effort / Characteristics Respiratory Depth Blood Pressure Blood Pressure Mean Pulse Oximetry 93 Oxygen Delivery Method Nasal Cannula Oxygen Flow Rate 5 Sepsis Recent Fever Within 48 Hours Sepsis New/Unexplained Change in Mental Status Sepsis Action Taken by Nursing Laboratory Data 05/04/23 17:35 05/04/23 17:35 Lab Results 05/04/23 05/04/23 05/04/23 Range/Units 17:14 17:35 17:35 WBC 6.68 (4.8-10.8) K/ul RBC 4.18 L (4.20-5.40) M/uL Hgb 12.9 (12.0-16.0) g/dl POC Hgb (12.0-16.0) g/dl Hct 38.8 (37.0-47.0) % POC Hct (37-47) % MCV 92.8 (80.0-100.0) fL MCH 30.9 (25.0-34.0) pg MCHC 33.2 (32.0-36.0) g/dL RDW Std Deviation 45.0 (36.4-46.3) fL RDW Coeff of Adrienne 13.4 (11.5-14.5) % Plt Count 236 (130-400) K/uL MPV 10.2 (9.4-12.4) fL Immature Gran % (Auto) 0.1 % Neut % (Auto) 77.5 % Lymph % (Auto) 11.4 % Vilas % (Auto) 8.8 % Eos % (Auto) 1.2 % Baso % (Auto) 1.0 % Neut # (Auto) 5.17 (1.40-6.50) K/uL Lymph # (Auto) 0.76 L (1.2-3.4) K/uL Vilas # (Auto) 0.59 (0.11-0.59) K/uL Eos # (Auto) 0.08 (0-0.50) K/uL Baso # (Auto) 0.07 (0-0.2) K/uL Immature Gran # (Auto) 0.01 (0.01-0.20) K/uL PT 12.1 H (9.0-12.0) Seconds INR 1.1 (0.9-1.1) APTT 29.6 (21.0-31.0) Seconds PTT Ratio 1.0 POC Sodium (135-144) mmol/L Sodium (136-145) mmol/L POC Potassium (3.3-5.0) mmol/L Potassium (3.5-5.1) mmol/L POC Chloride (101-112) mmol/L Chloride (98-107) mmol/L Carbon Dioxide (21-32) mmol/L POC Total CO2 (24-31) mmol/L Anion Gap (3-11) POC Anion Gap (16-25) mmol/L POC BUN (7-18) mg/dl BUN (6-23) mg/dl Creatinine (0.6-1.2) mg/dl POC Creatinine (0.6-1.3) mg/dl Est Cr Clr Drug Dosing ml/min Est GFR ( Amer) ml/min Est GFR (Non-Af Amer) ml/min BUN/Creatinine Ratio (10-20) Glucose (70-99(Fasting)) mg/dl POC Glucose (other) (70-99) mg/dl Calcium (8.6-10.3) mg/dl POC Ioniz Calcium Don (1.12-1.32) mmol/l Total Bilirubin (0.2-1.0) mg/dl AST (13-39) U/L ALT (7-52) U/L Alkaline Phosphatase (34-104) U/L Troponin I High Sens (0-14) pg/ml Total Protein (6.0-8.3) gm/dl Albumin (3.4-5.0) gm/dl Globulin (2.5-4.0) gm/dl Albumin/Globulin Ratio (0.9-2) Lipase (11-82) U/L Urine Color Urine Appearance (Clear) Urine pH (4.5-7.5) Ur Specific Elida (1.000-1.030) Urine Protein (Negative) Urine Glucose (UA) (Negative) Urine Ketones (Negative) Urine Blood (Negative) Urine Nitrite (Negative) Urine Bilirubin (Negative) Urine Urobilinogen (Negative) Ur Leukocyte Esterase (Negative) Adenovirus (PCR) Not Detected (NotDetected) B. pertussis DNA (PCR) Not Detected (NotDetected) B.parapertussis DNA PCR Not Detected (NotDetected) C. pneumoniae DNA (PCR) Not Detected (NotDetected) Coronavirus OC43 (PCR) Not Detected (NotDetected) Coronavirus HKU1 (PCR) Not Detected (NotDetected) Coronavirus 229E (PCR) Not Detected (NotDetected) SARS-CoV-2 (PCR) Not Detected (NotDetected) Coronavirus NL63 (PCR) Not Detected (NotDetected) Human Metapneumovir PCR Not Detected (NotDetected) Influenza Type A (PCR) Not Detected (NotDetected) Influenza Type B (PCR) Not Detected (NotDetected) M. pneumoniae (PCR) Not Detected (NotDetected) Parainfluenza 1 (PCR) Not Detected (NotDetected) Parainfluenza 2 (PCR) Not Detected (NotDetected) Parainfluenza 3 (PCR) Not Detected (NotDetected) Parainfluenza 4 (PCR) Not Detected (NotDetected) RSV (PCR) Not Detected (NotDetected) Entero/Rhino (PCR) Not Detected (NotDetected) 05/04/23 05/04/23 05/04/23 Range/Units 17:35 17:43 Unknown WBC (4.8-10.8) K/ul RBC (4.20-5.40) M/uL Hgb (12.0-16.0) g/dl POC Hgb 13.6 (12.0-16.0) g/dl Hct (37.0-47.0) % POC Hct 40 (37-47) % MCV (80.0-100.0) fL MCH (25.0-34.0) pg MCHC (32.0-36.0) g/dL RDW Std Deviation (36.4-46.3) fL RDW Coeff of Adrienne (11.5-14.5) % Plt Count (130-400) K/uL MPV (9.4-12.4) fL Immature Gran % (Auto) % Neut % (Auto) % Lymph % (Auto) % Vilas % (Auto) % Eos % (Auto) % Baso % (Auto) % Neut # (Auto) (1.40-6.50) K/uL Lymph # (Auto) (1.2-3.4) K/uL Vilas # (Auto) (0.11-0.59) K/uL Eos # (Auto) (0-0.50) K/uL Baso # (Auto) (0-0.2) K/uL Immature Gran # (Auto) (0.01-0.20) K/uL PT (9.0-12.0) Seconds INR (0.9-1.1) APTT (21.0-31.0) Seconds PTT Ratio POC Sodium 141 (135-144) mmol/L Sodium 140 (136-145) mmol/L POC Potassium 4.3 (3.3-5.0) mmol/L Potassium 4.3 (3.5-5.1) mmol/L POC Chloride 105 (101-112) mmol/L Chloride 105 (98-107) mmol/L Carbon Dioxide 25 (21-32) mmol/L POC Total CO2 24 (24-31) mmol/L Anion Gap 10 (3-11) POC Anion Gap 18.0 (16-25) mmol/L POC BUN 32 H (7-18) mg/dl BUN 33 H (6-23) mg/dl Creatinine 1.30 H (0.6-1.2) mg/dl POC Creatinine 1.4 H (0.6-1.3) mg/dl Est Cr Clr Drug Dosing 23.6 ml/min Est GFR ( Amer) 42.4 ml/min Est GFR (Non-Af Amer) 36.6 ml/min BUN/Creatinine Ratio 25.4 H (10-20) Glucose 130 H (70-99(Fasting)) mg/dl POC Glucose (other) 140 H (70-99) mg/dl Calcium 9.6 (8.6-10.3) mg/dl POC Ioniz Calcium Don 1.23 (1.12-1.32) mmol/l Total Bilirubin 0.4 (0.2-1.0) mg/dl AST 13 (13-39) U/L ALT 5 L (7-52) U/L Alkaline Phosphatase 97 (34-104) U/L Troponin I High Sens 17.6 H (0-14) pg/ml Total Protein 7.6 (6.0-8.3) gm/dl Albumin 3.9 (3.4-5.0) gm/dl Globulin 3.7 (2.5-4.0) gm/dl Albumin/Globulin Ratio 1.1 (0.9-2) Lipase 49 (11-82) U/L Urine Color Yellow Urine Appearance Turbid A (Clear) Urine pH 7.5 (4.5-7.5) Ur Specific Elida 1.030 (1.000-1.030) Urine Protein 2+ H (Negative) Urine Glucose (UA) Negative (Negative) Urine Ketones Trace H (Negative) Urine Blood 2+ H (Negative) Urine Nitrite Positive A (Negative) Urine Bilirubin Negative (Negative) Urine Urobilinogen Negative (Negative) Ur Leukocyte Esterase 3+ H (Negative) Adenovirus (PCR) (NotDetected) B. pertussis DNA (PCR) (NotDetected) B.parapertussis DNA PCR (NotDetected) C. pneumoniae DNA (PCR) (NotDetected) Coronavirus OC43 (PCR) (NotDetected) Coronavirus HKU1 (PCR) (NotDetected) Coronavirus 229E (PCR) (NotDetected) SARS-CoV-2 (PCR) (NotDetected) Coronavirus NL63 (PCR) (NotDetected) Human Metapneumovir PCR (NotDetected) Influenza Type A (PCR) (NotDetected) Influenza Type B (PCR) (NotDetected) M. pneumoniae (PCR) (NotDetected) Parainfluenza 1 (PCR) (NotDetected) Parainfluenza 2 (PCR) (NotDetected) Parainfluenza 3 (PCR) (NotDetected) Parainfluenza 4 (PCR) (NotDetected) RSV (PCR) (NotDetected) Entero/Rhino (PCR) (NotDetected) Administered Medications Discontinued Medications Ioversol (Ioversol 350 Mg 125ml Prefilled Syringe) 118 ml IV ONCE ONE Stop: 05/04/23 18:08 Last Admin: 05/04/23 18:07 Dose: 118 ml Documented By: MARY CARMEN Imaging Data Radiologist's Impression: Chest CTA 05/04/23 17:03 CT angio chest PE protocol, CT abd pelvis IV con only CT DOSE: 1010.30 mGy.cm HISTORY: 88 years-old Female with Dyspnea, hypoxia. Acute shortness of breath with chest and abdominal pain TECHNIQUE: Multiple CTA images of the chest were obtained after the intravenous administration of [address] Abdomen and pelvis with IV contrast also obtained. Coronal and sagittal MIPS were obtained from the axial data set and were submitted for review. All measurements were obtained according to NASCET criteria. A dose lowering technique was utilized adhering to the principles of ALARA. COMPARISON: CT abdomen and pelvis 08/01/2021, 06/14/2020 FINDINGS: CTA: Moderate cardiomegaly. No pericardial effusion. Moderate degree calcifications. Atherosclerosis of the aorta without aneurysm. No pulmonary emboli identified. CT CHEST: No thyroid nodule identified. Nonspecific mediastinal and hilar lymphadenopathy. Paratracheal lymph nodes measure up to 10 mm. Subcarinal lymph nodes measure up to 2.9 x 1.4 cm. Small layering pleural effusions. No pneumothorax. Intralobular septal groundglass opacities and mild bibasilar consolidation. Unremarkable soft tissues. Degenerative changes of the shoulders and spine. No definite acute fracture identified. There is a large hiatal hernia which contains the majority of the stomach as well as mesenteric fat with loops of large bowel. CT ABDOMEN/PELVIS: No free air. Unremarkable spleen, mildly contracted gallbladder. Unchanged focal prominence of the pancreatic artery/tail on image 90 measuring 1.5 cm Unchanged appearance of the liver. Mild cortical thinning of the left kidney again noted with renal sinus cyst. Large calculus of the right renal pelvis again noted measuring 3.9 x 3.0 x 3.0 cm. Severe atrophy with cortical thinning of the right kidney and unchanged hydronephrosis again noted. Prominence of the perirenal fat. There is bladder wall thickening with evacuation. Pelvic floor relaxation. Severe atherosclerosis of the aorta and branch vessels. Pericolonic lymph nodes are nonspecific measuring up to 10 mm. Trace free fluid within the pelvis. Enhancing anal rectal structure. Mild twisting of the sigmoid mesial colon without upstream obstruction. Postoperative changes of the right hemicolon. Unremarkable soft tissues. No acute fracture identified. IMPRESSION: 1. No pulmonary emboli identified. 2. Cardiomegaly with pulmonary edema, small pleural effusions and mild bibasilar atelectasis. 3. Large hiatal hernia containing stomach and colon. 4. Large calculus of the right renal pelvis with marked right renal atrophy again noted. 5. Trace ascites. 6. Additional findings as above. ACT 112: Negative or not required by law. The above report was generated using voice recognition software. It may contain grammatical, syntax or spelling errors. Electronically signed by: Umang Chapman M.D. 05/04/2023 6:46 PM Chest X-Ray 05/04/23 17:03 XR chest 1V portable HISTORY: 88 years-old Female Dyspnea acute shortness of breath COMPARISON: 08/02/2021 TECHNIQUE: AP view of the chest FINDINGS: Cardiac silhouette is enlarged. Pulmonary vascular congestion with interstitial coarsening and small pleural effusions. Mild bibasilar opacities. Large hiatal hernia has increased in size. No pneumothorax. Degenerative changes of the shoulders and spine. IMPRESSION: 1. Cardiomegaly with pulmonary edema and small pleural effusions. 2. Large hiatal hernia. ACT 112: Negative or not required by law. The above report was generated using voice recognition software. It may contain grammatical, syntax or spelling errors. Electronically signed by: Umang Chapman M.D. 05/04/2023 5:49 PM Abdomen/Pelvis CT 05/04/23 17:33 CT angio chest PE protocol, CT abd pelvis IV con only CT DOSE: 1010.30 mGy.cm HISTORY: 88 years-old Female with Dyspnea, hypoxia. Acute shortness of breath with chest and abdominal pain TECHNIQUE: Multiple CTA images of the chest were obtained after the intravenous administration of [address] Abdomen and pelvis with IV contrast also obtained. Coronal and sagittal MIPS were obtained from the axial data set and were submitted for review. All measurements were obtained according to NASCET criteria. A dose lowering technique was utilized adhering to the principles of ALARA. COMPARISON: CT abdomen and pelvis 08/01/2021, 06/14/2020 FINDINGS: CTA: Moderate cardiomegaly. No pericardial effusion. Moderate degree calcifications. Atherosclerosis of the aorta without aneurysm. No pulmonary emboli identified. CT CHEST: No thyroid nodule identified. Nonspecific mediastinal and hilar lymphadenopathy. Paratracheal lymph nodes measure up to 10 mm. Subcarinal lymph nodes measure up to 2.9 x 1.4 cm. Small layering pleural effusions. No pneumothorax. Intralobular septal groundglass opacities and mild bibasilar consolidation. Unremarkable soft tissues. Degenerative changes of the shoulders and spine. No definite acute fracture identified. There is a large hiatal hernia which contains the majority of the stomach as well as mesenteric fat with loops of large bowel. CT ABDOMEN/PELVIS: No free air. Unremarkable spleen, mildly contracted gallbladder. Unchanged focal prominence of the pancreatic artery/tail on image 90 measuring 1.5 cm Unchanged appearance of the liver. Mild cortical thinning of the left kidney again noted with renal sinus cyst. Large calculus of the right renal pelvis again noted measuring 3.9 x 3.0 x 3.0 cm. Severe atrophy with cortical thinning of the right kidney and unchanged hydronephrosis again noted. Prominence of the perirenal fat. There is bladder wall thickening with evacuation. Pelvic floor relaxation. Severe atherosclerosis of the aorta and branch vessels. Pericolonic lymph nodes are nonspecific measuring up to 10 mm. Trace free fluid within the pelvis. Enhancing anal rectal structure. Mild twisting of the sigmoid mesial colon without upstream obstruction. Postoperative changes of the right hemicolon. Unremarkable soft tissues. No acute fracture identified. IMPRESSION: 1. No pulmonary emboli identified. 2. Cardiomegaly with pulmonary edema, small pleural effusions and mild bibasilar atelectasis. 3. Large hiatal hernia containing stomach and colon. 4. Large calculus of the right renal pelvis with marked right renal atrophy again noted. 5. Trace ascites. 6. Additional findings as above. ACT 112: Negative or not required by law. The above report was generated using voice recognition software. It may contain grammatical, syntax or spelling errors. Electronically signed by: Umang Chapman M.D. 05/04/2023 6:46 PM Discharge Plan Visit Data Chief Complaint: Shortness of Breath/Dyspnea Stated Complaint: SOB, INTERMITTENT XCOUPLE WEEKS ED Provider: Sage Xie Discharge Problem: Hypoxia, Acute UTI, Pulmonary edema, Hernia, hiatal Patient Disposition: Being Evaluated by Hospitalist Forms Stand Alone Forms: [facility] [employer] Prescriptions Prescriptions: No Action atenolol [Tenormin] 25 mg tablet 25 mg PO QAM potassium citrate [Urocit-K 10] 10 mEq (1,080 mg) tablet extended release 10 meq PO QAM felodipine 10 mg tablet extended release 24 hr 10 mg PO QAM fluticasone propionate [Flonase Allergy Relief] 50 mcg/actuation spray,suspension 2 spray intranasal HS fexofenadine [Priti Allergy] 180 mg Tablet 180 mg PO QAM PRN (Reason: Allergy Symptoms) loperamide 2 mg Capsule 2 mg PO Q6H PRN (Reason: Diarrhea) lorazepam 0.5 mg tablet 0.5 mg PO BID PRN (Reason: Anxiety) docusate sodium 100 mg Tablet 100 mg PO BID PRN (Reason: Constipation) cholecalciferol (vitamin D3) [Vitamin D3] 50 mcg (2,000 unit) capsule 2,000 unit PO QAM acetaminophen-codeine 300-30 mg tablet 1 tab PO Q4H PRN (Reason: Pain) Qty: 12 0RF Rx Instructions: usually only uses BID PRN omeprazole 20 mg capsule,delayed release(DR/EC) 20 mg PO QDB phenazopyridine [Pyridium] 200 mg tablet 200 mg PO Q6 PRN (Reason: urinary pain) ondansetron 4 mg tablet,disintegrating 4 mg PO Q6 PRN (Reason: nausea and vomiting) Lactobacillus acidoph-L.bulgar [Floranex] 100 million cell granules in packet 1 g PO QAM Referrals Referrals: [facility], [facility] [Primary Care Provider] -
--- NOTE | 2023-05-04 17:51 | XRay Report ---
XR chest 1V portable HISTORY: 88 years-old Female Dyspnea acute shortness of breath COMPARISON: 08/02/2021 TECHNIQUE: AP view of the chest FINDINGS: Cardiac silhouette is enlarged. Pulmonary vascular congestion with interstitial coarsening and small pleural effusions. Mild bibasilar opacities. Large hiatal hernia has increased in size. No pneumothor ax. Degenerative changes of the shoulders and spine. IMPRESSION: 1. Cardiomegaly with pulmonary edema and small pleural effusions. 2. Large hiatal hernia. ACT 112: Negative or not required by law. The above report was generated using voice recognition software. It may contain grammatical, syntax o r spelling errors. Electronically signed by: Umang Chapman M.D. 05/04/2023 5:49 PM
[2023-05-04 17:56] LABS: iSTAT Creatinine 1.4 mg/dl (0.6-1.3); iSTAT Hemoglobin 13.6 g/dl (12.0-16.0); iSTAT Ionized Calcium 1.23 mmol/l (1.12-1.32); iSTAT Potassium 4.3 mmol/L (3.3-5.0)
[2023-05-04 18:02] LABS: Basophils # (auto) 0.07 K/uL (0-0.2); Eosinophils # (auto) 0.08 K/uL (0-0.50); Eosinophils % (auto) 1.2 %; Hematocrit (blood only) 38.8 % (37.0-47.0); Hemoglobin 12.9 g/dl (12.0-16.0); Immature Granulocytes # (auto) 0.01 K/uL (0.01-0.20); Immature Granulocytes % (auto) 0.1 %; Lymphocytes # (auto) 0.76 K/uL (1.2-3.4); Lymphocytes % (auto) 11.4 %; Mean Corpuscular Hemoglobin 30.9 pg (25.0-34.0); Mean Corpuscular Hgb Conc 33.2 g/dL (32.0-36.0); Mean Corpuscular Volume 92.8 fL (80.0-100.0); Mean Platelet Volume 10.2 fL (9.4-12.4); Monocytes # (auto) 0.59 K/uL (0.11-0.59); Monocytes % (auto) 8.8 %; Neutrophils # (auto) 5.17 K/uL (1.40-6.50); Neutrophils % (auto) 77.5 %; Platelet Count 236 K/uL (130-400); RDW Coefficient of Variation 13.4 % (11.5-14.5); Red Blood Count 4.18 M/uL (4.20-5.40); White Blood Count 6.68 K/ul (4.8-10.8)
[2023-05-04] MEDS ORDERED: IOVERSOL 350 MG 125mL Prefilled Syringe IV ONE (18:07)
[2023-05-04 18:21] LABS: Albumin Globulin Ratio 1.1 (0.9-2); Albumin Level 3.9 gm/dl (3.4-5.0); BUN Creatinine Ratio 25.4 (10-20); Bilirubin,Total 0.4 mg/dl (0.2-1.0); Calcium 9.6 mg/dl (8.6-10.3); Creatinine Clr Calc Pharmacy 23.6 ml/min; Est GFR (African American) 42.4 ml/min; Est GFR (Non-African American) 36.6 ml/min; Globulin 3.7 gm/dl (2.5-4.0); Potassium 4.3 mmol/L (3.5-5.1); Total Protein 7.6 gm/dl (6.0-8.3)
[2023-05-04] MEDS ORDERED: ONDANSETRON INJ 2 MG/ML 2 ML VIAL IV STA (18:23)
[2023-05-04 18:26] LABS: Adenovirus PCR Not Detected (NotDetected); Bordetella parapertussis PCR Not Detected (NotDetected); Bordetella pertussis PCR Not Detected (NotDetected); Chlamydia pneumoniae PCR Not Detected (NotDetected); Coronavirus 229E PCR Not Detected (NotDetected); Coronavirus CoV-2 (COVID19)PCR Not Detected (NotDetected); Coronavirus HKU1 PCR Not Detected (NotDetected); Coronavirus NL63 PCR Not Detected (NotDetected); Coronavirus OC43PCR Not Detected (NotDetected); Human Metapneumovirus PCR Not Detected (NotDetected); Influenza A PCR Not Detected (NotDetected); Influenza B PCR Not Detected (NotDetected); Mycoplasma pneumoniae PCR Not Detected (NotDetected); Parainfluenza Virus 1 PCR Not Detected (NotDetected); Parainfluenza Virus 2 PCR Not Detected (NotDetected); Parainfluenza Virus 3 PCR Not Detected (NotDetected); Parainfluenza Virus 4 PCR Not Detected (NotDetected); Respiratory Syncytial VirusPCR Not Detected (NotDetected); Rhinovirus/Enterovirus PCR Not Detected (NotDetected)
[2023-05-04 18:27] LABS: Troponin I High Sensitivity 17.6 pg/ml (0-14)
[2023-05-04 18:35] LABS: INR 1.1 (0.9-1.1); Partial Thromboplastin Time 29.6 Seconds (21.0-31.0); Prothrombin Time 12.1 Seconds (9.0-12.0)
--- NOTE | 2023-05-04 18:48 | CT Scan Report ---
CT angio chest PE protocol, CT abd pelvis IV con only CT DOSE: 1010.30 mGy.cm HISTORY: 88 years-old Female with Dyspnea, hypoxia. Acute shortness of breath with chest and abdomi nal pain TECHNIQUE: Multiple CTA images of the chest were obtained after the intravenous administration of [address] Abdomen and pelvis with IV contrast also obtained. Coronal and sagittal MIPS were ob tained from the axial data set and were submitted for review. All measurements were obtained accordi ng to NASCET criteria. A dose lowering technique was utilized adhering to the principles of ALARA. COMPARISON: CT abdomen and pelvis 08/01/2021, 06/14/2020 FINDINGS: CTA: Moderate cardiomegaly. No pericardial effusion. Moderate degree calcifications. Atherosclerosis of th e aorta without aneurysm. No pulmonary emboli identified. CT CHEST: No thyroid nodule identified. Nonspecific mediastinal and hilar lymphadenopathy. Paratracheal lymph n odes measure up to 10 mm. Subcarinal lymph nodes measure up to 2.9 x 1.4 cm. Small layering pleural effusions. No pneumothorax. Intralobular septal groundglass opacities and mild bibasilar consolidation. Unremarkable soft tissues. Degenerative changes of the shoulders and spine. No definite acute fracture identified. There is a large hiatal hernia which contains the majority of the stomach as well as mesenteric fat with loops of large bowel. CT ABDOMEN/PELVIS: No free air. Unremarkable spleen, mildly contracted gallbladder. Unchanged focal prominence of the pa ncreatic artery/tail on image 90 measuring 1.5 cm Unchanged appearance of the liver. Mild cortical th inning of the left kidney again noted with renal sinus cyst. Large calculus of the right renal pelvis again noted measuring 3.9 x 3.0 x 3.0 cm. Severe atrophy with cortical thinning of the right kidney and unchanged hydronephrosis again noted. Prominence of the perirenal fat. There is bladder wall thic kening with evacuation. Pelvic floor relaxation. Severe atherosclerosis of the aorta and branch vesse ls. Pericolonic lymph nodes are nonspecific measuring up to 10 mm. Trace free fluid within the pelvis . Enhancing anal rectal structure. Mild twisting of the sigmoid mesial colon without upstream obstruc tion. Postoperative changes of the right hemicolon. Unremarkable soft tissues. No acute fracture iden tified. IMPRESSION: 1. No pulmonary emboli identified. 2. Cardiomegaly with pulmonary edema, small pleural effusions and mild bibasilar atelectasis. 3. Large hiatal hernia containing stomach and colon. 4. Large calculus of the right renal pelvis with marked right renal atrophy again noted. 5. Trace ascites. 6. Additional findings as above. ACT 112: Negative or not required by law. The above report was generated using voice recognition software. It may contain grammatical, syntax o r spelling errors. Electronically signed by: Umang Chapman M.D. 05/04/2023 6:46 PM
[2023-05-04 18:59] LABS: Appearance Urine Turbid (Clear); Bacteria Urine Automated 4+ (Negative); Bilirubin Urine Negative (Negative); Blood Urine 2+ (Negative); Color Urine Yellow; Epithelial Cell Urine Auto >30 /lpf (0-5); Glucose Urine UA Negative (Negative); Ketones Urine Trace (Negative); Leukocyte Esterase Urine 3+ (Negative); Nitrite Urine Positive (Negative); RBC Urine Automated 0-4 /hpf (0-4); Urobilinogen Urine Negative (Negative); WBC Urine Automated >30 /hpf (0-5); pH Urine 7.5 (4.5-7.5)
[2023-05-04] MEDS ORDERED: FUROSEMIDE INJ 20 MG/2 ML VIAL IV ONE ×2 (19:06→22:22)
[2023-05-04 19:09] LABS: Protein Urine 2+ (Negative)
[2023-05-04 19:19] LABS: Cast Urine Automated 0 /lpf (0-5)
[2023-05-04] MEDS: cefTRIAXone SODIUM 2,000 MG/70 ML BAG IV STA ×2 (19:30→19:32)
[2023-05-04] MEDS ORDERED: CEFEPIME 2,000 MG/20 ML VIAL IV STA (19:33)
--- NOTE | 2023-05-04 20:50 | History & Physical Report ---
Date of Service May 04, 2023 Assessment & Plan (1) Hypoxia: Plan: 88-year-old female with past medical significant for hyperlipidemia, hypertension, GERD, vitamin D deficiency, acquired solitary kidney secondary to renal calculus, history of nephrolithiasis, history of recurrent UTIs patient states currently every month, congenital renal agenesis and dysgenesis, history of left ureter distal calculus with hydronephrosis and s/p ureteral stent placement, CKD stage III, generalized anxiety disorder, chronic acquired lymphedema, anxiety, osteoarthritis and currently wheelchair-bound since last 1 year as per patient and she can transfer herself from the wheelchair to the bed. Currently residing at [facility] presents with shortness of breath and hypoxia and requiring oxygen Hypoxia Acute CHF Requiring oxygen Pulmonary edema on CTA chest Received IV Lasix 20 mg in the ER we will give another IV Lasix [address] on IV Lasix 40 twice daily Monitor on telemetry floor We will follow echo Daily weights and I's and O's We will follow the labs We will consult cardiology in a.m. Large hiatal hernia Possibly contributing to her symptoms On omeprazole UTI History of multidrug-resistant E. coli Received IV cefepime in the ER Placed on Invanz dosed per renal function Hypertension On felodipine and atenolol We will monitor the blood pressure Recurrent kidney stones On potassium citrate follow-up with urology Acquired solitary kidney Secondary to large renal calculus on the right side RENETTA? on CKD stage III Presented with creatinine creatinine 1.3 We will follow labs while patient getting IV diuretics DVT prophylaxis heparin subcu Disposition telemetry floor CODE STATUS DNR/DNI as per discussion with the patient. Patient also does not want any big surgeries. History of Present Illness Chief Complaint: Shortness of breath Primary Care Provider: [place], delicious [facility] 88-year-old female with past medical significant for hyperlipidemia, hypertension, GERD, vitamin D deficiency, acquired solitary kidney secondary to renal calculus, history of nephrolithiasis, history of recurrent UTIs patient states currently every month, congenital renal agenesis and dysgenesis, history of left ureter distal calculus with hydronephrosis and s/p ureteral stent placement, generalized anxiety disorder, chronic acquired lymphedema, anxiety, osteoarthritis and currently wheelchair-bound since last 1 year as per patient and she can transfer herself from the wheelchair to the bed. Currently residing at [facility]. Says 2 of her sons lives in the area . On regular diet. Says she has hiatal hernia since last 30 years. Since last couple of weeks she is getting short of breath after eating but it will subside but today since lunch at noon time she is feeling short of breath which was not getting better. Seems she was saturating only 60% at the intermediate and was sent to the hospital. Currently she is seems comfortable and saturating okay on 6 L. Denies any chest pain. No cough. No fevers. Has sinuses draining. Appetite is down since this symptoms started. No headaches or blurred visions. No dysphagia. Currently no nausea or abdominal pain. Once in a while she gets constipated. Denies any blood in the stools or black stools. She states micturating a lot. Has swelling in the legs but she states no significant change in the swelling recently. Past medical history as mentioned above Past surgical history colonoscopy, [place] cholecystectomy, appendectomy. Social history currently residing at [facility]. No alcohol use. Alcohol occasional. No drug use Family history Brother had gout mother had CHF and hypertension Allergies Allergy/AdvReac Type Severity Reaction Status Date / Time ampicillin Allergy Unknown Diarrhea Verified 05/04/23 19:25 Home Medications Medication Instructions Recorded Confirmed Type atenolol 25 mg tablet (Tenormin) 25 mg PO QAM 11/19/18 05/04/23 History felodipine 10 mg tablet,extended 10 mg PO QAM 11/19/18 05/04/23 History release 24 hr potassium citrate 10 mEq (1,080 10 meq PO QAM 11/19/18 05/04/23 History mg) tablet,extended release (Urocit-K 10) fluticasone propionate 50 2 spray intranasal HS 03/01/19 05/04/23 History mcg/actuation nasal spray,suspension (Flonase Allergy Relief) cholecalciferol (vitamin D3) 50 2,000 unit PO QAM 07/12/21 05/04/23 History mcg (2,000 unit) capsule (Vitamin D3) docusate sodium 100 mg tablet 100 mg PO BID PRN Constipation 07/12/21 05/04/23 History loperamide 2 mg capsule 2 mg PO QID PRN Diarrhea 07/12/21 05/04/23 History lorazepam 0.5 mg tablet 0.5 mg PO BID PRN Anxiety 07/12/21 05/04/23 History Lactobacillus acidophilus, 1 g PO QAM 12/26/21 05/04/23 History bulgaricus 100 million cell granules packet (Floranex) acetaminophen 300 mg-codeine 30 mg 1 tab PO Q4H PRN Severe Pain 05/04/23 05/04/23 History tablet (Scale Score 7-10) acetaminophen 325 mg tablet 650 mg PO Q4 PRN Fever Or Pain 05/04/23 05/04/23 History cetirizine 10 mg tablet 10 mg PO DAILY 05/04/23 05/04/23 History conjugated estrogens 0.625 mg/gram 0.625 mg vaginal UD 05/04/23 05/04/23 History vaginal cream (Premarin) ibuprofen 200 mg tablet 200 mg PO Q8 PRN Mild Pain (Scale 05/04/23 05/04/23 History Score 1-4) meclizine 25 mg tablet 25 mg PO TID PRN Dizziness 05/04/23 05/04/23 History omeprazole 20 mg capsule,delayed 20 mg PO QDB 05/04/23 05/04/23 History release ondansetron 4 mg disintegrating 4 mg PO Q6 PRN nausea and vomiting 05/04/23 05/04/23 History tablet phenazopyridine 200 mg tablet 200 mg PO Q6 PRN urinary pain 05/04/23 05/04/23 History (Pyridium) polyethylene glycol 3350 17 17 g PO DAILY PRN Constipation 05/04/23 05/04/23 History gram/dose oral powder (Miralax) Past Med/Surg History Medical History Acute hyponatremia Acute worsening of stage 3 chronic kidney disease Ambulatory dysfunction Anxiety Arthritis Chronic acquired lymphedema CKD (chronic kidney disease), stage III DVT prophylaxis HLD (hyperlipidemia) Hypertension Hypomagnesemia Rotator cuff tear arthropathy of both shoulders Surgical History History of appendectomy History of cholecystectomy Family History Mother CHF (congestive heart failure) Social History Smoking Status: Never smoker Second Hand Exposure: No; Do You Dip or Chew Tobacco: No; Hx Alcohol Use: Yes Alcohol type: wine Alcohol Intake Frequency: Monthly or Less Hx Substance Use: No Preferred Language: Hungarian Communication Ability: Effective Assistant Front End Manager Required: No Beliefs That Will Affect Care: None marital status: Current Living Situation: Personal Care Facility current occupational status: retired How many Children do You have: 1 Feels Safe at Home: Yes Safety Concerns: Feels Safe At This Time Assistive Devices: Wheelchair Review of Systems Review of Systems: All systems reviewed & are unremarkable except as noted in Subjective Physical Exam Physical Exam: General- Not in distress Head- atraumatic Eyes- PERRL. ENT- oropharynx clear Neck- supple, no JVD. Lungs- clear to auscultation mild bibasilar crackles, no wheezing. Heart- regular rhythm; no murmur, no gallop. Abdomen- normal bowel sounds, soft, nontender, no distension. Extremities- lower extremity edema present, no erythema seen. Neuro- alert, oriented x 3; PERRLno facial palsy; no dysarthria; moves ext remities. Skin- warm & dry Results & Data Results & Data Vital Signs (Past 12 Hours) Vital Signs Temp Pulse Pulse Resp BP BP Pulse Ox 05/04/23 19:39 77 16 128/74 93 05/04/23 17:35 79 05/04/23 17:32 79 24 93 05/04/23 17:32 93 05/04/23 17:00 36.5 C 82 20 125/74 93 O2 Del Method O2 Flow Rate 05/04/23 19:39 Nasal Cannula 6 05/04/23 17:35 05/04/23 17:32 Nasal Cannula 5 05/04/23 17:32 Nasal Cannula 5 05/04/23 17:00 Nasal Cannula 6 Diagnostic Findings Laboratory Results WBC 6.68 K/ul (4.8-10.8) 05/04/23 17:35 RBC 4.18 M/uL (4.20-5.40) L 05/04/23 17:35 Hgb 12.9 g/dl (12.0-16.0) 05/04/23 17:35 POC Hgb 13.6 g/dl (12.0-16.0) 05/04/23 17:43 Hct 38.8 % (37.0-47.0) 05/04/23 17:35 POC Hct 40 % (37-47) 05/04/23 17:43 MCV 92.8 fL (80.0-100.0) 05/04/23 17: MCH 30.9 pg (25.0-34.0) 05/04/23 17: MCHC 33.2 g/dL (32.0-36.0) 05/04/23 17: RDW Std Deviation 45.0 fL (36.4-46.3) 05/04/23 17: RDW Coeff of Adrienne 13.4 % (11.5-14.5) 05/04/23: Plt Count 236 K/uL (130-400) 05/04/23: MPV 10.2 fL (9.4-12.4) 05/04/23 17:35 Immature Gran % (Auto) 0.1 % 05/04/23 17: Neut % (Auto) 77.5 % 05/04/23:35 Lymph % (Auto) 11.4 % 05/04/23 17:35 [place] % (Auto) 8.8 % 05/04/23 17:35 Eos % (Auto) 1.2 % 05/04/23 17:35 Baso % (Auto) 1.0 % 05/04/23 17:35 Neut # (Auto) 5.17 K/uL (1.40-6.50) 05/04/23 17:35 Lymph # (Auto) 0.76 K/uL (1.2-3.4) L 05/04/23 17:35 [place] # (Auto) 0.59 K/uL (0.11-0.59) 05/04/23 17:35 Eos # (Auto) 0.08 K/uL (0-0.50) 05/04/23 17:35 Baso # (Auto) 0.07 K/uL (0-0.2) 05/04/23 17:35 Immature Gran # (Auto) 0.01 K/uL (0.01-0.20) 05/04/23 17:35 PT 12.1 Seconds (9.0-12.0) H 05/04/23 17:35 INR 1.1 (0.9-1.1) 05/04/23 17:35 APTT 29.6 Seconds (21.0-31.0) 05/04/23 17:35 PTT Ratio 1.0 05/04/23 17:35 POC Sodium 141 mmol/L (135-144) 05/04/23 17:43 Sodium 140 mmol/L (136-145) 05/04/23 17:35 POC Potassium 4.3 mmol/L (3.3-5.0) 05/04/23 17:43 Potassium 4.3 mmol/L (3.5-5.1) 05/04/23 17:35 POC Chloride 105 mmol/L (101-112) 05/04/23 17:43 Chloride 105 mmol/L (98-107) 05/04/23 17:35 Carbon Dioxide 25 mmol/L (21-32) 05/04/23 17:35 POC Total CO2 24 mmol/L (24-31) 05/04/23 17:43 Anion Gap 10 (3-11) 05/04/23 17:35 POC Anion Gap 18.0 mmol/L (16-25) 05/04/23 17:43 POC BUN 32 mg/dl (7-18) H 05/04/23 17:43 BUN 33 mg/dl (6-23) H 05/04/23 17:35 Creatinine 1.30 mg/dl (0.6-1.2) H 05/04/23 17:35 POC Creatinine 1.4 mg/dl (0.6-1.3) H 05/04/23 17:43 Est Cr Clr Drug Dosing 23.6 ml/min 05/04/23 17:35 Est GFR ( Amer) 42.4 ml/min 05/04/23 17:35 Est GFR (Non-Af Amer) 36.6 ml/min 05/04/23 17:35 BUN/Creatinine Ratio 25.4 (10-20) H 05/04/23 17:35 Glucose 130 mg/dl (70-99(Fasting)) H 05/04/23 17:35 POC Glucose (other) 140 mg/dl (70-99) H 05/04/23 17:43 Calcium 9.6 mg/dl (8.6-10.3) 05/04/23 17:35 POC Ioniz Calcium Don 1.23 mmol/l (1.12-1.32) 05/04/23 17:43 Total Bilirubin 0.4 mg/dl (0.2-1.0) 05/04/23 17:35 AST 13 U/L (13-39) 05/04/23 17:35 ALT 5 U/L (7-52) L 05/04/23 17:35 Alkaline Phosphatase 97 U/L (34-104) 05/04/23 17:35 Troponin I High Sens 17.6 pg/ml (0-14) H 05/04/23 17:35 Total Protein 7.6 gm/dl (6.0-8.3) 05/04/23 17:35 Albumin 3.9 gm/dl (3.4-5.0) 05/04/23 17:35 Globulin 3.7 gm/dl (2.5-4.0) 05/04/23 17:35 Albumin/Globulin Ratio 1.1 (0.9-2) 05/04/23 17:35 Lipase 49 U/L (11-82) 05/04/23 17:35 Urine Color Yellow 05/04/23 Unknown Urine Appearance Turbid (Clear) A 05/04/23 Unknown Urine pH 7.5 (4.5-7.5) 05/04/23 Unknown Ur Specific [place] 1.030 (1.000-1.030) 05/04/23 Unknown Urine Protein 2+ (Negative) H 05/04/23 Unknown Urine Glucose (UA) Negative (Negative) 05/04/23 Unknown Urine Ketones Trace (Negative) H 05/04/23 Unknown Urine Blood 2+ (Negative) H 05/04/23 Unknown Urine Nitrite Positive (Negative) A 05/04/23 Unknown Urine Bilirubin Negative (Negative) 05/04/23 Unknown Urine Urobilinogen Negative (Negative) 05/04/23 Unknown Ur Leukocyte Esterase 3+ (Negative) H 05/04/23 Unknown Urine WBC (Auto) >30 /hpf (0-5) H 05/04/23 Unknown Urine RBC (Auto) 0-4 /hpf (0-4) 05/04/23 Unknown U Hyaline Cast (Auto) 0 /lpf (0-5) 05/04/23 Unknown U Epithel Cells (Auto) >30 /lpf (0-5) H 05/04/23 Unknown Urine Bacteria (Auto) 4+ (Negative) H 05/04/23 Unknown Urine Yeast Not Reportable 05/04/23 Unknown Adenovirus (PCR) Not Detected (NotDetected) 05/04/23 17:14 B. pertussis DNA (PCR) Not Detected (NotDetected) 05/04/23 17:14 B.parapertussis DNA PCR Not Detected (NotDetected) 05/04/23 17:14 C. pneumoniae DNA (PCR) Not Detected (NotDetected) 05/04/23 17:14 Coronavirus OC43 (PCR) Not Detected (NotDetected) 05/04/23 17:14 Coronavirus HKU1 (PCR) Not Detected (NotDetected) 05/04/23 17:14 Coronavirus 229E (PCR) Not Detected (NotDetected) 05/04/23 17:14 SARS-CoV-2 (PCR) Not Detected (NotDetected) 05/04/23 17:14 Coronavirus NL63 (PCR) Not Detected (NotDetected) 05/04/23 17:14 Human Metapneumovir PCR Not Detected (NotDetected) 05/04/23 17:14 Influenza Type A (PCR) Not Detected (NotDetected) 05/04/23 17:14 Influenza Type B (PCR) Not Detected (NotDetected) 05/04/23 17:14 M. pneumoniae (PCR) Not Detected (NotDetected) 05/04/23 17:14 Parainfluenza 1 (PCR) Not Detected (NotDetected) 05/04/23 17:14 Parainfluenza 2 (PCR) Not Detected (NotDetected) 05/04/23 17:14 Parainfluenza 3 (PCR) Not Detected (NotDetected) 05/04/23 17:14 Parainfluenza 4 (PCR) Not Detected (NotDetected) 05/04/23 17:14 RSV (PCR) Not Detected (NotDetected) 05/04/23 17:14 Entero/Rhino (PCR) Not Detected (NotDetected) 05/04/23 17:14 Impressions Chest CTA 05/04/23 17:03 CT angio chest PE protocol, CT abd pelvis IV con only CT DOSE: 1010.30 mGy.cm HISTORY: 88 years-old Female with Dyspnea, hypoxia. Acute shortness of breath with chest and abdominal pain TECHNIQUE: Multiple CTA images of the chest were obtained after the intravenous administration of [address] Abdomen and pelvis with IV contrast also obtained. Coronal and sagittal MIPS were obtained from the axial data set and were submitted for review. All measurements were obtained according to NASCET criteria. A dose lowering technique was utilized adhering to the principles of ALARA. COMPARISON: CT abdomen and pelvis 08/01/2021, 06/14/2020 FINDINGS: CTA: Moderate cardiomegaly. No pericardial effusion. Moderate degree calcifications. Atherosclerosis of the aorta without aneurysm. No pulmonary emboli identified. CT CHEST: No thyroid nodule identified. Nonspecific mediastinal and hilar lymphadenopathy. Paratracheal lymph nodes measure up to 10 mm. Subcarinal lymph nodes measure up to 2.9 x 1.4 cm. Small layering pleural effusions. No pneumothorax. Intralobular septal groundglass opacities and mild bibasilar consolidation. Unremarkable soft tissues. Degenerative changes of the shoulders and spine. No definite acute fracture identified. There is a large hiatal hernia which contains the majority of the stomach as well as mesenteric fat with loops of large bowel. CT ABDOMEN/PELVIS: No free air. Unremarkable spleen, mildly contracted gallbladder. Unchanged focal prominence of the pancreatic artery/tail on image 90 measuring 1.5 cm Unchanged appearance of the liver. Mild cortical thinning of the left kidney again noted with renal sinus cyst. Large calculus of the right renal pelvis again noted measuring 3.9 x 3.0 x 3.0 cm. Severe atrophy with cortical thinning of the right kidney and unchanged hydronephrosis again noted. Prominence of the perirenal fat. There is bladder wall thickening with evacuation. Pelvic floor relaxation. Severe atherosclerosis of the aorta and branch vessels. Pericolonic lymph nodes are nonspecific measuring up to 10 mm. Trace free fluid within the pelvis. Enhancing anal rectal structure. Mild twisting of the sigmoid mesial colon without upstream obstruction. Postoperative changes of the right hemicolon. Unremarkable soft tissues. No acute fracture identified. IMPRESSION: 1. No pulmonary emboli identified. 2. Cardiomegaly with pulmonary edema, small pleural effusions and mild bibasilar atelectasis. 3. Large hiatal hernia containing stomach and colon. 4. Large calculus of the right renal pelvis with marked right renal atrophy agai n noted. 5. Trace ascites. 6. Additional findings as above. ACT 112: Negative or not required by law. The above report was generated using voice recognition software. It may contain grammatical, syntax or spelling errors. Electronically signed by: Umang Chapman M.D. 05/04/2023 6:46 PM Chest X-Ray 05/04/23 17:03 XR chest 1V portable HISTORY: 88 years-old Female Dyspnea acute shortness of breath COMPARISON: 08/02/2021 TECHNIQUE: AP view of the chest FINDINGS: Cardiac silhouette is enlarged. Pulmonary vascular congestion with interstitial coarsening and small pleural effusions. Mild bibasilar opacities. Large hiatal hernia has increased in size. No pneumothorax. Degenerative changes of the shoulders and spine. IMPRESSION: 1. Cardiomegaly with pulmonary edema and small pleural effusions. 2. Large hiatal hernia. ACT 112: Negative or not required by law. The above report was generated using voice recognition software. It may contain grammatical, syntax or spelling errors. Electronically signed by: Umang Chapman M.D. 05/04/2023 5:49 PM Abdomen/Pelvis CT 05/04/23 17:33 CT angio chest PE protocol, CT abd pelvis IV con only CT DOSE: 1010.30 mGy.cm HISTORY: 88 years-old Female with Dyspnea, hypoxia. Acute shortness of breath with chest and abdominal pain TECHNIQUE: Multiple CTA images of the chest were obtained after the intravenous administration of [address] Abdomen and pelvis with IV contrast also obtained. Coronal and sagittal MIPS were obtained from the axial data set and were submitted for review. All measurements were obtained according to NASCET criteria. A dose lowering technique was utilized adhering to the principles of ALARA. COMPARISON: CT abdomen and pelvis 08/01/2021, 06/14/2020 FINDINGS: CTA: Moderate cardiomegaly. No pericardial effusion. Moderate degree calcifications. Atherosclerosis of the aorta without aneurysm. No pulmonary emboli identified. CT CHEST: No thyroid nodule identified. Nonspecific mediastinal and hilar lymphadenopathy. Paratracheal lymph nodes measure up to 10 mm. Subcarinal lymph nodes measure up to 2.9 x 1.4 cm. Small layering pleural effusions. No pneumothorax. Intralobular septal groundglass opacities and mild bibasilar consolidation. Unremarkable soft tissues. Degenerative changes of the shoulders and spine. No definite acute fracture identified. There is a large hiatal hernia which contains the majority of the stomach as well as mesenteric fat with loops of large bowel. CT ABDOMEN/PELVIS: No free air. Unremarkable spleen, mildly contracted gallbladder. Unchanged focal prominence of the pancreatic artery/tail on image 90 measuring 1.5 cm Unchanged appearance of the liver. Mild cortical thinning of the left kidney again noted with renal sinus cyst. Large calculus of the right renal pelvis again noted measuring 3.9 x 3.0 x 3.0 cm. Severe atrophy with cortical thinning of the right kidney and unchanged hydronephrosis again noted. Prominence of the perirenal fat. There is bladder wall thickening with evacuation. Pelvic floor relaxation. Severe atherosclerosis of the aorta and branch vessels. Pericolonic lymph nodes are nonspecific measuring up to 10 mm. Trace free fluid within the pelvis. Enhancing anal rectal structure. Mild twisting of the sigmoid mesial colon w ithout upstream obstruction. Postoperative changes of the right hemicolon. Unremarkable soft tissues. No acute fracture identified. IMPRESSION: 1. No pulmonary emboli identified. 2. Cardiomegaly with pulmonary edema, small pleural effusions and mild bibasilar atelectasis. 3. Large hiatal hernia containing stomach and colon. 4. Large calculus of the right renal pelvis with marked right renal atrophy again noted. 5. Trace ascites. 6. Additional findings as above. ACT 112: Negative or not required by law. The above report was generated using voice recognition software. It may contain grammatical, syntax or spelling errors. Electronically signed by: Umang Chapman M.D. 05/04/2023 6:46 PM Code Status & VTE Plan VTE Prophylaxis Plan VTE Prophylaxis will be ordered: Yes
[2023-05-04] MEDS ORDERED: POLYETHYLENE (MIRALAX) 17 GM PACK PO PRN (22:22)
[2023-05-04] MEDS ORDERED: MECLIZINE HCL 25 MG TAB PO PRN (22:22)
[2023-05-04] MEDS ORDERED: FLUTICASONE PROPIONATE NA SPR 16 GM BTL SCH (22:22)
[2023-05-04] MEDS ORDERED: NITROGLYCERIN SL 0.4 MG/TAB TAB SL PRN (22:22)
[2023-05-04] MEDS ORDERED: DOCUSATE SODIUM 100 MG CAP PO PRN (22:27)
[2023-05-04] MEDS: HEPARIN SOD 5,000 UNIT/0.5 ML VIAL SQ SCH (23:21)
[2023-05-04] MEDS ORDERED: Nursing to Pharmacy Communication SCH (23:45)
[2023-05-04] MEDS: ACETAMINOPHEN 325 MG TAB PO PRN (23:49)
[2023-05-04] MEDS: LORazepam 0.5 MG TAB PO PRN (23:49)
[2023-05-05] MEDS ORDERED: SODIUM CHLORIDE 0.65% NA SOLN 45 ML (OCEAN) PRN (01:46)
[2023-05-05 06:49] LABS: Basophils # (auto) 0.06 K/uL (0-0.2); Basophils % (auto) 1.3 %; Eosinophils % (auto) 4.3 %; Hematocrit (blood only) 35.4 % (37.0-47.0); Hemoglobin 11.5 g/dl (12.0-16.0); Immature Granulocytes # (auto) 0.01 K/uL (0.01-0.20); Immature Granulocytes % (auto) 0.2 %; Lymphocytes # (auto) 0.77 K/uL (1.2-3.4); Lymphocytes % (auto) 16.4 %; Mean Corpuscular Hemoglobin 30.7 pg (25.0-34.0); Mean Corpuscular Hgb Conc 32.5 g/dL (32.0-36.0); Mean Corpuscular Volume 94.4 fL (80.0-100.0); Mean Platelet Volume 10.4 fL (9.4-12.4); Monocytes # (auto) 0.59 K/uL (0.11-0.59); Monocytes % (auto) 12.6 %; Neutrophils # (auto) 3.06 K/uL (1.40-6.50); Neutrophils % (auto) 65.2 %; Platelet Count 180 K/uL (130-400); RDW Coefficient of Variation 13.7 % (11.5-14.5); RDW Standard Deviation 46.8 fL (36.4-46.3); Red Blood Count 3.75 M/uL (4.20-5.40); White Blood Count 4.69 K/ul (4.8-10.8)
[2023-05-05 07:27] LABS: Calcium 8.9 mg/dl (8.6-10.3); Est GFR (African American) 43.2 ml/min; Est GFR (Non-African American) 37.3 ml/min; Magnesium 1.9 mg/dl (1.7-2.4)
--- NOTE | 2023-05-05 07:31 | Hospitalist Progress Note ---
Date of Service May 05, 2023 Assessment & Plan (1) Hypoxia: Plan: 88-year-old female with past medical significant for hyperlipidemia, hypertension, GERD, vitamin D deficiency, acquired solitary kidney secondary to renal calculus, history of nephrolithiasis, history of recurrent UTIs patient states currently every month, congenital renal agenesis and dysgenesis, history of left ureter distal calculus with hydronephrosis and s/p ureteral stent placement, CKD stage III, generalized anxiety disorder, chronic acquired lymphedema, anxiety, osteoarthritis and currently wheelchair-bound since last 1 year as per patient and she can transfer herself from the wheelchair to the bed. Currently residing at [facility] presents with shortness of breath and hypoxia and requiring oxygen Hypoxia Acute CHF Requiring oxygen Pulmonary edema on CTA chest Received IV Lasix 20 mg in the ER and another IV Lasix 20 mg on admission Now on IV Lasix 40 twice daily Monitor on telemetry floor Obtained echo - EF 55-60%. There is mild concentric LVH. Moderate biatrial enlargement. Aortic valve sclerosis moderate, without significant aortic valvular stenosis. There is moderate to severe tricuspid regurgitation. Estimated syst. pulm. pressure is 56 mm Hg. Daily weights and I's and O's We will follow the labs Cardiology consulted - appreciate their input Large hiatal hernia Possibly contributing to her symptoms On omeprazole UTI History of multidrug-resistant E. coli Received IV cefepime in the ER Placed on Invanz dosed per renal function Hypertension On felodipine and atenolol We will monitor the blood pressure Recurrent kidney stones On potassium citrate follow-up with urology Acquired solitary kidney Secondary to large renal calculus on the right side RENETTA? on CKD stage III Presented with creatinine creatinine 1.3 We will follow labs while patient getting IV diuretics BMP ordered DVT prophylaxis heparin subcu Disposition telemetry floor CODE STATUS DNR/DNI as per discussion with the patient. Patient also does not want any big surgeries. Admission and Anticipated Discharge Date Admission Date: May 04, 2023 Subjective Pt seen in follow up of hypoxic resp. failure, 2/2 CHF Currently laying in bed in NAD, on suppl. O2 on 5L She is alert oriented and answering appropriately Denies any chest pain, denies shortness of breath or palpitations No abd. pain, no fever, chills Review of Systems Review of Systems: All systems reviewed & are unremarkable except as noted in Subjective Physical Exam Physical Exam: General- elderly F in NAD, on suppl. O2 Head- atraumatic Eyes- PERRL. ENT- oropharynx clear Neck- supple, no JVD. Lungs- clear to auscultation mild bibasilar crackles, no wheezing. Heart- regular rhythm; no murmur, no gallop. Abdomen- normal bowel sounds, soft, nontender, no distension. Extremities- minimal lower extremity edema present, no erythema seen. Neuro- alert, oriented x 3; PERRL, no facial palsy; no dysarthria; answers appropriately, moves extremities. Skin- warm & dry Results & Data Results & Data Vital Signs (Past 12 Hours) Vital Signs Temp Pulse Pulse Resp BP BP BP 05/05/23 04:00 36.6 C 65 20 108/52 L 05/05/23 00:16 77 05/04/23 22:29 05/04/23 22:29 36.6 C 75 24 128/63 05/04/23 21:45 71 05/04/23 21:55 67 22 128/74 05/04/23 21:00 72 20 128/74 05/04/23 19:39 77 16 128/74 Pulse Ox O2 Del Method O2 Flow Rate 05/05/23 04:00 95 High Flow Nasal Cannula 4.5 05/05/23 00:16 05/04/23 22:29 Nasal Cannula 6 05/04/23 22:29 95 Nasal Cannula 6 05/04/23 21:45 05/04/23 21:55 94 Nasal Cannula 6 05/04/23 21:00 92 Nasal Cannula 6 05/04/23 19:39 93 Nasal Cannula 6 Laboratory Results 05/05/23 05/05/23 05/05/23 Range/Units 05:47 05:47 05:47 WBC 4.69 L (4.8-10.8) K/ul RBC 3.75 L (4.20-5.40) M/uL Hgb 11.5 L (12.0-16.0) g/dl POC Hgb (12.0-16.0) g/dl Hct 35.4 L (37.0-47.0) % POC Hct (37-47) % MCV 94.4 (80.0-100.0) fL MCH 30.7 (25.0-34.0) pg MCHC 32.5 (32.0-36.0) g/dL RDW Std Deviation 46.8 H (36.4-46.3) fL RDW Coeff of Adrienne 13.7 (11.5-14.5) % Plt Count 180 (130-400) K/uL MPV 10.4 (9.4-12.4) fL Immature Gran % (Auto) 0.2 % Neut % (Auto) 65.2 % Lymph % (Auto) 16.4 % Hand % (Auto) 12.6 % Eos % (Auto) 4.3 % Baso % (Auto) 1.3 % Neut # (Auto) 3.06 (1.40-6.50) K/uL Lymph # (Auto) 0.77 L (1.2-3.4) K/uL Hand # (Auto) 0.59 (0.11-0.59) K/uL Eos # (Auto) 0.20 (0-0.50) K/uL Baso # (Auto) 0.06 (0-0.2) K/uL Immature Gran # (Auto) 0.01 (0.01-0.20) K/uL PT (9.0-12.0) Seconds INR (0.9-1.1) APTT (21.0-31.0) Seconds PTT Ratio POC Sodium (135-144) mmol/L Sodium 141 (136-145) mmol/L POC Potassium (3.3-5.0) mmol/L Potassium 4.0 (3.5-5.1) mmol/L POC Chloride (101-112) mmol/L Chloride 106 (98-107) mmol/L Carbon Dioxide 27 (21-32) mmol/L POC Total CO2 (24-31) mmol/L Anion Gap 8 (3-11) POC Anion Gap (16-25) mmol/L POC BUN (7-18) mg/dl BUN 32 H (6-23) mg/dl Creatinine 1.28 H (0.6-1.2) mg/dl POC Creatinine (0.6-1.3) mg/dl Est Cr Clr Drug Dosing 24.0 ml/min Est GFR ( Amer) 43.2 ml/min Est GFR (Non-Af Amer) 37.3 ml/min BUN/Creatinine Ratio 25.0 H (10-20) Glucose 85 (70-99(Fasting)) mg/dl POC Glucose (other) (70-99) mg/dl Calcium 8.9 (8.6-10.3) mg/dl POC Ioniz Calcium Don (1.12-1.32) mmol/l Magnesium 1.9 (1.7-2.4) mg/dl Total Bilirubin (0.2-1.0) mg/dl AST (13-39) U/L ALT (7-52) U/L Alkaline Phosphatase (34-104) U/L Troponin I High Sens 15.7 H (0-14) pg/ml Total Protein (6.0-8.3) gm/dl Albumin (3.4-5.0) gm/dl Globulin (2.5-4.0) gm/dl Albumin/Globulin Ratio (0.9-2) Lipase (11-82) U/L Urine Color Urine Appearance (Clear) Urine pH (4.5-7.5) Ur Specific [place] (1.000-1.030) Urine Protein (Negative) Urine Glucose (UA) (Negative) Urine Ketones (Negative) Urine Blood (Negative) Urine Nitrite (Negative) Urine Bilirubin (Negative) Urine Urobilinogen (Negative) Ur Leukocyte Esterase (Negative) Urine WBC (Auto) (0-5) /hpf Urine RBC (Auto) (0-4) /hpf U Hyaline Cast (Auto) (0-5) /lpf U Epithel Cells (Auto) (0-5) /lpf Urine Bacteria (Auto) (Negative) Urine Yeast Nasal Screen MRSA (PCR) (Negative) Adenovirus (PCR) (NotDetected) B. pertussis DNA (PCR) (NotDetected) B.parapertussis DNA PCR (NotDetected) C. pneumoniae DNA (PCR) (NotDetected) Coronavirus OC43 (PCR) (NotDetected) Coronavirus HKU1 (PCR) (NotDetected) Coronavirus 229E (PCR) (NotDetected) SARS-CoV-2 (PCR) (NotDetected) Coronavirus NL63 (PCR) (NotDetected) Human Metapneumovir PCR (NotDetected) Influenza Type A (PCR) (NotDetected) Influenza Type B (PCR) (NotDetected) M. pneumoniae (PCR) (NotDetected) Parainfluenza 1 (PCR) (NotDetected) Parainfluenza 2 (PCR) (NotDetected) Parainfluenza 3 (PCR) (NotDetected) Parainfluenza 4 (PCR) (NotDetected) RSV (PCR) (NotDetected) Entero/Rhino (PCR) (NotDetected) 05/04/23 05/04/23 05/04/23 Range/Units Unknown 23:45 17:43 WBC (4.8-10.8) K/ul RBC (4.20-5.40) M/uL Hgb (12.0-16.0) g/dl POC Hgb 13.6 (12.0-16.0) g/dl Hct (37.0-47.0) % POC Hct 40 (37-47) % MCV (80.0-100.0) fL MCH (25.0-34.0) pg MCHC (32.0-36.0) g/dL RDW Std Deviation (36.4-46.3) fL RDW Coeff of Adrienne (11.5-14.5) % Plt Count (130-400) K/uL MPV (9.4-12.4) fL Immature Gran % (Auto) % Neut % (Auto) % Lymph % (Auto) % Hand % (Auto) % Eos % (Auto) % Baso % (Auto) % Neut # (Auto) (1.40-6.50) K/uL Lymph # (Auto) (1.2-3.4) K/uL Hand # (Auto) (0.11-0.59) K/uL Eos # (Auto) (0-0.50) K/uL Baso # (Auto) (0-0.2) K/uL Immature Gran # (Auto) (0.01-0.20) K/uL PT (9.0-12.0) Seconds INR (0.9-1.1) APTT (21.0-31.0) Seconds PTT Ratio POC Sodium 141 (135-144) mmol/L Sodium (136-145) mmol/L POC Potassium 4.3 (3.3-5.0) mmol/L Potassium (3.5-5.1) mmol/L POC Chloride 105 (101-112) mmol/L Chloride (98-107) mmol/L Carbon Dioxide (21-32) mmol/L POC Total CO2 24 (24-31) mmol/L Anion Gap (3-11) POC Anion Gap 18.0 (16-25) mmol/L POC BUN 32 H (7-18) mg/dl BUN (6-23) mg/dl Creatinine (0.6-1.2) mg/dl POC Creatinine 1.4 H (0.6-1.3) mg/dl Est Cr Clr Drug Dosing ml/min Est GFR ( Amer) ml/min Est GFR (Non-Af Amer) ml/min BUN/Creatinine Ratio (10-20) Glucose (70-99(Fasting)) mg/dl POC Glucose (other) 140 H (70-99) mg/dl Calcium (8.6-10.3) mg/dl POC Ioniz Calcium Don 1.23 (1.12-1.32) mmol/l Magnesium (1.7-2.4) mg/dl Total Bilirubin (0.2-1.0) mg/dl AST (13-39) U/L ALT (7-52) U/L Alkaline Phosphatase (34-104) U/L Troponin I High Sens (0-14) pg/ml Total Protein (6.0-8.3) gm/dl Albumin (3.4-5.0) gm/dl Globulin (2.5-4.0) gm/dl Albumin/Globulin Ratio (0.9-2) Lipase (11-82) U/L Urine Color Yellow Urine Appearance Turbid A (Clear) Urine pH 7.5 (4.5-7.5) Ur Specific [place] 1.030 (1.000-1.030) Urine Protein 2+ H (Negative) Urine Glucose (UA) Negative (Negative) Urine Ketones Trace H (Negative) Urine Blood 2+ H (Negative) Urine Nitrite Positive A (Negative) Urine Bilirubin Negative (Negative) Urine Urobilinogen Negative (Negative) Ur Leukocyte Esterase 3+ H (Negative) Urine WBC (Auto) >30 H (0-5) /hpf Urine RBC (Auto) 0-4 (0-4) /hpf U Hyaline Cast (Auto) 0 (0-5) /lpf U Epithel Cells (Auto) >30 H (0-5) /lpf Urine Bacteria (Auto) 4+ H (Negative) Urine Yeast Not Reportable Nasal Screen MRSA (PCR) Negative (Negative) Adenovirus (PCR) (NotDetected) B. pertussis DNA (PCR) (NotDetected) B.parapertussis DNA PCR (NotDetected) C. pneumoniae DNA (PCR) (NotDetected) Coronavirus OC43 (PCR) (NotDetected) Coronavirus HKU1 (PCR) (NotDetected) Coronavirus 229E (PCR) (NotDetected) SARS-CoV-2 (PCR) (NotDetected) Coronavirus NL63 (PCR) (NotDetected) Human Metapneumovir PCR (NotDetected) Influenza Type A (PCR) (NotDetected) Influenza Type B (PCR) (NotDetected) M. pneumoniae (PCR) (NotDetected) Parainfluenza 1 (PCR) (NotDetected) Parainfluenza 2 (PCR) (NotDetected) Parainfluenza 3 (PCR) (NotDetected) Parainfluenza 4 (PCR) (NotDetected) RSV (PCR) (NotDetected) Entero/Rhino (PCR) (NotDetected) 05/04/23 05/04/23 05/04/23 Range/Units 17:35 17:35 17:35 WBC 6.68 (4.8-10.8) K/ul RBC 4.18 L (4.20-5.40) M/uL Hgb 12.9 (12.0-16.0) g/dl POC Hgb (12.0-16.0) g/dl Hct 38.8 (37.0-47.0) % POC Hct (37-47) % MCV 92.8 (80.0-100.0) fL MCH 30.9 (25.0-34.0) pg MCHC 33.2 (32.0-36.0) g/dL RDW Std Deviation 45.0 (36.4-46.3) fL RDW Coeff of Adrienne 13.4 (11.5-14.5) % Plt Count 236 (130-400) K/uL MPV 10.2 (9.4-12.4) fL Immature Gran % (Auto) 0.1 % Neut % (Auto) 77.5 % Lymph % (Auto) 11.4 % Hand % (Auto) 8.8 % Eos % (Auto) 1.2 % Baso % (Auto) 1.0 % Neut # (Auto) 5.17 (1.40-6.50) K/uL Lymph # (Auto) 0.76 L (1.2-3.4) K/uL Hand # (Auto) 0.59 (0.11-0.59) K/uL Eos # (Auto) 0.08 (0-0.50) K/uL Baso # (Auto) 0.07 (0-0.2) K/uL Immature Gran # (Auto) 0.01 (0.01-0.20) K/uL PT 12.1 H (9.0-12.0) Seconds INR 1.1 (0.9-1.1) APTT 29.6 (21.0-31.0) Seconds PTT Ratio 1.0 POC Sodium (135-144) mmol/L Sodium 140 (136-145) mmol/L POC Potassium (3.3-5.0) mmol/L Potassium 4.3 (3.5-5.1) mmol/L POC Chloride (101-112) mmol/L Chloride 105 (98-107) mmol/L Carbon Dioxide 25 (21-32) mmol/L POC Total CO2 (24-31) mmol/L Anion Gap 10 (3-11) POC Anion Gap (16-25) mmol/L POC BUN (7-18) mg/dl BUN 33 H (6-23) mg/dl Creatinine 1.30 H (0.6-1.2) mg/dl POC Creatinine (0.6-1.3) mg/dl Est Cr Clr Drug Dosing 23.6 ml/min Est GFR ( Amer) 42.4 ml/min Est GFR (Non-Af Amer) 36.6 ml/min BUN/Creatinine Ratio 25.4 H (10-20) Glucose 130 H (70-99(Fasting)) mg/dl POC Glucose (other) (70-99) mg/dl Calcium 9.6 (8.6-10.3) mg/dl POC Ioniz Calcium Don (1.12-1.32) mmol/l Magnesium (1.7-2.4) mg/dl Total Bilirubin 0.4 (0.2-1.0) mg/dl AST 13 (13-39) U/L ALT 5 L (7-52) U/L Alkaline Phosphatase 97 (34-104) U/L Troponin I High Sens 17.6 H (0-14) pg/ml Total Protein 7.6 (6.0-8.3) gm/dl Albumin 3.9 (3.4-5.0) gm/dl Globulin 3.7 (2.5-4.0) gm/dl Albumin/Globulin Ratio 1.1 (0.9-2) Lipase 49 (11-82) U/L Urine Color Urine Appearance (Clear) Urine pH (4.5-7.5) Ur Specific [place] (1.000-1.030) Urine Protein (Negative) Urine Glucose (UA) (Negative) Urine Ketones (Negative) Urine Blood (Negative) Urine Nitrite (Negative) Urine Bilirubin (Negative) Urine Urobilinogen (Negative) Ur Leukocyte Esterase (Negative) Urine WBC (Auto) (0-5) /hpf Urine RBC (Auto) (0-4) /hpf U Hyaline Cast (Auto) (0-5) /lpf U Epithel Cells (Auto) (0-5) /lpf Urine Bacteria (Auto) (Negative) Urine Yeast Nasal Screen MRSA (PCR) (Negative) Adenovirus (PCR) (NotDetected) B. pertussis DNA (PCR) (NotDetected) B.parapertussis DNA PCR (NotDetected) C. pneumoniae DNA (PCR) (NotDetected) Coronavirus OC43 (PCR) (NotDetected) Coronavirus HKU1 (PCR) (NotDetected) Coronavirus 229E (PCR) (NotDetected) SARS-CoV-2 (PCR) (NotDetected) Coronavirus NL63 (PCR) (NotDetected) Human Metapneumovir PCR (NotDetected) Influenza Type A (PCR) (NotDetected) Influenza Type B (PCR) (NotDetected) M. pneumoniae (PCR) (NotDetected) Parainfluenza 1 (PCR) (NotDetected) Parainfluenza 2 (PCR) (NotDetected) Parainfluenza 3 (PCR) (NotDetected) Parainfluenza 4 (PCR) (NotDetected) RSV (PCR) (NotDetected) Entero/Rhino (PCR) (NotDetected) 05/04/23 Range/Units 17:14 WBC (4.8-10.8) K/ul RBC (4.20-5.40) M/uL Hgb (12.0-16.0) g/dl POC Hgb (12.0-16.0) g/dl Hct (37.0-47.0) % POC Hct (37-47) % MCV (80.0-100.0) fL MCH (25.0-34.0) pg MCHC (32.0-36.0) g/dL RDW Std Deviation (36.4-46.3) fL RDW Coeff of Adrienne (11.5-14.5) % Plt Count (130-400) K/uL MPV (9.4-12.4) fL Immature Gran % (Auto) % Neut % (Auto) % Lymph % (Auto) % Hand % (Auto) % Eos % (Auto) % Baso % (Auto) % Neut # (Auto) (1.40-6.50) K/uL Lymph # (Auto) (1.2-3.4) K/uL Hand # (Auto) (0.11-0.59) K/uL Eos # (Auto) (0-0.50) K/uL Baso # (Auto) (0-0.2) K/uL Immature Gran # (Auto) (0.01-0.20) K/uL PT (9.0-12.0) Seconds INR (0.9-1.1) APTT (21.0-31.0) Seconds PTT Ratio POC Sodium (135-144) mmol/L Sodium (136-145) mmol/L POC Potassium (3.3-5.0) mmol/L Potassium (3.5-5.1) mmol/L POC Chloride (101-112) mmol/L Chloride (98-107) mmol/L Carbon Dioxide (21-32) mmol/L POC Total CO2 (24-31) mmol/L Anion Gap (3-11) POC Anion Gap (16-25) mmol/L POC BUN (7-18) mg/dl BUN (6-23) mg/dl Creatinine (0.6-1.2) mg/dl POC Creatinine (0.6-1.3) mg/dl Est Cr Clr Drug Dosing ml/min Est GFR ( Amer) ml/min Est GFR (Non-Af Amer) ml/min BUN/Creatinine Ratio (10-20) Glucose (70-99(Fasting)) mg/dl POC Glucose (other) (70-99) mg/dl Calcium (8.6-10.3) mg/dl POC Ioniz Calcium Don (1.12-1.32) mmol/l Magnesium (1.7-2.4) mg/dl Total Bilirubin (0.2-1.0) mg/dl AST (13-39) U/L ALT (7-52) U/L Alkaline Phosphatase (34-104) U/L Troponin I High Sens (0-14) pg/ml Total Protein (6.0-8.3) gm/dl Albumin (3.4-5.0) gm/dl Globulin (2.5-4.0) gm/dl Albumin/Globulin Ratio (0.9-2) Lipase (11-82) U/L Urine Color Urine Appearance (Clear) Urine pH (4.5-7.5) Ur Specific [place] (1.000-1.030) Urine Protein (Negative) Urine Glucose (UA) (Negative) Urine Ketones (Negative) Urine Blood (Negative) Urine Nitrite (Negative) Urine Bilirubin (Negative) Urine Urobilinogen (Negative) Ur Leukocyte Esterase (Negative) Urine WBC (Auto) (0-5) /hpf Urine RBC (Auto) (0-4) /hpf U Hyaline Cast (Auto) (0-5) /lpf U Epithel Cells (Auto) (0-5) /lpf Urine Bacteria (Auto) (Negative) Urine Yeast Nasal Screen MRSA (PCR) (Negative) Adenovirus (PCR) Not Detected (NotDetected) B. pertussis DNA (PCR) Not Detected (NotDetected) B.parapertussis DNA PCR Not Detected (NotDetected) C. pneumoniae DNA (PCR) Not Detected (NotDetected) Coronavirus OC43 (PCR) Not Detected (NotDetected) Coronavirus HKU1 (PCR) Not Detected (NotDetected) Coronavirus 229E (PCR) Not Detected (NotDetected) SARS-CoV-2 (PCR) Not Detected (NotDetected) Coronavirus NL63 (PCR) Not Detected (NotDetected) Human Metapneumovir PCR Not Detected (NotDetected) Influenza Type A (PCR) Not Detected (NotDetected) Influenza Type B (PCR) Not Detected (NotDetected) M. pneumoniae (PCR) Not Detected (NotDetected) Parainfluenza 1 (PCR) Not Detected (NotDetected) Parainfluenza 2 (PCR) Not Detected (NotDetected) Parainfluenza 3 (PCR) Not Detected (NotDetected) Parainfluenza 4 (PCR) Not Detected (NotDetected) RSV (PCR) Not Detected (NotDetected) Entero/Rhino (PCR) Not Detected (NotDetected) Medications Administered Current Inpatient Medications Acetaminophen (Acetaminophen 325 Mg Tab) 650 mg PO Q4H PRN PRN Reason: Pain or Fever Stop: 06/03/23 22:21 Last Admin: 05/04/23 23:49 Dose: 650 mg Atenolol (Atenolol 25 Mg Tablet) 25 mg PO QAM [facility] Stop: 06/04/23 08:59 Cetirizine HCl (Cetirizine Hcl 10 Mg Tablet) 10 mg PO DAILY [facility] Stop: 06/04/23 08:59 Docusate Sodium (Docusate Sodium 100 Mg Cap) 100 mg PO BID PRN PRN Reason: Constipation Stop: 06/03/23 22:26 Felodipine (Felodipine 5 Mg Tabcr) 10 mg PO QAM [facility] Stop: 06/04/23 08:59 Fluticasone Propionate (Fluticasone Propionate Na Spr 16 Gm Btl) 2 sprays NA QAM [facility] Stop: 06/04/23 08:59 Furosemide (Furosemide 40 Mg/4 Ml Vial) 40 mg IV BID [facility] Stop: 06/04/23 08:59 Heparin Sodium (Porcine) (Heparin Sod 5,000 Unit/0.5 Ml Vial) 5,000 units SQ Q12 NAVEEN Stop: 06/03/23 22:21 Last Admin: 05/04/23 23:21 Dose: 5,000 units Ertapenem 500 mg/ Syringe 5 mls @ 2 mls/min IV Q24H NAVEEN Stop: 05/15/23 07:59 Lactobacillus Acidophilus (Lactobacillus Acidophilus 1 Gm Pack) 1 gm PO QAM [facility] Stop: 06/04/23 08:59 Lorazepam (Lorazepam 0.5 Mg Tab) 0.5 mg PO BID PRN PRN Reason: Anxiety Stop: 06/03/23 22:21 Last Admin: 05/04/23 23:49 Dose: 0.5 mg Meclizine HCl (Meclizine Hcl 25 Mg Tab) 25 mg PO TID PRN PRN Reason: Dizziness Stop: 06/03/23 22:21 Nitroglycerin (Nitroglycerin Sl 0.4 Mg/Tab Tab) 0.4 mg SL Q5M PRN PRN Reason: Chest Pain Stop: 06/03/23 22:21 Pantoprazole Sodium (Pantoprazole 40 Mg Tab) 40 mg PO QDB [facility]; Protocol Stop: 06/04/23 07:29 Polyethylene Glycol (Polyethylene (Miralax) 17 Gm Pack) 17 gm PO DAILY PRN PRN Reason: Constipation Stop: 06/03/23 22:21 Potassium Citrate (Potassium Citrate 10 Meq Tab) [facility] Stop: 06/04/23 08:59 Sodium Chloride (Sodium Chloride 0.65% Na Soln 45 Ml ([place])) 1 sprays NA Q4 PRN PRN Reason: Dryness Stop: 06/04/23 01:45 Last Admin: 05/05/23 02:18 Dose: 1 sprays Vitamin D (Cholecalciferol 1,000 Units 25 Mcg Tab) 2,000 [facility] [place] Stop: 06/04/23 08:59
[2023-05-05] MEDS ORDERED: ERTAPENEM SODIUM 500 MG in SYRINGE 0 ML IV SCH (08:00)
[2023-05-05] MEDS: FELODIPINE 5 MG TABCR PO SCH (08:33)
[2023-05-05] MEDS: LACTOBACILLUS ACIDOPHILUS 1 GM PACK PO SCH (08:34)
[2023-05-05] MEDS: POTASSIUM CITRATE 10 MEQ TAB PO SCH (08:34)
[2023-05-05] MEDS: CETIRIZINE HCL 10 MG TABLET PO SCH (08:34)
[2023-05-05] MEDS: PANTOprazole 40 MG TAB PO SCH (08:34)
[2023-05-05] MEDS: ATENOLOL 25 MG TABLET PO SCH (08:34)
[2023-05-05] MEDS: CHOLECALCIFEROL 1,000 UNITS 25 MCG TAB PO SCH (08:34)
[2023-05-05] MEDS: HEPARIN SOD 5,000 UNIT/0.5 ML VIAL SQ SCH ×2 (08:34→20:46)
[2023-05-05] MEDS: FLUTICASONE PROPIONATE NA SPR 16 GM BTL SCH (08:36)
[2023-05-05] MEDS: FUROSEMIDE 40 MG/4 ML VIAL IV SCH ×2 (08:36→20:46)
--- NOTE | 2023-05-05 09:05 | Cardiology Consultation ---
Date of Consultation May 05, 2023 Assessment & Plan (1) Hypoxia: (2) SOB (shortness of breath): (3) Diastolic CHF: (4) Hernia, hiatal: Plan IMPRESSION: 88 year old female presenting with acute onset of shortness of breath and hypoxia. Echo revealing acute diastolic CHF with moderate/severe TR and elevated pulmonary pressures. Evidence of pulmonary edema on CT scan as well as a large hiatal hernia. Shortness of breath like has a multifactorial cause with a degree of diastolic CHF as well as due to her large hiatal hernia. PLAN: BL lung bases with ongoing crackles- patient remains mildly hypervolemic. Will Continue IV diuresis with Lasix 40 mg twice daily and reassess volume status in the morning. Monitor renal function closely and replace electrolytes with a goal K of >4.0 and Mag >2.0 CHF education- 2g sodium diet, daily STANDING weights if able. Strict I&O. HS trop minimally elevated, no evidence of acute ischemic changes on EKG- Elevated troponin unlikely to represent ACS and is more likely to be in the setting of volume overload/demand. Large hiatal hernia likely contributing to a portion of the patients dyspnea- will defer to primary team for management. Case discussed with Dr. Hawk- will follow. Supervising Physician Co-Signing Physician Notes Patient seen examined the bedside. 88-year-old female admitted with progressive shortness of breath. Symptoms improving with IV diuresis. Significant hiatal hernia per CT. Patient reports history of hiatal hernia dating back more than 20 years. No chest discomfort. Telemetry revealing sinus rhythm in the 70s. PE: VSS. Gen: NAD, AAO x 3. Heart: Regular rhythm, normal S1-S2. 2/6 midsystolic murmur heard at the left sternal border. Lungs: +crackles at bases B/L. R>L. Ext: Mild bilateral nonpitting pedal edema. A/P: Agree with above AP history, physical exam, assessment and plan. Multifactorial shortness of breath secondary to acute heart failure with preserved ejection fraction, pulm hypertension, and large hiatal hernia. Continue IV diuretic therapy. Closely follow daily weight, fluid balance, electrolytes, and GFR. Mildly elevated troponin secondary to CHF and hypoxia. No evidence of acute coronary syndrome. History of Present Illness Reason for Consultation: Shortness of breath Requesting Physician: Patient hospitalist Attending Physician: Cm Yeung MD History of Present Illness 88-year-old female who currently resides at [facility] presented to [facility] emergency department due to shortness of breath and hypoxia with increased oxygen requirements. CT of the chest showed pulmonary edema (no evidence of PE) and patient received a total of 40 mg of IV Lasix in the emergency department. Patient was then placed on IV Lasix 40 mg twice daily. She does not normally require diuretic therapy. High-sensitivity troponins are minimally elevated. EKG without acute ST segment changes showing normal sinus rhythm with a heart rate in the 60s. Echocardiogram- persevered LVEF 55-60%, Mild concentric LVH, moderate biatrial enlargement, moderate aortic sclerosis- no stenosis, Mod to severe TR with PASP 56mmHg Upon entrance into the room patient resting in bed with HOB minimally elevated. Notes an improvement in her breathing, but still requiring supplemental o2 with activity. She is primarily wheelchair bound due to severe arthritis in her legs but notes than when she transfers from bed to the bathroom or her wheel chair she will become mildly winded. Most of her shortness of breath occurs post meals. Symptoms have been worsening over the last 2 weeks. Has chronic lower extremity edema, currently at baseline per the patient. No orthopnea or PND. No lightheadedness or dizziness. Denies chest pain. 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, per CTA of the chest 04/2023 Allergies Allergy/AdvReac Type Severity Reaction Status Date / Time ampicillin Allergy Unknown Diarrhea Verified 05/04/23 19:25 Home Medications Medication Instructions Recorded Confirmed Type atenolol 25 mg tablet (Tenormin) 25 mg PO QAM 11/19/18 05/04/23 History felodipine 10 mg tablet,extended 10 mg PO QAM 11/19/18 05/04/23 History release 24 hr potassium citrate 10 mEq (1,080 10 meq PO QAM 11/19/18 05/04/23 History mg) tablet,extended release (Urocit-K 10) fluticasone propionate 50 2 spray intranasal HS 03/01/19 05/04/23 History mcg/actuation nasal spray,suspension (Flonase Allergy Relief) cholecalciferol (vitamin D3) 50 2,000 unit PO QAM 07/12/21 05/04/23 History mcg (2,000 unit) capsule (Vitamin D3) docusate sodium 100 mg tablet 100 mg PO BID PRN Constipation 07/12/21 05/04/23 History loperamide 2 mg capsule 2 mg PO QID PRN Diarrhea 07/12/21 05/04/23 History lorazepam 0.5 mg tablet 0.5 mg PO BID PRN Anxiety 07/12/21 05/04/23 History Lactobacillus acidophilus, 1 g PO QAM 12/26/21 05/04/23 History bulgaricus 100 million cell granules packet (Floranex) acetaminophen 300 mg-codeine 30 mg 1 tab PO Q4H PRN Severe Pain 05/04/23 05/04/23 History tablet (Scale Score 7-10) acetaminophen 325 mg tablet 650 mg PO Q4 PRN Fever Or Pain 05/04/23 05/04/23 History cetirizine 10 mg tablet 10 mg PO DAILY 05/04/23 05/04/23 History conjugated estrogens 0.625 mg/gram 0.625 mg vaginal UD 05/04/23 05/04/23 History vaginal cream (Premarin) ibuprofen 200 mg tablet 200 mg PO Q8 PRN Mild Pain (Scale 05/04/23 05/04/23 History Score 1-4) meclizine 25 mg tablet 25 mg PO TID PRN Dizziness 05/04/23 05/04/23 History omeprazole 20 mg capsule,delayed 20 mg PO QDB 05/04/23 05/04/23 History release ondansetron 4 mg disintegrating 4 mg PO Q6 PRN nausea and vomiting 05/04/23 05/04/23 History tablet phenazopyridine 200 mg tablet 200 mg PO Q6 PRN urinary pain 05/04/23 05/04/23 History (Pyridium) polyethylene glycol 3350 17 17 g PO DAILY PRN Constipation 05/04/23 05/04/23 History gram/dose oral powder (Miralax) Patient History Medical History Acute hyponatremia Acute worsening of stage 3 chronic kidney disease Ambulatory dysfunction Anxiety Arthritis Chronic acquired lymphedema CKD (chronic kidney disease), stage III DVT prophylaxis Elevated troponin HLD (hyperlipidemia) Hypertension Hypomagnesemia Rotator cuff tear arthropathy of both shoulders Surgical History History of appendectomy History of cholecystectomy Family History Mother CHF (congestive heart failure) Social History Smoking Status: Never smoker Second Hand Exposure: No; Do You Dip or Chew Tobacco: No; Hx Alcohol Use: Yes Alcohol type: wine Alcohol Intake Frequency: Monthly or Less Hx Substance Use: No Preferred Language: Mongolian Communication Ability: Effective Electrician Elevator Maintenance Required: No Beliefs That Will Affect Care: None marital status: Current Living Situation: Personal Care Facility current occupational status: retired How many Children do You have: 1 Feels Safe at Home: Yes Safety Concerns: Feels Safe At This Time Assistive Devices: Walker and Wheelchair Review of Systems Review of Systems: All systems reviewed & are unremarkable except as noted in HPI & below Physical Exam Constitutional: WD/WN, vitals as above no acute distress Eyes: PERRL, conjunctivae normal, anicteric sclerae Neck: normal visual inspection and trachea midline Respiratory: normal respiratory effort and able to speak in complete sentences; no respiratory distress Auscultation: + crackles (Bilateral bases R>L); no rhonchi and no wheezes Cardiovascular: Rate/Rhythm: regular rate and regular rhythm Heart Sounds: normal S1, normal S2 and + murmur (+2/6 systolic murmur) Vessels: no JVD Extremities: + edema (+lymphedema BL lower extremities ) Skin: no rashes, warm and dry Psychiatric: A+Ox3, euthymic affect Results & Data Vital Signs (Past 12 Hours) Vital Signs Temp Pulse Pulse Resp BP BP BP 05/05/23 08:00 36.9 C 65 18 115/73 05/05/23 04:00 36.6 C 65 20 108/52 L 05/05/23 00:16 77 05/04/23 22:29 05/04/23 22:29 36.6 C 75 24 128/63 05/04/23 21:45 71 05/04/23 21:55 67 22 128/74 05/04/23 21:00 72 20 128/74 Pulse Ox O2 Del Method O2 Flow Rate 05/05/23 08:00 98 Room Air 05/05/23 04:00 95 High Flow Nasal Cannula 4.5 05/05/23 00:16 05/04/23 22:29 Nasal Cannula 6 05/04/23 22:29 95 Nasal Cannula 6 05/04/23 21:45 05/04/23 21:55 94 Nasal Cannula 6 05/04/23 21:00 92 Nasal Cannula 6 Laboratory Results Cardiac Enzymes 05/04/23 05/05/23 Range/Units 17:35 05:47 AST 13 (13-39) U/L Troponin I High Sens 17.6 H 15.7 H (0-14) pg/ml Coagulation 05/04/23 Range/Units 17:35 PT 12.1 H (9.0-12.0) Seconds APTT 29.6 (21.0-31.0) Seconds CBC 05/04/23 05/05/23 Range/Units 17:35 05:47 WBC 6.68 4.69 L (4.8-10.8) K/ul RBC 4.18 L 3.75 L (4.20-5.40) M/uL Hgb 12.9 11.5 L (12.0-16.0) g/dl Hct 38.8 35.4 L (37.0-47.0) % Plt Count 236 180 (130-400) K/uL Neut # (Auto) 5.17 3.06 (1.40-6.50) K/uL Lymph # (Auto) 0.76 L 0.77 L (1.2-3.4) K/uL [place] # (Auto) 0.59 0.59 (0.11-0.59) K/uL Eos # (Auto) 0.08 0.20 (0-0.50) K/uL Baso # (Auto) 0.07 0.06 (0-0.2) K/uL Comprehensive Metabolic Panel 05/04/23 05/05/23 Range/Units 17:35 05:47 Sodium 140 141 (136-145) mmol/L Potassium 4.3 4.0 (3.5-5.1) mmol/L Chloride 105 106 (98-107) mmol/L Carbon Dioxide 25 27 (21-32) mmol/L BUN 33 H 32 H (6-23) mg/dl Creatinine 1.30 H 1.28 H (0.6-1.2) mg/dl Glucose 130 H 85 (70-99(Fasting)) mg/dl Calcium 9.6 8.9 (8.6-10.3) mg/dl AST 13 (13-39) U/L ALT 5 L (7-52) U/L Alkaline Phosphatase 97 (34-104) U/L Total Protein 7.6 (6.0-8.3) gm/dl Albumin 3.9 (3.4-5.0) gm/dl Intake and Output 05/04/23 05/05/23 05/05/23 22:59 06:59 14:59 Intake Total 400 / 400 Output Total 750 / 1350 600 / 1350 Balance -750 / -950 -200 / -950 Intake: Oral 400 / 400 Output: Urine Amount (Catheter) 750 / 1350 600 / 1350 [place]/Indwelling 750 / 1350 600 / 1350 Other: Weight 53.7 kg 53.7 kg Weight Measurement Method Built in [facility] Built in [facility]
--- NOTE | 2023-05-05 12:46 | Electrocardiogram Report ---
Test Reason : Blood Pressure : / mmHG Vent. Rate : 064 BPM Atrial Rate : 064 BPM P-R Int : 142 ms QRS Dur : 070 ms QT Int : 436 ms P-R-T Axes : 038 036 053 degrees QTc Int : 449 ms Normal sinus rhythm Normal ECG When compared with ECG of 02-AUG-2021 09:59, No significant change was found Confirmed by Qasim Monsivais ([id number]) on 05/05/2023 12:46:17 PM Referred By: [facility] Confirmed By:Qasim Monsivais
[2023-05-05 17:47] LABS: Appearance Urine Turbid (Clear); Bacteria Urine Automated Negative (Negative); Bilirubin Urine Negative (Negative); Blood Urine 1+ (Negative); Color Urine Yellow; Epithelial Cell Urine Auto >30 /lpf (0-5); Glucose Urine UA Negative (Negative); Ketones Urine Negative (Negative); Leukocyte Esterase Urine 3+ (Negative); Nitrite Urine Negative (Negative); Protein Urine Negative (Negative); RBC Urine Automated 0-4 /hpf (0-4); Specific Gravity Urine 1.021 (1.000-1.030); Urobilinogen Urine Negative (Negative); WBC Urine Automated >30 /hpf (0-5)
[2023-05-05] MEDS: ACETAMINOPHEN 325 MG TAB PO PRN (20:46)
[2023-05-05] MEDS: LORazepam 0.5 MG TAB PO PRN (20:46)
[2023-05-06 07:21] LABS: Hematocrit (blood only) 35.6 % (37.0-47.0); Hemoglobin 11.7 g/dl (12.0-16.0); Mean Corpuscular Hemoglobin 30.5 pg (25.0-34.0); Mean Corpuscular Hgb Conc 32.9 g/dL (32.0-36.0); Mean Corpuscular Volume 92.7 fL (80.0-100.0); Mean Platelet Volume 10.5 fL (9.4-12.4); Platelet Count 200 K/uL (130-400); RDW Coefficient of Variation 13.4 % (11.5-14.5); RDW Standard Deviation 45.6 fL (36.4-46.3); Red Blood Count 3.84 M/uL (4.20-5.40); White Blood Count 5.47 K/ul (4.8-10.8)
[2023-05-06 07:45] LABS: BUN Creatinine Ratio 19.9 (10-20); Creatinine Clr Calc Pharmacy 18.5 ml/min; Est GFR (African American) 31.6 ml/min; Est GFR (Non-African American) 27.2 ml/min; Magnesium 1.9 mg/dl (1.7-2.4); Phosphorus 3.9 mg/dl (2.5-4.9); Potassium 3.9 mmol/L (3.5-5.1)
--- NOTE | 2023-05-06 08:12 | Hospitalist Progress Note ---
Date of Service May 06, 2023 Assessment & Plan (1) Hypoxia: Plan: 88-year-old female with past medical significant for hyperlipidemia, hypertension, GERD, vitamin D deficiency, acquired solitary kidney secondary to renal calculus, history of nephrolithiasis, history of recurrent UTIs patient states currently every month, congenital renal agenesis and dysgenesis, history of left ureter distal calculus with hydronephrosis and s/p ureteral stent placement, CKD stage III, generalized anxiety disorder, chronic acquired lymphedema, anxiety, osteoarthritis and currently wheelchair-bound since last 1 year as per patient and she can transfer herself from the wheelchair to the bed. Currently residing at [facility] presents with shortness of breath and hypoxia and requiring oxygen Hypoxia Acute CHF Requiring oxygen Pulmonary edema on CTA chest Received IV Lasix 20 mg in the ER and another IV Lasix 20 mg on admission Now on IV Lasix 40 twice daily -> however Cr up and lasix now put on hold, cardiology following closely Monitor on telemetry floor Obtained echo - EF 55-60%. There is mild concentric LVH. Moderate biatrial enlargement. Aortic valve sclerosis moderate, without significant aortic valvular stenosis. There is moderate to severe tricuspid regurgitation. Estimated syst. pulm. pressure is 56 mm Hg. Daily weights and I's and O's We will follow the labs Cardiology consulted - appreciate their input Large hiatal hernia Possibly contributing to her symptoms On omeprazole UTI History of multidrug-resistant E. coli Received IV cefepime in the ER Placed on Invanz dosed per renal function follow urine cultx Hypertension On felodipine and atenolol We will monitor the blood pressure Recurrent kidney stones On potassium citrate follow-up with urology Acquired solitary kidney Secondary to large renal calculus on the right side RENETTA? on CKD stage III Presented with creatinine 1.3 We will follow labs while patient getting IV diuretics BMP ordered DVT prophylaxis heparin subcu Disposition telemetry floor CODE STATUS DNR/DNI as per discussion with the patient. Patient also does not want any big surgeries. Admission and Anticipated Discharge Date Admission Date: May 04, 2023 Subjective Pt seen in follow up of hypoxic resp. failure, 2/2 CHF Currently sitting up in bed, on suppl. O2 on 5L She is in NAD but has nausea She is alert oriented and answering appropriately Denies any chest pain, denies shortness of breath or palpitations No abd. pain, no fever, chills Review of Systems Review of Systems: All systems reviewed & are unremarkable except as noted in Subjective Physical Exam Physical Exam: General- elderly F in NAD, on suppl. O2 Head- atraumatic Eyes- PERRL. ENT- oropharynx clear Neck- supple, no JVD. Lungs- clear to auscultation mild bibasilar crackles, no wheezing. Heart- regular rhythm; no murmur, no gallop. Abdomen- normal bowel sounds, soft, nontender, no distension. Extremities- minimal lower extremity edema present, no erythema seen. Neuro- alert, oriented x 3; PERRL, no facial palsy; no dysarthria; answers appropriately, moves extremities. Skin- warm & dry Results & Data Results & Data Vital Signs (Past 12 Hours) Vital Signs Temp Pulse Pulse Resp BP Pulse Ox Pulse Ox 05/06/23 07:01 36.7 C 67 19 111/58 L 94 05/06/23 02:59 36.6 C 64 18 103/47 L 94 05/06/23 00:00 65 05/05/23 22:56 36.7 C 64 18 103/53 L 94 05/05/23 22:47 92 O2 Del Method O2 Del Method O2 Flow Rate O2 Flow Rate 05/06/23 07:01 Nasal Cannula 5 05/06/23 02:59 Nasal Cannula 5 05/06/23 00:00 05/05/23 22:56 Nasal Cannula 5 05/05/23 22:47 Nasal Cannula 5 Laboratory Results 05/06/23 05/06/23 05/05/23 Range/Units 06:13 06:13 17:30 WBC 5.47 (4.8-10.8) K/ul RBC 3.84 L (4.20-5.40) M/uL Hgb 11.7 L (12.0-16.0) g/dl Hct 35.6 L (37.0-47.0) % MCV 92.7 (80.0-100.0) fL MCH 30.5 (25.0-34.0) pg MCHC 32.9 (32.0-36.0) g/dL RDW Std Deviation 45.6 (36.4-46.3) fL RDW Coeff of Adrienne 13.4 (11.5-14.5) % Plt Count 200 (130-400) K/uL MPV 10.5 (9.4-12.4) fL Sodium 142 (136-145) mmol/L Potassium 3.9 (3.5-5.1) mmol/L Chloride 103 (98-107) mmol/L Carbon Dioxide 32 (21-32) mmol/L Anion Gap 7 (3-11) BUN 33 H (6-23) mg/dl Creatinine 1.66 H D (0.6-1.2) mg/dl Est Cr Clr Drug Dosing 18.5 ml/min Est GFR ( Amer) 31.6 ml/min Est GFR (Non-Af Amer) 27.2 ml/min BUN/Creatinine Ratio 19.9 (10-20) Glucose 93 (70-99(Fasting)) mg/dl Calcium 9.0 (8.6-10.3) mg/dl Phosphorus 3.9 (2.5-4.9) mg/dl Magnesium 1.9 (1.7-2.4) mg/dl Troponin I High Sens (0-14) pg/ml Urine Color Yellow Urine Appearance Turbid A (Clear) Urine pH 5.0 (4.5-7.5) Ur Specific [place] 1.021 (1.000-1.030) Urine Protein Negative (Negative) Urine Glucose (UA) Negative (Negative) Urine Ketones Negative (Negative) Urine Blood 1+ H (Negative) Urine Nitrite Negative (Negative) Urine Bilirubin Negative (Negative) Urine Urobilinogen Negative (Negative) Ur Leukocyte Esterase 3+ H (Negative) Urine WBC (Auto) >30 H (0-5) /hpf Urine RBC (Auto) 0-4 (0-4) /hpf U Hyaline Cast (Auto) 1-5 (0-5) /lpf U Epithel Cells (Auto) >30 H (0-5) /lpf Urine Bacteria (Auto) Negative (Negative) 05/05/23 Range/Units 10:58 WBC (4.8-10.8) K/ul RBC (4.20-5.40) M/uL Hgb (12.0-16.0) g/dl Hct (37.0-47.0) % MCV (80.0-100.0) fL MCH (25.0-34.0) pg MCHC (32.0-36.0) g/dL RDW Std Deviation (36.4-46.3) fL RDW Coeff of Adrienne (11.5-14.5) % Plt Count (130-400) K/uL MPV (9.4-12.4) fL Sodium (136-145) mmol/L Potassium (3.5-5.1) mmol/L Chloride (98-107) mmol/L Carbon Dioxide (21-32) mmol/L Anion Gap (3-11) BUN (6-23) mg/dl Creatinine (0.6-1.2) mg/dl Est Cr Clr Drug Dosing ml/min Est GFR ( Amer) ml/min Est GFR (Non-Af Amer) ml/min BUN/Creatinine Ratio (10-20) Glucose (70-99(Fasting)) mg/dl Calcium (8.6-10.3) mg/dl Phosphorus (2.5-4.9) mg/dl Magnesium (1.7-2.4) mg/dl Troponin I High Sens 12.0 (0-14) pg/ml Urine Color Urine Appearance (Clear) Urine pH (4.5-7.5) Ur Specific [place] (1.000-1.030) Urine Protein (Negative) Urine Glucose (UA) (Negative) Urine Ketones (Negative) Urine Blood (Negative) Urine Nitrite (Negative) Urine Bilirubin (Negative) Urine Urobilinogen (Negative) Ur Leukocyte Esterase (Negative) Urine WBC (Auto) (0-5) /hpf Urine RBC (Auto) (0-4) /hpf U Hyaline Cast (Auto) (0-5) /lpf U Epithel Cells (Auto) (0-5) /lpf Urine Bacteria (Auto) (Negative) Medications Administered Current Inpatient Medications Acetaminophen (Acetaminophen 325 Mg Tab) 650 mg PO Q4H PRN PRN Reason: Pain or Fever Stop: 06/03/23 22:21 Last Admin: 05/05/23 20:46 Dose: 650 mg Atenolol (Atenolol 25 Mg Tablet) 25 mg PO QAM [facility] Stop: 06/04/23 08:59 Last Admin: 05/05/23 08:34 Dose: 25 mg Cetirizine HCl (Cetirizine Hcl 10 Mg Tablet) 10 mg PO DAILY NAVEEN Stop: 06/04/23 08:59 Last Admin: 05/05/23 08:34 Dose: 10 mg Docusate Sodium (Docusate Sodium 100 Mg Cap) 100 mg PO BID PRN PRN Reason: Constipation Stop: 06/03/23 22:26 Felodipine (Felodipine 5 Mg Tabcr) 10 mg PO QAM [facility] Stop: 06/04/23 08:59 Last Admin: 05/05/23 08:33 Dose: 10 mg Fluticasone Propionate (Fluticasone Propionate Na Spr 16 Gm Btl) 2 sprays NA QAM [facility] Stop: 06/04/23 08:59 Last Admin: 05/05/23 08:36 Dose: 2 sprays Furosemide (Furosemide 40 Mg/4 Ml Vial) 40 mg IV BID [facility] Stop: 06/04/23 08:59 Last Admin: 05/05/23 20:46 Dose: 40 mg Heparin Sodium (Porcine) (Heparin Sod 5,000 Unit/0.5 Ml Vial) 5,000 units SQ Q12 NAVEEN Stop: 06/03/23 22:21 Last Admin: 05/05/23 20:46 Dose: 5,000 units Ertapenem 500 mg/ Sodium (Chloride) 55 mls @ 110 mls/hr IV DAILY [facility] Stop: 05/15/23 08:59 Lactobacillus Acidophilus (Lactobacillus Acidophilus 1 Gm Pack) [facility] [place]: 06/04/23 08:59 Last Admin: 05/05/23 08:34 Dose: 1 gm Lorazepam (Lorazepam 0.5 Mg Tab) 0.5 mg PO BID PRN PRN Reason: Anxiety Stop: 06/03/23 22:21 Last Admin: 05/05/23 20:46 Dose: 0.5 mg Meclizine HCl (Meclizine Hcl 25 Mg Tab) 25 mg PO TID PRN PRN Reason: Dizziness Stop: 06/03/23 22:21 Nitroglycerin (Nitroglycerin Sl 0.4 Mg/Tab Tab) 0.4 mg SL Q5M PRN PRN Reason: Chest Pain Stop: 06/03/23 22:21 Pantoprazole Sodium (Pantoprazole 40 Mg Tab) 40 mg PO QDB [facility]; Protocol Stop: 06/04/23 07:29 Last Admin: 05/05/23 08:34 Dose: 40 mg Polyethylene Glycol (Polyethylene (Miralax) 17 Gm Pack) 17 gm PO DAILY PRN PRN Reason: Constipation Stop: 06/03/23 22:21 Potassium Citrate (Potassium Citrate 10 Meq Tab) 10 meq PO QAM [facility] Stop: 06/04/23 08:59 Last Admin: 05/05/23 08:34 Dose: 10 meq Sodium Chloride (Sodium Chloride 0.65% Na Soln 45 Ml ([place])) 1 sprays NA Q4 PRN PRN Reason: Dryness Stop: 06/04/23 01:45 Last Admin: 05/05/23 02:18 Dose: 1 sprays Vitamin D (Cholecalciferol 1,000 Units 25 Mcg Tab) 2,[facility] [place]: 06/04/23 08:59 Last Admin: 05/05/23 08:34 Dose: 2,000 units
[2023-05-06] MEDS: LACTOBACILLUS ACIDOPHILUS 1 GM PACK PO SCH (08:33)
[2023-05-06] MEDS: CHOLECALCIFEROL 1,000 UNITS 25 MCG TAB PO SCH (08:33)
[2023-05-06] MEDS: POTASSIUM CITRATE 10 MEQ TAB PO SCH (08:33)
[2023-05-06] MEDS: PANTOprazole 40 MG TAB PO SCH (08:33)
[2023-05-06] MEDS: CETIRIZINE HCL 10 MG TABLET PO SCH (08:34)
[2023-05-06] MEDS: FLUTICASONE PROPIONATE NA SPR 16 GM BTL SCH (08:34)
[2023-05-06] MEDS: HEPARIN SOD 5,000 UNIT/0.5 ML VIAL SQ SCH ×2 (08:34→21:12)
[2023-05-06] MEDS: ATENOLOL 25 MG TABLET PO SCH (08:34)
[2023-05-06] MEDS: FELODIPINE 5 MG TABCR PO SCH (08:34)
[2023-05-06] MEDS: ERTAPENEM SODIUM 500 MG in SODIUM CHLORIDE 0.9% 50 ML IV SCH (08:37)
--- NOTE | 2023-05-06 11:14 | Cardiology Progress Note ---
Date of Service May 06, 2023 Assessment & Plan (1) Diastolic CHF: (2) Hernia, hiatal: (3) Hypoxia: Plan Multifactorial shortness of breath secondary to acute heart failure with preserved ejection fraction, pulm hypertension, and large hiatal hernia. Serum creatinine trending upward today suggesting intravascular volume depletion. Hold Lasix. Closely follow daily weight, fluid balance, electrolytes, and GFR. Consider addition of low-dose diuretic therapy at discharge. Mildly elevated troponin secondary to CHF and hypoxia. No evidence of acute coronary syndrome. Admission and Anticipated Discharge Date Admission Date: May 04, 2023 Subjective Patient seen examined the bedside. Fluid balance negative additional 700 cc. Creatinine trending upward to 1.66. Telemetry revealing sinus rhythm in 60s to 70s. Respiratory status mildly improved. No orthopnea or PND. No edema on exam. Denies chest pain or palpitations. Review of Systems Review of Systems: All systems reviewed & are unremarkable except as noted in Subjective Physical Exam Physical Exam: PE: VSS. Gen: NAD, AAO x 3. Heart: Regular rhythm, normal S1-S2. 2/6 midsystolic murmur heard at the left sternal border. Lungs: +crackles at bases B/L. R>L. Ext: Mild bilateral nonpitting pedal edema. Results & Data Vital Signs (Past 12 Hours) Vital Signs Temp Pulse Pulse Resp BP Pulse Ox O2 Del Method 05/06/23 10:44 36.5 C 54 L 18 106/50 L 94 Nasal Cannula 05/06/23 09:00 65 05/06/23 09:00 Nasal Cannula 05/06/23 07:01 36.7 C 67 19 111/58 L 94 Nasal Cannula 05/06/23 02:59 36.6 C 64 18 103/47 L 94 Nasal Cannula 05/06/23 00:00 65 O2 Flow Rate 05/06/23 10:44 5 05/06/23 09:00 05/06/23 09:00 5 05/06/23 07:01 5 05/06/23 02:59 5 05/06/23 00:00 Laboratory Results Cardiac Enzymes 05/05/23 Range/Units 10:58 Troponin I High Sens 12.0 (0-14) pg/ml CBC 05/06/23 Range/Units 06:13 WBC 5.47 (4.8-10.8) K/ul RBC 3.84 L (4.20-5.40) M/uL Hgb 11.7 L (12.0-16.0) g/dl Hct 35.6 L (37.0-47.0) % Plt Count 200 (130-400) K/uL Comprehensive Metabolic Panel 05/06/23 Range/Units 06:13 Sodium 142 (136-145) mmol/L Potassium 3.9 (3.5-5.1) mmol/L Chloride 103 (98-107) mmol/L Carbon Dioxide 32 (21-32) mmol/L BUN 33 H (6-23) mg/dl Creatinine 1.66 H D (0.6-1.2) mg/dl Glucose 93 (70-99(Fasting)) mg/dl Calcium 9.0 (8.6-10.3) mg/dl Intake and Output 05/05/23 05/06/23 05/06/23 22:59 06:59 14:59 Intake Total 150 / 750 55 / 55 Output Total 400 / 1451 250 / 1451 Balance -250 / -701 -250 / -701 Intake: IV Ertapenem Sodium 500 mg In Sodium Chloride 0.9% 50 ml @ 110 mls/hr IV DAILY [facility] Rx#: [id number] Oral 150 / 750 Output: Urine Amount (Catheter) 400 / 1450 250 / 1450 [place]/Indwelling 400 / 1450 250 / 1450 Other: Weight 54.1 kg Weight Measurement Method Built in [facility]
[2023-05-06] MEDS: ONDANSETRON INJ 2 MG/ML 2 ML VIAL IV PRN (12:05)
[2023-05-06] MEDS: ACETAMINOPHEN 325 MG TAB PO PRN (21:14)
[2023-05-07] MEDS: ACETAMINOPHEN 325 MG TAB PO PRN ×3 (04:30→21:04)
[2023-05-07 07:36] LABS: BUN Creatinine Ratio 20.9 (10-20); Calcium 9.2 mg/dl (8.6-10.3); Creatinine Clr Calc Pharmacy 19.5 ml/min; Est GFR (African American) 33.5 ml/min; Est GFR (Non-African American) 28.9 ml/min; Phosphorus 3.5 mg/dl (2.5-4.9); Potassium 4.1 mmol/L (3.5-5.1)
--- NOTE | 2023-05-07 08:20 | Cardiology Progress Note ---
Date of Service May 07, 2023 Assessment & Plan (1) Diastolic CHF: (2) Hernia, hiatal: (3) Hypoxia: Plan Multifactorial shortness of breath secondary to acute heart failure with preserved ejection fraction, pulm hypertension, and large hiatal hernia. Creatinine trending downward today. Continue to hold diuretic therapy. I suspect majority of symptoms currently related to large hiatal hernia. Hold Lasix. Closely follow daily weight, fluid balance, electrolytes, and GFR. Consider addition of low-dose diuretic therapy at discharge. Mildly elevated troponin secondary to CHF and hypoxia. No evidence of acute coronary syndrome. Admission and Anticipated Discharge Date Admission Date: May 04, 2023 Subjective Patient seen examined the bedside. Notes abdominal discomfort and knee pain today. No chest pain or shortness of breath at rest. Serum creatinine trending downward. Diuretics on hold. Review of Systems Review of Systems: All systems reviewed & are unremarkable except as noted in Subjective Physical Exam Physical Exam: PE: VSS. Gen: NAD, AAO x 3. Heart: Regular rhythm, normal S1-S2. 2/6 midsystolic murmur heard at the left sternal border. Lungs: +crackles at bases B/L. R>L. Ext: No edema. Results & Data Vital Signs (Past 12 Hours) Vital Signs Temp Pulse Pulse Resp BP Pulse Ox O2 Del Method 05/07/23 07:11 36.7 C 72 18 117/51 L 93 Room Air 05/07/23 04:26 36.8 C 68 18 109/62 95 Nasal Cannula 05/06/23 23:39 69 05/06/23 23:28 36.9 C 63 16 106/58 L 95 Nasal Cannula 05/06/23 20:38 Nasal Cannula O2 Flow Rate 05/07/23 07:11 05/07/23 04:26 5 05/06/23 23:39 05/06/23 23:28 5 05/06/23 20:38 5 Laboratory Results Comprehensive Metabolic Panel 05/07/23 Range/Units 05:51 Sodium 141 (136-145) mmol/L Potassium 4.1 (3.5-5.1) mmol/L Chloride 100 (98-107) mmol/L Carbon Dioxide 34 H (21-32) mmol/L BUN 33 H (6-23) mg/dl Creatinine 1.58 H (0.6-1.2) mg/dl Glucose 100 H (70-99(Fasting)) mg/dl Calcium 9.2 (8.6-10.3) mg/dl Intake and Output 05/06/23 05/07/23 05/07/23 22:59 06:59 14:59 Output Total 200 / 900 200 / 900 350 / 350 Balance -200 / -605 -200 / -605 -350 / -350 Output: Urine Amount (Catheter) 200 / 900 200 / 900 350 / 350 Grossman/Indwelling 200 / 900 200 / 900 350 / 350 Other: Weight 53.3 kg Weight Measurement Method Built in [facility]
--- NOTE | 2023-05-07 08:24 | Hospitalist Progress Note ---
Date of Service May 07, 2023 Assessment & Plan (1) Hypoxia: Plan: 88-year-old female with past medical significant for hyperlipidemia, hypertension, GERD, vitamin D deficiency, acquired solitary kidney secondary to renal calculus, history of nephrolithiasis, history of recurrent UTIs patient states currently every month, congenital renal agenesis and dysgenesis, history of left ureter distal calculus with hydronephrosis and s/p ureteral stent placement, CKD stage III, generalized anxiety disorder, chronic acquired lymphedema, anxiety, osteoarthritis and currently wheelchair-bound since last 1 year as per patient and she can transfer herself from the wheelchair to the bed. Currently residing at [facility] presents with shortness of breath and hypoxia and requiring oxygen Hypoxia Acute CHF Requiring oxygen Pulmonary edema on CTA chest Received IV Lasix 20 mg in the ER and another IV Lasix 20 mg on admission Then on IV Lasix 40 twice daily -> however Cr up and lasix now put on hold, cardiology following closely Monitor on telemetry floor Obtained echo - EF 55-60%. There is mild concentric LVH. Moderate biatrial enlargement. Aortic valve sclerosis moderate, without significant aortic valvular stenosis. There is moderate to severe tricuspid regurgitation. Estimated syst. pulm. pressure is 56 mm Hg. Daily weights and I's and O's We will follow the labs Cardiology consulted - appreciate their input Large hiatal hernia Possibly contributing to her symptoms On omeprazole UTI History of multidrug-resistant E. coli Received IV cefepime in the ER Placed on Invanz dosed per renal function follow urine cultx Hypertension On felodipine and atenolol We will monitor the blood pressure Recurrent kidney stones On potassium citrate follow-up with urology Acquired solitary kidney Secondary to large renal calculus on the right side RENETTA? on CKD stage III Presented with creatinine 1.3 We will follow labs while patient getting IV diuretics BMP ordered DVT prophylaxis heparin subcu Disposition telemetry floor CODE STATUS DNR/DNI as per discussion with the patient. Patient also does not want any big surgeries. Admission and Anticipated Discharge Date Admission Date: May 04, 2023 Subjective Pt seen in follow up of hypoxic resp. failure, 2/2 CHF Currently sitting up in bed, on suppl. O2 on 5L She is in NAD and overall feels well today She is alert oriented and answering appropriately Denies any chest pain, denies shortness of breath or palpitations No abd. pain, no fever, chills repeat CXR obtained - shows improved pulm. edema Update: pt developed chest pain from her shoulder down to bottom of her ribcage later in a day. ECG obtained and NSR. trop negative. toradol and lidocaine patch ordered. Discussed w/ RN at the bedside. Review of Systems Review of Systems: All systems reviewed & are unremarkable except as noted in Subjective Physical Exam Physical Exam: General- elderly F in NAD, on suppl. O2 Head- atraumatic Eyes- PERRL. ENT- oropharynx clear Neck- supple, no JVD. Lungs- + mild diffuse crackles, no wheezing. Heart- regular rhythm; no murmur, no gallop. Abdomen- normal bowel sounds, soft, nontender, no distension. Extremities- minimal lower extremity edema present, no erythema seen. Neuro- alert, oriented x 3; PERRL, no facial palsy; no dysarthria; answers appropriately, moves extremities. Skin- warm & dry Results & Data Results & Data Vital Signs (Past 12 Hours) Vital Signs Temp Pulse Pulse Resp BP Pulse Ox O2 Del Method 05/07/23 07:11 36.7 C 72 18 117/51 L 93 Room Air 05/07/23 04:26 36.8 C 68 18 109/62 95 Nasal Cannula 05/06/23 23:39 69 05/06/23 23:28 36.9 C 63 16 106/58 L 95 Nasal Cannula 05/06/23 20:38 Nasal Cannula O2 Flow Rate 05/07/23 07:11 05/07/23 04:26 5 05/06/23 23:39 05/06/23 23:28 5 05/06/23 20:38 5 Laboratory Results 05/07/23 Range/Units 05:51 Sodium 141 (136-145) mmol/L Potassium 4.1 (3.5-5.1) mmol/L Chloride 100 (98-107) mmol/L Carbon Dioxide 34 H (21-32) mmol/L Anion Gap 7 (3-11) BUN 33 H (6-23) mg/dl Creatinine 1.58 H (0.6-1.2) mg/dl Est Cr Clr Drug Dosing 19.5 ml/min Est GFR ( Amer) 33.5 ml/min Est GFR (Non-Af Amer) 28.9 ml/min BUN/Creatinine Ratio 20.9 H (10-20) Glucose 100 H (70-99(Fasting)) mg/dl Calcium 9.2 (8.6-10.3) mg/dl Phosphorus 3.5 (2.5-4.9) mg/dl Magnesium 2.0 (1.7-2.4) mg/dl Medications Administered Current Inpatient Medications Acetaminophen (Acetaminophen 325 Mg Tab) 650 mg PO Q4H PRN PRN Reason: Pain or Fever Stop: 06/03/23 22:21 Last Admin: 05/07/23 04:30 Dose: 650 mg Atenolol (A[facility]ol 25 Mg Tablet) [facility] Stop: 06/04/23 08:59 Last Admin: 05/06/23 08:34 Dose: 25 mg Cetirizine HCl (Cetirizine Hcl 10 Mg Tablet) 10 mg PO DAILY [facility] Stop: 06/04/23 08:59 Last Admin: 05/06/23 08:34 Dose: 10 mg Docusate Sodium (Docusate Sodium 100 Mg Cap) 100 mg PO BID PRN PRN Reason: Constipation Stop: 06/03/23 22:26 Felodipine (Felodipine 5 Mg Tabcr) [facility] Stop: 06/04/23 08:59 Last Admin: 05/06/23 08:34 Dose: 10 mg Fluticasone Propionate (Fluticasone Propionate Na Spr 16 Gm Btl) 2 sprays NA QAM [facility] Stop: 06/04/23 08:59 Last Admin: 05/06/23 08:34 Dose: 2 sprays Furosemide (Furosemide 40 Mg/4 Ml Vial) 40 mg IV BID [facility] Stop: 06/04/23 08:59 Last Admin: 05/05/23 20:46 Dose: 40 mg Heparin Sodium (Porcine) (Heparin Sod 5,000 Unit/0.5 Ml Vial) 5,000 units SQ Q12 [facility] Stop: 06/03/23 22:21 Last Admin: 05/06/23 21:12 Dose: 5,000 units Ertapenem 500 mg/ Sodium (Chloride) 55 mls @ 110 mls/hr IV DAILY [facility] Stop: 05/15/23 08:59 Last Infusion: 05/06/23 09:07 Dose: Infused Lactobacillus Acidophilus (Lactobacillus Acidophilus 1 Gm Pack) 1 [facility] Stop: 06/04/23 08:59 Last Admin: 05/06/23 08:33 Dose: 1 gm Lorazepam (Lorazepam 0.5 Mg Tab) 0.5 mg PO BID PRN PRN Reason: Anxiety Stop: 06/03/23 22:21 Last Admin: 05/05/23 20:46 Dose: 0.5 mg Meclizine HCl (Meclizine Hcl 25 Mg Tab) 25 mg PO TID PRN PRN Reason: Dizziness Stop: 06/03/23 22:21 Nitroglycerin (Nitroglycerin Sl 0.4 Mg/Tab Tab) 0.4 mg SL Q5M PRN PRN Reason: Chest Pain Stop: 06/03/23 22:21 Ondansetron HCl (Ondansetron Inj 2 Mg/Ml 2 Ml Vial) 2 mg IV Q4H PRN PRN Reason: Nausea Stop: 06/05/23 11:40 Last Admin: 05/06/23 12:05 Dose: 2 mg Pantoprazole Sodium (Pantoprazole 40 Mg Tab) 40 mg PO QDB [facility]; Protocol Stop: 06/04/23 07:29 Last Admin: 05/06/23 08:33 Dose: 40 mg Polyethylene Glycol (Polyethylene (Miralax) 17 Gm Pack) 17 gm PO DAILY PRN PRN Reason: Constipation Stop: 06/03/23 22:21 Potassium Citrate (Potassium Citrate 10 Meq Tab) 10 meq PO [facility] Stop: 06/04/23 08:59 Last Admin: 05/06/23 08:33 Dose: 10 meq Sodium Chloride (Sodium Chloride 0.65% Na Soln 45 Ml ([place])) 1 sprays NA Q4 PRN PRN Reason: Dryness Stop: 06/04/23 01:45 Last Admin: 05/05/23 02:18 Dose: 1 sprays Vitamin D (Cholecalciferol 1,000 Units 25 Mcg Tab) 2,000 units [facility] Stop: 06/04/23 08:59 Last Admin: 05/06/23 08:33 Dose: 2,000 units
[2023-05-07] MEDS: CHOLECALCIFEROL 1,000 UNITS 25 MCG TAB PO SCH (08:37)
[2023-05-07] MEDS: HEPARIN SOD 5,000 UNIT/0.5 ML VIAL SQ SCH ×2 (08:37→21:04)
[2023-05-07] MEDS: CETIRIZINE HCL 10 MG TABLET PO SCH (08:37)
[2023-05-07] MEDS: ATENOLOL 25 MG TABLET PO SCH (08:38)
[2023-05-07] MEDS: LACTOBACILLUS ACIDOPHILUS 1 GM PACK PO SCH (08:38)
[2023-05-07] MEDS: ERTAPENEM SODIUM 500 MG in SODIUM CHLORIDE 0.9% 50 ML IV SCH (08:38)
[2023-05-07] MEDS: FELODIPINE 5 MG TABCR PO SCH (08:38)
[2023-05-07] MEDS: FLUTICASONE PROPIONATE NA SPR 16 GM BTL SCH (08:38)
[2023-05-07] MEDS: PANTOprazole 40 MG TAB PO SCH (08:38)
[2023-05-07] MEDS: POTASSIUM CITRATE 10 MEQ TAB PO SCH (08:38)
--- NOTE | 2023-05-07 09:58 | XRay Report ---
XR chest 1V portable HISTORY: follow up congestive heart failure, hypoxia COMPARISON: Chest 05/04/2023. FINDINGS: Rotated study. No pneumothorax. There is a large hiatus hernia, unchanged. Slight improveme nt in the mild interstitial pulmonary edema. Small bilateral pleural effusions persist. Advanced dege nerative changes again noted within the shoulders. The heart remains mildly enlarged. IMPRESSION: 1. Slight improvement in the mild interstitial pulmonary edema. 2. Cardiomegaly and small bilateral pleural effusions persist. 3. Large hiatus hernia, unchanged. ACT 112: Negative or not required by law. Electronically signed by: Jeremiah Munoz M.D. 05/07/2023 9:56 AM
[2023-05-07] MEDS: ONDANSETRON INJ 2 MG/ML 2 ML VIAL IV PRN (11:56)
[2023-05-07] MEDS ORDERED: LIDOCAINE 5% 1 PATCH TD STA (12:44)
[2023-05-07] MEDS ORDERED: KETOROLAC TROMETHAMINE 15 MG/ML VIAL IV ONE (12:44)
[2023-05-07] MEDS: LORazepam 0.5 MG TAB PO PRN (21:04)
[2023-05-08 06:49] LABS: BUN Creatinine Ratio 26.4 (10-20); Calcium 9.2 mg/dl (8.6-10.3); Est GFR (African American) 38.8 ml/min; Est GFR (Non-African American) 33.5 ml/min; Magnesium 1.9 mg/dl (1.7-2.4); Potassium 4.1 mmol/L (3.5-5.1)
[2023-05-08] MEDS: FELODIPINE 5 MG TABCR PO SCH (07:44)
[2023-05-08] MEDS: CETIRIZINE HCL 10 MG TABLET PO SCH (07:45)
[2023-05-08] MEDS: ATENOLOL 25 MG TABLET PO SCH (07:45)
[2023-05-08] MEDS: POTASSIUM CITRATE 10 MEQ TAB PO SCH (07:45)
--- NOTE | 2023-05-08 07:45 | Hospitalist Progress Note ---
Date of Service May 08, 2023 Assessment & Plan (1) Hypoxia: Plan: 88-year-old female with past medical significant for hyperlipidemia, hypertension, GERD, vitamin D deficiency, acquired solitary kidney secondary to renal calculus, history of nephrolithiasis, history of recurrent UTIs patient states currently every month, congenital renal agenesis and dysgenesis, history of left ureter distal calculus with hydronephrosis and s/p ureteral stent placement, CKD stage III, generalized anxiety disorder, chronic acquired lymphedema, anxiety, osteoarthritis and currently wheelchair-bound since last 1 year as per patient and she can transfer herself from the wheelchair to the bed. Currently residing at [facility] presents with shortness of breath and hypoxia and requiring oxygen Hypoxia Acute CHF Requiring oxygen Pulmonary edema on CTA chest Received IV Lasix 20 mg in the ER and another IV Lasix 20 mg on admission Then on IV Lasix 40 twice daily -> however Cr up and lasix now put on hold, cardiology following closely Monitor on telemetry floor Obtained echo - EF 55-60%. There is mild concentric LVH. Moderate biatrial enlargement. Aortic valve sclerosis moderate, without significant aortic valvular stenosis. There is moderate to severe tricuspid regurgitation. Estimated syst. pulm. pressure is 56 mm Hg. Daily weights and I's and O's We will follow the labs Cardiology consulted - appreciate their input - will start hctz and decrease felodipine Large hiatal hernia Possibly contributing to her symptoms On omeprazole discussed w/ GI and surgery ( and pt is not interested in any surgeries) - recommend to increase PPI to bid UTI History of multidrug-resistant E. coli Received IV cefepime in the ER Placed on Invanz dosed per renal function urine cultx repeated and unrevealing. Finish 5 day Abx course. Hypertension On felodipine and atenolol We will monitor the blood pressure Felodipine decreased as above Recurrent kidney stones On potassium citrate follow-up with urology Acquired solitary kidney Secondary to large renal calculus on the right side RENETTA? on CKD stage III Presented with creatinine 1.3 We will follow labs while patient getting IV diuretics BMP ordered. Cr up after IV lasix, now downtrending DVT prophylaxis heparin subcu Disposition telemetry floor CODE STATUS DNR/DNI as per discussion with the patient. Patient also does not want any big surgeries. Admission and Anticipated Discharge Date Admission Date: May 04, 2023 Subjective Pt seen in follow up of hypoxic resp. failure, 2/2 CHF Currently sitting up in bed, on suppl. O2 on 4-5L She is in NAD Reports some left sided chest pain occasionally, and more so after eating. On and off discomfort after eating. She is alert oriented and answering appropriately Denies any chest pain, denies shortness of breath or palpitations No abd. pain, no fever, chills Discussed w/ cardiology (Gurpreet) - component of pulm. htn - plan to start hctz and decrese felodipine Discussed w/ GI and surgery - unfortunately only treatment for hiatal hernia of that size would be surgery which pt is not interested in/ and likely not a candidate at this age either. recommend to increase ppi to bid. Review of Systems Review of Systems: All systems reviewed & are unremarkable except as noted in Subjective Physical Exam Physical Exam: General- elderly F in NAD, on suppl. O2 Head- atraumatic Eyes- PERRL. ENT- oropharynx clear Neck- supple, no JVD. Lungs- + mild diffuse crackles, no wheezing. Heart- regular rhythm; no murmur, no gallop. Abdomen- normal bowel sounds, soft, nontender, no distension. Extremities- minimal lower extremity edema present, no erythema seen. Neuro- alert, oriented x 3; PERRL, no facial palsy; no dysarthria; answers keenan ropriately, moves extremities. Skin- warm & dry Results & Data Results & Data Vital Signs (Past 12 Hours) Vital Signs Temp Pulse Pulse Resp BP Pulse Ox O2 Del Method 05/08/23 03:00 36.8 C 64 16 116/67 95 Nasal Cannula 05/07/23 22:00 65 05/07/23 23:00 36.9 C 62 16 104/57 L 92 Nasal Cannula 05/07/23 20:30 Nasal Cannula O2 Flow Rate 05/08/23 03:00 5 05/07/23 22:00 05/07/23 23:00 5 05/07/23 20:30 5 Laboratory Results 05/08/23 05/07/23 Range/Units 05:43 12:40 Sodium 142 (136-145) mmol/L Potassium 4.1 (3.5-5.1) mmol/L Chloride 104 (98-107) mmol/L Carbon Dioxide 33 H (21-32) mmol/L Anion Gap 5 (3-11) BUN 37 H (6-23) mg/dl Creatinine 1.40 H (0.6-1.2) mg/dl Est Cr Clr Drug Dosing 22.0 ml/min Est GFR ( Amer) 38.8 ml/min Est GFR (Non-Af Amer) 33.5 ml/min BUN/Creatinine Ratio 26.4 H (10-20) Glucose 102 H (70-99(Fasting)) mg/dl Calcium 9.2 (8.6-10.3) mg/dl Magnesium 1.9 (1.7-2.4) mg/dl Troponin I High Sens 9.4 (0-14) pg/ml Medications Administered Current Inpatient Medications Acetaminophen (Acetaminophen 325 Mg Tab) 650 mg PO Q4H PRN PRN Reason: Pain or Fever Stop: 06/03/23 22:21 Last Admin: 05/07/23 21:04 Dose: 650 mg Atenolol (Atenolol 25 Mg Tablet) [facility] Stop: 06/04/23 08:59 Last Admin: 05/07/23 08:38 Dose: 25 mg Cetirizine HCl (Cetirizine Hcl 10 Mg Tablet) 10 mg PO DAILY [facility] Stop: 06/04/23 08:59 Last Admin: 05/07/23 08:37 Dose: 10 mg Docusate Sodium (Docusate Sodium 100 Mg Cap) 100 mg PO BID PRN PRN Reason: Constipation Stop: 06/03/23 22:26 Felodipine (Felodipine 5 Mg Tabcr) [facility] Stop: 06/04/23 08:59 Last Admin: 05/07/23 08:38 Dose: 10 mg Fluticasone Propionate (Fluticasone Propionate Na Spr 16 Gm Btl) 2 sprays NA QAM [facility] Stop: 06/04/23 08:59 Last Admin: 05/07/23 08:38 Dose: 2 sprays Furosemide (Furosemide 40 Mg/4 Ml Vial) 40 mg IV BID [facility] Stop: 06/04/23 08:59 Last Admin: 05/05/23 20:46 Dose: 40 mg Heparin Sodium (Porcine) (Heparin Sod 5,000 Unit/0.5 Ml Vial) 5,000 units SQ Q12 [facility] Stop: 06/03/23 22:21 Last Admin: 05/07/23 21:04 Dose: 5,000 units Ertapenem 500 mg/ Sodium (Chloride) 55 mls @ 110 mls/hr IV DAILY [facility] Stop: 05/15/23 08:59 Last Infusion: 05/07/23 09:18 Dose: Infused Lactobacillus Acidophilus (Lactobacillus Acidophilus 1 Gm Pack) 1 gm PO QAM [facility] Stop: 06/04/23 08:59 Last Admin: 05/07/23 08:38 Dose: 1 gm Lorazepam (Lorazepam 0.5 Mg Tab) 0.5 mg PO BID PRN PRN Reason: Anxiety Stop: 06/03/23 22:21 Last Admin: 05/07/23 21:04 Dose: 0.5 mg Meclizine HCl (Meclizine Hcl 25 Mg Tab) 25 mg PO TID PRN PRN Reason: Dizziness Stop: 06/03/23 22:21 Miscellaneous (Remove Lidoderm Patch) 1 each N/A DAILY@2100 [facility] Stop: 06/06/23 20:59 Last Admin: 05/07/23 21:05 Dose: 1 each Nitroglycerin (Nitroglycerin Sl 0.4 Mg/Tab Tab) 0.4 mg SL Q5M PRN PRN Reason: Chest Pain Stop: 06/03/23 22:21 Ondansetron HCl (Ondansetron Inj 2 Mg/Ml 2 Ml Vial) 2 mg IV Q4H PRN PRN Reason: Nausea Stop: 06/05/23 11:40 Last Admin: 05/07/23 11:56 Dose: 2 mg Pantoprazole Sodium (Pantoprazole 40 Mg Tab) 40 mg PO QDB [facility]; Protocol Stop: 06/04/23 07:29 Last Admin: 05/07/23 08:38 Dose: 40 mg Polyethylene Glycol (Polyethylene (Miralax) 17 Gm Pack) 17 gm PO DAILY PRN PRN Reason: Constipation Stop: 06/03/23 22:21 Potassium Citrate (Potassium Citrate 10 Meq Tab) 10 meq PO QAM [facility] Stop: 06/04/23 08:59 Last Admin: 05/07/23 08:38 Dose: 10 meq Sodium Chloride (Sodium Chloride 0.65% Na Soln 45 Ml ([place])) 1 sprays NA Q4 PRN PRN Reason: Dryness Stop: 06/04/23 01:45 Last Admin: 05/05/23 02:18 Dose: 1 sprays Vitamin D (Cholecalciferol 1,000 Units 25 Mcg Tab) 2,000 [facility] Stop: 06/04/23 08:59 Last Admin: 05/07/23 08:37 Dose: 2,000 units
[2023-05-08] MEDS: LACTOBACILLUS ACIDOPHILUS 1 GM PACK PO SCH (07:46)
[2023-05-08] MEDS: CHOLECALCIFEROL 1,000 UNITS 25 MCG TAB PO SCH (07:46)
[2023-05-08] MEDS: PANTOprazole 40 MG TAB PO SCH (07:46)
[2023-05-08] MEDS: FLUTICASONE PROPIONATE NA SPR 16 GM BTL SCH (07:47)
[2023-05-08] MEDS: ERTAPENEM SODIUM 500 MG in SODIUM CHLORIDE 0.9% 50 ML IV SCH (08:20)
[2023-05-08] MEDS: HEPARIN SOD 5,000 UNIT/0.5 ML VIAL SQ SCH ×2 (08:20→20:43)
--- NOTE | 2023-05-08 08:40 | Electrocardiogram Report ---
Test Reason : Blood Pressure : / mmHG Vent. Rate : 078 BPM Atrial Rate : 078 BPM P-R Int : 130 ms QRS Dur : 066 ms QT Int : 400 ms P-R-T Axes : 097 018 051 degrees QTc Int : 456 ms Poor data quality, interpretation may be adversely affected Normal sinus rhythm Normal ECG When compared with ECG of 02-AUG-2021 09:59, T wave amplitude has decreased in Anterior leads Confirmed by Sal Ramos ([id number]) on 05/08/2023 8:40:12 AM Referred By: Ron Reddy [place] Confirmed By:Sal Ramos
--- NOTE | 2023-05-08 10:08 | Electrocardiogram Report ---
Test Reason : Blood Pressure : / mmHG Vent. Rate : 070 BPM Atrial Rate : 070 BPM P-R Int : 140 ms QRS Dur : 074 ms QT Int : 408 ms P-R-T Axes : 051 045 061 degrees QTc Int : 440 ms Normal sinus rhythm Normal ECG When compared with ECG of 05-MAY-2023 05:08, No significant change was found Confirmed by Sal Ramos ([id number]) on 05/08/2023 10:07:56 AM Referred By: Ron Reddy [place] Confirmed By:Sal Ramos
--- NOTE | 2023-05-08 10:47 | Cardiology Progress Note ---
Date of Service May 08, 2023 Assessment & Plan (1) Diastolic CHF: (2) Hernia, hiatal: (3) Hypoxia: Plan Multifactorial shortness of breath secondary to the large hiatal hernia and acute heart failure with preserved ejection fraction, pulmonary hypertension. Creatinine trending downward today. Mildly elevated troponin secondary to CHF and hypoxia. No evidence of acute coronary syndrome. Closely follow daily weight, fluid balance, electrolytes, and GFR. Hold diuretic therapy today. Add low dose HCTZ (12.5 mg/day) in AM on 05/09/2023, concurrently reducing felodipine from 10 mg/day to 5 mg/day due to borderline BP's Increase activity as tolerated Admission and Anticipated Discharge Date Admission Date: May 04, 2023 Supervising Physician Co-Signing Physician Notes Patient seen examined the bedside. Diuretics on hold. Creatinine trending downward. Telemetry revealing sinus rhythm in the 70s. PE: VSS. Gen: NAD, AAO x 3. Heart: Regular rhythm, normal S1-S2. 2/6 midsystolic murmur heard at the left sternal border. Lungs: +crackles at bases B/L. R>L. Ext: Mild bilateral nonpitting pedal edema. A/P: Agree with above AP history, physical exam, assessment and plan. Multifactorial shortness of breath secondary to acute heart failure with preserved ejection fraction, pulm hypertension, and large hiatal hernia. Loop diuretic therapy discontinued. Initiate low-dose hydrochlorothiazide with concomitant reduction of felodipine. Closely follow daily weight, fluid balance, electrolytes, and GFR. Subjective Patient seen and examined. Chart, medications, and telemetry reviewed. + Sinus congestion, postnasal drainage, musculoskeletal left lower anterolateral chest wall discomfort. No increased shortness of breath, orthopnea, PND, or peripheral edema Grossman catheter remains in place Serum creatinine trending downward. Diuretics on hold. Anxious to return to [facility]. May 05, 2023 TTE ([facility], Dr. Hawk): EF 55-60%. Mild concentric LVH. Moderate biatrial enlargement. Moderate aortic valve sclerossi without significant aortic valve stenosis. Moderate to severe tricuspid regurgitation. Estimated PASP 56 mmgHg. EKG on 05/07/2023 revealed NSR at 70 bpm. Telemetry: Sinus in the 60's to 80's. I/O's negative 2,733 mL's overall Review of Systems Review of Systems: Comlete Review of Systems is as stated above, negative, or noncontributory. Physical Exam Physical Exam: General: A&Ox3. NAD. HENT: Normocephalic. Atraumatic. Eyes: PER. Conjunctiva pink, sclera clear. Neck: No JVD. No HJR. Heart: RRR. Systolic ejection murmur. No diastolic murmur. Lungs: Absent breath sounds at the bases. No rales. No wheezing. Abdomen: +BS. Soft. Nontender. No masses or organomegaly. Extremities: No clubbing, cyanosis, or edema. Limited neurological examination is without focal deficits. Pulses: Posterior tibial=1/4. Results & Data Vital Signs (Past 12 Hours) Vital Signs Temp Pulse Resp BP Pulse Ox O2 Del Method O2 Flow Rate 05/08/23 09:15 Nasal Cannula 4 05/08/23 08:17 36.7 C 79 16 121/62 93 Nasal Cannula 4 05/08/23 03:00 36.8 C 64 16 116/67 95 Nasal Cannula 5 05/07/23 23:00 36.9 C 62 16 104/57 L 92 Nasal Cannula 5 Laboratory Results Cardiac Enzymes 05/07/23 Range/Units 12:40 Troponin I High Sens 9.4 (0-14) pg/ml Comprehensive Metabolic Panel 05/08/23 Range/Units 05:43 Sodium 142 (136-145) mmol/L Potassium 4.1 (3.5-5.1) mmol/L Chloride 104 (98-107) mmol/L Carbon Dioxide 33 H (21-32) mmol/L BUN 37 H (6-23) mg/dl Creatinine 1.40 H (0.6-1.2) mg/dl Glucose 102 H (70-99(Fasting)) mg/dl Calcium 9.2 (8.6-10.3) mg/dl Intake and Output 05/07/23 05/08/23 05/08/23 22:59 06:59 14:59 Intake Total 240 / 295 55 / 55 Output Total 100 / 827 125 / 827 Balance 140 / -532 -125 / -532 55 / 55 Intake: IV 55 / 55 Ertapenem Sodium 500 mg In 55 / Sodium Chloride 0.9% 50 ml @ 110 mls/hr IV DAILY [facility] Rx#: [id number] Oral 240 / 240 Output: Urine Amount (Catheter) 100 / 825 125 / 825 Grossman/Indwelling 100 / 825 125 / 825 Other: Weight 55 kg Weight Measurement Method Built in [facility]
[2023-05-08] MEDS: ONDANSETRON INJ 2 MG/ML 2 ML VIAL IV PRN (12:53)
[2023-05-08] MEDS ORDERED: KETOROLAC TROMETHAMINE 15 MG/ML VIAL IV ONE (13:03)
[2023-05-08] MEDS ORDERED: guaiFENesin 600 MG TABCR PO SCH (15:40)
[2023-05-08] MEDS: ACETAMINOPHEN 325 MG TAB PO PRN (20:46)
[2023-05-08] MEDS: LORazepam 0.5 MG TAB PO PRN (20:46)
[2023-05-09] MEDS: guaiFENesin 600 MG TABCR PO SCH ×2 (05:31→17:13)
[2023-05-09 06:34] LABS: Hematocrit (blood only) 36.1 % (37.0-47.0); Hemoglobin 11.7 g/dl (12.0-16.0); Mean Corpuscular Hemoglobin 30.5 pg (25.0-34.0); Mean Corpuscular Hgb Conc 32.4 g/dL (32.0-36.0); Mean Corpuscular Volume 94.3 fL (80.0-100.0); Mean Platelet Volume 11.2 fL (9.4-12.4); Platelet Count 171 K/uL (130-400); RDW Coefficient of Variation 13.3 % (11.5-14.5); RDW Standard Deviation 46.2 fL (36.4-46.3); Red Blood Count 3.83 M/uL (4.20-5.40); White Blood Count 6.42 K/ul (4.8-10.8)
[2023-05-09 06:45] LABS: Calcium 9.1 mg/dl (8.6-10.3); Creatinine Clr Calc Pharmacy 23.3 ml/min; Est GFR (African American) 41.6 ml/min; Est GFR (Non-African American) 35.9 ml/min; Magnesium 1.9 mg/dl (1.7-2.4); Phosphorus 2.7 mg/dl (2.5-4.9); Potassium 4.1 mmol/L (3.5-5.1)
[2023-05-09] MEDS: FELODIPINE 5 MG TABCR PO SCH (08:41)
[2023-05-09] MEDS: hydroCHLOROthiazide 25 MG TAB PO SCH (08:41)
[2023-05-09] MEDS: LACTOBACILLUS ACIDOPHILUS 1 GM PACK PO SCH (08:43)
[2023-05-09] MEDS: CHOLECALCIFEROL 1,000 UNITS 25 MCG TAB PO SCH (08:44)
[2023-05-09] MEDS: POTASSIUM CITRATE 10 MEQ TAB PO SCH (08:44)
[2023-05-09] MEDS: PANTOprazole 40 MG TAB PO SCH (08:44)
--- NOTE | 2023-05-09 08:44 | Cardiology Progress Note ---
Date of Service May 09, 2023 Assessment & Plan (1) Diastolic CHF: (2) Hernia, hiatal: (3) Hypoxia: Plan Multifactorial shortness of breath secondary to the large hiatal hernia and acute heart failure with preserved ejection fraction, pulmonary hypertension. Mildly elevated troponin secondary to CHF and hypoxia. No evidence of acute coronary syndrome. - Add low dose HCTZ, 12.5 mg/day - Decrease felodipine to 5 mg/day - Increase activity as tolerated - Please contact with any questions or concerns. Admission and Anticipated Discharge Date Admission Date: May 04, 2023 Supervising Physician Co-Signing Physician Notes Patient seen examined the bedside. Creatinine trending downward. Transition to low-dose hydrochlorothiazide yesterday. Telemetry revealing sinus rhythm in the 70s. Shortness of breath mildly improved. No orthopnea or PND. PE: VSS. Gen: NAD, AAO x 3. Heart: Regular rhythm, normal S1-S2. 2/6 m idsystolic murmur heard at the left sternal border. Lungs: +crackles at bases B/L. R>L. Ext: No edema. A/P: Agree with above AP history, physical exam, assessment and plan. Multifactorial shortness of breath secondary to acute heart failure with preserved ejection fraction, pulm hypertension, and large hiatal hernia. Loop diuretic therapy discontinued. Continue low dose hydrochlorothiazide. Fe lodipine reduced. Closely follow daily weight, fluid balance, electrolytes, and GFR. Cardiology will sign off. Please call with additional questions/concerns. Subjective Patient seen and examined. Chart, medications, and telemetry reviewed. Improved sinus congestion/cough with the addition of guaifenesin. No chest pain, palpitations, increased shortness of breath, orthopnea, PND, or lower extremity peripheral edema Grossman catheter remains in place Serum creatinine mildly improved. Telemetry: Sinus rhythem throughout the last 24 hours with heart rates predominately in the 60's and 70's. I/O's negative 3,133 mL's overall May 05, 2023 TTE ([facility], Dr. Hawk): EF 55-60%. Mild concentric LVH. Moderate biatrial enlargement. Moderate aortic valve sclerossi without significant aortic valve stenosis. Moderate to severe tricuspid regurgitation. Estimated PASP 56 mm Hg. Review of Systems Review of Systems: Comlete Review of Systems is as stated above, negative, or noncontributory. Physical Exam Physical Exam: General: A&Ox3. NAD. HENT: Normocephalic. Atraumatic. Eyes: PER. Conjunctiva pink, sclera clear. Neck: No JVD. Heart: RRR. Systolic ejection murmur. No diastolic murmur. Lungs: Upper anterior expiratory wheeze. Absent breath sounds at the bases. Abdomen: +BS. Soft. Nontender. No masses or organomegaly. Extremities: No clubbing, cyanosis, or edema. Limited neurological examination is without focal deficits. Pulses: Posterior tibial=1/4. Results & Data Vital Signs (Past 12 Hours) Vital Signs Temp Pulse Pulse Resp BP Pulse Ox O2 Del Method 05/09/23 07:58 Nasal Cannula 05/09/23 07:14 36.7 C 70 18 126/70 94 Nasal Cannula 05/09/23 03:24 36.7 C 73 20 116/53 L 91 Nasal Cannula 05/08/23 22:00 75 05/08/23 23:25 36.8 C 69 25 H 118/55 L 92 Nasal Cannula O2 Flow Rate 05/09/23 07:58 2 05/09/23 07:14 2 05/09/23 03:24 4 05/08/23 22:00 05/08/23 23:25 4 Laboratory Results CBC 05/09/23 Range/Units 05:24 WBC 6.42 (4.8-10.8) K/ul RBC 3.83 L (4.20-5.40) M/uL Hgb 11.7 L (12.0-16.0) g/dl Hct 36.1 L (37.0-47.0) % Plt Count 171 (130-400) K/uL Comprehensive Metabolic Panel 05/09/23 Range/Units 05:24 Sodium 139 (136-145) mmol/L Potassium 4.1 (3.5-5.1) mmol/L Chloride 100 (98-107) mmol/L Carbon Dioxide 33 H (21-32) mmol/L BUN 33 H (6-23) mg/dl Creatinine 1.32 H (0.6-1.2) mg/dl Glucose 99 (70-99(Fasting)) mg/dl Calcium 9.1 (8.6-10.3) mg/dl Intake and Output 05/08/23 05/09/2323 22:59 06:59 14:59 Intake Total 200 / 255 Output Total 100 / 600 500 / 600 Balance 100 / -345 -500 / -345 Intake: Oral 200 / 200 Output: Urine Amount (Catheter) 100 / 600 500 / 600 Grossman/Indwelling 100 / 600 500 / 600 Other: Weight 56.1 kg Weight Measurement Method Built in [facility]
[2023-05-09] MEDS: ATENOLOL 25 MG TABLET PO SCH (08:45)
[2023-05-09] MEDS: CETIRIZINE HCL 10 MG TABLET PO SCH (08:45)
[2023-05-09] MEDS: HEPARIN SOD 5,000 UNIT/0.5 ML VIAL SQ SCH ×2 (08:46→20:50)
[2023-05-09] MEDS: FLUTICASONE PROPIONATE NA SPR 16 GM BTL SCH (08:46)
[2023-05-09] MEDS: ERTAPENEM SODIUM 500 MG in SODIUM CHLORIDE 0.9% 50 ML IV SCH (08:50)
[2023-05-09] MEDS: ONDANSETRON INJ 2 MG/ML 2 ML VIAL IV PRN ×2 (15:03→18:59)
[2023-05-09] MEDS: LORazepam 0.5 MG TAB PO PRN (20:49)
[2023-05-09] MEDS: ACETAMINOPHEN 325 MG TAB PO PRN (20:50)
[2023-05-10] MEDS: PANTOprazole 40 MG TAB PO SCH (06:02)
[2023-05-10] MEDS: guaiFENesin 600 MG TABCR PO SCH (06:02)
--- NOTE | 2023-05-10 06:33 | Hospitalist Progress Note ---
Date of Service May 09, 2023 Assessment & Plan (1) Hypoxia: Plan: 88-year-old female with past medical significant for hyperlipidemia, hypertension, GERD, vitamin D deficiency, acquired solitary kidney secondary to renal calculus, history of nephrolithiasis, history of recurrent UTIs patient states currently every month, congenital renal agenesis and dysgenesis, history of left ureter distal calculus with hydronephrosis and s/p ureteral stent placement, CKD stage III, generalized anxiety disorder, chronic acquired lymphedema, anxiety, osteoarthritis and currently wheelchair-bound since last 1 year as per patient and she can transfer herself from the wheelchair to the bed. Currently residing at [facility] presents with shortness of breath and hypoxia and requiring oxygen Hypoxia Acute CHF Requiring oxygen Pulmonary edema on CTA chest Received IV Lasix 20 mg in the ER and another IV Lasix 20 mg on admission Then on IV Lasix 40 twice daily -> however Cr up and lasix now put on hold, cardiology following closely Monitor on telemetry floor Obtained echo - EF 55-60%. There is mild concentric LVH. Moderate biatrial enlargement. Aortic valve sclerosis moderate, without significant aortic valvular stenosis. There is moderate to severe tricuspid regurgitation. Estimated syst. pulm. pressure is 56 mm Hg. Daily weights and I's and O's We will follow the labs Cardiology consulted - appreciate their input - started hctz and decreased felodipine Large hiatal hernia Possibly contributing to her symptoms On omeprazole discussed w/ GI and surgery ( and pt is not interested in any surgeries) - r ecommend to increase PPI to bid UTI History of multidrug-resistant E. coli Received IV cefepime in the ER Placed on Invanz dosed per renal function urine cultx repeated and unrevealing. Finish 5 day Abx course. Hypertension On felodipine and atenolol We will monitor the blood pressure Felodipine decreased as above Recurrent kidney stones On potassium citrate follow-up with urology Acquired solitary kidney Secondary to large renal calculus on the right side RENETTA? on CKD stage III Presented with creatinine 1.3 We will follow labs while patient getting IV diuretics BMP ordered. Cr up after IV lasix, now downtrending DVT prophylaxis heparin subcu Disposition telemetry floor. Needs PT/OT prior to DC. CODE STATUS DNR/DNI as per discussion with the patient. Patient also does not want any big surgeries. Admission and Anticipated Discharge Date Admission Date: May 04, 2023 Subjective Pt seen in follow up of hypoxic resp. failure, 2/2 CHF Currently sitting up in bed, on suppl. O2 on 4L She is in NAD Reports some left sided chest pain occasionally, and more so after eating. On and off discomfort after eating. Currently reporting nausea (after eating). She is alert oriented and answering appropriately Denies any chest pain, denies shortness of breath or palpitations No abd. pain, no fever, chills Previously discussed w/ cardiology - component of pulm. htn - started hctz and decresed felodipine Previously discussed w/ GI and surgery - reviewed previous images of her hiatal hernia - feel that usually this would not contribute to hypoxia and her images do not seem to be changed much from previous. Unfortunately only treatment for hiatal hernia of that size would be surgery which pt is not interested in/ and likely not a candidate at this age either. recommend to increase ppi to bid. Pt needs PT/OT prior to DC. PT/OT ordered. Review of Systems Review of Systems: All systems reviewed & are unremarkable except as noted in Subjective Physical Exam Physical Exam: General- elderly F in NAD, on suppl. O2 Head- atraumatic Eyes- PERRL. ENT- oropharynx clear Neck- supple, no JVD. Lungs- + mild diffuse crackles, no wheezing. Heart- regular rhythm; no murmur, no gallop. Abdomen- normal bowel sounds, soft, nontender, no distension. Extremities- minimal lower extremity edema present, no erythema seen. Neuro- alert, oriented x 3; PERRL, no facial palsy; no dysarthria; answers appropriately, moves extremities. Skin- warm & dry Results & Data Results & Data Vital Signs (Past 12 Hours) Vital Signs Temp Pulse Pulse Resp BP Pulse Ox O2 Del Method 05/09/23 23:02 80 05/09/23 21:33 Nasal Cannula 05/09/23 19:09 37.1 C 91 H 26 H 139/69 91 Nasal Cannula O2 Flow Rate 05/10/23 03:00 05/09/23 23:00 05/09/23 23:02 05/09/23 21:33 4 05/09/23 19:09 2
[2023-05-10] MEDS: CHOLECALCIFEROL 1,000 UNITS 25 MCG TAB PO SCH (08:26)
[2023-05-10] MEDS: hydroCHLOROthiazide 25 MG TAB PO SCH (08:26)
[2023-05-10] MEDS: CETIRIZINE HCL 10 MG TABLET PO SCH (08:27)
[2023-05-10] MEDS: ATENOLOL 25 MG TABLET PO SCH (08:27)
[2023-05-10] MEDS: POTASSIUM CITRATE 10 MEQ TAB PO SCH (08:27)
[2023-05-10] MEDS: FELODIPINE 5 MG TABCR PO SCH (08:27)
[2023-05-10] MEDS: LACTOBACILLUS ACIDOPHILUS 1 GM PACK PO SCH (08:27)
[2023-05-10] MEDS: HEPARIN SOD 5,000 UNIT/0.5 ML VIAL SQ SCH (08:27)
[2023-05-10] MEDS: FLUTICASONE PROPIONATE NA SPR 16 GM BTL SCH (08:27)
[2023-05-10 08:54] LABS: BUN Creatinine Ratio 23.5 (10-20); Calcium 9.4 mg/dl (8.6-10.3); Creatinine Clr Calc Pharmacy 25.8 ml/min; Est GFR (African American) 47.2 ml/min; Est GFR (Non-African American) 40.7 ml/min; Magnesium 1.9 mg/dl (1.7-2.4); Potassium 4.2 mmol/L (3.5-5.1)
[2023-05-10] MEDS ORDERED: PANTOprazole 40 MG TAB PO SCH (09:00)
[2023-05-10] MEDS ORDERED: CALCIUM CARBONATE 500 MG CHEWABLE TAB PO STA (11:16)
--- NOTE | 2023-05-10 13:07 | Hospitalist Progress Note ---
Date of Service May 10, 2023 delayed entry date of service noted above Assessment & Plan (1) Hypoxia: Plan: per Dr. Yeung's notes with addendum: 88-year-old female with past medical significant for hyperlipidemia, hypertension, GERD, vitamin D deficiency, acquired solitary kidney secondary to renal calculus, history of nephrolithiasis, history of recurrent UTIs patient states currently every month, congenital renal agenesis and dysgenesis, history of left ureter distal calculus with hydronephrosis and s/p ureteral stent placement, CKD stage III, generalized anxiety disorder, chronic acquired lymphedema, anxiety, osteoarthritis and currently wheelchair-bound since last 1 year as per patient and she can transfer herself from the wheelchair to the bed. Currently residing at [facility] presents with shortness of breath and hypoxia and requiring oxygen Hypoxia Acute CHF Pulmonary edema on CTA chest Obtained echo - EF 55-60%. There is mild concentric LVH. Moderate biatrial enlargement. Aortic valve sclerosis moderate, without significant aortic valvular stenosis. There is moderate to severe tricuspid regurgitation. Estimated syst. pulm. pressure is 56 mm Hg. given IV Lasix Cardiology consulted, added HCTZ 12.5mg po daily, Felodipine decreased to 5mg po daily needs oxygen supplement Large hiatal hernia Possibly contributing to her symptoms On omeprazole discussed w/ GI and surgery ( and pt is not interested in any surgeries) - recommend to increase PPI to bid UTI History of multidrug-resistant E. coli Received IV cefepime in the ER Placed on Invanz dosed per renal function urine cultx repeated and unrevealing. Finish 5 day Abx course. Hypertension On felodipine and atenolol Felodipine decreased as above Recurrent kidney stones On potassium citrate follow-up with urology Acquired solitary kidney Secondary to large renal calculus on the right side RENETTA? on CKD stage III resolved DVT prophylaxis heparin subcu Disposition telemetry floor. ff up with PCP in 1 week CODE STATUS DNR/DNI as per discussion with the patient. Patient also does not want any big surgeries. (2) CHF (congestive heart failure): Admission and Anticipated Discharge Date Admission Date: May 04, 2023 Subjective ff up for chf, etc seen resting in bed, comfortable in good spirits no chest pain, dyspnea, palpitations, dizziness no other symptoms states she is ready for discharge today Review of Systems Review of Systems: all noted and negative except for above Physical Exam Physical Exam: General- oriented x 3, not in distress, speaks in sentences with no effort or accessory muscle use Eyes- anicteric Neck- no JVD Lungs- clear breath sounds bilaterally, no rales/wheezes Heart- normal rate, regular rhythm; no murmurs Abdomen- normal bowel sounds, nondistended, soft, nontender Extremities- no pretibial edema, no calf tenderness Neuro- alert, oriented x 3; no gross focal neurologic deficits Skin- warm & dry Results & Data Results & Data Vital Signs (Past 12 Hours) Vital Signs Temp Pulse Pulse Resp BP Pulse Ox Pulse Ox 05/10/23 12:31 68 90 05/10/23 12:27 72 20 87 L 05/10/23 12:24 78 20 78 L 05/10/23 12:17 36.8 C 63 17 115/56 L 91 05/10/23 11:40 85 L 05/10/23 08:00 05/10/23 08:12 36.6 C 66 20 130/64 93 05/10/23 06:42 66 05/10/23 03:00 36.8 C 65 18 106/67 97 O2 Del Method O2 Flow Rate O2 Flow Rate 05/10/23 12:31 Nasal Cannula 4 05/10/23 12:27 Nasal Cannula 3 05/10/23 12:24 Room Air 05/10/23 12:17 Nasal Cannula 4.0 05/10/23 11:40 4 05/10/23 08:00 Nasal Cannula 4 05/10/23 08:12 Nasal Cannula 4.0 05/10/23 06:42 05/10/23 03:00 Nasal Cannula all noted and reviewed including below
[2023-05-10] MEDS: ACETAMINOPHEN 325 MG TAB PO PRN (13:17)
--- NOTE | 2023-05-19 14:29 | Discharge Summary ---
Discharge Summary Date of Service May 19, 2023 delayed entry date of service 05/10/23 Notes For Next Care Provider Medication Changes From Visit added HCTZ 12.5mg po daily Felodipine decreased to 5mg po daily Protonix 40mg po BID CaCarbonate PRN Admission HPI Per Admitting Provider 88-year-old female with past medical significant for hyperlipidemia, hypertension, GERD, vitamin D deficiency, acquired solitary kidney secondary to renal calculus, history of nephrolithiasis, history of recurrent UTIs patient states currently every month, congenital renal agenesis and dysgenesis, history of left ureter distal calculus with hydronephrosis and s/p ureteral stent placement, generalized anxiety disorder, chronic acquired lymphedema, anxiety, osteoarthritis and currently wheelchair-bound since last 1 year as per patient and she can transfer herself from the wheelchair to the bed. Currently residing at [facility]. Says 2 of her sons lives in the area . On regular diet. Says she has hiatal hernia since last 30 years. Since last couple of weeks she is getting short of breath after eating but it will subside but today since lunch at noon time she is feeling short of breath which was not getting better. Seems she was saturating only 60[facility] at the [facility] and was sent to the hospital. Currently she is seems comfortable and saturating okay on 6 L. Denies any chest pain. No cough. No fevers. Has sinuses draining. Appetite is down since this symptoms started. No headaches or blurred visions. No dysphagia. Currently no nausea or abdominal pain. Once in a while she gets constipated. Denies any blood in the stools or black stools. She states micturating a lot. Has swelling in the legs but she states no significant change in the swelling recently. Past medical history as mentioned above Past surgical history colonoscopy, MD cholecystectomy, appendectomy. Social history currently residing at [facility]. No alcohol use. Alcohol occasional. No drug use Family history Brother had gout mother had CHF and hypertension Admission Exam Per Admitting Provider General- Not in distress Head- atraumatic Eyes- PERRL. ENT- oropharynx clear Neck- supple, no JVD. Lungs- clear to auscultation mild bibasilar crackles, no wheezing. Heart- regular rhythm; no murmur, no gallop. Abdomen- normal bowel sounds, soft, nontender, no distension. Extremities- lower extremity edema present, no erythema seen. Neuro- alert, oriented x 3; PERRLno facial palsy; no dysarthria; moves extremities. Skin- warm & dry Principal Dx & Hospital Course #1 = Principal Diagnosis (1) Hypoxia: per Dr. Yeung's notes with addendum: 88-year-old female with past medical significant for hyperlipidemia, hypertension, GERD, vitamin D deficiency, acquired solitary kidney secondary to renal calculus, history of nephrolithiasis, history of recurrent UTIs patient states currently every month, congenital renal agenesis and dysgenesis, history of left ureter distal calculus with hydronephrosis and s/p ureteral stent placement, CKD stage III, generalized anxiety disorder, chronic acquired lymphedema, anxiety, osteoarthritis and currently wheelchair-bound since last 1 year as per patient and she can transfer herself from the wheelchair to the bed. Currently residing at [facility] presents with shortness of breath and hypoxia and requiring oxygen Hypoxia Acute CHF Pulmonary edema on CTA chest Obtained echo - EF 55-60%. There is mild concentric LVH. Moderate biatrial enlargement. Aortic valve sclerosis moderate, without significant aortic kartik vular stenosis. There is moderate to severe tricuspid regurgitation. Estimated syst. pulm. pressure is 56 mm Hg. given IV Lasix Cardiology consulted, added HCTZ 12.5mg po daily, Felodipine decreased to 5mg po daily needs oxygen supplement Large hiatal hernia Possibly contributing to her symptoms On omeprazole discussed w/ GI and surgery ( and pt is not interested in any surgeries) - recommend to increase PPI to bid UTI History of multidrug-resistant E. coli Received IV cefepime in the ER Placed on Invanz dosed per renal function urine cultx repeated and unrevealing. Finish 5 day Abx course. Hypertension On felodipine and atenolol Felodipine decreased as above Recurrent kidney stones On potassium citrate follow-up with urology Acquired solitary kidney Secondary to large renal calculus on the right side RENETTA? on CKD stage III resolved DVT prophylaxis heparin subcu Disposition telemetry floor. ff up with PCP in 1 week CODE STATUS DNR/DNI as per discussion with the patient. Patient also does not want any big surgeries. (2) CHF (congestive heart failure): Discharge Exam General- oriented x 3, not in distress, speaks in sentences with no effort or accessory muscle use Eyes- anicteric Neck- no JVD Lungs- clear breath sounds bilaterally, no rales/wheezes Heart- normal rate, regular rhythm; no murmurs Abdomen- normal bowel sounds, nondistended, soft, nontender Extremities- no pretibial edema, no calf tenderness Neuro- alert, oriented x 3; no gross focal neurologic deficits Skin- warm & dry Updated Medication List Medication Instructions Recorded Confirmed Type atenolol 25 mg tablet (Tenormin) 25 mg PO QAM 11/19/18 05/04/23 History potassium citrate 10 mEq (1,080 10 meq PO QAM 11/19/18 05/04/23 History mg) tablet,extended release (Urocit-K 10) fluticasone propionate 50 2 spray intranasal HS 03/01/19 05/04/23 History mcg/actuation nasal spray,suspension (Flonase Allergy Relief) cholecalciferol (vitamin D3) 50 2,000 unit PO QAM 07/12/21 05/04/23 History mcg (2,000 unit) capsule (Vitamin D3) docusate sodium 100 mg tablet 100 mg PO BID PRN Constipation 07/12/21 05/04/23 History loperamide 2 mg capsule 2 mg PO QID PRN Diarrhea 07/12/21 05/04/23 History lorazepam 0.5 mg tablet 0.5 mg PO BID PRN Anxiety 07/12/21 05/04/23 History Lactobacillus acidophilus, 1 g PO QAM 12/26/21 05/04/23 History bulgaricus 100 million cell granules packet (Floranex) acetaminophen 300 mg-codeine 30 mg 1 tab PO Q4H PRN Severe Pain 05/04/23 05/04/23 History tablet (Scale Score 7-10) acetaminophen 325 mg tablet 650 mg PO Q4 PRN Fever Or Pain 05/04/23 05/04/23 History cetirizine 10 mg tablet 10 mg PO DAILY 05/04/23 05/04/23 History conjugated estrogens 0.625 mg/gram 0.625 mg vaginal UD 05/04/23 05/04/23 History vaginal cream (Premarin) ibuprofen 200 mg tablet 200 mg PO Q8 PRN Mild Pain (Scale 05/04/23 05/04/23 History Score 1-4) meclizine 25 mg tablet 25 mg PO TID PRN Dizziness 05/04/23 05/04/23 History ondansetron 4 mg disintegrating 4 mg PO Q6 PRN nausea and vomiting 05/04/23 05/04/23 History tablet phenazopyridine 200 mg tablet 200 mg PO Q6 PRN urinary pain 05/04/23 05/04/23 History (Pyridium) polyethylene glycol 3350 17 17 g PO DAILY PRN Constipation 05/04/23 05/04/23 History gram/dose oral powder (Miralax) Oxygen Home #4 ea 05/10/23 Rx calcium carbonate 200 mg calcium 200 mg PO BID PRN dyspepsia #30 05/10/23 Rx (500 mg) chewable tablet (Tums) tabs felodipine 5 mg tablet,extended 5 mg PO QAM 30 days #30 tabs 05/10/23 Rx release 24 hr hydrochlorothiazide 25 mg tablet 12.5 mg PO QAM 30 days #15 tabs 05/10/23 Rx pantoprazole 40 mg tablet,delayed 40 mg PO BID 30 days #60 tabs 05/10/23 Rx release Hospital Stay Data Consultations 05/04/23 19:30 ED Decision to Admit Stat 05/05/23 08:00 Consult Cardiology Routine Diagnostic Imagining Performed Laboratory Results WBC 6.42 K/ul (4.8-10.8) 05/09/23 05:24 RBC 3.83 M/uL (4.20-5.40) L 05/09/23 05:24 Hgb 11.7 g/dl (12.0-16.0) L 05/09/23 05:24 POC Hgb 13.6 g/dl (12.0-16.0) 05/04/23 17:43 Hct 36.1 % (37.0-47.0) L 05/09/23 05:24 POC Hct 40 % (37-47) 05/04/23 17:43 MCV 94.3 fL (80.0-100.0) 05/09/23 05:24 MCH 30.5 pg (25.0-34.0) 05/09/23 05:24 MCHC 32.4 g/dL (32.0-36.0) 05/09/23 05:24 RDW Std Deviation 46.2 fL (36.4-46.3) 05/09/23 05:24 RDW Coeff of Adrienne 13.3 % (11.5-14.5) 05/09/23 05:24 Plt Count 171 K/uL (130-400) 05/09/23 05:24 MPV 11.2 fL (9.4-12.4) 05/09/23 05:24 Immature Gran % (Auto) 0.2 % 05/05/23 05:47 Neut % (Auto) 65.2 % 05/05/23 05:47 Lymph % (Auto) 16.4 % 05/05/23 05:47 Borden % (Auto) 12.6 % 05/05/23 05:47 Eos % (Auto) 4.3 % 05/05/23 05:47 Baso % (Auto) 1.3 % 05/05/23 05:47 Neut # (Auto) 3.06 K/uL (1.40-6.50) 05/05/23 05:47 Lymph # (Auto) 0.77 K/uL (1.2-3.4) L 05/05/23 05:47 Borden # (Auto) 0.59 K/uL (0.11-0.59) 05/05/23 05:47 Eos # (Auto) 0.20 K/uL (0-0.50) 05/05/23 05:47 Baso # (Auto) 0.06 K/uL (0-0.2) 05/05/23 05:47 Immature Gran # (Auto) 0.01 K/uL (0.01-0.20) 05/05/23 05:47 PT 12.1 Seconds (9.0-12.0) H 05/04/23 17:35 INR 1.1 (0.9-1.1) 05/04/23 17:35 APTT 29.6 Seconds (21.0-31.0) 05/04/23 17:35 PTT Ratio 1.0 05/04/23 17:35 POC Sodium 141 mmol/L (135-144) 05/04/23 17:43 Sodium 141 mmol/L (136-145) 05/10/23 08:11 POC Potassium 4.3 mmol/L (3.3-5.0) 05/04/23 17:43 Potassium 4.2 mmol/L (3.5-5.1) 05/10/23 08:11 POC Chloride 105 mmol/L (101-112) 05/04/23 17:43 Chloride 102 mmol/L (98-107) 05/10/23 08:11 Carbon Dioxide 34 mmol/L (21-32) H 05/10/23 08:11 POC Total CO2 24 mmol/L (24-31) 05/04/23 17:43 Anion Gap 5 (3-11) 05/10/23 08:11 POC Anion Gap 18.0 mmol/L (16-25) 05/04/23 17:43 POC BUN 32 mg/dl (7-18) H 05/04/23 17:43 BUN 28 mg/dl (6-23) H 05/10/23 08:11 Creatinine 1.19 mg/dl (0.6-1.2) 05/10/23 08:11 POC Creatinine 1.4 mg/dl (0.6-1.3) H 05/04/23 17:43 Est Cr Clr Drug Dosing 25.8 ml/min 05/10/23 08:11 Est GFR ( Amer) 47.2 ml/min 05/10/23 08:11 Est GFR (Non-Af Amer) 40.7 ml/min 05/10/23 08:11 BUN/Creatinine Ratio 23.5 (10-20) H 05/10/23 08:11 Glucose 139 mg/dl (70-99(Fasting)) H 05/10/23 08:11 POC Glucose (other) 140 mg/dl (70-99) H 05/04/23 17:43 Calcium 9.4 mg/dl (8.6-10.3) 05/10/23 08:11 POC Ioniz Calcium Don 1.23 mmol/l (1.12-1.32) 05/04/23 17:43 Phosphorus 2.7 mg/dl (2.5-4.9) 05/09/23 05:24 Magnesium 1.9 mg/dl (1.7-2.4) 05/10/23 08:11 Total Bilirubin 0.4 mg/dl (0.2-1.0) 05/04/23 17:35 AST 13 U/L (13-39) 05/04/23 17:35 ALT 5 U/L (7-52) L 05/04/23 17:35 Alkaline Phosphatase 97 U/L (34-104) 05/04/23 17:35 Troponin I High Sens 9.4 pg/ml (0-14) 05/07/23 12:40 Total Protein 7.6 gm/dl (6.0-8.3) 05/04/23 17:35 Albumin 3.9 gm/dl (3.4-5.0) 05/04/23 17:35 Globulin 3.7 gm/dl (2.5-4.0) 05/04/23 17:35 Albumin/Globulin Ratio 1.1 (0.9-2) 05/04/23 17:35 Lipase 49 U/L (11-82) 05/04/23 17:35 Urine Color Yellow 05/05/23 17:30 Urine Appearance Turbid (Clear) A 05/05/23 17:30 Urine pH 5.0 (4.5-7.5) 05/05/23 17:30 Ur Specific [place] 1.021 (1.000-1.030) 05/05/23 17:30 Urine Protein Negative (Negative) 05/05/23 17:30 Urine Glucose (UA) Negative (Negative) 05/05/23 17:30 Urine Ketones Negative (Negative) 05/05/23 17:30 Urine Blood 1+ (Negative) H 05/05/23 17:30 Urine Nitrite Negative (Negative) 05/05/23 17:30 Urine Bilirubin Negative (Negative) 05/05/23 17:30 Urine Urobilinogen Negative (Negative) 05/05/23 17:30 Ur Leukocyte Esterase 3+ (Negative) H 05/05/23 17:30 Urine WBC (Auto) >30 /hpf (0-5) H 05/05/23 17:30 Urine RBC (Auto) 0-4 /hpf (0-4) 05/05/23 17:30 U Hyaline Cast (Auto) 1-5 /lpf (0-5) 05/05/23 17:30 U Epithel Cells (Auto) >30 /lpf (0-5) H 05/05/23 17:30 Urine Bacteria (Auto) Negative (Negative) 05/05/23 17:30 Urine Yeast Not Reportable 05/04/23 Unknown Nasal Screen MRSA (PCR) Negative (Negative) 05/04/23 23:45 Adenovirus (PCR) Not Detected (NotDetected) 05/04/23 17:14 B. pertussis DNA (PCR) Not Detected (NotDetected) 05/04/23 17:14 B.parapertussis DNA PCR Not Detected (NotDetected) 05/04/23 17:14 C. pneumoniae DNA (PCR) Not Detected (NotDetected) 05/04/23 17:14 Coronavirus OC43 (PCR) Not Detected (NotDetected) 05/04/23 17:14 Coronavirus HKU1 (PCR) Not Detected (NotDetected) 05/04/23 17:14 Coronavirus 229E (PCR) Not Detected (NotDetected) 05/04/23 17:14 SARS-CoV-2 (PCR) Not Detected (NotDetected) 05/04/23 17:14 Coronavirus NL63 (PCR) Not Detected (NotDetected) 05/04/23 17:14 Human Metapneumovir PCR Not Detected (NotDetected) 05/04/23 17:14 Influenza Type A (PCR) Not Detected (NotDetected) 05/04/23 17:14 Influenza Type B (PCR) Not Detected (NotDetected) 05/04/23 17:14 M. pneumoniae (PCR) Not Detected (NotDetected) 05/04/23 17:14 Parainfluenza 1 (PCR) Not Detected (NotDetected) 05/04/23 17:14 Parainfluenza 2 (PCR) Not Detected (NotDetected) 05/04/23 17:14 Parainfluenza 3 (PCR) Not Detected (NotDetected) 05/04/23 17:14 Parainfluenza 4 (PCR) Not Detected (NotDetected) 05/04/23 17:14 RSV (PCR) Not Detected (NotDetected) 05/04/23 17:14 Entero/Rhino (PCR) Not Detected (NotDetected) 05/04/23 17:14 Impressions Chest CTA 05/04/23 17:03 CT angio chest PE protocol, CT abd pelvis IV con only CT DOSE: 1010.30 mGy.cm HISTORY: 88 years-old Female with Dyspnea, hypoxia. Acute shortness of breath with chest and abdominal pain TECHNIQUE: Multiple CTA images of the chest were obtained after the intravenous administration of [address] Abdomen and pelvis with IV contrast also obtained. Coronal and sagittal MIPS were obtained from the axial data set and were submitted for review. All measurements were obtained according to NASCET criteria. A dose lowering technique was utilized adhering to the principles of ALARA. COMPARISON: CT abdomen and pelvis 08/01/2021, 06/14/2020 FINDINGS: CTA: Moderate cardiomegaly. No pericardial effusion. Moderate degree calcifications. Atherosclerosis of the aorta without aneurysm. No pulmonary emboli identified. CT CHEST: No thyroid nodule identified. Nonspecific mediastinal and hilar lymphadenopathy. Paratracheal lymph nodes measure up to 10 mm. Subcarinal lymph nodes measure up to 2.9 x 1.4 cm. Small layering pleural effusions. No pneumothorax. Intralobular septal groundglass opacities and mild bibasilar consolidation. Unremarkable soft tissues. Degenerative changes of the shoulders and spine. No definite acute fracture identified. There is a large hiatal hernia which contains the majority of the stomach as well as mesenteric fat with loops of large bowel. CT ABDOMEN/PELVIS: No free air. Unremarkable spleen, mildly contracted gallbladder. Unchanged focal prominence of the pancreatic artery/tail on image 90 measuring 1.5 cm Unchanged appearance of the liver. Mild cortical thinning of the left kidney again noted with renal sinus cyst. Large calculus of the right renal pelvis again noted measuring 3.9 x 3.0 x 3.0 cm. Severe atrophy with cortical thinning of the right kidney and unchanged hydronephrosis again noted. Prominence of the perirenal fat. There is bladder wall thickening with evacuation. Pelvic floor relaxation. Severe atherosclerosis of the aorta and branch vessels. Pericolonic lymph nodes are nonspecific measuring up to 10 mm. Trace free fluid within the pelvis. Enhancing anal rectal structure. Mild twisting of the sigmoid mesial colon without upstream obstruction. Postoperative changes of the right hemicolon. Unremarkable soft tissues. No acute fracture identified. IMPRESSION: 1. No pulmonary emboli identified. 2. Cardiomegaly with pulmonary edema, small pleural effusions and mild bibasilar atelectasis. 3. Large hiatal hernia containing stomach and colon. 4. Large calculus of the right renal pelvis with marked right renal atrophy again noted. 5. Trace ascites. 6. Additional findings as above. ACT 112: Negative or not required by law. The above report was generated using voice recognition software. It may contain grammatical, syntax or spelling errors. Electronically signed by: Umang Chapman M.D. 05/04/2023 6:46 PM Abdomen/Pelvis CT 05/04/23 17:33 CT angio chest PE protocol, CT abd pelvis IV con only CT DOSE: 1010.30 mGy.cm HISTORY: 88 years-old Female with Dyspnea, hypoxia. Acute shortness of breath with chest and abdominal pain TECHNIQUE: Multiple CTA images of the chest were obtained after the intravenous administration of [address] Abdomen and pelvis with IV contrast also obtained. Coronal and sagittal MIPS were obtained from the axial data set and were submitted for review. All measurements were obtained according to NASCET criteria. A dose lowering technique was utilized adhering to the principles of ALARA. COMPARISON: CT abdomen and pelvis 08/01/2021, 06/14/2020 FINDINGS: CTA: Moderate cardiomegaly. No pericardial effusion. Moderate degree calcifications. Atherosclerosis of the aorta without aneurysm. No pulmonary emboli identified. CT CHEST: No thyroid nodule identified. Nonspecific mediastinal and hilar lymphadenopathy. Paratracheal lymph nodes measure up to 10 mm. Subcarinal lymph nodes measure up to 2.9 x 1.4 cm. Small layering pleural effusions. No pneumothorax. Intralobular septal groundglass opacities and mild bibasilar consolidation. Unremarkable soft tissues. Degenerative changes of the shoulders and spine. No definite acute fracture identified. There is a large hiatal hernia which contains the majority of the stomach as well as mesenteric fat with loops of large bowel. CT ABDOMEN/PELVIS: No free air. Unremarkable spleen, mildly contracted gallbladder. Unchanged focal prominence of the pancreatic artery/tail on image 90 measuring 1.5 cm Unchanged appearance of the liver. Mild cortical thinning of the left kidney again noted with renal sinus cyst. Large calculus of the right renal pelvis again noted measuring 3.9 x 3.0 x 3.0 cm. Severe atrophy with cortical thinning of the right kidney and unchanged hydronephrosis again noted. Prominence of the perirenal fat. There is bladder wall thickening with evacuation. Pelvic floor relaxation. Severe atherosclerosis of the aorta and branch vessels. Pericolonic lymph nodes are nonspecific measuring up to 10 mm. Trace free fluid within the pelvis. Enhancing anal rectal structure. Mild twisting of the sigmoid mesial colon without upstream obstruction. Postoperative changes of the right hemicolon. Unremarkable soft tissues. No acute fracture identified. IMPRESSION: 1. No pulmonary emboli identified. 2. Cardiomegaly with pulmonary edema, small pleural effusions and mild bibasilar atelectasis. 3. Large hiatal hernia containing stomach and colon. 4. Large calculus of the right renal pelvis with marked right renal atrophy again noted. 5. Trace ascites. 6. Additional findings as above. ACT 112: Negative or not required by law. The above report was generated using voice recognition software. It may contain grammatical, syntax or spelling errors. Electronically signed by: Umang Chapman M.D. 05/04/2023 6:46 PM Chest X-Ray 05/07/23 08:24 XR chest 1V portable HISTORY: follow up congestive heart failure, hypoxia COMPARISON: Chest 05/04/2023. FINDINGS: Rotated study. No pneumothorax. There is a large hiatus hernia, unchanged. Slight improvement in the mild interstitial pulmonary edema. Small bilateral pleural effusions persist. Advanced degenerative changes again noted within the shoulders. The heart remains mildly enlarged. IMPRESSION: 1. Slight improvement in the mild interstitial pulmonary edema. 2. Cardiomegaly and small bilateral pleural effusions persist. 3. Large hiatus hernia, unchanged. ACT 112: Negative or not required by law. Electronically signed by: Jeremiah Munoz M.D. 05/07/2023 9:56 AM 05/04/23 17:03 CT angio chest PE protocol Stat 05/04/23 17:33 CT abd pelvis IV con only Stat Pending Results Patient Have Any Pending Studies at Discharge: Yes Discharge Instructions Given to Patient (Per Discharging Provider) PLEASE REFER TO DISCHARGE SUMMARY FOR FULL DETAILS Total Time Total Time Spent Total Time Spent (In Minutes): >30 minutes
== END 2023-05-10 18:30 | disposition home or self-care (01) | DRG 291 ==
LOC: ED 16:52 → 2E 20:10 → SUATTDRO 20:10 → 2E 21:55